=== PATIENT | male | born 1945 | race Caucasian/White ===

== ENCOUNTER → 2016-11-30 | Outpatient (CLI) | payer MEDICARE, BC ==
[2016-11-30 07:27] LABS: Basophils % (A) 0 %; CH 31.3; CHCM 35.4; Eosinophils # (A) 0.1 k/uL (0-0.7); Eosinophils % (A) 3 %; HCT 48.5 % (39.0-53.0); HGB 16.3 gm/dL (13.0-17.5); Luc # (Auto) 0.18; Luc % (Auto) 4; Lymphocytes # (A) 1.3 k/uL (1.0-4.8); Lymphocytes % (A) 25 %; MCH 29.9 pg (25.0-35.0); MCHC 33.6 g/dL (31.0-37.0); MCV 88.9 fL (80.0-100.0); Mean Platelet Volume 6.2; Monocytes # (A) 0.3 k/uL (0-1.0); Monocytes % (A) 7 %; Neutrophils # (A) 3.1 k/uL (1.3-7.7); Neutrophils % (A) 61 %; RBC 5.46 m/uL (4.30-5.90); RDW 14.1 % (11.5-15.5); WBC 5.1 k/uL (3.8-10.6); WBC (Perox) 4.94
[2016-11-30 12:45] LABS: ALT 75 U/L (21-72); AST 41 U/L (17-59); Alkaline Phosphatase 70 U/L (38-126); Anion Gap 9 mmol/L; Blood Urea Nitrogen 17 mg/dL (9-20); Calcium 9.4 mg/dL (8.4-10.2); Carbon Dioxide 31 mmol/L (22-30); Chloride 102 mmol/L (98-107); Cholesterol 101 mg/dL (<200); Glucose 97 mg/dL (74-99); HDL Cholesterol 26 mg/dL (40-60); Non-African American GFR(MDRD) >60 (>60 ml/min/1.73 sqM); Sodium 142 mmol/L (137-145); Total Bilirubin 0.9 mg/dL (0.2-1.3); Triglycerides 109 mg/dL (<150)
== END | disposition home or self-care (01) ==
LOC: LABWHC1 06:44
PROVIDERS: ATTEND Internal Medicine
DX: I10 Essential (primary) hypertension (principal); E78.2 Mixed hyperlipidemia; Z12.5 Encounter for screening for malignant neoplasm of prostate
CPT/HCPCS: 80061; 80053; 85025; 36415; G0103

== ENCOUNTER → 2016-12-09 | Outpatient (CLI) | payer MEDICARE, BC ==
[2016-12-09 10:13] LABS: Blood Urea Nitrogen 17 mg/dL (9-20); Non-African American GFR(MDRD) >60 (>60 ml/min/1.73 sqM)
--- NOTE | 2016-12-09 12:45 | CT ---
EXAMINATION TYPE: CT abdomen pelvis w con DATE OF EXAM: 12/09/2016 11:46 AM COMPARISON: NONE HISTORY: 70-year-old male LLQ ventral hernia TECHNIQUE: Contiguous axial scanning of the abdomen and pelvis following administration of 100 ml Omn ipaque 300 IV contrast. Delayed images through the kidneys and coronal/sagittal reconstructions perf ormed. CT DLP: 1199 mGycm Automated exposure control for dose reduction was used. FINDINGS: Heart is normal size without pericardial effusion. Strandy atelectasis or scarring at the posterior l eft lung base. No pleural effusion. There is a small hiatal hernia. No focal liver lesion. Mild prominence to the bile duct likely on the basis of postcholecystectomy st atus. Portal venous system is patent Adrenal glands, spleen, pancreas within normal limits. A couple punctate calculi suggested in the lower pole right kidney, axial image 34. Subcentimeter hyp odensity anterior mid pole right kidney and lateral lower pole left kidney are too small fractures CT characterization and probably represent cysts. There is circumaortic left renal vein. No dilated small bowel, free fluid, or free air. Scattered small mesenteric lymph nodes are noted shama suring up to 4 mm. No mesenteric or retroperitoneal lymphadenopathy. Oral contrast has progressed to the hepatic flexure. There is moderate stool burden and diffuse colonic diverticulosis greatest along the left hemicolon a nd proximal to mid sigmoid colon. There is mild pericolonic strandy density along the mid descending colon, axial image 42. No adjacent wall thickening is noted. Bladder urine distended. Prostate gland mildly enlarged at 4.6 cm wide. Previous ventral abdominal wall hernia repair. The abdominal wall remains intact without evidence for any recurrent hernia. No inguinal or femoral canal hernia seen. Bones: Mild degenerative changes of the hips and degenerative disc disease at L5-S1. No osseous destr uctive process. IMPRESSION: 1. Colonic diverticulosis greatest in the left hemicolon and proximal to mid sigmoid. There is mild p ericolonic stranding at the mid descending colon that could represent prominent pericolonic vessels o r mild acute diverticulitis. Clinically correlate. 2. Previous ventral abdominal wall hernia repair. No recurrent hernia. 3. Small hiatal hernia. 4. Mild prostatomegaly (4.6 cm wide).
== END ==
LOC: RADCTMAIN 09:17
PROVIDERS: ATTEND Surgery
DX: K44.9 Diaphragmatic hernia without obstruction or gangrene (principal); K57.30 Diverticulosis of large intestine without perforation or abscess without bleeding; N40.0 Benign prostatic hyperplasia without lower urinary tract symptoms
CPT/HCPCS: 82565; 84520; 74177; 36415; Q9967

== ENCOUNTER 2016-12-13 14:15 | Emergency (ER) | payer MEDICARE, BC ==
[2016-12-13] MEDS ORDERED: SODIUM CHLORIDE 0.9% 1,000 ML IV STA (15:27)
[2016-12-13] MEDS ORDERED: SODIUM CHLORIDE 0.9% 500 ML IV STA (15:27)
[2016-12-13] MEDS ORDERED: RX INFO: IV CONTRAST WAS GIVEN 1 EACH MISC MISCELLANE PRN (15:27)
--- NOTE | 2016-12-13 15:31 | ED ---
General Adult HPI - General Chief complaint: Abdominal Pain Stated complaint: Abd Pain Time Seen by Provider: 12/13/16 15:21 Source: patient, family, RN notes reviewed Mode of arrival: ambulatory Limitations: no limitations - History of Present Illness Initial comments: Patient is a pleasant 70-year-old male presenting to emergency Department complaining of abdominal discomfort. Onset of symptoms was 5 or 6 days ago. Patient had a CAT scan done 4 days ago showing possible diverticulitis. Patient is not on antibiotics at this time. Patient states symptoms have gotten worse since that time. Symptoms were worse prior to arrival. Patient did have 3 episodes of diarrhea with some improvement of symptoms. No blood. No fevers. Patient does have a history of diverticulitis and ruptured colon. - Related Data Home Medications Medication Instructions Recorded Confirmed Aspirin 81 mg PO HS 12/19/14 12/13/16 Hydrochlorothiazide [Hydrodiuril] 25 mg PO DAILY 12/19/14 12/13/16 Metoprolol Tartrate [Lopressor] 12.5 mg PO DAILY 12/19/14 12/13/16 Multivitamins, Thera [Multivitamin] 1 tab PO DAILY 12/19/14 12/13/16 Nitroglycerin Sl Tabs [Nitrostat] 0.4 mg PO Q5M PRN 12/19/14 12/13/16 Atorvastatin [Lipitor] 40 mg PO HS 12/13/16 12/13/16 Lisinopril [Zestril] 10 mg PO HS 12/13/16 12/13/16 Ubidecarenone [Co Q-10] 100 mg PO DAILY 12/13/16 12/13/16 Allergies Allergy/AdvReac Type Severity Reaction Status Date / Time Penicillins Allergy Anaphylaxis Verified 12/13/16 15:40 heparin AdvReac Rash/Hives Verified 12/13/16 15:40 ketorolac tromethamine AdvReac Twitching Verified 12/13/16 15:40 [From Toradol] prednisone AdvReac Muscle Verified 12/13/16 15:40 Spasms Review of Systems ROS Statement: Those systems with pertinent positive or pertinent negative responses have been documented in the HPI. ROS Other: All systems not noted in ROS Statement are negative. Constitutional: Denies: fever Eyes: Denies: eye pain ENT: Denies: ear pain Respiratory: Denies: cough Cardiovascular: Denies: chest pain Endocrine: Denies: fatigue Gastrointestinal: Reports: abdominal pain, diarrhea. Denies: nausea, vomiting, constipation Genitourinary: Denies: dysuria Musculoskeletal: Denies: back pain Skin: Denies: rash Neurological: Denies: weakness Past Medical History Past Medical History: Blood Disorder, Hypertension, Myocardial Infarction ([place]) Additional Past Medical History / Comment(s): 12/19/14 Pt presented to [facility] ER with c/o L sided chest pain. Other HX: Very [place], essential tremors R hand, mitral valve prolapse, melanoma, 2005 sub arachnoid bleed, 2009 shingelles R eye and face, Last Myocardial Infarction Date:: 2011 History of Any Multi-Drug Resistant Organisms: None Reported Past Surgical History: Cholecystectomy, Heart Catheterization With Stent, Hernia Repair, Orthopedic Surgery Additional Past Surgical History / Comment(s): 09/27 Ccath - vasospasms LMA, several hernia repairs- inguinal and abdominal one with mesh, eye surgery, colonoscopy, eyelid surgery for better vision, 1999 burst intestine-colostomy with eventual reversal, hemorrohoidectomy, 1969 L knee surgery for meniscus. Past Anesthesia/Blood Transfusion Reactions: No Reported Reaction Additional Past Anesthesia/Blood Transfusion Reaction / Comment(s): Pt has never received blood. Date of Last Stent Placement:: 2011 Past Psychological History: No Psychological Hx Reported Additional Psychological History / Comment(s): Pt lives with . He is independent. Smoking Status: Never smoker Past Alcohol Use History: None Reported Past Drug Use History: None Reported - Past Family History Father Family Medical History: Coronary Artery Disease (CAD) Additional Family Medical History / Comment(s): Father had 3 CABG's Mother Family Medical History: Cancer Additional Family Medical History / Comment(s): Mother of cancer General Exam Limitations: no limitations General appearance: alert, in no apparent distress Head exam: Present: atraumatic Eye exam: Present: normal appearance, PERRL ENT exam: Present: normal oropharynx Neck exam: Present: normal inspection Respiratory exam: Present: normal lung sounds bilaterally Cardiovascular Exam: Present: regular rate, normal rhythm Expanded Peripheral pulses: 2+: Posterior Tibialis (R), Posterior Tibialis (L) GI/Abdominal exam: Present: soft, tenderness (Moderate tenderness left lower quadrant), normal bowel sounds. Absent: distended, guarding, rebound, rigid, pulsatile mass Extremities exam: Present: normal inspection. Absent: pedal edema, calf tenderness Neurological exam: Present: alert Psychiatric exam: Present: normal affect, normal mood Skin exam: Absent: rash Course Vital Signs 12/13/16 12/13/16 12/13/16 14:30 15:30 16:00 Temperature 97.6 F Pulse Rate 89 81 77 Respiratory 20 20 18 Rate Blood Pressure 190/88 168/72 151/68 O2 Sat by Pulse 98 99 99 Oximetry 12/13/16 17:03 Temperature 97.9 F Pulse Rate 70 Respiratory 18 Rate Blood Pressure 158/86 O2 Sat by Pulse 97 Oximetry Medical Decision Making - Medical Decision Making Patient reexamined and states he does feel much better. Patient states symptoms are around 95% gone. Patient is comfortable with discharge home and does have follow-up already scheduled for Monday. - Lab Data Result diagrams: 12/13/16 15:45 12/13/16 15:45 Lab Results 12/13/16 12/13/16 12/13/16 Range/Units 15:45 15:45 15:45 WBC 5.7 (3.8-10.6) k/uL RBC 5.44 (4.30-5.90) m/uL Hgb 16.9 (13.0-17.5) gm/dL Hct 47.7 (39.0-53.0) % MCV 87.7 (80.0-100.0) fL MCH 31.0 (25.0-35.0) pg MCHC 35.4 (31.0-37.0) g/dL RDW 14.0 (11.5-15.5) % Plt Count 131 L (150-450) k/uL Neutrophils % 69 % Lymphocytes % 18 % Monocytes % 7 % Eosinophils % 2 % Basophils % 1 % Neutrophils # 3.9 (1.3-7.7) k/uL Lymphocytes # 1.1 (1.0-4.8) k/uL Monocytes # 0.4 (0-1.0) k/uL Eosinophils # 0.1 (0-0.7) k/uL Basophils # 0.0 (0-0.2) k/uL PT 11.0 (9.0-12.0) sec INR 1.1 (<1.1) APTT 25.1 (22.0-30.0) sec Sodium 141 (137-145) mmol/L Potassium 3.7 (3.5-5.1) mmol/L Chloride 102 (98-107) mmol/L Carbon Dioxide 28 (22-30) mmol/L Anion Gap 11 mmol/L BUN 14 (9-20) mg/dL Creatinine 0.87 (0.66-1.25) mg/dL Est GFR (MDRD) Af Amer >60 (>60 ml/min/1.73 sqM) Est GFR (MDRD) Non-Af >60 (>60 ml/min/1.73 sqM) Glucose 90 (74-99) mg/dL Calcium 9.9 (8.4-10.2) mg/dL Total Bilirubin 0.9 (0.2-1.3) mg/dL AST 33 (17-59) U/L ALT 47 (21-72) U/L Alkaline Phosphatase 63 (38-126) U/L Total Protein 7.7 (6.3-8.2) g/dL Albumin 4.5 (3.5-5.0) g/dL Amylase 70 (30-110) U/L Lipase 67 (23-300) U/L Urine Color Urine Appearance (Clear) Urine pH (5.0-8.0) Ur Specific Hale (1.001-1.035) Urine Protein (Negative) Urine Glucose (UA) (Negative) Urine Ketones (Negative) Urine Blood (Negative) Urine Nitrate (Negative) Urine Bilirubin (Negative) Urine Urobilinogen (<2.0) mg/dL Ur Leukocyte Esterase (Negative) 12/13/16 Range/Units 16:00 WBC (3.8-10.6) k/uL RBC (4.30-5.90) m/uL Hgb (13.0-17.5) gm/dL Hct (39.0-53.0) % MCV (80.0-100.0) fL MCH (25.0-35.0) pg MCHC (31.0-37.0) g/dL RDW (11.5-15.5) % Plt Count (150-450) k/uL Neutrophils % % Lymphocytes % % Monocytes % % Eosinophils % % Basophils % % Neutrophils # (1.3-7.7) k/uL Lymphocytes # (1.0-4.8) k/uL Monocytes # (0-1.0) k/uL Eosinophils # (0-0.7) k/uL Basophils # (0-0.2) k/uL PT (9.0-12.0) sec INR (<1.1) APTT (22.0-30.0) sec Sodium (137-145) mmol/L Potassium (3.5-5.1) mmol/L Chloride (98-107) mmol/L Carbon Dioxide (22-30) mmol/L Anion Gap mmol/L BUN (9-20) mg/dL Creatinine (0.66-1.25) mg/dL Est GFR (MDRD) Af Amer (>60 ml/min/1.73 sqM) Est GFR (MDRD) Non-Af (>60 ml/min/1.73 sqM) Glucose (74-99) mg/dL Calcium (8.4-10.2) mg/dL Total Bilirubin (0.2-1.3) mg/dL AST (17-59) U/L ALT (21-72) U/L Alkaline Phosphatase (38-126) U/L Total Protein (6.3-8.2) g/dL Albumin (3.5-5.0) g/dL Amylase (30-110) U/L Lipase (23-300) U/L Urine Color Light Yellow Urine Appearance Clear (Clear) Urine pH 6.0 (5.0-8.0) Ur Specific Hale 1.004 (1.001-1.035) Urine Protein Negative (Negative) Urine Glucose (UA) Negative (Negative) Urine Ketones Negative (Negative) Urine Blood Negative (Negative) Urine Nitrate Negative (Negative) Urine Bilirubin Negative (Negative) Urine Urobilinogen <2.0 (<2.0) mg/dL Ur Leukocyte Esterase Negative (Negative) - Radiology Data Radiology results: report reviewed (Computed tomography scan of the abdomen pelvis shows no acute process) Disposition Clinical Impression: Abdominal pain Disposition: HOME SELF-CARE Condition: Stable Instructions: Abdominal Pain (ED) Additional Instructions: Please follow-up Monday as planned. Also follow-up with your primary care physician. Return for increased pain, vomiting, fevers, bleeding, worsening symptoms or other concerns. Referrals: Messi Chao MD [Primary Care Provider] - 1-2 days Kim Cruz MD [STAFF PHYSICIAN] - 1-2 days
[2016-12-13 16:02] LABS: Basophils % (A) 1 %; CH 31.8; CHCM 36.5; Eosinophils # (A) 0.1 k/uL (0-0.7); Eosinophils % (A) 2 %; HCT 47.7 % (39.0-53.0); HDW 3.17; HGB 16.9 gm/dL (13.0-17.5); Luc # (Auto) 0.16; Luc % (Auto) 3; Lymphocytes # (A) 1.1 k/uL (1.0-4.8); Lymphocytes % (A) 18 %; MCHC 35.4 g/dL (31.0-37.0); MCV 87.7 fL (80.0-100.0); Mean Platelet Volume 7.2; Monocytes # (A) 0.4 k/uL (0-1.0); Monocytes % (A) 7 %; Neutrophils # (A) 3.9 k/uL (1.3-7.7); Neutrophils % (A) 69 %; RBC 5.44 m/uL (4.30-5.90); WBC 5.7 k/uL (3.8-10.6); WBC (Perox) 5.48
[2016-12-13 16:11] LABS: INR 1.1 (<1.1); Partial Thromboplastin Time 25.1 sec (22.0-30.0)
[2016-12-13 16:13] LABS: Appearance,Urine Clear (Clear); Bilirubin,Urine Negative (Negative); Glucose,Urine (UA) Negative (Negative); Ketones,Urine Negative (Negative); Leukocyte Esterase,Urine Negative (Negative); Nitrite,Urine Negative (Negative); Protein,Urine Negative (Negative); Specific Gravity,Urine 1.004 (1.001-1.035); UA Billing (MACRO vs. MICRO) CHEM; Urobilinogen,Urine <2.0 mg/dL (<2.0)
[2016-12-13 16:15] LABS: ALT 47 U/L (21-72); AST 33 U/L (17-59); Alkaline Phosphatase 63 U/L (38-126); Amylase 70 U/L (30-110); Anion Gap 11 mmol/L; Blood Urea Nitrogen 14 mg/dL (9-20); Calcium 9.9 mg/dL (8.4-10.2); Carbon Dioxide 28 mmol/L (22-30); Chloride 102 mmol/L (98-107); Glucose 90 mg/dL (74-99); Non-African American GFR(MDRD) >60 (>60 ml/min/1.73 sqM); Potassium 3.7 mmol/L (3.5-5.1); Sodium 141 mmol/L (137-145); Total Bilirubin 0.9 mg/dL (0.2-1.3); Total Protein 7.7 g/dL (6.3-8.2)
[2016-12-13 17:11] VITALS: RESP 18
--- NOTE | 2016-12-13 17:35 | CT ---
EXAMINATION TYPE: CT abdomen pelvis w con DATE OF EXAM: 12/13/2016 5:23 PM COMPARISON: 12/09/2016 HISTORY: PT states of severe abdominal pain. CT DLP: 510.5 mGycm Automated exposure control for dose reduction was used. TECHNIQUE: Helical acquisition of images was performed from the lung bases through the pelvis. CONTRAST: Performed without Oral Contrast and with IV Contrast, patient injected with 100 mL of Omnipaque 300. FINDINGS: There is mild linear density at the lung bases consistent with subsegmental atelectasis. There is no pleural effusion. Heart size is normal. Liver spleen pancreas appear normal. There are clips from cholecystectomy. Bile ducts are not dilated . There is no adrenal mass. Kidneys show satisfactory contrast opacification. There is no hydronephro sis. There are numerous diverticula in the left colon. I see no intestinal wall thickening. Bladder d istends smoothly. There is no sign of a pelvic mass. There is no ascites. There is no retroperitoneal adenopathy. I see no bony destructive process. Appendix is not seen. There is no sign of appendiciti s. IMPRESSION: THERE IS MODERATE COLONIC DIVERTICULOSIS WITHOUT EVIDENCE OF DIVERTICULITIS. NO ADVERSE CHANGE COMPAR ED TO OLD EXAM. PREVIOUS HERNIA SURGERY NOTED.
[2016-12-13 18:27] VITALS: BP 155/68; PULSE 73; TEMP 98.3
== END 2016-12-13 17:55 | disposition home or self-care (01) ==
LOC: EC 14:15
DX: R10.9 Unspecified abdominal pain (principal); I10 Essential (primary) hypertension; Z79.82 Long term (current) use of aspirin; Z79.899 Other long term (current) drug therapy; Z88.6 Allergy status to analgesic agent; Z88.0 Allergy status to penicillin; Z88.8 Allergy status to other drugs, medicaments and biological substances; I25.2 Old myocardial infarction; Z85.820 Personal history of malignant melanoma of skin; I34.1 Nonrheumatic mitral (valve) prolapse; Z95.5 Presence of coronary angioplasty implant and graft
CPT/HCPCS: 36415; 80053; 82150; 83690; 85025; 85610; 85730; 81003; 74177; 99284; 96360; 96361; Q9967; 99285

== ENCOUNTER → 2016-12-20 | Outpatient (CLI) | payer MEDICARE, BC ==
--- NOTE | 2016-12-20 13:34 | FL ---
EXAMINATION TYPE: FL UGI w small bowel DATE OF EXAM: 12/20/2016 10:10 AM COMPARISON: NONE HISTORY: Abdomen pain history of multiple abdominal surgeries, pain within the mid inferior periumbil ical region TECHNIQUE: A double air contrast UGI study is performed with small bowel follow through. FINDINGS: Allergist/Md image of the abdomen shows no gross abnormality. Postsurgical changes are evident. P soas margins are normal. Fecal debris is within the colon. The esophagus shows normal motility and emptying into the stomach. No evidence of hiatal hernia or s tricture noted. The stomach shows normal distensibility, peristalsis, and mucosal folds. No evidence of any mass or ulcer disease. No significant esophageal reflux was seen during real time performance of this study. The duodenal bulb and sweep are unremarkable. The small bowel study shows normal transit to the colon in less than 20 minutes. There is normal muc osal fold pattern throughout the small bowel. There is no evidence of any stricture or filling defec t noted. The terminal ileum is unremarkable. Under real-time observation peristalsis was evident throughout small bowel loops. Under compression t he small bowel loops appear to be freely mobile without fixation. No dilated small bowel loops are ev ident. The patient indicated pain in the infraumbilical region. These loops of bowel had normal peris talsis and were fully mobile during the exam. IMPRESSION: 1. Normal upper GI. 2. Rapid transit through the small bowel to the colon within 20 minutes. 3. Small bowel study otherwise appears normal.
== END | disposition home or self-care (01) ==
LOC: RADFLMAIN 08:41
PROVIDERS: ATTEND Surgery
DX: R10.84 Generalized abdominal pain (principal)
CPT/HCPCS: 74245

== ENCOUNTER 2017-05-18 22:01 | Inpatient (IN) | payer MEDICARE, BC ==
--- NOTE | 2017-05-18 22:16 | ED ---
Chest Pain [facility] - General Chief Complaint: Chest Pain Stated Complaint: chest pain Time Seen by Provider: 05/18/17 22:10 Source: patient Mode of arrival: wheelchair Limitations: no limitations - History of Present Illness Initial Comments: This patient is 71-year-old man with history of previous coronary artery disease and 3 stents placed, who presents with chest pain that he states is all across his chest like a band. He states it feels like someone is tightening a wire around his chest. He states it is been going on intermittently nearly a week ago it is worse today for most of the day. Patient states that the pain was moderate. It does radiate to the left upper extremity. He did take some nitroglycerin and it is improved. He did not notice any other worsening or relieving factors. MD Complaint: chest pain -: days(s) Onset: during rest Pain Location: left chest, right chest Pain Radiation: LUE Severity: moderate Quality: tightness Consistency: intermittent Improves With: nitroglycerin Worsens With: nothing Treatments Prior to Arrival: nitroglycerin - Related Data Home Medications Medication Instructions Recorded Confirmed Multivitamins, Thera [Multivitamin 1 tab PO DAILY 12/19/14 06/04/17 (formulary)] Atorvastatin [Lipitor] 40 mg PO HS 12/13/16 06/04/17 Acetaminophen Tab [Tylenol Tab] 500 mg PO Q6H PRN 06/04/17 06/04/17 Lisinopril [Zestril] 5 mg PO DAILY 06/04/17 06/04/17 Sennosides-Docusate Sodium 2 tab PO HS 06/04/17 06/04/17 [Senokot-S] Previous Rx's Medication Instructions Recorded Aspirin 325 mg PO DAILY #30 tab 05/21/17 Clopidogrel [Plavix] 75 mg PO DAILY #30 tab 05/30/17 Metoprolol Tartrate [Lopressor] 75 mg PO BID #120 tab 05/30/17 Pantoprazole [Protonix] 40 mg PO DAILY #30 tab 05/30/17 Polyethylene Glycol 3350 [Miralax] 17 gm PO DAILY #527 gm 06/05/17 Allergies Allergy/AdvReac Type Severity Reaction Status Date / Time Penicillins Allergy Anaphylaxis Verified 06/04/17 21:46 ketorolac tromethamine AdvReac Twitching Verified 06/04/17 21:46 [From Toradol] prednisone AdvReac Muscle Verified 06/04/17 21:46 Spasms Review of Systems ROS Statement: Those systems with pertinent positive or pertinent negative responses have been documented in the HPI. ROS Other: All systems not noted in ROS Statement are negative. Constitutional: Denies: fever, chills Respiratory: Denies: cough, dyspnea Cardiovascular: Reports: chest pain. Denies: palpitations, edema, syncope Gastrointestinal: Denies: abdominal pain, nausea, vomiting, melena, hematochezia Genitourinary: Denies: dysuria Musculoskeletal: Denies: back pain Skin: Denies: rash Neurological: Denies: headache, weakness, numbness EKG Findings - EKG Results: EKG: interpreted by JETT JOSEPH, sinus rhythm (Rate 68 bpm), normal axis, normal QRS, normal ST/T, no acute changes - [place], Pacemaker, Normal: Normal tracing: normal tracing Past Medical History Past Medical History: Blood Disorder, Hypertension, Myocardial Infarction ([place]) Additional Past Medical History / Comment(s): 12/19/14 Pt presented to [facility] ER with c/o L sided chest pain. Other HX: Very [place], essential tremors R hand, mitral valve prolapse, melanoma, 2005 sub arachnoid bleed, 2009 shingelles R eye and face, Last Myocardial Infarction Date:: 2011 History of Any Multi-Drug Resistant Organisms: None Reported Past Surgical History: Cholecystectomy, Heart Catheterization With Stent, Hernia Repair, Orthopedic Surgery Additional Past Surgical History / Comment(s): 09/27 Cca - vasospasms LMA, several hernia repairs- inguinal and abdominal one with mesh, eye surgery, colonoscopy, eyelid surgery for better vision, 1999 burst intestine-colostomy with eventual reversal, hemorrohoidectomy, 1970 L knee surgery for meniscus. Past Anesthesia/Blood Transfusion Reactions: No Reported Reaction Additional Past Anesthesia/Blood Transfusion Reaction / Comment(s): Pt has never received blood. Date of Last Stent Placement:: 2011 Past Psychological History: No Psychological Hx Reported Smoking Status: Never smoker Past Alcohol Use History: None Reported Past Drug Use History: None Reported - Past Family History Father Family Medical History: Coronary Artery Disease (CAD) Additional Family Medical History / Comment(s): Father had 3 CABG's Mother Family Medical History: Cancer Additional Family Medical History / Comment(s): Mother of cancer Brother(s) Family Medical History: Myocardial Infarction ([place]) General Exam Limitations: no limitations General appearance: alert, in no apparent distress Head exam: Present: atraumatic, normocephalic Eye exam: Present: normal appearance. Absent: scleral icterus, conjunctival injection ENT exam: Present: normal oropharynx Neck exam: Present: normal inspection, full ROM Respiratory exam: Present: normal lung sounds bilaterally. Absent: respiratory distress, wheezes, rales, rhonchi, stridor Cardiovascular Exam: Present: regular rate, normal rhythm, normal heart sounds. Absent: systolic murmur, diastolic murmur, rubs, gallop GI/Abdominal exam: Present: soft. Absent: distended, tenderness, guarding, rebound Extremities exam: Present: normal inspection, normal capillary refill. Absent: pedal edema, calf tenderness Back exam: Present: normal inspection. Absent: CVA tenderness (R), CVA tenderness (L) Neurological exam: Present: alert Skin exam: Present: warm, dry, intact, normal color. Absent: rash Course Vital Signs 05/18/17 05/18/17 05/18/17 22:10 22:23 23:01 Temperature 97.5 F L Pulse Rate 76 63 64 Respiratory 76 H 20 18 Rate Blood Pressure 173/86 160/78 123/73 O2 Sat by Pulse 97 97 98 Oximetry 05/19/17 05/19/17 00:05 00:53 Temperature 97.2 F L Pulse Rate 57 L 57 L Respiratory 20 20 Rate Blood Pressure 103/58 131/73 O2 Sat by Pulse 98 98 Oximetry Disposition Clinical Impression: Chest pain Disposition: ADMITTED IP TO THIS HOSP Condition: Good
[2017-05-18] MEDS ORDERED: ASPIRIN 81 MG PO STA (22:26)
[2017-05-18 22:41] LABS: Basophils % (A) 0 %; CH 31.7; CHCM 36.3; Eosinophils # (A) 0.2 k/uL (0-0.7); Eosinophils % (A) 2 %; HCT 46.5 % (39.0-53.0); HDW 3.18; HGB 16.8 gm/dL (13.0-17.5); Luc # (Auto) 0.21; Luc % (Auto) 3; Lymphocytes # (A) 1.6 k/uL (1.0-4.8); Lymphocytes % (A) 24 %; MCH 31.7 pg (25.0-35.0); MCV 87.8 fL (80.0-100.0); Mean Platelet Volume 6.4; Monocytes # (A) 0.5 k/uL (0-1.0); Monocytes % (A) 8 %; Neutrophils % (A) 62 %; RDW 13.6 % (11.5-15.5); WBC 6.5 k/uL (3.8-10.6); WBC (Perox) 6.58
[2017-05-18 22:55] LABS: INR 1.1 (<1.2); Partial Thromboplastin Time 25.9 sec (22.0-30.0); Prothrombin Time 10.9 sec (9.0-12.0)
[2017-05-18 22:56] LABS: ALT 59 U/L (21-72); AST 33 U/L (17-59); Alkaline Phosphatase 70 U/L (38-126); Anion Gap 8 mmol/L; Blood Urea Nitrogen 16 mg/dL (9-20); Calcium 9.1 mg/dL (8.4-10.2); Carbon Dioxide 29 mmol/L (22-30); Chloride 102 mmol/L (98-107); Glucose 104 mg/dL (74-99); Magnesium 2.2 mg/dL (1.6-2.3); Non-African American GFR(MDRD) >60 (>60 ml/min/1.73 sqM); Potassium 3.8 mmol/L (3.5-5.1); Sodium 139 mmol/L (137-145); Total Bilirubin 0.7 mg/dL (0.2-1.3); Total Protein 7.2 g/dL (6.3-8.2)
[2017-05-18 23:05] LABS: Creatine Kinase 65 U/L (55-170)
--- NOTE | 2017-05-18 23:17 | XR ---
EXAM: XR Chest, 1 View CLINICAL HISTORY: Reason: chest pain TECHNIQUE: Frontal view of the chest. COMPARISON: Chest radiography 12/19/14 FINDINGS: Lungs: Mild subsegmental atelectasis at the bases. No consolidation. Pleural space: Unremarkable. No pneumothorax. Heart: Unremarkable. No cardiomegaly. Mediastinum: Unremarkable. Bones/joints: Unremarkable. IMPRESSION: No acute disease.
[2017-05-18 23:18] LABS: Troponin I <0.012 ng/mL (0.000-0.034)
[2017-05-19] MEDS ORDERED: NITROGLYCERIN SL TABS 0.4 MG TAB SUBLINGUAL PRN (00:32)
[2017-05-19] MEDS: SODIUM CHLORIDE 0.9% 1,000 ML IV SCH (00:52)
[2017-05-19 06:21] LABS: Creatine Kinase 61 U/L (55-170)
[2017-05-19 06:34] LABS: Creatine Kinase MB 0.9 ng/mL (0.0-2.4); Troponin I <0.012 ng/mL (0.000-0.034)
[2017-05-19] MEDS ORDERED: NON-FORMULARY DRUG (Ubidecarenone [Co Q-10] 100 MG) PO SCH (09:00)
[2017-05-19] MEDS ORDERED: METOPROLOL TARTRATE 25 MG TAB PO SCH (09:00)
[2017-05-19] MEDS ORDERED: ATORVASTATIN 80 MG TAB PO STA (10:38)
[2017-05-19] MEDS ORDERED: ASPIRIN 325 MG TAB PO STA (10:38)
[2017-05-19] MEDS ORDERED: SODIUM CHLORIDE 0.9% 1,000 ML in EMPTY BAG 1 BAG IV ONE (10:38)
[2017-05-19] MEDS ORDERED: ALPRAZolam 0.5 MG TAB PO PRN (10:38)
[2017-05-19] MEDS ORDERED: SODIUM CITRATE MISCELLANE ONE ×2 (10:45→15:00)
[2017-05-19] MEDS ORDERED: LIDOCAINE 2% INJ 20 MG/ML (20 ML MDV) ONE ×2 (10:50→16:22)
[2017-05-19] MEDS ORDERED: fentaNYL (PF) 50 MCG/ML 2 ML AMP ONE (10:50)
[2017-05-19] MEDS ORDERED: MIDAZOLAM 2 MG/2 ML VIAL ONE ×2 (10:50→16:22)
[2017-05-19 11:11] LABS: Creatine Kinase 64 U/L (55-170)
[2017-05-19] MEDS: fentaNYL (PF) 50 MCG/ML 2 ML AMP IV ONE ×2 (11:12→11:47)
[2017-05-19] MEDS: MIDAZOLAM 2 MG/2 ML VIAL IV ONE ×2 (11:12→11:19)
[2017-05-19] MEDS ORDERED: IV FLUID CONTINUATION 1,000 ML IV ONE (11:13)
[2017-05-19] MEDS ORDERED: LIDOCAINE 2% INJ 20 MG/ML SQ ONE ×2 (11:15→16:37)
[2017-05-19] MEDS ORDERED: NITROGLYCERIN 1000MCG/10ML SYRINGE INTRACORON ONE (11:21)
[2017-05-19 11:24] LABS: Troponin I <0.012 ng/mL (0.000-0.034)
[2017-05-19] MEDS ORDERED: IOHEXOL 350 MG/ML 125ML BOTTLE INJ ONE ×2 (11:31→12:11)
--- NOTE | 2017-05-19 11:57 | P.PCN ---
Date of Procedure: 05/19/17 Preoperative Diagnosis: Unstable angina Postoperative Diagnosis: Patent stent in the LAD and also RCA. Moderate disease in the left main especially the distal portion. A stable disease in the circumflex Procedure(s) Performed: Left heart catheterization without left ventriculography Implants: Indications for Procedure: Operative Findings: Description of Procedure: HISTORY: This is a 71-year-old gentleman with history of ischemic heart disease and previous stent placement of the RCA and also left anterior descending coronary artery. Patient has history of mild to moderate disease in the left main in the past. Patient is admitted with chest pain to the hospital. His cardiac enzymes and EKGs are negative. is difficult to of assess the chest pain accurately but there is suspicion for unstable angina. Cardiac catheterization is recommended by Dr. VC Aparicio. CONSENT: Dr. VC Aparicio has discussed the risks, benefits and alternative therapies for the above-mentioned procedure and for both sedation/analgesia as well as necessary blood product administration, if indicated, as they pertain to this patient. The patient has indicated understanding and acceptance of the risks and procedures discussed. PROCEDURE: Patient was brought to the lab in a fasting state. Patient was given some IV sedation. The right groin is infiltrated with lidocaine and right femoral artery was entered using Seldinger technique. A 6-Kiswahili catheter was left in place and selective coronary arteriography was performed. Patient tolerated the procedure well. Femoral angiogram was performed . Patient is waiting to have IVUS of the left main by Dr. Tate because there is a suspicious left main disease. Conscious Sedation: Versed 1 mg Fentanyl 50 g Duration : 22 minutes HEMODYNAMICS: . The aortic pressure was 160/90 and subsequently came down to 130/80. Left ankle end-diastolic pressure is about 8-12. There was no gradient across the aortic valve SELECTIVE CORONARY ARTERIOGRAPHY: LEFT MAIN: Normal length. Appears smaller than the LAD in size throat its length. The distal left main seem to have about 50-60% stenosis. This is going to be further evaluated by IVUS by Dr. Tate. THE LEFT ANTERIOR DESCENDING CORONARY ARTERY: This is a good caliber vessel with patent stent in the proximal portion. It gives rise to moderate caliber first diagonal and septal branch which has diffuse disease. No significant focal disease noted in the LAD THE LEFT CIRCUMFLEX AND IS CORONARY ARTERY: . This is a moderate caliber vessel with a stable disease with 50-60% stenosis of the OM branch and also distal circumflex THE RIGHT CORONARY ARTERY: Patent stent in the RCA. The distal vessel is free of occlusive disease LEFT VENTRICULOGRAPHY: . Not performed FINAL IMPRESSION: , Coronary artery disease with a moderate disease in the left main. The significance of this is not clear and patient is going to have an IVUS study. The stents in the LAD and RCA are patent. There is intubated disease in the circumflex which is stable PLAN: IVUS of the left main. Continue medical therapy PROGNOSIS: . Fair
--- NOTE | 2017-05-19 12:08 | ECHOF ---
Referral Reason:chest pain MEASUREMENTS -------- HEIGHT: 172.7 cm WEIGHT: 74.8 kg BP: 133/71 RVIDd: 3.4 cm (< 3.3) IVSd: 1.2 cm (0.6 - 1.1) LVIDd: 4.6 cm (3.9 - 5.3) LVPWd: 1.3 cm (0.6 - 1.1) IVSs: 1.6 cm LVIDs: 3.4 cm LVPWs: 1.8 cm LA Diam: 3.7 cm (2.7 - 3.8) LAESV Index (A-L): 24.53 ml/m Ao Diam: 3.5 cm (2.0 - 3.7) AV Cusp: 2.2 cm (1.5 - 2.6) MV EXCURSION: 19.848 mm (> 18.000) MV EF SLOPE: 123 mm/s (70 - 150) MV E Bossman: 0.76 m/s MV DecT: 233 ms MV A Bossman: 0.66 m/s MV E/A Ratio: 1.14 FINDINGS -------- Sinus rhythm. This was a technically good study. The left ventricular size is normal. There is mild concentric left ventricular hypertrophy. Overall left ventricular systolic function is normal with, an EF between 60 - 65 %. The right ventricle is mildly enlarged. Normal LA size by volume 22+/-6 ml/m2. The right atrium is normal in size. The aortic valve is trileaflet and appears structurally normal. Mild mitral regurgitation is present. The tricuspid valve appears structurally normal. No regurgitation noted Trace/mild (physiologic) pulmonic regurgitation. The aortic root size is normal. Normal inferior vena cava with normal inspiratory collapse consistent with estimated right atrial pressure of 5 mmHg. There is no pericardial effusion. CONCLUSIONS -------- 1. Sinus rhythm. 2. Mild mitral regurgitation is present. 3. The tricuspid valve appears structurally normal. 4. No regurgitation noted 5. Trace/mild (physiologic) pulmonic regurgitation. 6. The aortic root size is normal. 7. Normal inferior vena cava with normal inspiratory collapse consistent with estimated right atrial pressure of 5 mmHg. 8. There is no pericardial effusion. 9. This was a technically good study. 10. The left ventricular size is normal. 11. There is mild concentric left ventricular hypertrophy. 12. Overall left ventricular systolic function is normal with, an EF between 60 - 65 %. 13. The right ventricle is mildly enlarged. 14. Normal LA size by volume 22+/-6 ml/m2. 15. The right atrium is normal in size. 16. The aortic valve is trileaflet and appears structurally normal. DAIRY HUSBANDRY WORKER: Nai Reynoso RDCS
--- NOTE | 2017-05-19 13:28 | P.CRDCN ---
History of Present Illness Consult date: 05/19/17 History of present illness: This is a 71-year-old male. He has a significant history for coronary artery disease with history of [address] Granados. His last office visit was approximately 6 months ago. He presents to the emergency department with complaints of increased fatigue over the previous week. Yesterday he was standing in the kitchen and he felt extreme chest pain described as a wire wrapping around his chest and tightening. This chest pain was accompanied by extreme shortness of breath and nausea. He took sublingual nitroglycerin at home and the pain appeared to get mildly better. He proceeded to do yard work for the remainder of the day. He was playing cards with friends later in the evening when the pain came back again with shortness of breath. He took another nitroglycerin tablet which made the pain slightly better but was still there. He states the pain radiated down into the left upper arm and mid scapular region. He states this pain is very similar to his previous heart attack. His home medications include Lopressor 12.5 milligrams daily, lisinopril 10 mg daily, hydrochlorothiazide 25 mg daily, Lipitor 20 mg daily and aspirin 81 mg daily. Patient states he does get some leg cramping from the Lipitor and cannot tolerate higher dose. Review of Systems REVIEW OF SYSTEMS: Upon exam today patient denies any chest discomfort. No shortness of breath. No diaphoresis. He denies headache, dizziness, blurred vision, double vision. No dyspnea on exertion. Patient denies any stomach discomfort. No nausea, vomiting. No hematochezia. No hematemesis. Denies any black stools or blood in his stools. No syncope. No palpitations. No cough. No recent fever or chills. Denies dysuria or hematuria. No muscle weakness or numbness. Past Medical History Past Medical History: Blood Disorder, Hypertension, Myocardial Infarction ([place]) Additional Past Medical History / Comment(s): 12/19/14 Pt presented to [facility] ER with c/o L sided chest pain. Other HX: Very [place], essential tremors R hand, mitral valve prolapse, 2005 sub arachnoid bleed, 2009 shingelles R eye and face , diverticulosis Last Myocardial Infarction Date:: 2011 History of Any Multi-Drug Resistant Organisms: None Reported Past Surgical History: Cholecystectomy, Heart Catheterization With Stent, Hernia Repair, Orthopedic Surgery Additional Past Surgical History / Comment(s): 09/27 Ccath - vasospasms LMA, several hernia repairs- inguinal and abdominal one with mesh, eye surgery, colonoscopy, eyelid surgery for better vision, 1999 burst intestine-colostomy with eventual reversal, hemorrohoidectomy, 1970 L knee surgery for meniscus. Past Anesthesia/Blood Transfusion Reactions: No Reported Reaction Additional Past Anesthesia/Blood Transfusion Reaction / Comment(s): Pt has never received blood. Date of Last Stent Placement:: 2011 Past Psychological History: No Psychological Hx Reported Additional Psychological History / Comment(s): Pt lives with . He is independent. Smoking Status: Never smoker Past Alcohol Use History: None Reported Past Drug Use History: None Reported - Past Family History Father Family Medical History: Coronary Artery Disease (CAD) Additional Family Medical History / Comment(s): Father had 3 CABG's Mother Family Medical History: Cancer Additional Family Medical History / Comment(s): Mother of cancer Medications and Allergies Home Medications Medication Instructions Recorded Confirmed Type Aspirin 81 mg PO HS 12/19/14 05/19/17 History Hydrochlorothiazide [Hydrodiuril] 25 mg PO DAILY 12/19/14 05/19/17 History Metoprolol Tartrate [Lopressor] 12.5 mg PO DAILY 12/19/14 05/19/17 History Multivitamins, Thera [Multivitamin 1 tab PO DAILY 12/19/14 05/19/17 History (formulary)] Nitroglycerin Sl Tabs [Nitrostat] 0.4 mg PO Q5M PRN 12/19/14 05/19/17 History Atorvastatin [Lipitor] 20 mg PO HS 12/13/16 05/19/17 History Lisinopril [Zestril] 10 mg PO HS 12/13/16 05/19/17 History Ubidecarenone [Co Q-10] 100 mg PO DAILY 12/13/16 05/19/17 History Allergies Allergy/AdvReac Type Severity Reaction Status Date / Time Penicillins Allergy Anaphylaxis Verified 05/19/17 01:21 heparin AdvReac Rash/Hives Verified 05/19/17 01:21 ketorolac tromethamine AdvReac Twitching Verified 05/19/17 01:21 [From Toradol] prednisone AdvReac Muscle Verified 05/19/17 01:21 Spasms Physical Exam Vitals: Vital Signs Temp Pulse Pulse Resp BP BP Pulse Ox 05/19/17 08:00 97.6 F 67 18 133/71 97 05/19/17 04:00 97.6 F 66 16 121/74 96 05/19/17 01:49 16 05/19/17 01:22 97.7 F 60 16 140/83 97 05/19/17 00:53 97.2 F L 57 L 20 131/73 98 05/19/17 00:05 57 L 20 103/58 98 05/18/17 23:01 64 18 123/73 98 05/18/17 22:23 63 20 160/78 97 05/18/17 22:10 97.5 F L 76 76 H 173/86 97 Intake and Output 05/18/17 05/19/17 05/19/17 22:59 06:59 14:59 Other: Voiding Method Toilet # Voids 2 Weight 74.843 kg GENERAL: This is a 71-year-old male in no apparent distress at the time of my examination. HEENT: Head is atraumatic, normocephalic. Pupils are equal, round. Sclerae anicteric. Conjunctivae are clear. Mucous membranes of the mouth are moist. Neck is supple. There is no jugular venous distention. No carotid bruit is heard. LUNGS: Clear to auscultation no wheezes, rales or rhonchi. No chest wall tenderness is noted on palpation or with deep breathing. HEART: Regular rate and rhythm without murmurs, rubs or gallops. S1 and S2 heard. ABDOMEN: Soft, nontender. Bowel sounds are heard. No organomegaly noted. EXTREMITIES: 2+ peripheral pulses with no evidence of peripheral edema and no calf tenderness noted. NEUROLOGIC: Patient is awake, alert and oriented x3. Results 05/18/17 22:20 05/18/17 22:20 Cardiac Enzymes 05/18/17 05/18/17 05/19/17 Range/Units 22:20 22:20 05:37 AST 33 (17-59) U/L CK-MB (CK-2) 1.0 0.9 (0.0-2.4) ng/mL Troponin I <0.012 <0.012 (0.000-0.034) ng/mL Coagulation 05/18/17 Range/Units 22:20 PT 10.9 (9.0-12.0) sec APTT 25.9 (22.0-30.0) sec CBC 05/18/17 Range/Units 22:20 WBC 6.5 (3.8-10.6) k/uL RBC 5.30 (4.30-5.90) m/uL Hgb 16.8 (13.0-17.5) gm/dL Hct 46.5 (39.0-53.0) % Plt Count 111 L (150-450) k/uL Comprehensive Metabolic Panel 05/18/17 Range/Units 22:20 Sodium 139 (137-145) mmol/L Potassium 3.8 (3.5-5.1) mmol/L Chloride 102 (98-107) mmol/L Carbon Dioxide 29 (22-30) mmol/L BUN 16 (9-20) mg/dL Creatinine 0.91 (0.66-1.25) mg/dL Glucose 104 H (74-99) mg/dL Calcium 9.1 (8.4-10.2) mg/dL AST 33 (17-59) U/L ALT 59 (21-72) U/L Alkaline Phosphatase 70 (38-126) U/L Total Protein 7.2 (6.3-8.2) g/dL Albumin 4.2 (3.5-5.0) g/dL Current Medications Generic Name Dose Route Start Last Admin Trade Name Freq PRN Reason Stop Dose Admin Aspirin 325 mg 05/20/17 09:00 Aspirin PO DAILY [facility] Atorvastatin Calcium 40 mg 05/19/17 21:00 Lipitor PO HS [facility] Hydrochlorothiazide 25 mg 05/19/17 09:00 Hydrodiuril PO DAILY [facility] Sodium Chloride 1,000 mls @ 20 mls/hr 05/19/17 00:45 05/19/17 00:52 Saline 0.9% IV 20 mls/hr .Q24H MIMI Administration Lisinopril 10 mg 05/19/17 21:00 Zestril PO HS [facility] Metoprolol Tartrate 12.5 mg 05/19/17 09:00 Lopressor PO DAILY [facility] Multivitamins 1 each 05/19/17 09:00 Theragran PO DAILY [facility] Nitroglycerin 0.4 mg 05/19/17 00:32 Nitrostat SUBLINGUAL Q5M PRN Chest Pain Intake and Output 05/18/17 05/19/17 05/19/17 22:59 06:59 14:59 Other: Voiding Method Toilet # Voids 2 Weight 74.843 kg 05/18/17 22:20 05/18/17 22:20 - EKG Interpretation EKG: sinus rhythm, normal ST/T, no acute changes Assessment and Plan Plan: ASSESSMENT 1. Chest pain, suggestive of an acute coronary syndrome 2. 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 Granados. We recommend he proceed with cardiac catheterization to assess for coronary artery stenosis. We will order an echocardiogram prior to the procedure.I have discussed the risks, benefits and alternative therapies for the above-mentioned procedure and for both sedation/analgesia as well as necessary blood product administration, if indicated, as they pertain to this patient. The patient has indicated understanding and acceptance of the risks and procedures discussed. Nurse Practitioner note has been reviewed, I agree with a documented findings and plan of care. Patient was seen and examined.
[2017-05-19] MEDS ORDERED: IV FLUID CONTINUATION 450 ML IV ONE (16:05)
[2017-05-19] MEDS ORDERED: MIDAZOLAM 2 MG/2 ML VIAL IVP ONE (16:36)
[2017-05-19] MEDS ORDERED: BIVALIRUDIN BOLUS 250 MG/50 ML IV ONE (16:42)
[2017-05-19] MEDS ORDERED: BIVALIRUDIN 250 MG in SODIUM CHLORIDE 0.9% 50 ML IV ONE (16:43)
[2017-05-19] MEDS ORDERED: IOHEXOL 350 MG/ML 100 ML BOTTLE INJ ONE (16:55)
[2017-05-19] MEDS ORDERED: RX INFO: IV CONTRAST WAS GIVEN 1 EACH MISC MISCELLANE PRN (16:58)
[2017-05-19] MEDS ORDERED: SODIUM CHLORIDE 0.9% 1,000 ML IV SCH (17:00)
--- NOTE | 2017-05-19 17:02 | P.HPIM ---
History of Present Illness 71-year-old gentleman with previous history of coronary artery disease and 3 stents placed in the past given with complaints of chest pain similar to the pain when he had a myocardial infarction improved with rest and nitroglycerin in patient pain was about 8 x 10 in severity came down to 3-4 x 10 in severity after nitroglycerin pain severe pain lasted about 2-3 minutes in moderate pain lasted all day yesterday. Patient pain is like chest tightening with some shortness of breath and nausea denied any excessive diaphoresis, and patient denied any cough patient's chest pain is nonpruritic in nature, denied any fever chills. Patient underwent cardia catheterization which showed moderate disease in LAD and patient will undergo repeat cardiac catheterization checking for FFR and decision regarding surgical intervention are stenting depending on the results of FFR. Review of Systems REVIEW OF SYSTEMS: CONSTITUTIONAL: No fever, no malaise, no fatigue. HEENT: No recent visual problems or hearing problems. Denied any sore throat. CARDIOVASCULAR: No orthopnea, PND, no palpitations, no syncope. PULMONARY:, no cough, no hemoptysis. GASTROINTESTINAL: No diarrhea, no nausea, no vomiting, no abdominal pain. Normoactive bowel sounds. NEUROLOGICAL: No headaches, no weakness, no numbness. HEMATOLOGICAL: Denies any bleeding or petechiae. GENITOURINARY: Denies any burning micturition, frequency, or urgency. MUSCULOSKELETAL/RHEUMATOLOGICAL: Denies any joint pain, swelling, or any muscle pain. ENDOCRINE: Denies any polyuria or polydipsia. The rest of the 14-point review of systems is negative. Past Medical History Past Medical History: Blood Disorder, Hypertension, Myocardial Infarction ([place]) Additional Past Medical History / Comment(s): 12/19/14 Pt presented to [facility] ER with c/o L sided chest pain. Other HX: Very IGI[place], essential tremors R hand, mitral valve prolapse, 2005 sub arachnoid bleed, 2009 shingelles R eye and face , diverticulosis Last Myocardial Infarction Date:: 2011 History of Any Multi-Drug Resistant Organisms: None Reported Past Surgical History: Cholecystectomy, Heart Catheterization With Stent, Hernia Repair, Orthopedic Surgery Additional Past Surgical History / Comment(s): 09/27 Ccath - vasospasms LMA, several hernia repairs- inguinal and abdominal one with mesh, eye surgery, colonoscopy, eyelid surgery for better vision, 1999 burst intestine-colostomy with eventual reversal, hemorrohoidectomy, 1970 L knee surgery for meniscus. Past Anesthesia/Blood Transfusion Reactions: No Reported Reaction Additional Past Anesthesia/Blood Transfusion Reaction / Comment(s): Pt has never received blood. Date of Last Stent Placement:: 2011 Past Psychological History: No Psychological Hx Reported Additional Psychological History / Comment(s): Pt lives with . He is independent. Smoking Status: Never smoker Past Alcohol Use History: None Reported Past Drug Use History: None Reported - Past Family History Father Family Medical History: Coronary Artery Disease (CAD) Additional Family Medical History / Comment(s): Father had 3 CABG's Mother Family Medical History: Cancer Additional Family Medical History / Comment(s): Mother of cancer Medications and Allergies Home Medications Medication Instructions Recorded Confirmed Type Aspirin 81 mg PO HS 12/19/14 05/19/17 History Hydrochlorothiazide [Hydrodiuril] 25 mg PO DAILY 12/19/14 05/19/17 History Metoprolol Tartrate [Lopressor] 12.5 mg PO DAILY 12/19/14 05/19/17 History Multivitamins, Thera [Multivitamin 1 tab PO DAILY 12/19/14 05/19/17 History (formulary)] Nitroglycerin Sl Tabs [Nitrostat] 0.4 mg PO Q5M PRN 12/19/14 05/19/17 History Atorvastatin [Lipitor] 20 mg PO HS 12/13/16 05/19/17 History Lisinopril [Zestril] 10 mg PO HS 12/13/16 05/19/17 History Ubidecarenone [Co Q-10] 100 mg PO DAILY 12/13/16 05/19/17 History Allergies Allergy/AdvReac Type Severity Reaction Status Date / Time Penicillins Allergy Anaphylaxis Verified 05/19/17 01:21 heparin AdvReac Rash/Hives Verified 05/19/17 01:21 ketorolac tromethamine AdvReac Twitching Verified 05/19/17 01:21 [From Toradol] prednisone AdvReac Muscle Verified 05/19/17 01:21 Spasms Physical Exam Vitals: Vital Signs Temp Pulse Pulse Resp BP BP Pulse Ox 05/19/17 15:39 18 140/79 97 05/19/17 14:45 18 153/80 97 05/19/17 13:45 18 152/79 97 05/19/17 13:15 18 133/73 97 05/19/17 13:00 18 144/77 97 05/19/17 12:45 20 133/80 97 05/19/17 12:30 18 147/81 97 05/19/17 08:00 97.6 F 67 18 133/71 97 05/19/17 04:00 97.6 F 66 16 121/74 96 05/19/17 01:49 16 05/19/17 01:22 97.7 F 60 16 140/83 97 05/19/17 00:53 97.2 F L 57 L 20 131/73 98 05/19/17 00:05 57 L 20 103/58 98 05/18/17 23:01 64 18 123/73 98 05/18/17 22:23 63 20 160/78 97 05/18/17 22:10 97.5 F L 76 76 H 173/86 97 Intake and Output 05/19/17 05/19/17 05/19/17 06:59 14:59 22:59 Intake Total 100 192.7 Balance 100 192.7 Intake: IV 100 192.7 Other: Voiding Method Toilet Toilet # Voids 2 PHYSICAL EXAMINATION: GENERAL: The patient is alert and oriented x3, not in any acute distress. Well developed, well nourished. HEENT: Pupils are round and equally reacting to light. EOMI. No scleral icterus. No conjunctival pallor. Normocephalic, atraumatic. No pharyngeal erythema. No thyromegaly. CARDIOVASCULAR: S1 and S2 present. No murmurs, rubs, or gallops. PULMONARY: Chest is clear to auscultation, no wheezing or crackles. ABDOMEN: Soft, nontender, nondistended, normoactive bowel sounds. No palpable organomegaly. MUSCULOSKELETAL: No joint swelling or deformity. EXTREMITIES: No cyanosis, clubbing, or pedal edema. NEUROLOGICAL: Gross neurological examination did not reveal any focal deficits. SKIN: No rashes. Results CBC & Chem 7: 05/18/17 22:20 05/18/17 22:20 Labs: Abnormal Lab Results - Last 24 Hours (Table) 05/18/17 05/18/17 Range/Units 22:20 22:20 Plt Count 111 L (150-450) k/uL Glucose 104 H (74-99) mg/dL Thrombosis Risk Factor Assmnt - Choose All That Apply Any of the Below Risk Factors Present?: No Other Risk Factors: Yes Other congenital or acquired thrombophilia - If yes, enter type in comment: No Assessment and Plan Plan: #1 chest pain, typical in nature, possible unstable angina, patient is status post radical catheterization results of which are as mentioned above. Patient previous stents are patent. Further management as mentioned in the history itself. #2 hypertension: Patient has fairly controlled blood pressure at this time. #3 history of coronary artery disease with previous myocardial infarction.
[2017-05-19] MEDS ORDERED: ATROPINE SULFATE 0.1 MG/ML 10ML SYRINGE ONE (19:27)
[2017-05-19] MEDS: ALPRAZolam 0.25 MG TAB PO PRN (20:02)
[2017-05-19] MEDS: METOPROLOL TARTRATE 12.5 MG TAB PO SCH (20:02)
[2017-05-19] MEDS: LISINOPRIL 10 MG TAB PO SCH (20:04)
[2017-05-19] MEDS ORDERED: ATORVASTATIN 40 MG TAB PO SCH (21:00)
[2017-05-19] MEDS: HYDROCHLOROTHIAZIDE 25 MG TAB PO SCH (22:01)
[2017-05-19] MEDS: MULTIVITAMINS, THERA 1 EACH TAB PO SCH (22:01)
[2017-05-20] MEDS ORDERED: ACETAMINOPHEN TAB 325 MG TAB PO PRN (01:53)
[2017-05-20 02:33] LABS: Cholesterol 112 mg/dL (<200); HDL Cholesterol 27 mg/dL (40-60)
[2017-05-20] MEDS: SODIUM CHLORIDE 0.9% 1,000 ML IV SCH (06:26)
[2017-05-20] MEDS: MULTIVITAMINS, THERA 1 EACH TAB PO SCH (08:00)
[2017-05-20] MEDS: HYDROCHLOROTHIAZIDE 25 MG TAB PO SCH (08:00)
[2017-05-20] MEDS: ASPIRIN 325 MG TAB PO SCH (08:00)
[2017-05-20] MEDS: METOPROLOL TARTRATE 12.5 MG TAB PO SCH (08:00)
[2017-05-20] MEDS ORDERED: HEPARIN SODIUM,PORCINE 5,000 UNIT/ML 1 ML VIAL IV ONE (11:03)
[2017-05-20] MEDS ORDERED: HEPARIN SODIUM,PORCINE 5,000 UNIT/ML 1 ML VIAL IV PRN (11:03)
--- NOTE | 2017-05-20 11:03 | P.PN ---
Subjective Principal diagnosis: Chest pain and exertional shortness of breath This is a 71-year-old gentleman with known history of coronary artery disease and prior stent placement of the right coronary artery in 2011, subsequent to that patient had angioplasty with stenting of the LAD in December 2014 patient also has history of hypertension, hyperlipidemia, prior subarachnoid bleed in 2005. He follows regularly with Dr. Granados in the office. Patient presented to the hospital with those of chest discomfort. He was taken to the cardiac catheterization lab by Dr. Granados which revealed a patent stent in the LAD and RCA. A moderate disease in the left main especially in the distal portion was noted. Stable disease in the circumflex. Subsequent to the cardiac catheterization patient underwent IVUS of the left main by ANAYELI Francisco and revealed significant stenosis in the left main, for this reason cardiothoracic surgery has been consulted to see the patient. He was seen and examined this morning, denies any chest pain or difficulty in breathing. Blood pressure 114/60 with a heart rate in the 70s. Objective - Vital Signs Vital signs: Vital Signs Temp 96.9 F L 05/20/17 08:00 Pulse 79 05/20/17 08:00 Resp 20 05/20/17 08:00 BP 114/59 05/20/17 08:00 Pulse Ox 96 05/20/17 08:00 Intake & Output 05/19/17 05/20/17 05/20/17 18:59 06:59 18:59 Intake Total 382.7 300 100 Output Total 300 675 Balance 82.7 -375 100 Intake: IV 292.7 300 Sodium Chloride 0.9% 1, 300 000 ml @ 100 mls/hr IV . Q10H [facility] Rx#:[id number] Oral 90 100 Output: Urine 300 675 Other: Voiding Method Urinal Urinal # Voids 1 - Exam PHYSICAL EXAMINATION: HEENT: Head is atraumatic, normocephalic. Pupils equal, round. Neck is supple. There is no elevated jugular venous pressure. HEART EXAMINATION: Heart S1, S2 normal. No murmur or gallop heard. CHEST EXAMINATION: Lungs are clear to auscultation and precussion. No chest wall tenderness is noted on palpation or with deep breathing. ABDOMEN: Soft, nontender. Bowel sounds are heard. No organomegaly noted. Right groin soft, no evidence of any hematoma. EXTREMITIES: 2+ peripheral pulses with no evidence of peripheral edema and no calf tenderness noted. NEUROLOGIC patient is awake, alert and oriented -3. . - Labs CBC & Chem 7: 05/18/17 22:20 05/18/17 22:20 Labs: Abnormal Lab Results - Last 24 Hours (Table) 05/19/17 Range/Units 05:37 HDL Cholesterol 27 L (40-60) mg/dL Assessment and Plan (1) CAD (coronary artery disease) Status: Acute (2) History of placement of stent in LAD coronary artery Status: Acute (3) S/P right coronary artery (RCA) stent placement Status: Acute (4) S/P cardiac cath Status: Acute (5) HTN (hypertension) Status: Acute (6) Hyperlipemia Status: Acute (7) Hx of subarachnoid hemorrhage Status: Acute (8) Chest pain Status: Acute Plan: From cardiology's perspective, we will await consultation from cardiothoracic surgery. We will initiate IV heparin drip. Further recommendations to follow. DNP note has been reviewed, I agree with a documented findings and plan of care. Patient was seen and examined.
--- NOTE | 2017-05-20 11:12 | P.PN ---
Progress Note - Text This is an addendum to the cardiology note dictated today. Patient was going to be initiated on IV heparin, however he has a documented ALLERGY. DNP note has been reviewed, I agree with a documented findings and plan of care. Patient was seen and examined.
[2017-05-20] MEDS ORDERED: HEPARIN SODIUM,PORCINE/D5W PMX 25,000 UNIT in DEXTROSE/WATER 1 500ML.BAG IV SCH (11:15)
[2017-05-20 11:44] LABS: Basophils % (A) 0 %; CH 32.1; CHCM 36.2; Eosinophils # (A) 0.1 k/uL (0-0.7); Eosinophils % (A) 2 %; HCT 44.6 % (39.0-53.0); HDW 3.14; HGB 16.1 gm/dL (13.0-17.5); Luc # (Auto) 0.18; Luc % (Auto) 3; Lymphocytes % (A) 16 %; MCH 32.1 pg (25.0-35.0); MCV 89.1 fL (80.0-100.0); Mean Platelet Volume 6.6; Monocytes # (A) 0.5 k/uL (0-1.0); Monocytes % (A) 8 %; Neutrophils # (A) 4.3 k/uL (1.3-7.7); Neutrophils % (A) 71 %; RDW 13.8 % (11.5-15.5); WBC 6.1 k/uL (3.8-10.6)
[2017-05-20 11:50] LABS: INR 1.1 (<1.2); Partial Thromboplastin Time 24.3 sec (22.0-30.0); Prothrombin Time 10.8 sec (9.0-12.0)
[2017-05-20 11:58] LABS: ALT 62 U/L (21-72); AST 38 U/L (17-59); Alkaline Phosphatase 59 U/L (38-126); Blood Urea Nitrogen 14 mg/dL (9-20); Calcium 8.8 mg/dL (8.4-10.2); Carbon Dioxide 29 mmol/L (22-30); Glucose 89 mg/dL (74-99); Magnesium 2.1 mg/dL (1.6-2.3); Non-African American GFR(MDRD) >60 (>60 ml/min/1.73 sqM); Potassium 3.6 mmol/L (3.5-5.1); Sodium 141 mmol/L (137-145); Total Bilirubin 0.6 mg/dL (0.2-1.3); Total Protein 6.4 g/dL (6.3-8.2)
[2017-05-20 12:02] LABS: Manual Review Performed
[2017-05-20 12:19] LABS: Anion Gap 7 mmol/L; Chloride 105 mmol/L (98-107)
[2017-05-20 12:23] LABS: Hemoglobin A1C 5.1 % (4.2-6.1)
--- NOTE | 2017-05-20 12:25 | P.GSCN ---
<OuachitaGabbi - Last Filed: 05/20/17 12:09> History of Present Illness Consult date: 05/20/17 Reason for Consult: Coronary artery disease with left main disease, surgical recommendations. Requesting physician: Coleman Araiza History of present illness: This 71-year-old gentleman with a previous history of myocardial infarction and stent placement presented to the emergency room with complaints of chest pain. Apparently he had been having intermittent chest pain for approximately 10 days , however the pain became constant. He described it as tightness all the way across his chest with radiation to his left arm. He did state that he has been fatigued lately and was very short of breath with this episode including feeling like he just couldn't catch his breath. The chest pain did improve slightly with sublingual nitro. In the emergency room he had an EKG which did not present evidence of active ischemia, cardiac enzymes were drawn which were negative 3, chest x-ray was negative for any acute process, and he was admitted for further evaluation. He had an echocardiogram done which demonstrated an ejection fraction of 60-65%, mild mitral regurgitation, mild left ventricular hypertrophy hypertrophy, and no other significant valvular disorder. He was recommended to undergo heart catheterization which was completed 05/19/2017. The cath demonstrated patent stent to the proximal LAD and RCA, however he had distal left main stenosis of 50-60% and 50-60% stenosis in the obtuse marginal and distal circumflex artery. Dr. Araiza performed IVUS which confirmed stenosis in the left main coronary artery. Dr. Scott from cardiothoracic surgery was consulted regarding surgical revascularization. Review of Systems 14 point review systems was completed and was negative except as noted. - Constitutional Reports fatigue - Cardiovascular Reports as per HPI - Respiratory Reports as per HPI - Neurological Reports confusion, Reports lack of coordination Past Medical History Past Medical History: Blood Disorder, Chest Pain / Angina, Hyperlipidemia, Hypertension, Myocardial Infarction (ND), Mitral Valve Prolapse (MVP) Additional Past Medical History / Comment(s): 12/19/14 Pt presented to [facility] ER with c/o L sided chest pain. Other HX: Very [place], essential tremors R hand, mitral valve prolapse, 2005 sub arachnoid bleed, 2009 shingelles R eye and face , diverticulosis Last Myocardial Infarction Date:: 2011 History of Any Multi-Drug Resistant Organisms: None Reported Past Surgical History: Cholecystectomy, Heart Catheterization With Stent, Hernia Repair, Orthopedic Surgery Additional Past Surgical History / Comment(s): 09/27 Ccath - vasospasms LMA, several hernia repairs- inguinal and abdominal one with mesh, eye surgery, colonoscopy, eyelid surgery for better vision, 1999 burst intestine-colostomy with eventual reversal, hemorrohoidectomy, 1970 L knee surgery for meniscus. Past Anesthesia/Blood Transfusion Reactions: No Reported Reaction Additional Past Anesthesia/Blood Transfusion Reaction / Comm: Pt has never received blood. Date of Last Stent Placement:: 2011 Past Psychological History: No Psychological Hx Reported Additional Psychological History / Comment(s): Pt lives with . He is independent. Smoking Status: Never smoker Past Alcohol Use History: None Reported Past Drug Use History: None Reported - Past Family History Father Family Medical History: Coronary Artery Disease (CAD) Additional Family Medical History / Comment(s): Father had 3 CABG's, one of them before the age of 60 Mother Family Medical History: Cancer Additional Family Medical History / Comment(s): Mother of cancer Brother(s) Family Medical History: Myocardial Infarction (ND) Medications and Allergies Home Medications Medication Instructions Recorded Confirmed Type Aspirin 81 mg PO HS 12/19/14 05/19/17 History Hydrochlorothiazide [Hydrodiuril] 25 mg PO DAILY 12/19/14 05/19/17 History Metoprolol Tartrate [Lopressor] 12.5 mg PO DAILY 12/19/14 05/19/17 History Multivitamins, Thera [Multivitamin 1 tab PO DAILY 12/19/14 05/19/17 History (formulary)] Nitroglycerin Sl Tabs [Nitrostat] 0.4 mg PO Q5M PRN 12/19/14 05/19/17 History Atorvastatin [Lipitor] 20 mg PO HS 12/13/16 05/19/17 History Lisinopril [Zestril] 10 mg PO HS 12/13/16 05/19/17 History Ubidecarenone [Co Q-10] 100 mg PO DAILY 12/13/16 05/19/17 History Allergies Allergy/AdvReac Type Severity Reaction Status Date / Time Penicillins Allergy Anaphylaxis Verified 05/19/17 01:21 heparin AdvReac Rash/Hives Verified 05/19/17 01:21 ketorolac tromethamine AdvReac Twitching Verified 05/19/17 01:21 [From Toradol] prednisone AdvReac Muscle Verified 05/19/17 01:21 Spasms Surgical - Exam Vital Signs Temp Pulse Resp BP Pulse Ox 97.5 F L 76 76 H 173/86 97 05/18/17 22:10 05/18/17 22:10 05/18/17 22:10 05/18/17 22:10 05/18/17 22:10 - General well developed, well nourished, no distress, no pain - Eyes PERRL, normal ocular movement - ENT decreased hearing - Neck no masses, no bruits, trachea midline - Respiratory Respirations even, nonlabored. Currently on room air. normal expansion, normal respiratory effort, clear to auscultation - Cardiovascular Normal sinus rhythm on telemetry. Palpable radial, DP, PT pulses bilaterally. No evidence of varicosities to lower extremities. Rhythm: regular Heart Sounds: normal: S1, S2 - Abdomen Abdomen: soft, non tender, bowel sounds - Genitourinary Deferred - Rectum Deferred - Integumentary no rash, no growths, no abnormal pigmentation - Neurologic normal coordination, normal sensation - Musculoskeletal normal gait, normal posture - Psychiatric oriented to time, oriented to person, oriented to place, speech is normal, memory intact Results - Labs 05/20/17 11:09 05/18/17 22:20 Abnormal Lab Results - Last 24 Hours (Table) 05/19/17 05/20/17 Range/Units 05:37 11:09 Plt Count 98 L (150-450) k/uL HDL Cholesterol 27 L (40-60) mg/dL Diabetes panel 05/19/17 Range/Units 05:37 Triglycerides 125 (<150) mg/dL HDL Cholesterol 27 L (40-60) mg/dL - Imaging Chest x-ray: report reviewed, image reviewed EKG: image reviewed Assessment and Plan (1) Family history of coronary artery disease Status: Acute (2) CAD (coronary artery disease) Status: Acute (3) Chest pain Status: Acute (4) HTN (hypertension) Status: Acute (5) History of placement of stent in LAD coronary artery Status: Acute (6) Hx of subarachnoid hemorrhage Status: Acute (7) Hyperlipemia Status: Acute (8) S/P cardiac cath Status: Acute (9) S/P right coronary artery (RCA) stent placement Status: Acute (10) Syncope and collapse Status: Acute Plan: The patient was seen and examined at the bedside. Chart/diagnostics were reviewed. Preoperative teaching initiated with the patient and his . Preoperative testing was ordered. Recommend continuing aspirin, statin, beta brian. Will discuss the case with Dr. Scott for further recommendations. Thank you Dr. Tate for this consult. We look forward to working with you in the care of your patient. Time with Patient: Greater than 30 <John Scott R - Last Filed: 05/20/17 15:32> Surgical - Exam Vital Signs Temp Pulse Resp BP Pulse Ox 97.5 F L 76 76 H 173/86 97 05/18/17 22:10 05/18/17 22:10 05/18/17 22:10 05/18/17 22:10 05/18/17 22:10 Results - Labs 05/20/17 11:09 05/20/17 11:09 Abnormal Lab Results - Last 24 Hours (Table) 05/19/17 05/20/17 Range/Units 05:37 11:09 Plt Count 98 L (150-450) k/uL HDL Cholesterol 27 L (40-60) mg/dL Diabetes panel 05/19/17 05/20/17 05/20/17 Range/Units 05:37 11:09 11:09 Sodium 141 (137-145) mmol/L Potassium 3.6 (3.5-5.1) mmol/L Chloride 105 (98-107) mmol/L Carbon Dioxide 29 (22-30) mmol/L BUN 14 (9-20) mg/dL Creatinine 0.85 (0.66-1.25) mg/dL Glucose 89 (74-99) mg/dL Hemoglobin A1c 5.1 (4.2-6.1) % Calcium 8.8 (8.4-10.2) mg/dL AST 38 (17-59) U/L ALT 62 (21-72) U/L Alkaline Phosphatase 59 (38-126) U/L Total Protein 6.4 (6.3-8.2) g/dL Albumin 3.6 (3.5-5.0) g/dL Triglycerides 125 (<150) mg/dL HDL Cholesterol 27 L (40-60) mg/dL Thyroid panel 05/20/17 Range/Units 11:09 TSH 2.400 (0.465-4.680) mIU/L Calcium panel 05/20/17 Range/Units 11:09 Calcium 8.8 (8.4-10.2) mg/dL Albumin 3.6 (3.5-5.0) g/dL Pituitary panel 05/20/17 Range/Units 11:09 Sodium 141 (137-145) mmol/L Potassium 3.6 (3.5-5.1) mmol/L Chloride 105 (98-107) mmol/L Carbon Dioxide 29 (22-30) mmol/L BUN 14 (9-20) mg/dL Creatinine 0.85 (0.66-1.25) mg/dL Glucose 89 (74-99) mg/dL Calcium 8.8 (8.4-10.2) mg/dL TSH 2.400 (0.465-4.680) mIU/L Adrenal panel 05/20/17 Range/Units 11:09 Sodium 141 (137-145) mmol/L Potassium 3.6 (3.5-5.1) mmol/L Chloride 105 (98-107) mmol/L Carbon Dioxide 29 (22-30) mmol/L BUN 14 (9-20) mg/dL Creatinine 0.85 (0.66-1.25) mg/dL Glucose 89 (74-99) mg/dL Calcium 8.8 (8.4-10.2) mg/dL Total Bilirubin 0.6 (0.2-1.3) mg/dL AST 38 (17-59) U/L ALT 62 (21-72) U/L Alkaline Phosphatase 59 (38-126) U/L Total Protein 6.4 (6.3-8.2) g/dL Albumin 3.6 (3.5-5.0) g/dL Assessment and Plan Plan: Patient examined, chart reviewed, studies reviewed. Agree with assessment and plan as documented by [employer]. Plan is for discharge home tomorrow with elective readmission for CABG Monday. Discussed with patient and his . Risks versus benefits, usual post op course , possible complications all outlined. All their questions were answered.
[2017-05-20 12:35] LABS: Hepatitis B Core IgM Index 0.02
[2017-05-20 12:46] LABS: Hepatitis C Virus IgG Ab Negative (Negative); Hepatitis C Virus IgG Index 0.03
--- NOTE | 2017-05-20 13:19 | PCN ---
DATE OF SERVICE: PERFORMING PHYSICIAN: Coleman Araiza pallet assembler. PROCEDURE PERFORMED: Intravascular ultrasound ANAYELI of the left main coronary artery. INDICATION: This is a pleasant 71-year-old gentleman who sees Dr. Granados as an outpatient, who was experiencing chest discomfort concerning for angina. He underwent a heart catheterization earlier by Dr. Granados and was found to have intermediate disease involving the left main. He was scheduled to undergo an ANAYELI of the left main today. APPROACH: Right common femoral artery. COMPLICATIONS: None. LEVEL OF SEDATION: Moderate with sedation length of 15 minutes. PROCEDURE DESCRIPTION: After diagnostic heart catheterization was performed by Dr. Granados and after reviewing the angiogram, we decided to proceed with ANAYELI of the left main. Anticoagulation was initiated using Angiomax. I took JL4 guiding catheter with a short tip and the left main was engaged. A whisper wire was used to wire the LAD. The wire of the left main and the wire was positioned in the LAD. Subsequently, I advanced the ANAYELI catheter and I did manual pullback. I did measure the minimal ( ) area which came in to be 4.1 mm2 which is considered severe left main disease. The procedure was completed without any complication. POST PROCEDURE MANAGEMENT: 1. Consult surgery for evaluation of coronary artery bypass grafting. 2. Follow up with the patient. KEVIN
--- NOTE | 2017-05-20 15:11 | P.PN ---
Subjective 71-year-old gentleman admitted for chest pain found to have moderate disease in the left main, patient will undergo coronary artery bypass grafting cardiothoracic surgery was consulted. Patient is chest pain-free at this time. Patient denied any chest pain, nausea, abdominal pain, dysuria, new focal weakness. Objective - Vital Signs Vital signs: Vital Signs Temp 97.4 F L 05/20/17 11:20 Pulse 69 05/20/17 11:20 Resp 20 05/20/17 11:20 BP 125/71 05/20/17 11:20 Pulse Ox 96 05/20/17 11:20 Intake & Output 05/19/17 05/20/17 05/20/17 18:59 06:59 18:59 Intake Total 382.7 300 574 Output Total 300 675 800 Balance 82.7 -375 -226 Intake: IV 292.7 300 Sodium Chloride 0.9% 1, 300 000 ml @ 100 mls/hr IV . Q10H MIMI Rx#:[id number] Oral 90 574 Output: Urine 300 675 800 Other: Voiding Method Urinal Urinal # Voids 1 1 - Exam PHYSICAL EXAMINATION: GENERAL: The patient is alert and oriented x3, not in any acute distress. Well developed, well nourished. HEENT: Pupils are round and equally reacting to light. EOMI. No scleral icterus. No conjunctival pallor. Normocephalic, atraumatic. No pharyngeal erythema. No thyromegaly. CARDIOVASCULAR: S1 and S2 present. No murmurs, rubs, or gallops. PULMONARY: Chest is clear to auscultation, no wheezing or crackles. ABDOMEN: Soft, nontender, nondistended, normoactive bowel sounds. No palpable organomegaly. MUSCULOSKELETAL: No joint swelling or deformity. EXTREMITIES: No cyanosis, clubbing, or pedal edema. NEUROLOGICAL: Gross neurological examination did not reveal any focal deficits. SKIN: No rashes. - Labs CBC & Chem 7: 05/20/17 11:09 05/20/17 11:09 Labs: Abnormal Lab Results - Last 24 Hours (Table) 05/19/17 05/20/17 Range/Units 05:37 11:09 Plt Count 98 L (150-450) k/uL HDL Cholesterol 27 L (40-60) mg/dL Assessment and Plan Plan: #1 chest pain, typical in nature, possible unstable angina, patient has moderate disease in left anterior descending or left main for which patient will undergo coronary artery bypass grafting. #2 hypertension: Patient has fairly controlled blood pressure at this time. #3 history of coronary artery disease with previous myocardial infarction.
[2017-05-20 16:16] LABS: Appearance,Urine Clear (Clear); Bilirubin,Urine Negative (Negative); Glucose,Urine (UA) Negative (Negative); Ketones,Urine Negative (Negative); Leukocyte Esterase,Urine Negative (Negative); Nitrite,Urine Negative (Negative); Protein,Urine Negative (Negative); Specific Gravity,Urine 1.004 (1.001-1.035); UA Billing (MACRO vs. MICRO) CHEM; Urobilinogen,Urine <2.0 mg/dL (<2.0)
--- NOTE | 2017-05-20 18:09 | US ---
EXAMINATION TYPE: US carotid duplex BILAT DATE OF EXAM: 05/20/2017 COMPARISON: Prior carotid ultrasound September 24, 2015 CLINICAL HISTORY: PreCABG. HTN EXAM MEASUREMENTS: RIGHT: Peak Systolic Velocity (PSV) cm/sec ----- Right CCA: 79.0 ----- Right ICA: 74.6 ----- Right ECA: 141.5 ICA/CCA ratio: 0.8 RIGHT: End Diastole cm/sec ----- Right CCA: 20.8 ----- Right ICA: 10.9 ----- Right ECA: 15.5 LEFT: Peak Systolic Velocity (PSV) cm/sec ----- Left CCA: 77.5 ----- Left ICA: 85.7 ----- Left ECA: 124.2 ICA/CCA ratio: 1.1 LEFT: End Diastole cm/sec ----- Left CCA: 18.0 ----- Left ICA: 27.5 ----- Left ECA: 14.4 VERTEBRALS (direction of flow): Right Vertebral: Antegrade Left Vertebral: Antegrade Bilateral wall thickening. No elevated velocities, significant stenosis or plaque seen. Grayscale images show some intimal hyperplasia bilaterally. No significant focal plaque is seen in ca rotid bulb level bilaterally. No increased velocities in visualized portion of both internal carotid arteries is seen. IMPRESSION: No hemodynamic significant stenosis in either internal carotid artery is felt present.
[2017-05-20] MEDS: NITROGLYCERIN SL TABS 0.4 MG TAB SUBLINGUAL PRN ×2 (19:17→19:23)
[2017-05-20] MEDS: ALPRAZolam 0.25 MG TAB PO PRN (19:18)
[2017-05-20] MEDS: LISINOPRIL 10 MG TAB PO SCH (21:53)
[2017-05-20] MEDS: MUPIROCIN 2% OINT 22 GM TUBE TOPICAL SCH (22:05)
[2017-05-21] MEDS: SODIUM CHLORIDE 0.9% 1,000 ML IV SCH (05:59)
[2017-05-21 06:31] LABS: Basophils % (A) 0 %; CH 31.9; CHCM 36.2; Eosinophils # (A) 0.1 k/uL (0-0.7); Eosinophils % (A) 2 %; HCT 43.5 % (39.0-53.0); HDW 3.17; HGB 15.6 gm/dL (13.0-17.5); Luc % (Auto) 4; Lymphocytes # (A) 1.2 k/uL (1.0-4.8); Lymphocytes % (A) 22 %; MCH 31.7 pg (25.0-35.0); MCHC 35.7 g/dL (31.0-37.0); MCV 88.6 fL (80.0-100.0); Mean Platelet Volume 6.5; Monocytes # (A) 0.5 k/uL (0-1.0); Monocytes % (A) 8 %; Neutrophils # (A) 3.5 k/uL (1.3-7.7); Neutrophils % (A) 64 %; RBC 4.91 m/uL (4.30-5.90); RDW 13.9 % (11.5-15.5); WBC 5.6 k/uL (3.8-10.6); WBC (Perox) 5.64
[2017-05-21 06:54] LABS: Anion Gap 10 mmol/L; Blood Urea Nitrogen 14 mg/dL (9-20); Calcium 8.9 mg/dL (8.4-10.2); Carbon Dioxide 26 mmol/L (22-30); Chloride 105 mmol/L (98-107); Glucose 91 mg/dL (74-99); Non-African American GFR(MDRD) >60 (>60 ml/min/1.73 sqM); Potassium 3.4 mmol/L (3.5-5.1); Sodium 141 mmol/L (137-145)
[2017-05-21] MEDS: METOPROLOL TARTRATE 12.5 MG TAB PO SCH (08:27)
[2017-05-21] MEDS: MULTIVITAMINS, THERA 1 EACH TAB PO SCH (08:27)
[2017-05-21] MEDS: HYDROCHLOROTHIAZIDE 25 MG TAB PO SCH (08:28)
[2017-05-21] MEDS: ASPIRIN 325 MG TAB PO SCH (08:28)
[2017-05-21] MEDS: MUPIROCIN 2% OINT 22 GM TUBE TOPICAL SCH (08:28)
[2017-05-21 09:04] VITALS: RESP 20
--- NOTE | 2017-05-21 10:14 | P.PN ---
Subjective Principal diagnosis: Coronary artery disease with left main disease. Preoperative coronary artery bypass graft surgery. History of myocardial infarction with stent placement to the LAD and RCA. Hyperlipidemia. Hypertension. History of subarachnoid bleed. Patient is currently ambulating in the hallway distress. Did have an episode of chest pain last night relieved with 2 sublingual nitro tablets. He states the pain was caused from stress related to his roommate. Currently not having any chest pain. Objective - Vital Signs Vital signs: Vital Signs Temp 97.3 F L 05/21/17 08:00 Pulse 87 05/21/17 08:00 Resp 20 05/21/17 08:00 BP 114/65 05/21/17 08:00 Pulse Ox 95 05/21/17 08:00 Intake & Output 05/20/17 05/21/17 05/21/17 18:59 06:59 18:59 Intake Total 574 Output Total 800 Balance -226 Weight 75.6 kg Intake: Oral 574 Output: Urine 800 Other: Voiding Method Urinal # Voids 1 300 - Constitutional General appearance: Present: cooperative, no acute distress - Respiratory Details: Lungs sounds clear to auscultation. Respirations even, nonlabored. Currently on room air with oxygen saturation 95%. Able to achieve 3000 mL on his incentive spirometry. - Cardiovascular Details: S1, S2 present. Regular rate and rhythm, normal sinus rhythm on telemetry. No edema present. Palpable pulses bilaterally. - Gastrointestinal Gastrointestinal Comment(s): Abdomen soft, nontender, nondistended. Active bowel sounds 4 quadrants. Tolerating diet. - Genitourinary Genitourinary Comment(s): Continues to void clear, yellow urine. - Musculoskeletal Musculoskeletal: Present: gait normal, strength equal bilaterally - Psychiatric Psychiatric: Present: A&O x's 3, appropriate affect, intact judgment & insight - Allied health notes Allied health notes reviewed: nursing - Labs CBC & Chem 7: 05/21/17 05:49 05/21/17 05:49 Labs: Abnormal Lab Results - Last 24 Hours (Table) 05/20/17 05/21/17 05/21/17 Range/Units 11:09 05:49 05:49 Plt Count 98 L 95 L (150-450) k/uL Potassium (3.5-5.1) mmol/L Crossmatch See Detail 05/21/17 Range/Units 05:49 Plt Count (150-450) k/uL Potassium 3.4 L (3.5-5.1) mmol/L Crossmatch Microbiology - Last 24 Hours (Table) 05/20/17 15:00 Urine Culture - Preliminary Urine,Clean Catch 05/20/17 11:29 Nasal Screen MRSA/MSSA ([facility]) - Preliminary Nasal Swab Assessment and Plan (1) Family history of coronary artery disease Status: Acute (2) CAD (coronary artery disease) Status: Acute (3) Chest pain Status: Acute (4) HTN (hypertension) Status: Acute (5) History of placement of stent in LAD coronary artery Status: Acute (6) Hx of subarachnoid hemorrhage Status: Acute (7) Hyperlipemia Status: Acute (8) S/P cardiac cath Status: Acute (9) S/P right coronary artery (RCA) stent placement Status: Acute (10) Syncope and collapse Status: Acute Plan: 1. Continue aspirin, statin, beta brian, GENA inhibitor. 2. Continue to encourage incentive spirometry, ambulation in the hallway. 3. 5 meter walk test done. #1 3.34 sec, #2 2.89 sec, #3 3.91 sec. 4. Supportive treatment. Anticipate coronary artery bypass graft surgery on Monday. 5. Medical management per primary care service. Time with Patient: Greater than 30
[2017-05-21 11:37] VITALS: BP 154/89; PULSE 72; TEMP 97.2
--- NOTE | 2017-05-21 13:41 | P.PN ---
Progress Note - Text This is a pleasant 71-year-old gentleman without history of CAD and prior stenting of the LAD and RCA hypertension, dyslipidemia, presented to the hospital was a chest discomfort and underwent a heart catheterization by Dr. Dr. Granados and was found to have intermediate disease of the left main. He underwent intravascular ultrasound of the left main and that showed severe stenosis. The patient is scheduled to have an open heart surgery later next week. He had an episode of chest discomfort last night and I advised the patient to stay one more night in the hospital but he wants to go home.
[2017-05-21] MEDS ORDERED: SODIUM CITRATE MISCELLANE ONE ×2 (14:22)
--- NOTE | 2017-05-21 14:29 | P.DS ---
Providers Date of admission: 05/20/17 18:14 Attending physician: Hugh Begum Consults: 05/19/17 00:32 Consult Physician Routine Consulting Provider: Coleman Araiza Consult Reason/Comments: chest pain Do you want consulting provider notified?: Yes 05/20/17 09:15 Consult Physician Routine Consulting Provider: John Scott Consult Reason/Comments: cad Do you want consulting provider notified?: Yes 05/21/17 09:06 Consult Physician Routine Consulting Provider: Bernardo Velasco Consult Reason/Comments: preop cabg Do you want consulting provider notified?: Yes Primary care physician: [facility] Course: 71-year-old gentleman admitted for chest pain found to have moderate disease in the left main, patient will undergo coronary artery bypass grafting next week and patient is being discharged today in stable medical condition to home. PHYSICAL EXAMINATION: GENERAL: The patient is alert and oriented x3, not in any acute distress. Well developed, well nourished. HEENT: Pupils are round and equally reacting to light. EOMI. No scleral icterus. No conjunctival pallor. Normocephalic, atraumatic. No pharyngeal erythema. No thyromegaly. CARDIOVASCULAR: S1 and S2 present. No murmurs, rubs, or gallops. PULMONARY: Chest is clear to auscultation, no wheezing or crackles. ABDOMEN: Soft, nontender, nondistended, normoactive bowel sounds. No palpable organomegaly. MUSCULOSKELETAL: No joint swelling or deformity. EXTREMITIES: No cyanosis, clubbing, or pedal edema. NEUROLOGICAL: Gross neurological examination did not reveal any focal deficits. SKIN: No rashes. #1 chest pain, typical in nature, unstable angina, patient has moderate disease in left anterior descending or left main for which patient will undergo coronary artery bypass grafting. #2 hypertension: Patient has fairly controlled blood pressure at this time. #3 history of coronary artery disease with previous myocardial infarction. Patient Condition at Discharge: Good Plan - Discharge Summary New Discharge Prescriptions: New Aspirin 325 mg PO DAILY #30 tab Potassium Chloride ER [K-Dur 20] 20 meq PO DAILY #30 tab Continue Multivitamins, Thera [Multivitamin (formulary)] 1 tab PO DAILY Nitroglycerin Sl Tabs [Nitrostat] 0.4 mg PO Q5M PRN PRN Reason: Chest Pain Metoprolol Tartrate [Lopressor] 12.5 mg PO DAILY Hydrochlorothiazide [Hydrodiuril] 25 mg PO DAILY Lisinopril [Zestril] 10 mg PO HS Atorvastatin [Lipitor] 20 mg PO HS Ubidecarenone [Co Q-10] 100 mg PO DAILY Discontinued Aspirin 81 mg PO HS Discharge Medication List Hydrochlorothiazide [Hydrodiuril] 25 mg PO DAILY 12/19/14 [History] Metoprolol Tartrate [Lopressor] 12.5 mg PO DAILY 12/19/14 [History] Multivitamins, Thera [Multivitamin (formulary)] 1 tab PO DAILY 12/19/14 [History ] Nitroglycerin Sl Tabs [Nitrostat] 0.4 mg PO Q5M PRN 12/19/14 [History] Atorvastatin [Lipitor] 20 mg PO HS 12/13/16 [History] Lisinopril [Zestril] 10 mg PO HS 12/13/16 [History] Ubidecarenone [Co Q-10] 100 mg PO DAILY 12/13/16 [History] Aspirin 325 mg PO DAILY #30 tab 05/21/17 [Rx] Potassium Chloride ER [K-Dur 20] 20 meq PO DAILY #30 tab 05/21/17 [Rx] Follow up Appointment(s)/Referral(s): Messi Chao MD [Primary Care Provider] - 3 Days (please call when office open to make follow up appointment) Patient Instructions/Handouts: *Surgery [facility] - After Heart Catheterization - Instructional Design Technologist Instructions, Coronary Artery Disease (DC), Heart Healthy Diet ( DC) Discharge Disposition: HOME SELF-CARE
[2017-05-21] MEDS ORDERED: LISINOPRIL 5 MG TAB PO SCH (21:00)
--- NOTE | 2017-05-24 13:19 | P.VSCSTY ---
Greater Saphenous Vein Mapping This is bilateral lower extremity greater saphenous vein mapping. Date of service 05/20/2017 Vein quality and ultrasound appearance nonspecific intimal thickening seen. Vein size groin right 6.4 x 8.5 groin left to 5.1 x 6.0 High thigh right 3.4 x 3.6 high thigh left 3.3 x 4.3 Mid thigh right 3.2 x 4.1 mid thigh left 2.9 x 3.4 Above-knee right 3.0 x 3.8 above- knee left 2.6 x 4.0 Below knee right 3.1 x 4.3 below-knee left to 0.9 x 3.3 Mid calf right 2.5 x 2.9 mid calf left 2.1 x 3.3 Ankle right 2.1 x 2.6 ankle left 2.4 x 3.4 Impression usable greater's S vein on both sides. Clinical correlation reviewed regarding intimal thickening recommended.
== END 2017-05-21 14:22 | disposition home or self-care (01) | DRG 287 ==
LOC: EC 22:01 → 3OBS 05-19 00:32 → 6SEL 05-19 17:10 → OBSVTOIN 05-20 18:14
PROVIDERS: ADMIT Hospitalist; ATTEND Hospitalist
PROC: B2111ZZ Fluoroscopy of Multiple Coronary Arteries using Low Osmolar Contrast (ICD-10-PCS; 2017-05-19)
PROC: 4A023N7 Measurement of Cardiac Sampling and Pressure, Left Heart, Percutaneous Approach (ICD-10-PCS; 2017-05-19)
PROC: B241ZZ3 Ultrasonography of Multiple Coronary Arteries, Intravascular (ICD-10-PCS; principal; 2017-05-20)
DX: I25.110 Atherosclerotic heart disease of native coronary artery with unstable angina pectoris (principal); I10 Essential (primary) hypertension; E78.5 Hyperlipidemia, unspecified; G25.0 Essential tremor; I25.2 Old myocardial infarction; I34.1 Nonrheumatic mitral (valve) prolapse; I73.9 Peripheral vascular disease, unspecified; Z79.82 Long term (current) use of aspirin; Z79.899 Other long term (current) drug therapy; Z82.49 Family history of ischemic heart disease and other diseases of the circulatory system; Z85.820 Personal history of malignant melanoma of skin; Z95.1 Presence of aortocoronary bypass graft; Z95.5 Presence of coronary angioplasty implant and graft; Z88.0 Allergy status to penicillin
CPT/HCPCS: 36415; 37252; 71010; 80048; 80053; 80061; 80074; 81003; 82550; 82553; 83036; 83735; 83880; 84443; 84484; 85025; 85379; 85610; 85730; 86850; 86900; 86901; 86920; 87070; 87086; 92978; 93005; 93306; 93458; 93880; 93970; 94150; 99285

== ENCOUNTER 2017-05-26 05:45 | Inpatient (IN) | payer MEDICARE, BC ==
[~2017-05-26 05:45] MED LIST: ALBUMIN HUMAN 25% 50 ML IV ONE; ALBUMIN HUMAN 5% 500 ML IVPB ONE; ASPIRIN 325 MG TAB PO ONE; ATORVASTATIN 10 MG TAB PO ONE; CALCIUM CHLORIDE 100 MG/ML 10 ML SYRINGE IV ONE; CHLORHEXIDINE GLUCONATE 15 ML CUP MUCOUS MEM ONE; CLEVIDIPINE BUTYRATE 25 MG in EMPTY BAG 1 BAG IV ONE; HEPARIN SODIUM 1,000 UN/ML (10ML VL) IV ONE; HEPARIN SODIUM,PORCINE 5,000 UNIT in SODIUM CHLORIDE 0.9% 500 ML IV ONE; INSULIN REGULAR 100 UNIT in SODIUM CHLORIDE 0.9% 100 ML IV ONE; LACTATED RINGERS 1,000 ML IV ONE; LACTATED RINGERS 1,000 ML IV SCH; MAGNESIUM SULFATE MG 500 MG/ML VIAL IV ONE; METOPROLOL TARTRATE 12.5 MG TAB PO ONE; MIDAZOLAM 2 MG/2 ML VIAL IV PRN; MUPIROCIN 2% OINT 22 GM TUBE NASAL ONE; NITROGLYCERIN SL TABS 0.4 MG TAB SUBLINGUAL ONE; NITROGLYCERIN-D5W PMX 25 MG/250 ML BTL IV ONE; NITROGLYCERIN-D5W PMX 50 MG in DEXTROSE/WATER 1 250ML.BAG IV ONE; NOREPINEPHRIN 4 MG-0.9% NS PMX 4 MG/250 ML ML IV ONE; PAPAVERINE 360 MG in SODIUM CHLORIDE 0.9% 90 ML IV ONE; PHENYLEPHRINE 40 MG in SODIUM CHLORIDE 0.9% 250 ML IV ONE; PHENYLEPHRINE-0.9% NACL SYG 1 MG/10 ML SYRINGE IV ONE; PROPOFOL 1,000 MG/100 ML VIAL IV ONE; PROTAMINE SULFATE 10 MG/ML 25 ML VIAL IV ONE; PROTAMINE SULFATE 250 MG in EMPTY BAG 1 BAG IV ONE; SODIUM BICARB 8.4% 50 ML SYR (1 MEQ/ML) IV ONE; SODIUM CHLORIDE 0.9% 1,000 ML IV ONE; SODIUM CHLORIDE 0.9% IRRIGATIO 1,000 ML IRRIGATION ONE; VANCOMYCIN 1,000 MG in SODIUM CHLORIDE 0.9% 250 ML IVPB ONE
[2017-05-26] MEDS ORDERED: PROPOFOL 10 MG/ML 20 ML VIAL IV ONE (08:20)
[2017-05-26] MEDS ORDERED: SODIUM CHLORIDE 0.9% IRRIG 1,000 ML BTL IRRIGATION ONE (08:20)
[2017-05-26] MEDS ORDERED: MIDAZOLAM 2 MG/2 ML VIAL ONE (08:20)
[2017-05-26] MEDS ORDERED: POTASSIUM CHLORIDE OPEN HEART 20 MEQ/50 ML BAG IVPB ONE (08:20)
[2017-05-26] MEDS ORDERED: HEPARIN SODIUM,PORCINE 10,000 UNIT/ML 1 ML VIAL ONE (08:20)
[2017-05-26] MEDS ORDERED: fentaNYL (PF) 50 MCG/ML 2 ML AMP ONE (08:20)
[2017-05-26] MEDS ORDERED: fentaNYL (PF) 50 MCG/ML 50 ML VIAL ONE (08:20)
[2017-05-26] MEDS ORDERED: ALBUMIN HUMAN 5% 500 ML VIAL IVPB ONE (08:20)
[2017-05-26] MEDS ORDERED: VECURONIUM 10 MG VIAL IV ONE (08:20)
[2017-05-26] MEDS ORDERED: ALBUTEROL INHALER 60 PUFF/8 GM INHALER INHALATION ONE (08:20)
[2017-05-26 08:58] LABS: Glucose,Whole Blood 99 mg/dL (75-99)
[2017-05-26] MEDS ORDERED: SODIUM CHLORIDE 0.9% 500 ML with HEPARIN SODIUM,PORCINE 5,000 UNIT IRRIGATION ONE ×2 (09:16)
[2017-05-26] MEDS ORDERED: PAPAVERINE 360 MG in SODIUM CHLORIDE 0.9% 90 ML IRRIGATION ONE (09:17)
[2017-05-26 10:00] LABS: Glucose,Whole Blood 121 mg/dL (75-99)
[2017-05-26 10:38] LABS: Glucose,Whole Blood 136 mg/dL (75-99)
[2017-05-26 11:11] LABS: Glucose,Whole Blood 141 mg/dL (75-99)
[2017-05-26 12:03] LABS: Glucose,Whole Blood 120 mg/dL (75-99)
--- NOTE | 2017-05-26 12:14 | P.OP ---
Date of Procedure: 05/26/17 Preoperative Diagnosis: Coronary artery disease Postoperative Diagnosis: Same Procedure(s) Performed: Off pump coronary artery bypass grafting with left internal mammary artery to LAD and saphenous vein grafts to intermediate and obtuse marginal coronary arteries. Also included is endovascular vein harvest of the left greater saphenous vein. Implants: Anesthesia: GETA Surgeon: John Scott Hadoop Architect #1: Azeem Diez Hadoop Architect #2: Stephane Henriquez Estimated Blood Loss (ml): 100 IV fluids (ml): 2,000 Urine output (ml): 500 Pathology: none sent Condition: stable Disposition: ICU Indications for Procedure: 71-year-old gentleman with stable anginal symptomatology and cardiac catheterization demonstrating left main and two-vessel coronary artery disease. Operative Findings: Left ventricular function was good. There was no evidence of mitral regurgitation by JERSEY. Saphenous vein was of good quality. Left internal mammary artery was of good quality. Coronary targets were reasonable. Description of Procedure: The patient was brought to the operating room, placed supine on the operating table, anesthetized and intubated. The anterior torso and bilateral lower extremities were sterilely prepped and draped. JERSEY probe was placed by anesthesia. Saphenous vein was harvested from the left lower extremity using endovascular vein harvest technique. The left greater saphenous vein was harvested from mid calf to groin. It was of good quality. Was prepared on the back table. Simultaneous sternotomy was performed and the left hemisternum retracted upwards. The left internal mammary artery was harvested on a vascularized pedicle. Was left intact on its origin from the subclavian and divided distally. The left pleural space was drained with a 32-Dominican chest tube. Standard sternal retractor was then placed and the patient was systemically heparinized. A CTs were maintained greater than 250 during grafting. The left internal mammary artery to the LAD was performed first. Pericardium was opened in the midline and the heart was exposed with pericardial sutures suction stabilization was used during distal anastomoses. The LAD was grafted in its midportion where it was a soft vessel 1.75 mm in diameter. There was diffuse calcific disease of the LAD. Upon opening the LAD blood flow was controlled with a 1.5 mm flow through. End to side anastomosis between the ISAACS and the LAD was performed with 8-0 Prolene suture. Inflow was open and good hemostasis was noted. The MORENO pedicle was tacked surrounding epicardium with 6-0 silk sutures. Saphenous vein was now examined and cut to appropriate lengths. Proximal anastomoses were performed with the passport anastomotic device 2. Veins were brought beneath the left internal mammary artery and the lateral wall of the heart was exposed. The major marginal branch was grafted first. This was a 1.75 mm vessel of good quality. It was opened and blood flow control with a 1.5 mm flow through. One saphenous vein was anastomosed in end-to-side fashion with running 7-0 Prolene. On completion of the anastomosis the flow through was removed 50 probe the proximal distal portion anastomosis. Suture was tied with good result and hemostasis and the inflow open. The graft was noted to lay well. Next the intermediate coronary artery was stabilized. It was a 1.5 mm vessel with diffuse disease present. Was opened in a soft spot and 1.5 mm flow through placed without difficulty. Anastomosis of the second saphenous vein to the intermediate was performed with running 7-0 Prolene. On completion anastomosis the flow through was removed 50 probe the proximal distal portion anastomosis. Suture was tied with good result and hemostasis. Inflow was open. Heart was lowered into anatomic position. Good hemostasis was obtained throughout. Heparin was reversed with protamine. Chest was irrigated with antibiotic solution. Mediastinum was drained with 36-Dominican chest tube. Sternum was closed with 8 sternal wires. Fascia was closed with 0 Ethibond. Subcutaneous and subcuticular layers in the leg and chest were closed with layers of Vicryl suture. Dry sterile dressings were applied and the patient was transferred to the ICU in stable hemodynamic condition. Patient received no blood products and required no inotropes
[2017-05-26] MEDS ORDERED: METOCLOPRAMIDE 5 MG/ML 2 ML VIAL IVP PRN (12:24)
[2017-05-26] MEDS ORDERED: ALBUMIN HUMAN 5% 250 ML in EMPTY BAG 1 BAG IVPB PRN (12:24)
[2017-05-26] MEDS ORDERED: CALCIUM GLUCONATE 2,000 MG in SODIUM CHLORIDE 0.9% 100 ML IVPB PRN (12:24)
[2017-05-26] MEDS ORDERED: IV VANCOMYCIN PER PHARMACY 1 EACH MISC MISCELLANE PRN (12:24)
[2017-05-26] MEDS ORDERED: Phosphorus Replacement Protoco 1 EACH MISC MISCELLANE PRN (12:24)
[2017-05-26] MEDS ORDERED: PROPOFOL 1,000 MG/100 ML VIAL IV SCH (12:24)
[2017-05-26] MEDS ORDERED: Magnesium Replacement Protocol 1 EACH MISC MISCELLANE PRN (12:24)
[2017-05-26] MEDS ORDERED: Potassium Replacement Protocol 1 EACH MISC MISCELLANE PRN ×2 (12:24→19:49)
[2017-05-26] MEDS ORDERED: BENZOCAINE/MENTHOL LOZENG 1 EACH LOZENGE MUCOUS MEM PRN (12:24)
[2017-05-26] MEDS ORDERED: INSULIN REGULAR 100 UNIT in SODIUM CHLORIDE 0.9% 100 ML IV SCH (12:30)
[2017-05-26 12:35] LABS: Glucose,Whole Blood 126 mg/dL (75-99)
[2017-05-26 12:45] LABS: Basophils % (A) 0 %; CH 31.3; Eosinophils # (A) 0.1 k/uL (0-0.7); Eosinophils % (A) 1 %; HCT 34.3 % (39.0-53.0); HDW 3.36; Luc # (Auto) 0.09; Luc % (Auto) 1; Lymphocytes # (A) 0.6 k/uL (1.0-4.8); Lymphocytes % (A) 6 %; MCH 31.3 pg (25.0-35.0); MCHC 35.8 g/dL (31.0-37.0); MCV 87.4 fL (80.0-100.0); Mean Platelet Volume 7.2; Monocytes # (A) 0.5 k/uL (0-1.0); Monocytes % (A) 5 %; Neutrophils # (A) 7.7 k/uL (1.3-7.7); Neutrophils % (A) 87 %; RBC 3.92 m/uL (4.30-5.90); RDW 13.8 % (11.5-15.5); WBC 8.9 k/uL (3.8-10.6); WBC (Perox) 9.23
[2017-05-26 12:57] LABS: HGB 12.3 gm/dL (13.0-17.5)
[2017-05-26 12:59] LABS: INR 1.3 (<1.2); Partial Thromboplastin Time 26.3 sec (22.0-30.0); Prothrombin Time 12.5 sec (9.0-12.0)
[2017-05-26 13:00] LABS: Manual Review Performed
[2017-05-26 13:01] LABS: Ionized Calcium 4.6 mg/dL (4.5-5.3); RBC Morphology Normal
[2017-05-26 13:05] LABS: ABG Base Excess -1.3 mmol/L; ABG HCO3 23 mmol/L (21-25); ABG Oxygen Saturation 99.9 % (94-97); ABG PCO2 43 mmHg (35-45); ABG PH 7.36 (7.35-7.45); ABG PO2 276 mmHg (83-108); ABG TCO2 25 mmol/L (19-24)
[2017-05-26 13:13] LABS: ALT 49 U/L (21-72); AST 27 U/L (17-59); Alkaline Phosphatase 43 U/L (38-126); Anion Gap 6 mmol/L; Blood Urea Nitrogen 14 mg/dL (9-20); Calcium 7.7 mg/dL (8.4-10.2); Carbon Dioxide 24 mmol/L (22-30); Chloride 109 mmol/L (98-107); Glucose 119 mg/dL (74-99); Magnesium 1.6 mg/dL (1.6-2.3); Non-African American GFR(MDRD) >60 (>60 ml/min/1.73 sqM); Potassium 4.3 mmol/L (3.5-5.1); Sodium 139 mmol/L (137-145); Total Protein 5.1 g/dL (6.3-8.2)
[2017-05-26 13:21] LABS: Glucose,Whole Blood 113 mg/dL (75-99)
--- NOTE | 2017-05-26 13:22 | XR ---
EXAMINATION TYPE: XR chest 1V portable DATE OF EXAM: 05/26/2017 CLINICAL HISTORY: Post open cardiac surgery TECHNIQUE: Single AP portable supine view of the chest is obtained. COMPARISON: Chest x-ray from May 18, 2017 FINDINGS: Post-CABG changes with mediastinal clips and sternal wires is now present. There is new e ndotracheal tube with tip at the superior aortic knob level, approximately 3 cm above the brent. The re is new orogastric tube projecting below left hemidiaphragm. There is new right internal jugular Sw an-Anaid catheter with tip centrally likely at proximal right pulmonary artery. There is new left-side d chest tube. Deep sulcus sign on the left is concerning for small pneumothorax despite chest tube placement. Small left-sided pleural fluid collection or hydrothorax is likely present in the bases. There is new bila teral perihilar atelectasis. Cardiac silhouette size is felt stable and upper limits of normal. Jany cystectomy clips are noted. IMPRESSION: 1. Tubes and lines are satisfactory in position. 2. Probable small left hydropneumothorax despite chest tube placement as detailed above. There is new bilateral perihilar atelectasis seen.
[2017-05-26] MEDS: CLEVIDIPINE BUTYRATE 25 MG in EMPTY BAG 1 BAG IV SCH ×3 (13:41→18:32)
[2017-05-26] MEDS: LACTATED RINGERS 1,000 ML IV SCH (13:41)
[2017-05-26] MEDS: NITROGLYCERIN-D5W PMX 50 MG in DEXTROSE/WATER 1 250ML.BAG IV SCH (13:42)
[2017-05-26 14:09] LABS: Glucose,Whole Blood 107 mg/dL (75-99)
[2017-05-26] MEDS: MAGNESIUM SULFATE-D5W PMX 1 GM in DEXTROSE/WATER 1 100ML.BAG IVPB SCH ×2 (15:01→16:09)
[2017-05-26 15:02] LABS: Glucose,Whole Blood 112 mg/dL (75-99)
[2017-05-26 15:36] LABS: ABG Base Excess 1.6 mmol/L; ABG HCO3 24 mmol/L (21-25); ABG Oxygen Saturation 99.9 % (94-97); ABG PCO2 33 mmHg (35-45); ABG PH 7.48 (7.35-7.45); ABG PO2 265 mmHg (83-108); ABG TCO2 25 mmol/L (19-24)
[2017-05-26 15:37] LABS: ABG Base Excess 1.4 mmol/L; ABG HCO3 26 mmol/L (21-25); ABG Oxygen Saturation 99.8 % (94-97); ABG PCO2 42 mmHg (35-45); ABG PO2 222 mmHg (83-108); ABG TCO2 27 mmol/L (19-24)
[2017-05-26 15:38] LABS: ABG Base Excess 0.3 mmol/L; ABG HCO3 24 mmol/L (21-25); ABG Oxygen Saturation 99.9 % (94-97); ABG PCO2 40 mmHg (35-45); ABG PH 7.41 (7.35-7.45); ABG PO2 263 mmHg (83-108); ABG TCO2 26 mmol/L (19-24)
[2017-05-26 15:39] LABS: ABG Base Excess -0.8 mmol/L; ABG HCO3 23 mmol/L (21-25); ABG Oxygen Saturation 99.8 % (94-97); ABG PCO2 35 mmHg (35-45); ABG PH 7.43 (7.35-7.45); ABG PO2 220 mmHg (83-108); ABG TCO2 24 mmol/L (19-24)
[2017-05-26 15:40] LABS: ABG Base Excess -0.9 mmol/L; ABG HCO3 23 mmol/L (21-25); ABG Oxygen Saturation 99.3 % (94-97); ABG PCO2 40 mmHg (35-45); ABG PH 7.39 (7.35-7.45); ABG PO2 152 mmHg (83-108); ABG TCO2 25 mmol/L (19-24)
[2017-05-26 15:40] LABS: Basophils % (A) 0 %; CH 31.4; CHCM 35.9; Eosinophils % (A) 0 %; HCT 34.7 % (39.0-53.0); HDW 3.32; HGB 12.5 gm/dL (13.0-17.5); Luc # (Auto) 0.16; Luc % (Auto) 2; Lymphocytes # (A) 0.6 k/uL (1.0-4.8); Lymphocytes % (A) 6 %; MCH 31.7 pg (25.0-35.0); MCHC 36.1 g/dL (31.0-37.0); MCV 87.8 fL (80.0-100.0); Mean Platelet Volume 6.8; Monocytes # (A) 0.6 k/uL (0-1.0); Monocytes % (A) 7 %; Neutrophils # (A) 8.4 k/uL (1.3-7.7); Neutrophils % (A) 85 %; RBC 3.95 m/uL (4.30-5.90); RDW 13.7 % (11.5-15.5); WBC 9.8 k/uL (3.8-10.6); WBC (Perox) 9.98
[2017-05-26 15:45] LABS: Ionized Calcium 4.6 mg/dL (4.5-5.3)
[2017-05-26 15:53] LABS: Anion Gap 7 mmol/L; Blood Urea Nitrogen 15 mg/dL (9-20); Calcium 7.7 mg/dL (8.4-10.2); Carbon Dioxide 24 mmol/L (22-30); Chloride 107 mmol/L (98-107); Glucose 129 mg/dL (74-99); Non-African American GFR(MDRD) >60 (>60 ml/min/1.73 sqM); Sodium 138 mmol/L (137-145)
[2017-05-26] MEDS ORDERED: IPRATROPIUM-ALBUTEROL 3 ML NEB INHALATION SCH (16:00)
[2017-05-26] MEDS: MORPHINE SULFATE 2 MG/ML SYRINGE IVP PRN ×4 (16:07→21:52)
[2017-05-26 16:16] LABS: Glucose,Whole Blood 160 mg/dL (75-99)
[2017-05-26 17:18] LABS: Glucose,Whole Blood 184 mg/dL (75-99)
[2017-05-26 17:40] LABS: ABG Base Excess -2.1 mmol/L; ABG HCO3 22 mmol/L (21-25); ABG PCO2 38 mmHg (35-45); ABG PH 7.39 (7.35-7.45); ABG PO2 88 mmHg (83-108); ABG TCO2 23 mmol/L (19-24)
[2017-05-26 18:00] LABS: Glucose,Whole Blood 174 mg/dL (75-99)
[2017-05-26 18:11] LABS: Basophils % (A) 0 %; CH 32.4; CHCM 35.9; Eosinophils % (A) 0 %; HCT 39.5 % (39.0-53.0); HDW 3.26; HGB 13.5 gm/dL (13.0-17.5); Luc # (Auto) 0.13; Luc % (Auto) 1; Lymphocytes # (A) 0.5 k/uL (1.0-4.8); Lymphocytes % (A) 4 %; MCH 31.1 pg (25.0-35.0); MCHC 34.3 g/dL (31.0-37.0); MCV 90.7 fL (80.0-100.0); Mean Platelet Volume 7.2; Monocytes # (A) 0.8 k/uL (0-1.0); Monocytes % (A) 5 %; Neutrophils # (A) 12.6 k/uL (1.3-7.7); Neutrophils % (A) 90 %; RBC 4.35 m/uL (4.30-5.90); RDW 14.5 % (11.5-15.5); WBC 14.1 k/uL (3.8-10.6)
[2017-05-26] MEDS: ACETAMINOPHEN IV (For NPO) 1,000 MG in EMPTY BAG 1 BAG IVPB SCH ×2 (18:14→23:00)
[2017-05-26] MEDS: VANCOMYCIN 1,250 MG in SODIUM CHLORIDE 0.9% 250 ML IVPB SCH (18:15)
[2017-05-26 18:18] LABS: Ionized Calcium 4.6 mg/dL (4.5-5.3)
[2017-05-26 18:29] LABS: Anion Gap 11 mmol/L; Blood Urea Nitrogen 16 mg/dL (9-20); Calcium 8.1 mg/dL (8.4-10.2); Carbon Dioxide 22 mmol/L (22-30); Chloride 104 mmol/L (98-107); Glucose 171 mg/dL (74-99); Magnesium 2.4 mg/dL (1.6-2.3); Non-African American GFR(MDRD) >60 (>60 ml/min/1.73 sqM); Potassium 3.8 mmol/L (3.5-5.1); Sodium 137 mmol/L (137-145)
[2017-05-26 18:57] LABS: Glucose,Whole Blood 151 mg/dL (75-99)
[2017-05-26 19:54] LABS: Glucose,Whole Blood 148 mg/dL (75-99)
[2017-05-26] MEDS: MUPIROCIN 2% OINT 22 GM TUBE NASAL SCH (20:00)
[2017-05-26] MEDS: POTASSIUM CHLORIDE 10 MEQ in WATER FOR INJECTION 1 100ML.BAG IVPB SCH ×2 (20:59→23:16)
[2017-05-26 21:10] LABS: Glucose,Whole Blood 148 mg/dL (75-99)
[2017-05-26 21:51] LABS: Glucose,Whole Blood 129 mg/dL (75-99)
[2017-05-26 22:56] LABS: Glucose,Whole Blood 120 mg/dL (75-99)
[2017-05-26] MEDS: HEPARIN SODIUM,PORCINE 5,000 UNIT/ML 1 ML VIAL SQ SCH (23:00)
[2017-05-27 01:07] LABS: Glucose,Whole Blood 142 mg/dL (75-99)
[2017-05-27 01:59] LABS: Glucose,Whole Blood 125 mg/dL (75-99)
[2017-05-27 03:19] LABS: Glucose,Whole Blood 124 mg/dL (75-99)
[2017-05-27 03:44] LABS: Ionized Calcium 4.6 mg/dL (4.5-5.3)
[2017-05-27 03:53] LABS: ALT 46 U/L (21-72); AST 36 U/L (17-59); Alkaline Phosphatase 41 U/L (38-126); Anion Gap 8 mmol/L; Blood Urea Nitrogen 15 mg/dL (9-20); Calcium 7.8 mg/dL (8.4-10.2); Carbon Dioxide 24 mmol/L (22-30); Chloride 104 mmol/L (98-107); Glucose 113 mg/dL (74-99); Magnesium 2.2 mg/dL (1.6-2.3); Non-African American GFR(MDRD) >60 (>60 ml/min/1.73 sqM); Potassium 3.9 mmol/L (3.5-5.1); Sodium 136 mmol/L (137-145); Total Protein 5.3 g/dL (6.3-8.2)
[2017-05-27] MEDS ORDERED: Potassium Replacement Protocol 1 EACH MISC MISCELLANE PRN (04:16)
[2017-05-27 04:30] LABS: Basophils % (A) 0 %; CH 31.8; CHCM 36.3; Eosinophils % (A) 0 %; HCT 36.9 % (39.0-53.0); HDW 3.32; HGB 13.2 gm/dL (13.0-17.5); Luc # (Auto) 0.19; Luc % (Auto) 2; Lymphocytes # (A) 0.7 k/uL (1.0-4.8); Lymphocytes % (A) 7 %; MCH 31.5 pg (25.0-35.0); MCHC 35.7 g/dL (31.0-37.0); MCV 88.1 fL (80.0-100.0); Mean Platelet Volume 6.3; Monocytes # (A) 0.9 k/uL (0-1.0); Monocytes % (A) 8 %; Neutrophils # (A) 8.6 k/uL (1.3-7.7); Neutrophils % (A) 83 %; RBC 4.18 m/uL (4.30-5.90); RDW 13.9 % (11.5-15.5); WBC 10.4 k/uL (3.8-10.6); WBC (Perox) 10.64
[2017-05-27 04:30] LABS: Glucose,Whole Blood 108 mg/dL (75-99)
[2017-05-27 04:53] LABS: INR 1.2 (<1.2); Partial Thromboplastin Time 27.5 sec (22.0-30.0); Prothrombin Time 11.7 sec (9.0-12.0)
[2017-05-27] MEDS ORDERED: POTASSIUM CHLORIDE ER 20 MEQ TAB.ER PO SCH (05:00)
[2017-05-27] MEDS: ACETAMINOPHEN IV (For NPO) 1,000 MG in EMPTY BAG 1 BAG IVPB SCH ×3 (06:08→17:45)
[2017-05-27 06:20] LABS: Glucose,Whole Blood 153 mg/dL (75-99)
--- NOTE | 2017-05-27 07:20 | XR ---
EXAMINATION TYPE: XR chest 1V portable DATE OF EXAM: 05/27/2017 Comparison: 05/26/2017 Clinical History: 71-year-old male Post Operative Cardiac Surgery Findings: Median sternotomy wires and postoperative clips in the mediastinum. Mediastinal drain is present as w ell as a left-sided chest tube. Right IJ Duncan-Anaid catheter with tip in the distal right main pulmona ry artery. Heart is upper limits of normal in size. Mild interstitial prominence similar to prior exam. Some pat phillip retrocardiac opacity remains. No appreciable pneumothorax. Bands of atelectasis in the mid lungs. Impression: 1. Left-sided chest tube without appreciable pneumothorax. 2. Correlate for mild pulmonary vascular congestion, relatively similar prior. 3. Patchy retrocardiac atelectasis.
[2017-05-27] MEDS: VANCOMYCIN 1,250 MG in SODIUM CHLORIDE 0.9% 250 ML IVPB SCH ×2 (07:52→17:46)
[2017-05-27] MEDS: HEPARIN SODIUM,PORCINE 5,000 UNIT/ML 1 ML VIAL SQ SCH ×2 (07:52→16:23)
[2017-05-27 07:53] LABS: Glucose,Whole Blood 128 mg/dL (75-99)
[2017-05-27] MEDS: METOPROLOL TARTRATE 12.5 MG TAB PO SCH ×2 (07:54→22:10)
[2017-05-27] MEDS: ATORVASTATIN 40 MG TAB PO SCH (07:54)
[2017-05-27] MEDS: ASPIRIN 325 MG TAB PO SCH (07:54)
[2017-05-27] MEDS: CLOPIDOGREL 75 MG TAB PO SCH (07:54)
[2017-05-27] MEDS: MUPIROCIN 2% OINT 22 GM TUBE NASAL SCH ×2 (07:55→22:11)
[2017-05-27] MEDS ORDERED: PANTOPRAZOLE 40 MG/10 ML VIAL IVP SCH (09:00)
[2017-05-27 09:18] LABS: Glucose,Whole Blood 99 mg/dL (75-99)
[2017-05-27 09:56] LABS: Glucose,Whole Blood 102 mg/dL (75-99)
[2017-05-27] MEDS ORDERED: METOPROLOL TARTRATE 12.5 MG TAB PO STA (10:07)
[2017-05-27 10:21] VITALS: BMI 27.2
[2017-05-27 11:17] LABS: Glucose,Whole Blood 126 mg/dL (75-99)
[2017-05-27] MEDS: ONDANSETRON 4 MG/2 ML VIAL IVP PRN (11:38)
[2017-05-27] MEDS: CLEVIDIPINE BUTYRATE 25 MG in EMPTY BAG 1 BAG IV SCH (11:39)
[2017-05-27 12:07] LABS: Glucose,Whole Blood 158 mg/dL (75-99)
[2017-05-27] MEDS ORDERED: BISACODYL 10 MG SUPP RECTAL PRN (12:17)
[2017-05-27] MEDS ORDERED: MAGNESIUM HYDROXIDE 2,400 MG/10 ML CUP PO PRN (12:17)
[2017-05-27] MEDS ORDERED: IPRATROPIUM-ALBUTEROL 3 ML NEB INHALATION PRN (12:18)
--- NOTE | 2017-05-27 13:44 | P.CNPUL ---
History of Present Illness Consult date: 05/27/17 Chief complaint: Coronary artery bypass surgery History of present illness: This is a 71-year-old male patient is postop day #1 following coronary artery bypass surgery. The patient had symptomatic CAD and he underwent an off-pump coronary artery bypass surgery with ISAACS to LAD and saphenous vein graft to intermediate and obtuse branches of the coronary arteries. Postop, the patient was brought into the intensive care unit intubated on a mechanical ventilator. He has a pleural and mediastinal chest tube. He was weaned off the mechanical ventilator other major difficulties and he was extubated yesterday. This morning he is hemodynamically stable. The output from the left pleural and mediastinal chest tube is around 120 mL since morning shift. The patient is hemodynamically stable. The patient is on Cleviprex for blood pressure control. Is off the nitroglycerin. He is also taking aspirin, and metoprolol 12.5 mg by mouth twice a day. The chest x-ray from today shows a left-sided chest tube without evidence of any pneumothorax. There is some mild four- vessel congestion and patchy retrocardiac atelectasis. He is pulling approximately 1500 on his incentive spirometer. No chest wall pain. Sternum stable clean and intact. No other significant issues over the past 24 hours. No cardiac arrhythmias noted. Review of Systems Constitutional: Reports fatigue Eyes: denies blurred vision, denies bulging eye, denies decreased vision Ears: deny: decreased hearing, ear discharge, earache Ears, nose, mouth and throat: Reports as per HPI Cardiovascular: Reports shortness of breath Respiratory: Reports dyspnea Gastrointestinal: Denies abdominal pain, Denies diarrhea, Denies nausea, Denies vomiting Genitourinary: Reports as per HPI Musculoskeletal: Denies myalgias Musculoskeletal: absent: ankle pain, ankle stiffness, ankle swelling Integumentary: Denies pruritus, Denies rash Neurological: Denies numbness, Denies weakness Psychiatric: Denies anxiety, Denies depression Endocrine: Denies fatigue, Denies weight change Past Medical History Past Medical History: Chest Pain / Angina, Hyperlipidemia, Hypertension, Myocardial Infarction (CA), Mitral Valve Prolapse (MVP) Additional Past Medical History / Comment(s): Coronary artery disease, mitral valve prolapse, essential tremors, impaired hearing, previous history of subarachnoid hemorrhage back in 2005, shingles involving the right I am face in 2009, diverticulosis, hypertension, hyperlipidemia. Last Myocardial Infarction Date:: 2011 History of Any Multi-Drug Resistant Organisms: None Reported Past Surgical History: Bowel Resection, Cholecystectomy, Heart Catheterization, Heart Catheterization With Stent, Hernia Repair, Orthopedic Surgery Additional Past Surgical History / Comment(s): several hernia repairs- inguinal and abdominal one with mesh, eye surgery, colonoscopy, eyelid surgery, 2000- burst intestine-colostomy with eventual reversal, hemorrohoidectomy, 1970-L knee surgery Past Anesthesia/Blood Transfusion Reactions: No Reported Reaction Additional Past Anesthesia/Blood Transfusion Reaction / Comment(s): Pt has never received blood. Date of Last Stent Placement:: 2014 Smoking Status: Never smoker - Past Family History Brother(s) Family Medical History: Myocardial Infarction (CA) Father Family Medical History: Coronary Artery Disease (CAD) Additional Family Medical History / Comment(s): Father had 3 CABG's, one of them before the age of 60 Mother Family Medical History: Cancer Additional Family Medical History / Comment(s): Mother of cancer Medications and Allergies Home Medications Medication Instructions Recorded Confirmed Type Hydrochlorothiazide [Hydrodiuril] 25 mg PO DAILY 12/19/14 05/26/17 History Metoprolol Tartrate [Lopressor] 12.5 mg PO DAILY 12/19/14 05/26/17 History Multivitamins, Thera [Multivitamin 1 tab PO DAILY 12/19/14 05/26/17 History (formulary)] Nitroglycerin Sl Tabs [Nitrostat] 0.4 mg PO Q5M PRN 12/19/14 05/26/17 History Atorvastatin [Lipitor] 20 mg PO HS 12/13/16 05/26/17 History Lisinopril [Zestril] 10 mg PO HS 12/13/16 05/26/17 History Ubidecarenone [Co Q-10] 100 mg PO DAILY 12/13/16 05/26/17 History Allergies Allergy/AdvReac Type Severity Reaction Status Date / Time Penicillins Allergy Anaphylaxis Verified 05/24/17 11:40 heparin AdvReac Rash/Hives Verified 05/24/17 11:40 ketorolac tromethamine AdvReac Twitching Verified 05/24/17 11:40 [From Toradol] prednisone AdvReac Muscle Verified 05/24/17 11:40 Spasms Physical Exam Vitals: Vital Signs Temp Pulse Pulse Resp BP Pulse Ox 05/27/17 12:00 98.1 F 81 84 19 110/59 95 05/27/17 11:30 89 16 93 L 05/27/17 11:00 91 16 93 L 05/27/17 10:30 88 20 95 05/27/17 10:00 88 25 H 98 05/27/17 09:30 88 15 97 05/27/17 09:00 78 10 L 98 05/27/17 08:30 91 14 97 05/27/17 08:00 97 84 17 96 05/27/17 07:30 85 8 L 103/56 95 05/27/17 07:00 82 13 121/60 95 05/27/17 06:30 92 14 115/57 94 L 05/27/17 06:00 106 H 19 120/65 92 L 05/27/17 05:30 96 15 99/57 95 05/27/17 05:00 82 14 102/55 95 05/27/17 04:30 91 12 106/58 94 L 05/27/17 04:00 94 18 112/59 95 05/27/17 03:30 92 12 113/64 95 05/27/17 03:23 14 05/27/17 03:00 84 14 100/60 95 05/27/17 02:30 85 14 109/63 96 05/27/17 02:00 90 13 119/63 95 05/27/17 01:30 95 12 125/64 96 05/27/17 01:00 90 12 132/68 96 05/27/17 00:30 93 12 140/70 96 05/27/17 00:01 99 14 140/70 97 05/27/17 00:00 96 14 138/69 96 05/26/17 23:32 16 05/26/17 23:30 101 H 13 140/71 97 05/26/17 23:00 101 H 16 134/69 96 05/26/17 22:30 96 14 135/67 97 05/26/17 22:00 102 H 15 136/73 96 05/26/17 21:30 105 H 17 137/69 96 05/26/17 21:00 105 H 18 124/68 96 05/26/17 20:30 108 H 16 133/68 95 05/26/17 20:00 97.7 F 112 H 17 141/77 96 05/26/17 19:30 113 H 15 95 05/26/17 19:00 112 H 17 95 05/26/17 18:30 117 H 18 94 L 05/26/17 18:00 112 H 16 94 L 05/26/17 17:30 114 H 20 92 L 05/26/17 17:00 101 H 84 20 95 05/26/17 16:30 105 H 29 H 96 05/26/17 16:12 90 05/26/17 16:01 94 05/26/17 16:00 81 14 96 05/26/17 15:40 97 22 95 05/26/17 15:30 87 16 109/67 97 05/26/17 15:20 87 15 109/67 98 05/26/17 15:10 85 14 109/67 99 05/26/17 15:00 82 13 109/67 99 05/26/17 14:50 85 13 109/67 99 05/26/17 14:40 97 22 109/67 98 05/26/17 14:30 80 11 L 109/67 100 05/26/17 14:20 79 12 109/67 100 05/26/17 14:10 76 12 109/67 100 05/26/17 14:00 77 13 109/67 100 05/26/17 13:50 71 12 109/67 100 05/26/17 13:40 71 12 109/67 100 Intake and Output 05/26/17 05/27/17 05/27/17 22:59 06:59 14:59 Intake Total 1018.785 711.400 179.183 Output Total 1010 1005 370 Balance 8.785 -293.600 -190.817 Intake: IV 839 659 160 ACETAMINOPHEN IV (For NPO 100 200 ) 1,000 mg In Empty Bag 1 bag @ 400 mls/hr IVPB Q6HR [facility] Rx#:[id number] CO/CI 50 20 30 Lactated Ringers 1,000 ml 339 430 130 @ 20 mls/hr IV .Q24H [facility] Rx#:[id number] Potassium Chloride 10 meq 100 9 In Water For Injection 1 100ml.bag @ 100 mls/hr IVPB Q1H [facility] Rx#: [id number] Vancomycin 1,000 mg In 250 Sodium Chloride 0.9% 250 ml @ Per Protocol IVPB ONCE ONE Rx#:[id number] Intake, IV Titration 179.785 52.400 19.183 Amount Clevidipine Butyrate 25 13.133 50.000 mg In Empty Bag 1 bag @ 1 MG/HR 2 mls/hr IV .Q24H REPLACED BY [facility] Rx#:[id number] Insulin Regular 100 unit 12.766 2.4 19.183 In Sodium Chloride 0.9% 100 ml @ Per Protocol IV .Q0M [facility] Rx#:[id number] Magnesium Sulfate-D5w Pmx 100 1 gm In Dextrose/Water 1 100ml.bag @ 100 mls/hr IVPB Q1H [facility] Rx#: [id number] Propofol 1,000 mg In 100 53.886 ml @ Titrate IV .Q0M REPLACED BY [facility] Rx#:[id number] Output: Chest Tube Drainage 230 230 120 Left Pleural/Mediastinal 230 230 120 Urine 780 775 250 Other: Voiding Method Indwelling Catheter Indwelling Catheter Indwelling Catheter Weight 81.3 kg 81.3 kg Patient Weight 05/28/17 06:59 Weight 81.3 kg ABP, PAP, CO, CI - Last 8 Hours Arterial Blood Pressure 155/59 Arterial Blood Pressure 132/48 Arterial Blood Pressure 116/47 Arterial Blood Pressure 135/52 Arterial Blood Pressure 159/64 Arterial Blood Pressure 143/62 Arterial Blood Pressure 140/53 Arterial Blood Pressure 163/62 Arterial Blood Pressure 139/53 Arterial Blood Pressure 127/45 Arterial Blood Pressure 127/46 Arterial Blood Pressure 127/43 Arterial Blood Pressure 155/48 Pulmonary Artery Pressure 21/10 Pulmonary Artery Pressure 22/10 Pulmonary Artery Pressure 22/9 Pulmonary Artery Pressure 24/12 Pulmonary Artery Pressure 20/8 Pulmonary Artery Pressure 22/10 Pulmonary Artery Pressure 22/10 Pulmonary Artery Pressure 18/7 Pulmonary Artery Pressure 19/8 Pulmonary Artery Pressure 15/5 Pulmonary Artery Pressure 18/6 Cardiac Output 5.6 Cardiac Output 5.6 Cardiac Output 5.6 Cardiac Output 5.6 Cardiac Output 5.6 Cardiac Output 5.6 Cardiac Output 5.6 Cardiac Output 5.6 Cardiac Output 6 Cardiac Output 6 Cardiac Output 6 Cardiac Output 6 Cardiac Index 3 Head exam was generally normal. There was no scleral icterus or corneal arcus. Mucous membranes were moist. Neck is supple and the patient has a right IJ sheath with a [place]-Anaid catheter in place. No goiter or neck masses. Neck is supple at this point. Lung sounds are diminished bilaterally along with that there is some scattered rhonchi. Chest tubes are all in place and the patient is a mediastinal and a left pleural chest tube. Heart sounds are regular, the patient has a normal S1-S2. No significant murmurs appreciated. No rubs.Abdominal exam revealed normal bowel sounds. The abdomen was soft, non- tender, and without masses, organomegaly, or appreciable enlargement of the abdominal aorta.Examination of the extremities revealed easily palpable radial, femoral and pedal pulses. There was no cyanosis, clubbing or edema. Results - Laboratory Findings CBC and BMP: 05/27/17 03:20 05/27/17 03:20 ABG ABG pH 7.39 (7.35-7.45) 05/26/17 17:18 ABG pCO2 38 mmHg (35-45) 05/26/17 17:18 ABG pO2 88 mmHg (83-108) 05/26/17 17:18 ABG O2 Saturation 97.0 % (94-97) 05/26/17 17:18 PT/INR, D-dimer PT 11.7 sec (9.0-12.0) 05/27/17 03:20 INR 1.2 (<1.2) H 05/27/17 03:20 Abnormal lab findings: Abnormal Labs 05/21/17 05/26/17 05/26/17 05:49 08:57 09:45 WBC RBC Hgb Hct Plt Count Neutrophils # Lymphocytes # PT INR ABG pH 7.48 H ABG pCO2 33 L ABG pO2 265 H 222 H ABG HCO3 26 H ABG Total CO2 25 H 27 H ABG O2 Saturation 99.9 H 99.8 H ABG Hematocrit Sodium Chloride Creatinine Glucose POC Glucose (mg/dL) Calcium Magnesium Total Protein Albumin Crossmatch See Detail 05/26/17 05/26/17 05/26/17 09:46 10:24 10:24 WBC RBC Hgb Hct Plt Count Neutrophils # Lymphocytes # PT INR ABG pH ABG pCO2 ABG pO2 263 H ABG HCO3 ABG Total CO2 26 H ABG O2 Saturation 99.9 H ABG Hematocrit Sodium Chloride Creatinine Glucose POC Glucose (mg/dL) 121 H 136 H Calcium Magnesium Total Protein Albumin Crossmatch 05/26/17 05/26/17 05/26/17 10:55 10:56 11:46 WBC RBC Hgb Hct Plt Count Neutrophils # Lymphocytes # PT INR ABG pH ABG pCO2 ABG pO2 220 H ABG HCO3 ABG Total CO2 ABG O2 Saturation 99.8 H ABG Hematocrit Sodium Chloride Creatinine Glucose POC Glucose (mg/dL) 141 H 120 H Calcium Magnesium Total Protein Albumin Crossmatch 05/26/17 05/26/17 05/26/17 11:51 12:30 12:30 WBC RBC 3.92 L Hgb 12.3 L D Hct 34.3 L Plt Count 80 L Neutrophils # Lymphocytes # 0.6 L PT INR ABG pH ABG pCO2 ABG pO2 152 H ABG HCO3 ABG Total CO2 25 H ABG O2 Saturation 99.3 H ABG Hematocrit 33 L Sodium Chloride 109 H Creatinine Glucose 119 H POC Glucose (mg/dL) Calcium 7.7 L Magnesium Total Protein 5.1 L Albumin 3.2 L Crossmatch 05/26/17 05/26/17 05/26/17 12:30 12:34 12:57 WBC RBC Hgb Hct Plt Count Neutrophils # Lymphocytes # PT 12.5 H INR 1.3 H ABG pH ABG pCO2 ABG pO2 276 H ABG HCO3 ABG Total CO2 25 H ABG O2 Saturation 99.9 H ABG Hematocrit Sodium Chloride Creatinine Glucose POC Glucose (mg/dL) 126 H Calcium Magnesium Total Protein Albumin Crossmatch 05/26/17 05/26/17 05/26/17 13:19 14:07 14:58 WBC RBC Hgb Hct Plt Count Neutrophils # Lymphocytes # PT INR ABG pH ABG pCO2 ABG pO2 ABG HCO3 ABG Total CO2 ABG O2 Saturation ABG Hematocrit Sodium Chloride Creatinine Glucose POC Glucose (mg/dL) 113 H 107 H 112 H Calcium Magnesium Total Protein Albumin Crossmatch 05/26/17 05/26/17 05/26/17 15:30 15:30 16:13 WBC RBC 3.95 L Hgb 12.5 L Hct 34.7 L Plt Count 101 L Neutrophils # 8.4 H Lymphocytes # 0.6 L PT INR ABG pH ABG pCO2 ABG pO2 ABG HCO3 ABG Total CO2 ABG O2 Saturation ABG Hematocrit Sodium Chloride Creatinine Glucose 129 H POC Glucose (mg/dL) 160 H Calcium 7.7 L Magnesium Total Protein Albumin Crossmatch 05/26/17 05/26/17 05/26/17 17:15 17:59 18:00 WBC 14.1 H RBC Hgb Hct Plt Count 120 L Neutrophils # 12.6 H Lymphocytes # 0.5 L PT INR ABG pH ABG pCO2 ABG pO2 ABG HCO3 ABG Total CO2 ABG O2 Saturation ABG Hematocrit Sodium Chloride Creatinine Glucose POC Glucose (mg/dL) 184 H 174 H Calcium Magnesium Total Protein Albumin Crossmatch 05/26/17 05/26/17 05/26/17 18:00 18:56 19:52 WBC RBC Hgb Hct Plt Count Neutrophils # Lymphocytes # PT INR ABG pH ABG pCO2 ABG pO2 ABG HCO3 ABG Total CO2 ABG O2 Saturation ABG Hematocrit Sodium Chloride Creatinine Glucose 171 H POC Glucose (mg/dL) 151 H 148 H Calcium 8.1 L Magnesium 2.4 H Total Protein Albumin Crossmatch 05/26/17 05/26/17 05/26/17 21:09 21:49 22:53 WBC RBC Hgb Hct Plt Count Neutrophils # Lymphocytes # PT INR ABG pH ABG pCO2 ABG pO2 ABG HCO3 ABG Total CO2 ABG O2 Saturation ABG Hematocrit Sodium Chloride Creatinine Glucose POC Glucose (mg/dL) 148 H 129 H 120 H Calcium Magnesium Total Protein Albumin Crossmatch 05/27/17 05/27/17 05/27/17 01:05 01:57 03:17 WBC RBC Hgb Hct Plt Count Neutrophils # Lymphocytes # PT INR ABG pH ABG pCO2 ABG pO2 ABG HCO3 ABG Total CO2 ABG O2 Saturation ABG Hematocrit Sodium Chloride Creatinine Glucose POC Glucose (mg/dL) 142 H 125 H 124 H Calcium Magnesium Total Protein Albumin Crossmatch 05/27/17 05/27/17 05/27/17 03:20 03:20 03:20 WBC RBC 4.18 L Hgb Hct 36.9 L Plt Count 103 L Neutrophils # 8.6 H Lymphocytes # 0.7 L PT INR 1.2 H ABG pH ABG pCO2 ABG pO2 ABG HCO3 ABG Total CO2 ABG O2 Saturation ABG Hematocrit Sodium 136 L Chloride Creatinine 0.61 L Glucose 113 H POC Glucose (mg/dL) Calcium 7.8 L Magnesium Total Protein 5.3 L Albumin 3.2 L Crossmatch 05/27/17 05/27/17 05/27/17 04:28 06:18 07:51 WBC RBC Hgb Hct Plt Count Neutrophils # Lymphocytes # PT INR ABG pH ABG pCO2 ABG pO2 ABG HCO3 ABG Total CO2 ABG O2 Saturation ABG Hematocrit Sodium Chloride Creatinine Glucose POC Glucose (mg/dL) 108 H 153 H 128 H Calcium Magnesium Total Protein Albumin Crossmatch 05/27/17 05/27/17 05/27/17 09:55 11:16 12:06 WBC RBC Hgb Hct Plt Count Neutrophils # Lymphocytes # PT INR ABG pH ABG pCO2 ABG pO2 ABG HCO3 ABG Total CO2 ABG O2 Saturation ABG Hematocrit Sodium Chloride Creatinine Glucose POC Glucose (mg/dL) 102 H 126 H 158 H Calcium Magnesium Total Protein Albumin Crossmatch - Diagnostic Findings Chest x-ray: image reviewed Assessment and Plan Plan: Assessment 1 symptomatic coronary artery disease, post bypass surgery with ISAACS to LAD and saphenous finger after 2 obtuse marginal and intermediate branches, postop day # 1 2 hypertension currently on clevidipine drip for blood pressure control 3 postoperative chest tubes, output is being monitored 4 hyperlipidemia 5 mitral valve prolapse 6 essential tremors 7 diverticulosis 8 remote history of subarachnoid bleed 9 expected postoperative anemia and thrombocytopenia, being monitored Plan Monitor the blood pressure and wean off the clevidipine drip accordingly. Remove the [place]Anaid catheter is patient is hemodynamically stable. Monitor the output from the chest tubes. Chest x-ray from today was reviewed. Continue aspirin and Plavix. Insulin for blood sugar control. Off the nitroglycerin drip. Will follow. Encourage use of incentive spirometer.
[2017-05-27 13:54] LABS: Glucose,Whole Blood 130 mg/dL (75-99)
[2017-05-27] MEDS: NITROGLYCERIN-D5W PMX 50 MG in DEXTROSE/WATER 1 250ML.BAG IV SCH (13:58)
[2017-05-27] MEDS: LACTATED RINGERS 1,000 ML IV SCH (14:00)
[2017-05-27 16:23] LABS: Glucose,Whole Blood 100 mg/dL (75-99)
--- NOTE | 2017-05-27 17:31 | P.PN ---
Subjective Principal diagnosis: Coronary artery disease, hypertension, hyperlipidemia, history of myocardial infarction in 2011 with double stent placement to his right coronary artery, previous history of subarachnoid hemorrhage in 2005, diverticulosis with colostomy placement in 1999 and reversal surgery, and essential tremor. POD #1, elective off pump coronary artery bypass grafting 3 with placement of his left internal mammary artery to his left anterior descending coronary artery , a reverse greater saphenous vein graft placed to his intermediate coronary artery and to his obtuse marginal coronary artery. Endoscopic vein harvesting of his left greater saphenous vein, and intraoperative transesophageal echocardiogram. The patient is sitting up to his bedside chair in no acute distress. He is alert and orientated 3. He rates his pain at 6 out of 10 on the pain scale and reports that his pain is coming from his left chest tube insertion site. Objective - Vital Signs Vital signs: Vital Signs Temp 98.1 F 05/27/17 12:00 Pulse 75 05/27/17 13:30 Resp 10 L 05/27/17 13:30 BP 118/67 05/27/17 13:30 Pulse Ox 97 05/27/17 13:30 Intake & Output 05/26/17 05/27/17 05/27/17 18:59 06:59 18:59 Intake Total 130.939 2026.783 199.183 Output Total 1592 1470 440 Balance -864.022 -293.217 -240.817 Weight 81.3 kg 81.3 kg Intake: IV 430 1118 180 ACETAMINOPHEN IV (For NPO 100 200 ) 1,000 mg In Empty Bag 1 bag @ 400 mls/hr IVPB Q6HR [facility] Rx#:[id number] CO/CI 30 40 30 Lactated Ringers 1,000 ml 300 519 150 @ 20 mls/hr IV .Q24H [facility] Rx#:[id number] Potassium Chloride 10 meq 109 In Water For Injection 1 100ml.bag @ 100 mls/hr IVPB Q1H [facility] Rx#: [id number] Vancomycin 1,000 mg In 250 Sodium Chloride 0.9% 250 ml @ Per Protocol IVPB ONCE ONE Rx#:[id number] Intake, IV Titration 297.978 58.783 19.183 Amount Clevidipine Butyrate 25 13.133 50.000 mg In Empty Bag 1 bag @ 1 MG/HR 2 mls/hr IV .Q24H [facility] Rx#:[id number] Insulin Regular 100 unit 7.383 8.783 19.183 In Sodium Chloride 0.9% 100 ml @ Per Protocol IV .Q0M [facility] Rx#:[id number] Magnesium Sulfate-D5w Pmx 200 1 gm In Dextrose/Water 1 100ml.bag @ 100 mls/hr IVPB Q1H [facility] Rx#: [id number] Propofol 1,000 mg In 100 77.462 ml @ Titrate IV .Q0M [facility] Rx#:[id number] Output: Chest Tube Drainage 300 290 140 Left Pleural/Mediastinal 300 290 140 Urine 792 1180 300 Estimated Blood Loss 500 Other: Voiding Method Indwelling Catheter Indwelling Catheter Indwelling Catheter ABP, PAP, CO, CI - Last Documented Arterial Blood Pressure 155/59 Pulmonary Artery Pressure 21/10 Cardiac Output 5.6 Cardiac Index 3 - Constitutional General appearance: Present: cooperative, no acute distress - EENT Eyes: Present: PERRLA, normal appearance ENT: Present: hearing grossly normal - Neck Details: Right internal jugular cordis with [place]-Anaid catheter, current cardiac output is 5.6, cardiac index is 3.0, PA pressures are 20/11, CVP is 7. No JVD present - Respiratory Details: Essentially clear throughout, diminished to his bilateral bases. Respirations are symmetrical and unlabored. His current oxygen saturations are 95% on 3 L nasal cannula. His mediastinal and left pleural chest tube are without air leak. There remained to continuous low wall suction. They are draining thin serosanguineous drainage. 290 mL output in the last 8 hours, 700 mL output since surgery. He is achieving 1250 mL on his incentive spirometry. - Cardiovascular Details: Regular rhythm and rate. S1 and S2 present, negative for S3, gallop or murmur. No edema present. Sternum is stable. Bedside telemetry showing normal sinus rhythm heart rate 89. Heart hugger in place and he is demonstrating appropriate use. Knee-high YASMINE hose and sequential compression devices in place to his bilateral lower extremities. - Gastrointestinal Gastrointestinal Comment(s): Abdomen is soft, nontender and nondistended. Positive bowel sounds to all 4 abdominal quadrants. He is tolerating an oral diet. - Genitourinary Genitourinary Comment(s): Adequate urine output, Sahu catheter for accurate I&O. Clear yellow urine. - Integumentary Integumentary Comment(s): Midline sternal incision clean dry and well approximated. Dermabond dressing in place. 4 x 4 gauze dressing clean dry and intact and secured with tape. Left leg incisions clean dry and well approximated. Ecchymosis area to his left thigh, soft touch. Nontender. Integumentary: Present: normal, normal turgor - Musculoskeletal Musculoskeletal: Present: gait normal, generalized weakness, strength equal bilaterally - Psychiatric Psychiatric: Present: A&O x's 3, appropriate affect, intact judgment & insight - Allied health notes Allied health notes reviewed: nursing - Labs CBC & Chem 7: 05/27/17 03:20 05/27/17 03:20 Labs: Abnormal Lab Results - Last 24 Hours (Table) 05/21/17 05/26/17 05/26/17 Range/Units 05:49 17:15 17:59 WBC (3.8-10.6) k/uL RBC (4.30-5.90) m/uL Hct (39.0-53.0) % Plt Count (150-450) k/uL Neutrophils # (1.3-7.7) k/uL Lymphocytes # (1.0-4.8) k/uL INR (<1.2) Sodium (137-145) mmol/L Creatinine (0.66-1.25) mg/dL Glucose (74-99) mg/dL POC Glucose (mg/dL) 184 H 174 H (75-99) mg/dL Calcium (8.4-10.2) mg/dL Magnesium (1.6-2.3) mg/dL Total Protein (6.3-8.2) g/dL Albumin (3.5-5.0) g/dL Crossmatch See Detail 05/26/17 05/26/17 05/26/17 Range/Units 18:00 18:00 18:56 WBC 14.1 H (3.8-10.6) k/uL RBC (4.30-5.90) m/uL Hct (39.0-53.0) % Plt Count 120 L (150-450) k/uL Neutrophils # 12.6 H (1.3-7.7) k/uL Lymphocytes # 0.5 L (1.0-4.8) k/uL INR (<1.2) Sodium (137-145) mmol/L Creatinine (0.66-1.25) mg/dL Glucose 171 H (74-99) mg/dL POC Glucose (mg/dL) 151 H (75-99) mg/dL Calcium 8.1 L (8.4-10.2) mg/dL Magnesium 2.4 H (1.6-2.3) mg/dL Total Protein (6.3-8.2) g/dL Albumin (3.5-5.0) g/dL Crossmatch 05/26/17 05/26/17 05/26/17 Range/Units 19:52 21:09 21:49 WBC (3.8-10.6) k/uL RBC (4.30-5.90) m/uL Hct (39.0-53.0) % Plt Count (150-450) k/uL Neutrophils # (1.3-7.7) k/uL Lymphocytes # (1.0-4.8) k/uL INR (<1.2) Sodium (137-145) mmol/L Creatinine (0.66-1.25) mg/dL Glucose (74-99) mg/dL POC Glucose (mg/dL) 148 H 148 H 129 H (75-99) mg/dL Calcium (8.4-10.2) mg/dL Magnesium (1.6-2.3) mg/dL Total Protein (6.3-8.2) g/dL Albumin (3.5-5.0) g/dL Crossmatch 05/26/17 05/27/17 05/27/17 Range/Units 22:53 01:05 01:57 WBC (3.8-10.6) k/uL RBC (4.30-5.90) m/uL Hct (39.0-53.0) % Plt Count (150-450) k/uL Neutrophils # (1.3-7.7) k/uL Lymphocytes # (1.0-4.8) k/uL INR (<1.2) Sodium (137-145) mmol/L Creatinine (0.66-1.25) mg/dL Glucose (74-99) mg/dL POC Glucose (mg/dL) 120 H 142 H 125 H (75-99) mg/dL Calcium (8.4-10.2) mg/dL Magnesium (1.6-2.3) mg/dL Total Protein (6.3-8.2) g/dL Albumin (3.5-5.0) g/dL Crossmatch 05/27/17 05/27/17 05/27/17 Range/Units 03:17 03:20 03:20 WBC (3.8-10.6) k/uL RBC 4.18 L (4.30-5.90) m/uL Hct 36.9 L (39.0-53.0) % Plt Count 103 L (150-450) k/uL Neutrophils # 8.6 H (1.3-7.7) k/uL Lymphocytes # 0.7 L (1.0-4.8) k/uL INR (<1.2) Sodium 136 L (137-145) mmol/L Creatinine 0.61 L (0.66-1.25) mg/dL Glucose 113 H (74-99) mg/dL POC Glucose (mg/dL) 124 H (75-99) mg/dL Calcium 7.8 L (8.4-10.2) mg/dL Magnesium (1.6-2.3) mg/dL Total Protein 5.3 L (6.3-8.2) g/dL Albumin 3.2 L (3.5-5.0) g/dL Crossmatch 05/27/17 05/27/17 05/27/17 Range/Units 03:20 04:28 06:18 WBC (3.8-10.6) k/uL RBC (4.30-5.90) m/uL Hct (39.0-53.0) % Plt Count (150-450) k/uL Neutrophils # (1.3-7.7) k/uL Lymphocytes # (1.0-4.8) k/uL INR 1.2 H (<1.2) Sodium (137-145) mmol/L Creatinine (0.66-1.25) mg/dL Glucose (74-99) mg/dL POC Glucose (mg/dL) 108 H 153 H (75-99) mg/dL Calcium (8.4-10.2) mg/dL Magnesium (1.6-2.3) mg/dL Total Protein (6.3-8.2) g/dL Albumin (3.5-5.0) g/dL Crossmatch 05/27/17 05/27/17 05/27/17 Range/Units 07:51 09:55 11:16 WBC (3.8-10.6) k/uL RBC (4.30-5.90) m/uL Hct (39.0-53.0) % Plt Count (150-450) k/uL Neutrophils # (1.3-7.7) k/uL Lymphocytes # (1.0-4.8) k/uL INR (<1.2) Sodium (137-145) mmol/L Creatinine (0.66-1.25) mg/dL Glucose (74-99) mg/dL POC Glucose (mg/dL) 128 H 102 H 126 H (75-99) mg/dL Calcium (8.4-10.2) mg/dL Magnesium (1.6-2.3) mg/dL Total Protein (6.3-8.2) g/dL Albumin (3.5-5.0) g/dL Crossmatch 05/27/17 05/27/17 05/27/17 Range/Units 12:06 13:53 16:21 WBC (3.8-10.6) k/uL RBC (4.30-5.90) m/uL Hct (39.0-53.0) % Plt Count (150-450) k/uL Neutrophils # (1.3-7.7) k/uL Lymphocytes # (1.0-4.8) k/uL INR (<1.2) Sodium (137-145) mmol/L Creatinine (0.66-1.25) mg/dL Glucose (74-99) mg/dL POC Glucose (mg/dL) 158 H 130 H 100 H (75-99) mg/dL Calcium (8.4-10.2) mg/dL Magnesium (1.6-2.3) mg/dL Total Protein (6.3-8.2) g/dL Albumin (3.5-5.0) g/dL Crossmatch - Imaging and Cardiology Chest x-ray: report reviewed, image reviewed Assessment and Plan (1) History of mitral valve prolapse Status: Acute (2) CAD (coronary artery disease) Status: Acute (3) Family history of coronary artery disease Status: Acute (4) HTN (hypertension) Status: Acute (5) History of placement of stent in LAD coronary artery Status: Acute (6) Hx of subarachnoid hemorrhage Status: Acute (7) Hyperlipemia Status: Acute (8) S/P right coronary artery (RCA) stent placement Status: Acute Plan: 1. Continue his aspirin, Plavix, heparin subcu, and metoprolol. We will maximize his beta brian. 2. We will discontinue his mediastinal chest tube and continue his left pleural chest tube to low continuous suction. 3. Continuing to encourage his incentive spirometry every hour while awake. Wean his oxygen as tolerated. 4. Increase his activity as tolerated, cardiac rehab following. 5. GI and DVT prophylaxis in place. 6. We will discontinue his Sahu catheter today. 7. He can be transferred to [address] [place] [address] if the ICU bed is needed. 8. Further recommendations as patient progresses in his care. Time with Patient: Greater than 30
[2017-05-27] MEDS: HYDROcodone/APAP 5-325MG 1 EACH TAB PO PRN (17:45)
[2017-05-27 17:55] LABS: Glucose,Whole Blood 97 mg/dL (75-99)
[2017-05-27 19:16] LABS: Glucose,Whole Blood 116 mg/dL (75-99)
--- NOTE | 2017-05-27 20:09 | P.CRDCN ---
History of Present Illness Consult date: 05/27/17 History of present illness: This is a 71-year-old male patient who is s/p coronary artery bypass surgery. He was c/o chest pain and the cath showed severe LM dx. He underwent an off-pump coronary artery bypass surgery with ISAACS to LAD and saphenous vein graft to intermediate and obtuse branches of the coronary arteries. This morning he is hemodynamically stable. He is making good amount of urine. He is is NSR. Past Medical History Past Medical History: Chest Pain / Angina, Hyperlipidemia, Hypertension, Myocardial Infarction (NE), Mitral Valve Prolapse (MVP) Additional Past Medical History / Comment(s): Coronary artery disease, mitral valve prolapse, essential tremors, impaired hearing, previous history of subarachnoid hemorrhage back in 2005, shingles involving the right I am face in 2009, diverticulosis, hypertension, hyperlipidemia. Last Myocardial Infarction Date:: 2011 History of Any Multi-Drug Resistant Organisms: None Reported Past Surgical History: Bowel Resection, Cholecystectomy, Heart Catheterization, Heart Catheterization With Stent, Hernia Repair, Orthopedic Surgery Additional Past Surgical History / Comment(s): several hernia repairs- inguinal and abdominal one with mesh, eye surgery, colonoscopy, eyelid surgery, 2000- burst intestine-colostomy with eventual reversal, hemorrohoidectomy, 1970-L knee surgery Past Anesthesia/Blood Transfusion Reactions: No Reported Reaction Additional Past Anesthesia/Blood Transfusion Reaction / Comment(s): Pt has never received blood. Date of Last Stent Placement:: 2014 Smoking Status: Never smoker - Past Family History Brother(s) Family Medical History: Myocardial Infarction ([place]) Father Family Medical History: Coronary Artery Disease (CAD) Additional Family Medical History / Comment(s): Father had 3 CABG's, one of them before the age of 60 Mother Family Medical History: Cancer Additional Family Medical History / Comment(s): Mother of cancer Medications and Allergies Home Medications Medication Instructions Recorded Confirmed Type Hydrochlorothiazide [Hydrodiuril] 25 mg PO DAILY 12/19/14 05/26/17 History Metoprolol Tartrate [Lopressor] 12.5 mg PO DAILY 12/19/14 05/26/17 History Multivitamins, Thera [Multivitamin 1 tab PO DAILY 12/19/14 05/26/17 History (formulary)] Nitroglycerin Sl Tabs [Nitrostat] 0.4 mg PO Q5M PRN 12/19/14 05/26/17 History Atorvastatin [Lipitor] 20 mg PO HS 12/13/16 05/26/17 History Lisinopril [Zestril] 10 mg PO HS 12/13/16 05/26/17 History Ubidecarenone [Co Q-10] 100 mg PO DAILY 12/13/16 05/26/17 History Allergies Allergy/AdvReac Type Severity Reaction Status Date / Time Penicillins Allergy Anaphylaxis Verified 05/24/17 11:40 heparin AdvReac Rash/Hives Verified 05/24/17 11:40 ketorolac tromethamine AdvReac Twitching Verified 05/24/17 11:40 [From Toradol] prednisone AdvReac Muscle Verified 05/24/17 11:40 Spasms Physical Exam Vitals: Vital Signs Temp Pulse Pulse Resp BP Pulse Ox 05/27/17 19:00 81 16 132/71 90 L 05/27/17 18:00 88 21 155/74 97 05/27/17 17:00 90 15 147/73 97 05/27/17 16:00 98.1 F 92 84 13 121/70 97 05/27/17 15:00 85 13 124/71 96 05/27/17 14:00 81 13 125/73 96 05/27/17 13:30 75 10 L 118/67 97 05/27/17 13:00 76 9 L 121/73 97 05/27/17 12:30 76 12 116/66 97 05/27/17 12:00 98.1 F 81 84 19 110/59 95 05/27/17 11:30 89 16 93 L 05/27/17 11:00 91 16 93 L 05/27/17 10:30 88 20 95 05/27/17 10:00 88 25 H 98 05/27/17 09:30 88 15 97 05/27/17 09:00 78 10 L 98 05/27/17 08:30 91 14 97 05/27/17 08:00 97 84 17 96 05/27/17 07:30 85 8 L 103/56 95 05/27/17 07:00 82 13 121/60 95 05/27/17 06:30 92 14 115/57 94 L 05/27/17 06:00 106 H 19 120/65 92 L 05/27/17 05:30 96 15 99/57 95 05/27/17 05:00 82 14 102/55 95 05/27/17 04:30 91 12 106/58 94 L 05/27/17 04:00 94 18 112/59 95 05/27/17 03:30 92 12 113/64 95 05/27/17 03:23 14 05/27/17 03:00 84 14 100/60 95 05/27/17 02:30 85 14 109/63 96 05/27/17 02:00 90 13 119/63 95 05/27/17 01:30 95 12 125/64 96 05/27/17 01:00 90 12 132/68 96 05/27/17 00:30 93 12 140/70 96 05/27/17 00:01 99 14 140/70 97 05/27/17 00:00 96 14 138/69 96 05/26/17 23:32 16 05/26/17 23:30 101 H 13 140/71 97 05/26/17 23:00 101 H 16 134/69 96 05/26/17 22:30 96 14 135/67 97 05/26/17 22:00 102 H 15 136/73 96 05/26/17 21:30 105 H 17 137/69 96 05/26/17 21:00 105 H 18 124/68 96 05/26/17 20:30 108 H 16 133/68 95 Intake and Output 05/27/17 05/27/17 05/27/17 06:59 14:59 22:59 Intake Total 711.400 219.183 114.542 Output Total 1005 490 635 Balance -293.600 -270.817 -520.458 Intake: IV 659 200 100 ACETAMINOPHEN IV (For NPO 200 ) 1,000 mg In Empty Bag 1 bag @ 400 mls/hr IVPB Q6HR [facility] Rx#:[id number] CO/CI 20 30 Lactated Ringers 1,000 ml 430 170 100 @ 20 mls/hr IV .Q24H [facility] Rx#:[id number] Potassium Chloride 10 meq 9 In Water For Injection 1 100ml.bag @ 100 mls/hr IVPB Q1H [facility] Rx#: [id number] Intake, IV Titration 52.400 19.183 14.542 Amount Clevidipine Butyrate 25 50.000 mg In Empty Bag 1 bag @ 1 MG/HR 2 mls/hr IV .Q24H [facility] Rx#:[id number] Insulin Regular 100 unit 2.4 19.183 14.542 In Sodium Chloride 0.9% 100 ml @ Per Protocol IV .Q0M [facility] Rx#:[id number] Output: Chest Tube Drainage 230 140 35 Left Pleural/Mediastinal 230 140 35 Urine 775 350 600 Other: Voiding Method Indwelling Catheter Indwelling Catheter Indwelling Catheter Weight 81.3 kg 81.3 kg Patient Weight 05/28/17 06:59 Weight 81.3 kg - Constitutional General appearance: no acute distress - Cardiovascular Rhythm: regular Heart sounds: normal: S1, S2 Results 05/27/17 03:20 05/27/17 03:20 Cardiac Enzymes 05/27/17 Range/Units 03:20 AST 36 (17-59) U/L Coagulation 05/27/17 Range/Units 03:20 PT 11.7 (9.0-12.0) sec APTT 27.5 (22.0-30.0) sec CBC 05/27/17 Range/Units 03:20 WBC 10.4 (3.8-10.6) k/uL RBC 4.18 L (4.30-5.90) m/uL Hgb 13.2 (13.0-17.5) gm/dL Hct 36.9 L (39.0-53.0) % Plt Count 103 L (150-450) k/uL Comprehensive Metabolic Panel 05/27/17 Range/Units 03:20 Sodium 136 L (137-145) mmol/L Potassium 3.9 (3.5-5.1) mmol/L Chloride 104 (98-107) mmol/L Carbon Dioxide 24 (22-30) mmol/L BUN 15 (9-20) mg/dL Creatinine 0.61 L (0.66-1.25) mg/dL Glucose 113 H (74-99) mg/dL Calcium 7.8 L (8.4-10.2) mg/dL AST 36 (17-59) U/L ALT 46 (21-72) U/L Alkaline Phosphatase 41 (38-126) U/L Total Protein 5.3 L (6.3-8.2) g/dL Albumin 3.2 L (3.5-5.0) g/dL Current Medications Generic Name Dose Route Start Last Admin Trade Name Freq PRN Reason Stop Dose Admin Hydrocodone Bitart/Acetaminophen 2 each 05/27/17 12:17 05/27/17 17:45 [place] 5-325 PO 2 each Q4HR PRN Administration Severe Pain Hydrocodone Bitart/Acetaminophen 1 each 05/27/17 12:17 [place] 5-325 PO Q4HR PRN Moderate Pain Albuterol/Ipratropium 3 ml 05/27/17 12:18 Duoneb 0.5 Mg-3 Mg/3 Ml Soln INHALATION RT-Q2H PRN Shortness Of Breath Or Wheezing Aspirin 325 mg 05/27/17 09:00 05/27/17 07:54 Aspirin PO 325 mg DAILY [facility] Administration Atorvastatin Calcium 40 mg 05/27/17 09:00 05/27/17 07:54 Lipitor PO 40 mg DAILY [facility] Administration Benzocaine/Menthol 1 each 05/26/17 12:24 Cepacol Lozenge MUCOUS MEM Q2H PRN Sore Throat Bisacodyl 10 mg 05/27/17 12:17 Dulcolax RECTAL DAILY PRN Constipation Clopidogrel Bisulfate 75 mg 05/27/17 09:00 05/27/17 07:54 Plavix PO 75 mg DAILY [facility] Administration Heparin Sodium (Porcine) 5,000 unit 05/27/17 00:00 05/27/17 16:23 Heparin SQ 5,000 unit Q8HR [facility] Administration Albumin Human 250 ml/ IV 250 mls @ 250 mls/hr 05/26/17 12:24 Solution IVPB 05/28/17 12:25 Q1HR PRN For Volume Insulin Human Regular 100 unit 101 mls @ 0 mls/hr 05/26/17 12:30 05/27/17 19: 17 / Sodium Chloride IV 0.5 ml/hr .Q0M [facility] 0.5 mls/hr Protocol Titration Per Protocol Lactated Ringer's 1,000 mls @ 20 mls/hr 05/26/17 12:24 05/27/17 14:00 Lactated Ringers IV 20 mls/hr .Q24H [facility] Administration Nitroglycerin/Dextrose 50 mg/ 250 mls @ 1.5 mls/hr 05/26/17 12:24 05/27/17 13 :58 IV Solution IV Not Given .Q24H [facility] 5 MCG/MIN Vancomycin HCl 1,250 mg/ 250 mls @ 125 mls/hr 05/26/17 18:00 05/27/17 17:46 Sodium Chloride IVPB 125 mls/hr Q12H [facility] Administration Magnesium Hydroxide 2,400 mg 05/27/17 12:17 Milk Of Magnesia PO BID PRN Constipation Metoclopramide HCl 10 mg 05/26/17 12:24 Reglan IVP Q4H PRN Nausea And Vomiting Metoprolol Tartrate 12.5 mg 05/27/17 09:00 05/27/17 07:54 Lopressor PO 12.5 mg BID [facility] Administration Miscellaneous Information 1 each 05/26/17 12:24 Magnesium Per Protocol MISCELLANE DAILY PRN Per Protocol Protocol Miscellaneous Information 1 each 05/26/17 12:24 Phosphorus Per Protocol MISCELLANE DAILY PRN Per Protocol Protocol Miscellaneous Information 1 each 05/26/17 19:49 Potassium Per Protocol MISCELLANE DAILY PRN Per Protocol Protocol Morphine Sulfate 2 mg 05/26/17 12:24 05/26/17 21:52 Morphine Sulfate (Inj) IVP 2 mg Q2H PRN Administration Severe Pain Mupirocin 1 applic 05/26/17 21:00 05/27/17 07:55 Bactroban Oint NASAL 05/29/17 21:01 1 applic BID [facility] Administration Ondansetron HCl 4 mg 05/26/17 12:24 05/27/17 11:38 Zofran IVP 4 mg Q6HR PRN Administration Nausea And Vomiting Pantoprazole Sodium 40 mg 05/28/17 07:30 Protonix PO AC-BID [facility] Senna/Docusate Sodium 2 each 05/27/17 21:00 Senokot-S PO HS [facility] Sodium Chloride 10 ml 05/26/17 21:00 05/27/17 07:55 Saline Flush IV 10 ml BID [facility] Administration Intake and Output 05/27/17 05/27/17 05/27/17 06:59 14:59 22:59 Intake Total 711.400 219.183 114.542 Output Total 1007 490 635 Balance -293.600 -270.817 -520.458 Intake: IV 659 200 100 ACETAMINOPHEN IV (For NPO 200 ) 1,000 mg In Empty Bag 1 bag @ 400 mls/hr IVPB Q6HR [facility] Rx#:[id number] CO/CI 20 30 Lactated Ringers 1,000 ml 430 170 100 @ 20 mls/hr IV .Q24H [facility] Rx#:[id number] Potassium Chloride 10 meq 9 In Water For Injection 1 100ml.bag @ 100 mls/hr IVPB Q1H [facility] Rx#: [id number] Intake, IV Titration 52.400 19.183 14.542 Amount Clevidipine Butyrate 25 50.000 mg In Empty Bag 1 bag @ 1 MG/HR 2 mls/hr IV .Q24H [facility] Rx#:[id number] Insulin Regular 100 unit 2.4 19.183 14.542 In Sodium Chloride 0.9% 100 ml @ Per Protocol IV .Q0M [facility] Rx#:[id number] Output: Chest Tube Drainage 230 140 35 Left Pleural/Mediastinal 230 140 35 Urine 775 350 600 Other: Voiding Method Indwelling Catheter Indwelling Catheter Indwelling Catheter Weight 81.3 kg 81.3 kg Patient Weight 05/28/17 06:59 Weight 81.3 kg 05/27/17 03:20 05/27/17 03:20 Assessment and Plan Plan: S/P CABG. The patient is stable and he is on antiplatelet and Statin.
[2017-05-27 20:11] LABS: Glucose,Whole Blood 115 mg/dL (75-99)
[2017-05-27] MEDS ORDERED: MECLIZINE 12.5 MG TAB PO PRN (21:27)
[2017-05-27] MEDS: ACETAMINOPHEN TAB 325 MG TAB PO PRN (22:10)
[2017-05-27] MEDS: SENNOSIDES-DOCUSATE SODIUM 1 EACH TAB PO SCH (22:11)
[2017-05-27 22:18] LABS: Glucose,Whole Blood 144 mg/dL (75-99)
[2017-05-28 00:08] LABS: Glucose,Whole Blood 121 mg/dL (75-99)
[2017-05-28] MEDS: HEPARIN SODIUM,PORCINE 5,000 UNIT/ML 1 ML VIAL SQ SCH ×3 (00:19→17:31)
[2017-05-28 01:57] LABS: Glucose,Whole Blood 128 mg/dL (75-99)
[2017-05-28] MEDS: ACETAMINOPHEN TAB 325 MG TAB PO PRN ×2 (02:06→06:07)
[2017-05-28] MEDS ORDERED: IBUPROFEN 200 MG TAB PO PRN (02:27)
[2017-05-28 04:04] LABS: Glucose,Whole Blood 139 mg/dL (75-99)
[2017-05-28 04:51] LABS: Basophils % (A) 0 %; CH 32.3; Eosinophils # (A) 0.2 k/uL (0-0.7); Eosinophils % (A) 2 %; HCT 33.2 % (39.0-53.0); HDW 3.24; HGB 11.4 gm/dL (13.0-17.5); Luc # (Auto) 0.12; Luc % (Auto) 1; Lymphocytes # (A) 0.7 k/uL (1.0-4.8); Lymphocytes % (A) 8 %; MCHC 34.4 g/dL (31.0-37.0); MCV 90.2 fL (80.0-100.0); Mean Platelet Volume 7.4; Monocytes # (A) 0.8 k/uL (0-1.0); Monocytes % (A) 9 %; Neutrophils # (A) 7.2 k/uL (1.3-7.7); Neutrophils % (A) 80 %; RBC 3.67 m/uL (4.30-5.90); RDW 14.2 % (11.5-15.5); WBC (Perox) 8.96
[2017-05-28 05:01] LABS: Ionized Calcium 4.2 mg/dL (4.5-5.3)
[2017-05-28 05:21] LABS: ALT 40 U/L (21-72); AST 27 U/L (17-59); Alkaline Phosphatase 36 U/L (38-126); Anion Gap 5 mmol/L; Blood Urea Nitrogen 12 mg/dL (9-20); Carbon Dioxide 21 mmol/L (22-30); Chloride 108 mmol/L (98-107); Glucose 99 mg/dL (74-99); Magnesium 1.6 mg/dL (1.6-2.3); Non-African American GFR(MDRD) >60 (>60 ml/min/1.73 sqM); Phosphorous 1.7 mg/dL (2.5-4.5); Potassium 3.1 mmol/L (3.5-5.1); Sodium 134 mmol/L (137-145); Total Bilirubin 0.7 mg/dL (0.2-1.3)
[2017-05-28 05:26] LABS: Calcium 6.5 mg/dL (8.4-10.2)
[2017-05-28 06:08] LABS: Glucose,Whole Blood 160 mg/dL (75-99)
[2017-05-28] MEDS: VANCOMYCIN 1,250 MG in SODIUM CHLORIDE 0.9% 250 ML IVPB SCH (06:11)
[2017-05-28] MEDS ORDERED: POTASSIUM CHLORIDE 20 MEQ in WATER FOR INJECTION 1 100ML.BAG IVPB ONE (06:58)
[2017-05-28] MEDS: ONDANSETRON 4 MG/2 ML VIAL IVP PRN (07:30)
[2017-05-28] MEDS ORDERED: MORPHINE SULFATE 4 MG/ML SYRINGE IVP STA (07:33)
[2017-05-28] MEDS: MORPHINE SULFATE 2 MG/ML SYRINGE IVP PRN ×3 (07:38→11:02)
--- NOTE | 2017-05-28 08:09 | XR ---
EXAMINATION TYPE: XR chest 1V portable DATE OF EXAM: 05/28/2017 Comparison: 05/27/2017 Clinical History: 71-year-old male Post Operative Cardiac Surgery Findings: Median sternotomy wires with postoperative clips in the mediastinum. Left-sided chest tube remains in place. No appreciable pneumothorax. Interstitial and vascular prominence persists. Some slight incre asing patchy medial right basilar opacity. Patchy retrocardiac opacity remains. Interval removal righ t IJ [place]-Anaid catheter. The right IJ sheath remains in place. Impression: 1. Residual mild pulmonary vascular congestion. 2. Left sided chest tube without appreciable pneumothorax. 3. Some increasing patchy right basilar atelectasis. Similar patchy retrocardiac atelectasis.
[2017-05-28 08:11] LABS: Glucose,Whole Blood 139 mg/dL (75-99)
[2017-05-28] MEDS ORDERED: CALCIUM GLUCONATE 2,000 MG in SODIUM CHLORIDE 0.9% 100 ML IVPB ONE (08:11)
[2017-05-28] MEDS: MAGNESIUM SULFATE-D5W PMX 1 GM in DEXTROSE/WATER 1 100ML.BAG IVPB SCH ×2 (08:42→09:51)
[2017-05-28] MEDS: SODIUM PHOSPHATE 10 MMOL in SODIUM CHLORIDE 0.9% 250 ML IVPB SCH ×2 (08:43→08:56)
[2017-05-28] MEDS: MUPIROCIN 2% OINT 22 GM TUBE NASAL SCH ×2 (08:46→21:45)
[2017-05-28] MEDS: METOPROLOL TARTRATE 25 MG TAB PO SCH ×2 (08:46→21:44)
[2017-05-28] MEDS: PANTOPRAZOLE 40 MG TABLET PO SCH ×2 (08:54→17:31)
[2017-05-28] MEDS: ATORVASTATIN 40 MG TAB PO SCH (08:56)
[2017-05-28] MEDS: CLOPIDOGREL 75 MG TAB PO SCH (08:56)
[2017-05-28] MEDS: ASPIRIN 325 MG TAB PO SCH (08:56)
[2017-05-28] MEDS: HYDROcodone/APAP 5-325MG 1 EACH TAB PO PRN ×4 (10:10→22:15)
[2017-05-28 10:17] LABS: Glucose,Whole Blood 146 mg/dL (75-99)
--- NOTE | 2017-05-28 10:35 | P.PN ---
Subjective This is a 71-year-old male patient is postop day #1 following coronary artery bypass surgery. The patient had symptomatic CAD and he underwent an off-pump coronary artery bypass surgery with ISAACS to LAD and saphenous vein graft to intermediate and obtuse branches of the coronary arteries. Postop, the patient was brought into the intensive care unit intubated on a mechanical ventilator. He has a pleural and mediastinal chest tube. He was weaned off the mechanical ventilator other major difficulties and he was extubated yesterday. This morning he is hemodynamically stable. The output from the left pleural and mediastinal chest tube is around 120 mL since morning shift. The patient is hemodynamically stable. The patient is on Cleviprex for blood pressure control. Is off the nitroglycerin. He is also taking aspirin, and metoprolol 12.5 mg by mouth twice a day. The chest x-ray from today shows a left-sided chest tube without evidence of any pneumothorax. There is some mild four- vessel congestion and patchy retrocardiac atelectasis. He is pulling approximately 1500 on his incentive spirometer. No chest wall pain. Sternum stable clean and intact. No other significant issues over the past 24 hours. No cardiac arrhythmias noted. On 05/28/2017 the patient is postop day #2 following three-vessel bypass surgery. Today chest x-ray showing a tiny 10% pneumothorax on the right. The patient on room air. No respiratory difficulties. No cough or sputum production. Sternum stable clean and intact. The mediastinal chest tube has been removed. The patient has a left-sided chest tube which is putting out approximately 10 mL an hour. Hemodynamically stable. He is on no pressors. Cardiac rhythm is sinus. He is having some episodes of dizziness on and off and for that reason the patient was given Antivert. Hemoglobin stable at 11.4. Function is stable. Tolerating diet. Did not ambulate. Because of his underlying dizziness. No focal neurological deficits. No headaches. Awake and oriented. Objective - Vital Signs Vital signs: Vital Signs Temp 98.1 F 05/28/17 09:00 Pulse 101 H 05/28/17 09:00 Resp 18 05/28/17 09:00 BP 151/84 05/28/17 09:00 Pulse Ox 94 L 05/28/17 09:00 Intake & Output 05/27/17 05/28/17 05/28/17 18:59 06:59 18:59 Intake Total 313.725 448.537 1931.183 Output Total 1030 1414 415 Balance -716.275 -563.467 804.183 Weight 81.3 kg Intake: IV 280 365 185 CO/CI 30 Lactated Ringers 1,000 ml 250 240 60 @ 20 mls/hr IV .Q24H [facility] Rx#:[id number] Vancomycin 1,250 mg In 125 125 Sodium Chloride 0.9% 250 ml @ 125 mls/hr IVPB Q12H [facility] Rx#:[id number] Intake, IV Titration 33.725 5.533 1004.183 Amount Calcium Gluconate 2,000 100 mg In Sodium Chloride 0.9 % 100 ml @ 100 mls/hr IVPB ONCE ONE Rx#: [id number] Insulin Regular 100 unit 33.725 5.533 4.183 In Sodium Chloride 0.9% 100 ml @ Per Protocol IV .Q0M [facility] Rx#:[id number] Magnesium Sulfate-D5w Pmx 200 1 gm In Dextrose/Water 1 100ml.bag @ 100 mls/hr IVPB Q1H [facility] Rx#: [id number] Potassium Chloride 20 meq 200 In Water For Injection 1 100ml.bag @ 50 mls/hr IVPB ONCE ONE Rx#: [id number] Sodium Phosphate 10 mmol 500 In Sodium Chloride 0.9% 250 ml @ 125 mls/hr IVPB Q2H [facility] Rx#:[id number] Oral 480 30 Output: Chest Tube Drainage 155 244 100 Left Pleural/Mediastinal 155 244 100 Urine 875 1170 315 Other: Voiding Method Indwelling Catheter Indwelling Catheter ABP, PAP, CO, CI - Last Documented Arterial Blood Pressure 155/59 Pulmonary Artery Pressure 21/10 Cardiac Output 5.6 Cardiac Index 3 - Exam Head exam was generally normal. There was no scleral icterus or corneal arcus. Mucous membranes were moist. Neck is supple and the patient has a right IJ sheath with a [place] catheter in place. No goiter or neck masses. Neck is supple at this point. Lung sounds are diminished bilaterally along with that there is some scattered rhonchi. Chest tube, left pleural chest tube. Heart sounds are regular, the patient has a normal S1-S2. No significant murmurs appreciated. No rubs.Abdominal exam revealed normal bowel sounds. The abdomen was soft, non-tender, and without masses, organomegaly, or appreciable enlargement of the abdominal aorta.Examination of the extremities revealed easily palpable radial, femoral and pedal pulses. There was no cyanosis, clubbing or edema. - Labs CBC & Chem 7: 05/28/17 04:20 05/28/17 04:20 Labs: Abnormal Lab Results - Last 24 Hours (Table) 05/27/17 05/27/17 05/27/17 Range/Units 11:16 12:06 13:53 RBC (4.30-5.90) m/uL Hgb (13.0-17.5) gm/dL Hct (39.0-53.0) % Plt Count (150-450) k/uL Lymphocytes # (1.0-4.8) k/uL Sodium (137-145) mmol/L Potassium (3.5-5.1) mmol/L Chloride (98-107) mmol/L Carbon Dioxide (22-30) mmol/L Creatinine (0.66-1.25) mg/dL POC Glucose (mg/dL) 126 H 158 H 130 H (75-99) mg/dL Calcium (8.4-10.2) mg/dL Ionized Calcium Violette (4.5-5.3) mg/dL Phosphorus (2.5-4.5) mg/dL Alkaline Phosphatase (38-126) U/L Total Protein (6.3-8.2) g/dL Albumin (3.5-5.0) g/dL 05/27/17 05/27/17 05/27/17 Range/Units 16:21 19:15 20:09 RBC (4.30-5.90) m/uL Hgb (13.0-17.5) gm/dL Hct (39.0-53.0) % Plt Count (150-450) k/uL Lymphocytes # (1.0-4.8) k/uL Sodium (137-145) mmol/L Potassium (3.5-5.1) mmol/L Chloride (98-107) mmol/L Carbon Dioxide (22-30) mmol/L Creatinine (0.66-1.25) mg/dL POC Glucose (mg/dL) 100 H 116 H 115 H (75-99) mg/dL Calcium (8.4-10.2) mg/dL Ionized Calcium Violette (4.5-5.3) mg/dL Phosphorus (2.5-4.5) mg/dL Alkaline Phosphatase (38-126) U/L Total Protein (6.3-8.2) g/dL Albumin (3.5-5.0) g/dL 05/27/17 05/28/17 05/28/17 Range/Units 22:15 00:07 01:55 RBC (4.30-5.90) m/uL Hgb (13.0-17.5) gm/dL Hct (39.0-53.0) % Plt Count (150-450) k/uL Lymphocytes # (1.0-4.8) k/uL Sodium (137-145) mmol/L Potassium (3.5-5.1) mmol/L Chloride (98-107) mmol/L Carbon Dioxide (22-30) mmol/L Creatinine (0.66-1.25) mg/dL POC Glucose (mg/dL) 144 H 121 H 128 H (75-99) mg/dL Calcium (8.4-10.2) mg/dL Ionized Calcium Violette (4.5-5.3) mg/dL Phosphorus (2.5-4.5) mg/dL Alkaline Phosphatase (38-126) U/L Total Protein (6.3-8.2) g/dL Albumin (3.5-5.0) g/dL 05/28/17 05/28/17 05/28/17 Range/Units 04:03 04:20 04:20 RBC 3.67 L (4.30-5.90) m/uL Hgb 11.4 L (13.0-17.5) gm/dL Hct 33.2 L (39.0-53.0) % Plt Count 90 L (150-450) k/uL Lymphocytes # 0.7 L (1.0-4.8) k/uL Sodium 134 L (137-145) mmol/L Potassium 3.1 L (3.5-5.1) mmol/L Chloride 108 H (98-107) mmol/L Carbon Dioxide 21 L (22-30) mmol/L Creatinine 0.50 L (0.66-1.25) mg/dL POC Glucose (mg/dL) 139 H (75-99) mg/dL Calcium 6.5 L* (8.4-10.2) mg/dL Ionized Calcium Violette 4.2 L (4.5-5.3) mg/dL Phosphorus 1.7 L (2.5-4.5) mg/dL Alkaline Phosphatase 36 L (38-126) U/L Total Protein 4.0 L (6.3-8.2) g/dL Albumin 2.1 L (3.5-5.0) g/dL 05/28/17 05/28/17 05/28/17 Range/Units 06:06 08:09 10:16 RBC (4.30-5.90) m/uL Hgb (13.0-17.5) gm/dL Hct (39.0-53.0) % Plt Count (150-450) k/uL Lymphocytes # (1.0-4.8) k/uL Sodium (137-145) mmol/L Potassium (3.5-5.1) mmol/L Chloride (98-107) mmol/L Carbon Dioxide (22-30) mmol/L Creatinine (0.66-1.25) mg/dL POC Glucose (mg/dL) 160 H 139 H 146 H (75-99) mg/dL Calcium (8.4-10.2) mg/dL Ionized Calcium Violette (4.5-5.3) mg/dL Phosphorus (2.5-4.5) mg/dL Alkaline Phosphatase (38-126) U/L Total Protein (6.3-8.2) g/dL Albumin (3.5-5.0) g/dL Assessment and Plan Plan: Assessment 1 symptomatic coronary artery disease, post bypass surgery with ISAACS to LAD and saphenous finger after 2 obtuse marginal and intermediate branches, postop day # 2 2 hypertension , currently off clevidipine 3 postoperative chest tubes, output is being monitored, mediastinal chest tube was removed and the patient has a left pleural chest tube 4 hyperlipidemia 5 mitral valve prolapse 6 essential tremors 7 diverticulosis 8 remote history of subarachnoid bleed 9 expected postoperative anemia and thrombocytopenia, being monitored\ 10 right apical pneumothorax, probably around 10%. 11 dizziness Plan Wanted right-sided pneumothorax. Repeat chest x-ray at the later stage. Provide an incentive spirometer. Monitor the output from the left-sided chest tube. She is dizzy at that is no focal neurological deficits or any change in mental status at this point. We'll continue to follow.
--- NOTE | 2017-05-28 12:27 | P.PN ---
Subjective Principal diagnosis: Coronary artery disease, hypertension, hyperlipidemia, history of myocardial infarction in 2011 with double stent placement to his right coronary artery and previous stent placement to his LAD, previous history of subarachnoid hemorrhage in 2005, diverticulosis with colostomy placement in 1999 and reversal surgery, and essential tremor. POD #2, elective off pump coronary artery bypass grafting 3 with placement of his left internal mammary artery to his left anterior descending coronary artery , a reverse greater saphenous vein graft placed to his intermediate coronary artery and to his obtuse marginal coronary artery. Endoscopic vein harvesting of his left greater saphenous vein, and intraoperative transesophageal echocardiogram. The patient is sitting up to his bedside chair in no acute distress. He is alert and orientated 3. He rates his pain at 10 out of 10 on the pain scale and reports that his pain is in his back just below his left shoulder blade. He reports that he used Tylenol and Motrin for his pain control last p.m and did not take the [place] as prescribed as he felt "woozy". His daughter is at the bedside and has been massaging his back. Objective - Vital Signs Vital signs: Vital Signs Temp 98.1 F 05/28/17 09:00 Pulse 101 H 05/28/17 09:00 Resp 18 05/28/17 09:00 BP 151/84 05/28/17 09:00 Pulse Ox 94 L 05/28/17 09:00 Intake & Output 05/27/17 05/28/17 05/28/17 18:59 06:59 18:59 Intake Total 313.725 859.801 4848.183 Output Total 1030 1414 415 Balance -716.275 -563.467 804.183 Weight 81.3 kg Intake: IV 280 365 185 CO/CI 30 Lactated Ringers 1,000 ml 250 240 60 @ 20 mls/hr IV .Q24H [facility] Rx#:[id number] Vancomycin 1,250 mg In 125 125 Sodium Chloride 0.9% 250 ml @ 125 mls/hr IVPB Q12H [facility] Rx#:[id number] Intake, IV Titration 33.725 5.533 1004.183 Amount Calcium Gluconate 2,000 100 mg In Sodium Chloride 0.9 % 100 ml @ 100 mls/hr IVPB ONCE ONE Rx#: [id number] Insulin Regular 100 unit 33.725 5.533 4.183 In Sodium Chloride 0.9% 100 ml @ Per Protocol IV .Q0M [facility] Rx#:[id number] Magnesium Sulfate-D5w Pmx 200 1 gm In Dextrose/Water 1 100ml.bag @ 100 mls/hr IVPB Q1H [facility] Rx#: [id number] Potassium Chloride 20 meq 200 In Water For Injection 1 100ml.bag @ 50 mls/hr IVPB ONCE ONE Rx#: [id number] Sodium Phosphate 10 mmol 500 In Sodium Chloride 0.9% 250 ml @ 125 mls/hr IVPB Q2H [facility] Rx#:[id number] Oral 480 30 Output: Chest Tube Drainage 155 244 100 Left Pleural/Mediastinal 155 244 100 Urine 875 1170 315 Other: Voiding Method Indwelling Catheter Indwelling Catheter ABP, PAP, CO, CI - Last Documented Arterial Blood Pressure 155/59 Pulmonary Artery Pressure 21/10 Cardiac Output 5.6 Cardiac Index 3 - Constitutional General appearance: Present: cooperative, no acute distress - EENT Eyes: Present: PERRLA, normal appearance - Neck Details: Right IJ Cordis in place with continuous CVP monitoring. Current CVP measurement is 6. No JVD present. - Respiratory Details: Essentially clear throughout, diminished to his bilateral bases. Respirations are symmetrical and unlabored. He is achieving 1250 mL on his incentive spirometry. His oxygen saturation are 94% on room air. Left pleural chest tube remains to low continuous wall suction -20 cm H2O. No air leak present. It is draining thin serosanguineous drainage. 110 mL output in the last 8 hours , 300 mL output in 24 hours. - Cardiovascular Details: Regular rhythm and rate, S1 and S2 present. Negative for S3, gallop or murmur. Sternum is stable. Bedside telemetry showing sinus tachycardia heart rate 103. Heart hugger is in place, and he is demonstrating appropriate use. No edema present. Knee-high YASMINE hose and sequential compression devices in place to his bilateral lower extremities. - Gastrointestinal Gastrointestinal Comment(s): Abdomen is soft, nontender, and nondistended. Nauseated. Positive bowel sounds all 4 abdominal quadrants. Positive flatus. - Genitourinary Genitourinary Comment(s): Adequate, clear yellow urine. - Integumentary Integumentary Comment(s): Midline sternal incision clean dry and well approximated. No drainage noted. Dermabond dressing in place. Folded 4 x 4 gauze dressing covering incision and is clean dry and intact. Left leg incisions clean dry and well approximated. No drainage noted. Ecchymosis to his left thigh, soft to touch and nontender. Integumentary: Present: normal turgor - Musculoskeletal Musculoskeletal: Present: gait normal, generalized weakness, strength equal bilaterally - Psychiatric Psychiatric: Present: A&O x's 3, appropriate affect, intact judgment & insight - Allied health notes Allied health notes reviewed: nursing - Labs CBC & Chem 7: 05/28/17 04:20 05/28/17 04:20 Labs: Abnormal Lab Results - Last 24 Hours (Table) 05/27/17 05/27/17 05/27/17 Range/Units 12:06 13:53 16:21 RBC (4.30-5.90) m/uL Hgb (13.0-17.5) gm/dL Hct (39.0-53.0) % Plt Count (150-450) k/uL Lymphocytes # (1.0-4.8) k/uL Sodium (137-145) mmol/L Potassium (3.5-5.1) mmol/L Chloride (98-107) mmol/L Carbon Dioxide (22-30) mmol/L Creatinine (0.66-1.25) mg/dL POC Glucose (mg/dL) 158 H 130 H 100 H (75-99) mg/dL Calcium (8.4-10.2) mg/dL Ionized Calcium Violette (4.5-5.3) mg/dL Phosphorus (2.5-4.5) mg/dL Alkaline Phosphatase (38-126) U/L Total Protein (6.3-8.2) g/dL Albumin (3.5-5.0) g/dL 05/27/17 05/27/17 05/27/17 Range/Units 19:15 20:09 22:15 RBC (4.30-5.90) m/uL Hgb (13.0-17.5) gm/dL Hct (39.0-53.0) % Plt Count (150-450) k/uL Lymphocytes # (1.0-4.8) k/uL Sodium (137-145) mmol/L Potassium (3.5-5.1) mmol/L Chloride (98-107) mmol/L Carbon Dioxide (22-30) mmol/L Creatinine (0.66-1.25) mg/dL POC Glucose (mg/dL) 116 H 115 H 144 H (75-99) mg/dL Calcium (8.4-10.2) mg/dL Ionized Calcium Violette (4.5-5.3) mg/dL Phosphorus (2.5-4.5) mg/dL Alkaline Phosphatase (38-126) U/L Total Protein (6.3-8.2) g/dL Albumin (3.5-5.0) g/dL 05/28/17 05/28/17 05/28/17 Range/Units 00:07 01:55 04:03 RBC (4.30-5.90) m/uL Hgb (13.0-17.5) gm/dL Hct (39.0-53.0) % Plt Count (150-450) k/uL Lymphocytes # (1.0-4.8) k/uL Sodium (137-145) mmol/L Potassium (3.5-5.1) mmol/L Chloride (98-107) mmol/L Carbon Dioxide (22-30) mmol/L Creatinine (0.66-1.25) mg/dL POC Glucose (mg/dL) 121 H 128 H 139 H (75-99) mg/dL Calcium (8.4-10.2) mg/dL Ionized Calcium Violette (4.5-5.3) mg/dL Phosphorus (2.5-4.5) mg/dL Alkaline Phosphatase (38-126) U/L Total Protein (6.3-8.2) g/dL Albumin (3.5-5.0) g/dL 05/28/17 05/28/17 05/28/17 Range/Units 04:20 04:20 06:06 RBC 3.67 L (4.30-5.90) m/uL Hgb 11.4 L (13.0-17.5) gm/dL Hct 33.2 L (39.0-53.0) % Plt Count 90 L (150-450) k/uL Lymphocytes # 0.7 L (1.0-4.8) k/uL Sodium 134 L (137-145) mmol/L Potassium 3.1 L (3.5-5.1) mmol/L Chloride 108 H (98-107) mmol/L Carbon Dioxide 21 L (22-30) mmol/L Creatinine 0.50 L (0.66-1.25) mg/dL POC Glucose (mg/dL) 160 H (75-99) mg/dL Calcium 6.5 L* (8.4-10.2) mg/dL Ionized Calcium Violette 4.2 L (4.5-5.3) mg/dL Phosphorus 1.7 L (2.5-4.5) mg/dL Alkaline Phosphatase 36 L (38-126) U/L Total Protein 4.0 L (6.3-8.2) g/dL Albumin 2.1 L (3.5-5.0) g/dL 05/28/17 05/28/17 Range/Units 08:09 10:16 RBC (4.30-5.90) m/uL Hgb (13.0-17.5) gm/dL Hct (39.0-53.0) % Plt Count (150-450) k/uL Lymphocytes # (1.0-4.8) k/uL Sodium (137-145) mmol/L Potassium (3.5-5.1) mmol/L Chloride (98-107) mmol/L Carbon Dioxide (22-30) mmol/L Creatinine (0.66-1.25) mg/dL POC Glucose (mg/dL) 139 H 146 H (75-99) mg/dL Calcium (8.4-10.2) mg/dL Ionized Calcium Violette (4.5-5.3) mg/dL Phosphorus (2.5-4.5) mg/dL Alkaline Phosphatase (38-126) U/L Total Protein (6.3-8.2) g/dL Albumin (3.5-5.0) g/dL - Imaging and Cardiology Chest x-ray: report reviewed, image reviewed (Showing small right pneumothorax.) Assessment and Plan (1) History of mitral valve prolapse Status: Acute (2) CAD (coronary artery disease) Status: Acute (3) Family history of coronary artery disease Status: Acute (4) HTN (hypertension) Status: Acute (5) History of placement of stent in LAD coronary artery Status: Acute (6) Hx of subarachnoid hemorrhage Status: Acute (7) Hyperlipemia Status: Acute (8) S/P right coronary artery (RCA) stent placement Status: Acute Plan: 1. Continue his aspirin, Plavix, heparin subcu, and his metoprolol will be increased 25 mg by mouth twice a day. 2. His left pleural chest tube will stay in for at least another 24 hours and remain to low continuous wall suction. 3. Continue to encourage his incentive spirometry every hour while awake. Wean his oxygen as tolerated. 4. Increase his activity as tolerated, cardiac rehab following. 5. GI and DVT prophylaxis in place. 6. Monitor daily labs and chest x-ray. 7. He can be transferred to [address] [place] [address] for further monitoring and rehabilitation. 8. Pain control per when necessary orders. 9. Further recommendations as patient progresses in his care. Time with Patient: Greater than 30
[2017-05-28 12:31] LABS: Glucose,Whole Blood 159 mg/dL (75-99)
[2017-05-28] MEDS: LACTATED RINGERS 1,000 ML IV SCH (12:51)
--- NOTE | 2017-05-28 13:50 | P.PN ---
Subjective Principal diagnosis: Status post CABG This is a 71-year-old male patient who is s/p coronary artery bypass surgery. He was c/o chest pain and the cath showed severe LM dx. He underwent an off-pump coronary artery bypass surgery with ISAACS to LAD and saphenous vein graft to intermediate and obtuse branches of the coronary arteries. This morning he is hemodynamically stable beside being slightly tachycardic and the dose of metoprolol was increased today. The chest x-ray showed small bilateral pneumothorax. The patient is going to be transferred into selective unit later on today. Objective - Vital Signs Vital signs: Vital Signs Temp 98.1 F 05/28/17 12:00 Pulse 84 05/28/17 13:00 Resp 11 L 05/28/17 13:00 BP 113/64 05/28/17 13:00 Pulse Ox 91 L 05/28/17 13:00 Intake & Output 05/27/17 05/28/17 05/28/17 18:59 06:59 18:59 Intake Total 313.725 695.958 3936.183 Output Total 1030 1414 1155 Balance -716.275 -563.467 84.183 Weight 81.3 kg Intake: IV 280 365 205 CO/CI 30 Lactated Ringers 1,000 ml 250 240 80 @ 20 mls/hr IV .Q24H [facility] Rx#:[id number] Vancomycin 1,250 mg In 125 125 Sodium Chloride 0.9% 250 ml @ 125 mls/hr IVPB Q12H [facility] Rx#:[id number] Intake, IV Titration 33.725 5.533 1004.183 Amount Calcium Gluconate 2,000 100 mg In Sodium Chloride 0.9 % 100 ml @ 100 mls/hr IVPB ONCE ONE Rx#: [id number] Insulin Regular 100 unit 33.725 5.533 4.183 In Sodium Chloride 0.9% 100 ml @ Per Protocol IV .Q0M [facility] Rx#:[id number] Magnesium Sulfate-D5w Pmx 200 1 gm In Dextrose/Water 1 100ml.bag @ 100 mls/hr IVPB Q1H [facility] Rx#: [id number] Potassium Chloride 20 meq 200 In Water For Injection 1 100ml.bag @ 50 mls/hr IVPB ONCE ONE Rx#: [id number] Sodium Phosphate 10 mmol 500 In Sodium Chloride 0.9% 250 ml @ 125 mls/hr IVPB Q2H [facility] Rx#:[id number] Oral 480 30 Output: Chest Tube Drainage 155 244 140 Left Pleural/Mediastinal 155 244 140 Urine 875 1170 1015 Other: Voiding Method Indwelling Catheter Indwelling Catheter Urinal ABP, PAP, CO, CI - Last Documented Arterial Blood Pressure 155/59 Pulmonary Artery Pressure 21/10 Cardiac Output 5.6 Cardiac Index 3 - Constitutional General appearance: Present: no acute distress - Cardiovascular Rhythm: regular - Labs CBC & Chem 7: 05/28/17 04:20 05/28/17 04:20 Labs: Abnormal Lab Results - Last 24 Hours (Table) 05/27/17 05/27/17 05/27/17 Range/Units 13:53 16:21 19:15 RBC (4.30-5.90) m/uL Hgb (13.0-17.5) gm/dL Hct (39.0-53.0) % Plt Count (150-450) k/uL Lymphocytes # (1.0-4.8) k/uL Sodium (137-145) mmol/L Potassium (3.5-5.1) mmol/L Chloride (98-107) mmol/L Carbon Dioxide (22-30) mmol/L Creatinine (0.66-1.25) mg/dL POC Glucose (mg/dL) 130 H 100 H 116 H (75-99) mg/dL Calcium (8.4-10.2) mg/dL Ionized Calcium Violette (4.5-5.3) mg/dL Phosphorus (2.5-4.5) mg/dL Alkaline Phosphatase (38-126) U/L Total Protein (6.3-8.2) g/dL Albumin (3.5-5.0) g/dL 05/27/17 05/27/17 05/28/17 Range/Units 20:09 22:15 00:07 RBC (4.30-5.90) m/uL Hgb (13.0-17.5) gm/dL Hct (39.0-53.0) % Plt Count (150-450) k/uL Lymphocytes # (1.0-4.8) k/uL Sodium (137-145) mmol/L Potassium (3.5-5.1) mmol/L Chloride (98-107) mmol/L Carbon Dioxide (22-30) mmol/L Creatinine (0.66-1.25) mg/dL POC Glucose (mg/dL) 115 H 144 H 121 H (75-99) mg/dL Calcium (8.4-10.2) mg/dL Ionized Calcium [place] (4.5-5.3) mg/dL Phosphorus (2.5-4.5) mg/dL Alkaline Phosphatase (38-126) U/L Total Protein (6.3-8.2) g/dL Albumin (3.5-5.0) g/dL 05/28/17 05/28/17 05/28/17 Range/Units 01:55 04:03 04:20 RBC (4.30-5.90) m/uL Hgb (13.0-17.5) gm/dL Hct (39.0-53.0) % Plt Count (150-450) k/uL Lymphocytes # (1.0-4.8) k/uL Sodium 134 L (137-145) mmol/L Potassium 3.1 L (3.5-5.1) mmol/L Chloride 108 H (98-107) mmol/L Carbon Dioxide 21 L (22-30) mmol/L Creatinine 0.50 L (0.66-1.25) mg/dL POC Glucose (mg/dL) 128 H 139 H (75-99) mg/dL Calcium 6.5 L* (8.4-10.2) mg/dL Ionized Calcium [place] 4.2 L (4.5-5.3) mg/dL Phosphorus 1.7 L (2.5-4.5) mg/dL Alkaline Phosphatase 36 L (38-126) U/L Total Protein 4.0 L (6.3-8.2) g/dL Albumin 2.1 L (3.5-5.0) g/dL 05/28/17 05/28/17 05/28/17 Range/Units 04:20 06:06 08:09 RBC 3.67 L (4.30-5.90) m/uL Hgb 11.4 L (13.0-17.5) gm/dL Hct 33.2 L (39.0-53.0) % Plt Count 90 L (150-450) k/uL Lymphocytes # 0.7 L (1.0-4.8) k/uL Sodium (137-145) mmol/L Potassium (3.5-5.1) mmol/L Chloride (98-107) mmol/L Carbon Dioxide (22-30) mmol/L Creatinine (0.66-1.25) mg/dL POC Glucose (mg/dL) 160 H 139 H (75-99) mg/dL Calcium (8.4-10.2) mg/dL Ionized Calcium [place] (4.5-5.3) mg/dL Phosphorus (2.5-4.5) mg/dL Alkaline Phosphatase (38-126) U/L Total Protein (6.3-8.2) g/dL Albumin (3.5-5.0) g/dL 05/28/17 05/28/17 Range/Units 10:16 12:29 RBC (4.30-5.90) m/uL Hgb (13.0-17.5) gm/dL Hct (39.0-53.0) % Plt Count (150-450) k/uL Lymphocytes # (1.0-4.8) k/uL Sodium (137-145) mmol/L Potassium (3.5-5.1) mmol/L Chloride (98-107) mmol/L Carbon Dioxide (22-30) mmol/L Creatinine (0.66-1.25) mg/dL POC Glucose (mg/dL) 146 H 159 H (75-99) mg/dL Calcium (8.4-10.2) mg/dL Ionized Calcium Violette (4.5-5.3) mg/dL Phosphorus (2.5-4.5) mg/dL Alkaline Phosphatase (38-126) U/L Total Protein (6.3-8.2) g/dL Albumin (3.5-5.0) g/dL Assessment and Plan Plan: S/P CABG. The patient is stable and he is on antiplatelet and Statin. Continue following up with the patient. He is going to be transferred to selective unit later on today.
--- NOTE | 2017-05-28 14:48 | P.CONS ---
History of Present Illness - Reason for Consult Coronary artery disease. Postoperative consultation management - History of Present Illness 71-year-old gentleman was admitted for coronary artery bypass grafting patient underwent bypass surgery with ISAACS to LAD and a saphenous vein graft to intermediate and obtuse branches marginal branch of coronary arteries. Patient was extubated yesterday. Patient does have a chest tube. On the left side. Patient the rest of the chest tubes were removed. Patient the left-sided chest tube is still draining today. Patient denied any fever, chills, nausea, vomiting that did not move his bowels yet but is has been passing gas. Patient is complaining of pleuritic pain secondary to the chest tube. Review of Systems REVIEW OF SYSTEMS: CONSTITUTIONAL: No fever, no malaise, no fatigue. HEENT: No recent visual problems or hearing problems. Denied any sore throat. CARDIOVASCULAR: No orthopnea, PND, no palpitations, no syncope. PULMONARY: No shortness of breath, no cough, no hemoptysis. GASTROINTESTINAL: No diarrhea, no nausea, no vomiting, no abdominal pain. Normoactive bowel sounds. NEUROLOGICAL: No headaches, no weakness, no numbness. HEMATOLOGICAL: Denies any bleeding or petechiae. GENITOURINARY: Denies any burning micturition, frequency, or urgency. MUSCULOSKELETAL/RHEUMATOLOGICAL: Denies any joint pain, swelling, or any muscle pain. ENDOCRINE: Denies any polyuria or polydipsia. The rest of the 14-point review of systems is negative. Past Medical History Past Medical History: Chest Pain / Angina, Hyperlipidemia, Hypertension, Myocardial Infarction (SC), Mitral Valve Prolapse (MVP) Additional Past Medical History / Comment(s): Coronary artery disease, mitral valve prolapse, essential tremors, impaired hearing, previous history of subarachnoid hemorrhage back in 2005, shingles involving the right I am face in 2009, diverticulosis, hypertension, hyperlipidemia. Last Myocardial Infarction Date:: 2011 History of Any Multi-Drug Resistant Organisms: None Reported Past Surgical History: Bowel Resection, Cholecystectomy, Heart Catheterization, Heart Catheterization With Stent, Hernia Repair, Orthopedic Surgery Additional Past Surgical History / Comment(s): several hernia repairs- inguinal and abdominal one with mesh, eye surgery, colonoscopy, eyelid surgery, 1999- intestine-colostomy with eventual reversal, hemorrohoidectomy, 1970-L knee surgery Past Anesthesia/Blood Transfusion Reactions: No Reported Reaction Additional Past Anesthesia/Blood Transfusion Reaction / Comm: Pt has never received blood. Date of Last Stent Placement:: 2014 Smoking Status: Never smoker - Past Family History Brother(s) Family Medical History: Myocardial Infarction (SC) Father Family Medical History: Coronary Artery Disease (CAD) Additional Family Medical History / Comment(s): Father had 3 CABG's, one of them before the age of 60 Mother Family Medical History: Cancer Additional Family Medical History / Comment(s): Mother of cancer Medications and Allergies Home Medications Medication Instructions Recorded Confirmed Type Hydrochlorothiazide [Hydrodiuril] 25 mg PO DAILY 12/19/14 05/26/17 History Metoprolol Tartrate [Lopressor] 12.5 mg PO DAILY 12/19/14 05/26/17 History Multivitamins, Thera [Multivitamin 1 tab PO DAILY 12/19/14 05/26/17 History (formulary)] Nitroglycerin Sl Tabs [Nitrostat] 0.4 mg PO Q5M PRN 12/19/14 05/26/17 History Atorvastatin [Lipitor] 20 mg PO HS 12/13/16 05/26/17 History Lisinopril [Zestril] 10 mg PO HS 12/13/16 05/26/17 History Ubidecarenone [Co Q-10] 100 mg PO DAILY 12/13/16 05/26/17 History Allergies Allergy/AdvReac Type Severity Reaction Status Date / Time Penicillins Allergy Anaphylaxis Verified 05/24/17 11:40 heparin AdvReac Rash/Hives Verified 05/24/17 11:40 ketorolac tromethamine AdvReac Twitching Verified 05/24/17 11:40 [From Toradol] prednisone AdvReac Muscle Verified 05/24/17 11:40 Spasms Physical Exam Vitals: Vital Signs Temp Pulse Pulse Resp BP Pulse Ox 05/28/17 13:00 84 11 L 113/64 91 L 05/28/17 12:00 98.1 F 96 18 120/64 92 L 05/28/17 11:00 140/76 05/28/17 10:00 91 15 111/64 93 L 05/28/17 09:00 98.1 F 101 H 18 151/84 94 L 05/28/17 08:00 96 16 142/75 94 L 05/28/17 07:26 95 08/13/17 07:00 100 23 134/77 94 L 05/28/17 06:00 88 15 112/59 94 L 05/28/17 05:00 99 20 126/68 94 L 05/28/17 04:00 98.7 F 103 H 23 129/74 92 L 05/28/17 03:00 90 14 125/66 95 05/28/17 02:00 96 14 130/70 94 L 05/28/17 01:00 96 16 149/79 94 L 05/28/17 00:00 98.4 F 104 H 19 159/84 91 L 05/27/17 23:00 94 18 153/78 92 L 05/27/17 22:00 85 16 137/75 91 L 05/27/17 21:00 98 14 166/79 91 L 05/27/17 20:00 97.9 F 94 16 163/68 91 L 05/27/17 19:00 81 16 132/71 90 L 05/27/17 18:00 88 21 155/74 97 05/27/17 17:00 90 15 147/73 97 05/27/17 16:00 98.1 F 92 84 13 121/70 97 05/27/17 15:00 85 13 124/71 96 Intake and Output 05/27/17 05/28/17 05/28/17 22:59 06:59 14:59 Intake Total 506.042 638.527 7262.183 Output Total 878 1076 1155 Balance -371.958 -636.967 84.183 Intake: IV 160 285 205 Lactated Ringers 1,000 ml 160 160 80 @ 20 mls/hr IV .Q24H [facility] Rx#:[id number] Vancomycin 1,250 mg In 125 125 Sodium Chloride 0.9% 250 ml @ 125 mls/hr IVPB Q12H [facility] Rx#:[id number] Intake, IV Titration 16.042 4.033 1004.183 Amount Calcium Gluconate 2,000 100 mg In Sodium Chloride 0.9 % 100 ml @ 100 mls/hr IVPB ONCE ONE Rx#: [id number] Insulin Regular 100 unit 16.042 4.033 4.183 In Sodium Chloride 0.9% 100 ml @ Per Protocol IV .Q0M [facility] Rx#:[id number] Magnesium Sulfate-D5w Pmx 200 1 gm In Dextrose/Water 1 100ml.bag @ 100 mls/hr IVPB Q1H [facility] Rx#: [id number] Potassium Chloride 20 meq 200 In Water For Injection 1 100ml.bag @ 50 mls/hr IVPB ONCE ONE Rx#: [id number] Sodium Phosphate 10 mmol 500 In Sodium Chloride 0.9% 250 ml @ 125 mls/hr IVPB Q2H [facility] Rx#:[id number] Oral 330 150 30 Output: Chest Tube Drainage 53 206 140 Left Pleural/Mediastinal 53 206 140 Urine 577 280 8958 Other: Voiding Method Indwelling Catheter Indwelling Catheter Urinal PHYSICAL EXAMINATION: GENERAL: The patient is alert and oriented x3, not in any acute distress. Well developed, well nourished. [place]-An[place] catheter in place. HEENT: Pupils are round and equally reacting to light. EOMI. No scleral icterus. No conjunctival pallor. Normocephalic, atraumatic. No pharyngeal erythema. No thyromegaly. CARDIOVASCULAR: S1 and S2 present. No murmurs, rubs, or gallops. PULMONARY: Chest is clear to auscultation, no wheezing or crackles. Has an intact left-sided chest tube which is draining ABDOMEN: Soft, nontender, nondistended, normoactive bowel sounds. No palpable organomegaly. MUSCULOSKELETAL: No joint swelling or deformity. EXTREMITIES: No cyanosis, clubbing, or pedal edema. NEUROLOGICAL: Gross neurological examination did not reveal any focal deficits. SKIN: No rashes. Results CBC & Chem 7: 05/28/17 04:20 05/28/17 04:20 Labs: Abnormal Lab Results - Last 24 Hours (Table) 05/27/17 05/27/17 05/27/17 Range/Units 16:21 19:15 20:09 RBC (4.30-5.90) m/uL Hgb (13.0-17.5) gm/dL Hct (39.0-53.0) % Plt Count (150-450) k/uL Lymphocytes # (1.0-4.8) k/uL Sodium (137-145) mmol/L Potassium (3.5-5.1) mmol/L Chloride (98-107) mmol/L Carbon Dioxide (22-30) mmol/L Creatinine (0.66-1.25) mg/dL POC Glucose (mg/dL) 100 H 116 H 115 H (75-99) mg/dL Calcium (8.4-10.2) mg/dL Ionized Calcium [place] (4.5-5.3) mg/dL Phosphorus (2.5-4.5) mg/dL Alkaline Phosphatase (38-126) U/L Total Protein (6.3-8.2) g/dL Albumin (3.5-5.0) g/dL 05/27/17 05/28/17 05/28/17 Range/Units 22:15 00:07 01:55 RBC (4.30-5.90) m/uL Hgb (13.0-17.5) gm/dL Hct (39.0-53.0) % Plt Count (150-450) k/uL Lymphocytes # (1.0-4.8) k/uL Sodium (137-145) mmol/L Potassium (3.5-5.1) mmol/L Chloride (98-107) mmol/L Carbon Dioxide (22-30) mmol/L Creatinine (0.66-1.25) mg/dL POC Glucose (mg/dL) 144 H 121 H 128 H (75-99) mg/dL Calcium (8.4-10.2) mg/dL Ionized Calcium [place] (4.5-5.3) mg/dL Phosphorus (2.5-4.5) mg/dL Alkaline Phosphatase (38-126) U/L Total Protein (6.3-8.2) g/dL Albumin (3.5-5.0) g/dL 05/28/17 05/28/17 05/28/17 Range/Units 04:03 04:20 04:20 RBC 3.67 L (4.30-5.90) m/uL Hgb 11.4 L (13.0-17.5) gm/dL Hct 33.2 L (39.0-53.0) % Plt Count 90 L (150-450) k/uL Lymphocytes # 0.7 L (1.0-4.8) k/uL Sodium 134 L (137-145) mmol/L Potassium 3.1 L (3.5-5.1) mmol/L Chloride 108 H (98-107) mmol/L Carbon Dioxide 21 L (22-30) mmol/L Creatinine 0.50 L (0.66-1.25) mg/dL POC Glucose (mg/dL) 139 H (75-99) mg/dL Calcium 6.5 L* (8.4-10.2) mg/dL Ionized Calcium [place] 4.2 L (4.5-5.3) mg/dL Phosphorus 1.7 L (2.5-4.5) mg/dL Alkaline Phosphatase 36 L (38-126) U/L Total Protein 4.0 L (6.3-8.2) g/dL Albumin 2.1 L (3.5-5.0) g/dL 05/28/17 05/28/17 05/28/17 Range/Units 06:06 08:09 10:16 RBC (4.30-5.90) m/uL Hgb (13.0-17.5) gm/dL Hct (39.0-53.0) % Plt Count (150-450) k/uL Lymphocytes # (1.0-4.8) k/uL Sodium (137-145) mmol/L Potassium (3.5-5.1) mmol/L Chloride (98-107) mmol/L Carbon Dioxide (22-30) mmol/L Creatinine (0.66-1.25) mg/dL POC Glucose (mg/dL) 160 H 139 H 146 H (75-99) mg/dL Calcium (8.4-10.2) mg/dL Ionized Calcium [place] (4.5-5.3) mg/dL Phosphorus (2.5-4.5) mg/dL Alkaline Phosphatase (38-126) U/L Total Protein (6.3-8.2) g/dL Albumin (3.5-5.0) g/dL 05/28/17 Range/Units 12:29 RBC (4.30-5.90) m/uL Hgb (13.0-17.5) gm/dL Hct (39.0-53.0) % Plt Count (150-450) k/uL Lymphocytes # (1.0-4.8) k/uL Sodium (137-145) mmol/L Potassium (3.5-5.1) mmol/L Chloride (98-107) mmol/L Carbon Dioxide (22-30) mmol/L Creatinine (0.66-1.25) mg/dL POC Glucose (mg/dL) 159 H (75-99) mg/dL Calcium (8.4-10.2) mg/dL Ionized Calcium [place] (4.5-5.3) mg/dL Phosphorus (2.5-4.5) mg/dL Alkaline Phosphatase (38-126) U/L Total Protein (6.3-8.2) g/dL Albumin (3.5-5.0) g/dL Assessment and Plan Plan: #1 coronary artery disease: Second second status post coronary artery bypass grafting as mentioned above. Patient the postoperative course is uncomplicated and patient is presently extubated. #2 hypertension patient is off IV calcium channel brian that is clevidipine. #3 hyperlipidemia #4 mitral valve prolapse history #5 postoperative acute blood loss anemia which is expected from surgery. #6 right apical pneumothorax around 10% stable at this time. Management as per primary service. His medications were reviewed lab data, radiological data was reviewed plan is to continue irrigations monitor. Can use sliding scale insulin for elevated blood sugars. Patient is not diabetic
[2017-05-28 15:01] LABS: Ionized Calcium 4.7 mg/dL (4.5-5.3)
[2017-05-28 15:08] LABS: Magnesium 2.2 mg/dL (1.6-2.3); Phosphorous 5.1 mg/dL (2.5-4.5); Potassium 3.9 mmol/L (3.5-5.1)
[2017-05-28] MEDS ORDERED: POTASSIUM CHLORIDE ER 20 MEQ TAB.ER PO SCH (16:00)
[2017-05-28 16:49] LABS: Glucose,Whole Blood 116 mg/dL (75-99)
[2017-05-28] MEDS: INSULIN LISPRO (humaLOG) 300 UNIT/3 ML VIAL SQ SCH ×2 (16:59→21:44)
[2017-05-28] MEDS ORDERED: INSULIN LISPRO (humaLOG) 300 UNIT/3 ML VIAL SQ SCH (17:30)
[2017-05-28 21:21] LABS: Glucose,Whole Blood 134 mg/dL (75-99)
[2017-05-28] MEDS: SENNOSIDES-DOCUSATE SODIUM 1 EACH TAB PO SCH (21:50)
[2017-05-29] MEDS: HEPARIN SODIUM,PORCINE 5,000 UNIT/ML 1 ML VIAL SQ SCH ×3 (00:47→16:53)
[2017-05-29] MEDS: HYDROcodone/APAP 5-325MG 1 EACH TAB PO PRN ×4 (04:38→20:04)
[2017-05-29] MEDS: INSULIN LISPRO (humaLOG) 300 UNIT/3 ML VIAL SQ SCH ×6 (05:40→21:41)
[2017-05-29 06:05] LABS: Basophils % (A) 0 %; CH 32.4; CHCM 35.7; Eosinophils # (A) 0.2 k/uL (0-0.7); Eosinophils % (A) 3 %; HCT 28.2 % (39.0-53.0); HDW 3.28; Luc # (Auto) 0.14; Luc % (Auto) 2; Lymphocytes # (A) 0.5 k/uL (1.0-4.8); Lymphocytes % (A) 8 %; MCHC 33.9 g/dL (31.0-37.0); MCV 91.4 fL (80.0-100.0); Monocytes # (A) 0.5 k/uL (0-1.0); Monocytes % (A) 7 %; Neutrophils # (A) 5.2 k/uL (1.3-7.7); Neutrophils % (A) 80 %; RBC 3.09 m/uL (4.30-5.90); RDW 14.7 % (11.5-15.5); WBC 6.6 k/uL (3.8-10.6); WBC (Perox) 6.56
[2017-05-29 06:08] LABS: Ionized Calcium 4.6 mg/dL (4.5-5.3)
[2017-05-29 06:09] LABS: HGB 9.6 gm/dL (13.0-17.5)
[2017-05-29 06:17] LABS: Glucose,Whole Blood 139 mg/dL (75-99)
[2017-05-29 06:17] LABS: ALT 41 U/L (21-72); AST 24 U/L (17-59); Alkaline Phosphatase 44 U/L (38-126); Anion Gap 7 mmol/L; Blood Urea Nitrogen 17 mg/dL (9-20); Calcium 7.3 mg/dL (8.4-10.2); Carbon Dioxide 27 mmol/L (22-30); Chloride 102 mmol/L (98-107); Glucose 116 mg/dL (74-99); Non-African American GFR(MDRD) >60 (>60 ml/min/1.73 sqM); Phosphorous 2.1 mg/dL (2.5-4.5); Potassium 3.5 mmol/L (3.5-5.1); Sodium 136 mmol/L (137-145); Total Bilirubin 0.7 mg/dL (0.2-1.3); Total Protein 4.4 g/dL (6.3-8.2)
[2017-05-29] MEDS: PANTOPRAZOLE 40 MG TABLET PO SCH ×2 (07:00→16:54)
[2017-05-29 07:45] LABS: Magnesium 2.2 mg/dL (1.6-2.3)
--- NOTE | 2017-05-29 07:54 | XR ---
EXAMINATION TYPE: XR chest 1V portable DATE OF EXAM: 05/29/2017 COMPARISON: NONE HISTORY: Postop. Follow-up. TECHNIQUE: Single frontal view of the chest is obtained. FINDINGS: Left-sided thoracostomy tube projects with its tip over the left upper lung. Small residua l left apical pneumothorax is seen with 7 mm of pleural separation at the lung apex. Crescentic area of lucency extends towards the interlobar fissure. Minimal bibasilar subsegmental atelectasis is seen without focal consolidation. Post surgical changes are seen of the chest including midline intact amie and mediastinal clips. Osseous structures jacobo ear intact. IMPRESSION: Postoperative changes with left thoracostomy tube and small residual left apical pneumot horax measuring 7 mm in greatest pleural separation.
[2017-05-29] MEDS: CLOPIDOGREL 75 MG TAB PO SCH (08:49)
[2017-05-29] MEDS: METOPROLOL TARTRATE 25 MG TAB PO SCH (08:49)
[2017-05-29] MEDS: ASPIRIN 325 MG TAB PO SCH (08:49)
[2017-05-29] MEDS: ATORVASTATIN 40 MG TAB PO SCH (08:49)
[2017-05-29] MEDS: MUPIROCIN 2% OINT 22 GM TUBE NASAL SCH ×2 (08:49→20:04)
--- NOTE | 2017-05-29 09:24 | P.PN ---
Subjective Principal diagnosis: Status post CABG This is a 71-year-old male patient who is s/p coronary artery bypass surgery. He was c/o chest pain and the cath showed severe LM dx. He underwent an off-pump coronary artery bypass surgery with ISAACS to LAD and saphenous vein graft to intermediate and obtuse branches of the coronary arteries. This morning he is hemodynamically stable beside being slightly tachycardic and I would increase the dose of metoprolol. Objective - Vital Signs Vital signs: Vital Signs Temp 96.8 F L 05/29/17 04:00 Pulse 100 05/29/17 04:00 Resp 18 05/29/17 04:00 BP 132/72 05/29/17 04:00 Pulse Ox 91 L 05/29/17 04:00 Intake & Output 05/28/17 05/29/17 05/29/17 18:59 06:59 18:59 Intake Total 1719.183 Output Total 1265 570 Balance 454.183 -570 Weight 79.6 kg Intake: IV 205 Lactated Ringers 1,000 ml 80 @ 20 mls/hr IV .Q24H [facility] Rx#:[id number] Vancomycin 1,250 mg In 125 Sodium Chloride 0.9% 250 ml @ 125 mls/hr IVPB Q12H [facility] Rx#:[id number] Intake, IV Titration 1004.183 Amount Calcium Gluconate 2,000 100 mg In Sodium Chloride 0.9 % 100 ml @ 100 mls/hr IVPB ONCE ONE Rx#: [id number] Insulin Regular 100 unit 4.183 In Sodium Chloride 0.9% 100 ml @ Per Protocol IV .Q0M [facility] Rx#:[id number] Magnesium Sulfate-D5w Pmx 200 1 gm In Dextrose/Water 1 100ml.bag @ 100 mls/hr IVPB Q1H [facility] Rx#: [id number] Potassium Chloride 20 meq 200 In Water For Injection 1 100ml.bag @ 50 mls/hr IVPB ONCE ONE Rx#: [id number] Sodium Phosphate 10 mmol 500 In Sodium Chloride 0.9% 250 ml @ 125 mls/hr IVPB Q2H [facility] Rx#:[id number] Oral 510 Output: Chest Tube Drainage 250 220 Left Pleural/Mediastinal 250 220 Urine 1015 350 Other: Voiding Method Urinal Urinal ABP, PAP, CO, CI - Last Documented Arterial Blood Pressure 155/59 Pulmonary Artery Pressure 21/10 Cardiac Output 5.6 Cardiac Index 3 - Constitutional General appearance: Present: no acute distress - Respiratory Respiratory: bilateral: diminished - Cardiovascular Rhythm: regular - Labs CBC & Chem 7: 05/29/17 05:32 05/29/17 05:32 Labs: Abnormal Lab Results - Last 24 Hours (Table) 05/28/17 05/28/17 05/28/17 Range/Units 10:16 12:29 14:30 RBC (4.30-5.90) m/uL Hgb (13.0-17.5) gm/dL Hct (39.0-53.0) % Plt Count (150-450) k/uL Lymphocytes # (1.0-4.8) k/uL Sodium (137-145) mmol/L Glucose (74-99) mg/dL POC Glucose (mg/dL) 146 H 159 H (75-99) mg/dL Calcium (8.4-10.2) mg/dL Phosphorus 5.1 H (2.5-4.5) mg/dL Total Protein (6.3-8.2) g/dL Albumin (3.5-5.0) g/dL 05/28/17 05/28/17 05/29/17 Range/Units 16:48 21:20 05:32 RBC (4.30-5.90) m/uL Hgb (13.0-17.5) gm/dL Hct (39.0-53.0) % Plt Count (150-450) k/uL Lymphocytes # (1.0-4.8) k/uL Sodium 136 L (137-145) mmol/L Glucose 116 H (74-99) mg/dL POC Glucose (mg/dL) 116 H 134 H (75-99) mg/dL Calcium 7.3 L (8.4-10.2) mg/dL Phosphorus 2.1 L (2.5-4.5) mg/dL Total Protein 4.4 L (6.3-8.2) g/dL Albumin 2.3 L (3.5-5.0) g/dL 05/29/17 05/29/17 Range/Units 05:32 06:15 RBC 3.09 L (4.30-5.90) m/uL Hgb 9.6 L D (13.0-17.5) gm/dL Hct 28.2 L (39.0-53.0) % Plt Count 97 L (150-450) k/uL Lymphocytes # 0.5 L (1.0-4.8) k/uL Sodium (137-145) mmol/L Glucose (74-99) mg/dL POC Glucose (mg/dL) 139 H (75-99) mg/dL Calcium (8.4-10.2) mg/dL Phosphorus (2.5-4.5) mg/dL Total Protein (6.3-8.2) g/dL Albumin (3.5-5.0) g/dL Assessment and Plan Plan: S/P CABG. The patient is stable and he is on antiplatelet and Statin. Increase the dose of metoprolol. Continue following up with the patient.
[2017-05-29] MEDS: NITROGLYCERIN-D5W PMX 50 MG in DEXTROSE/WATER 1 250ML.BAG IV SCH (10:09)
[2017-05-29] MEDS ORDERED: FUROSEMIDE 10 MG/ML 2 ML VIAL IV ONE (10:33)
[2017-05-29 12:05] LABS: Glucose,Whole Blood 148 mg/dL (75-99)
[2017-05-29] MEDS ORDERED: SODIUM PHOSPHATE 10 MMOL in SODIUM CHLORIDE 0.9% 250 ML IVPB ONE (13:00)
--- NOTE | 2017-05-29 13:37 | P.PN ---
Subjective Principal diagnosis: Post CABG, postoperative day #3 This is a 71-year-old male patient is postop day #1 following coronary artery bypass surgery. The patient had symptomatic CAD and he underwent an off-pump coronary artery bypass surgery with ISAACS to LAD and saphenous vein graft to intermediate and obtuse branches of the coronary arteries. Postop, the patient was brought into the intensive care unit intubated on a mechanical ventilator. He has a pleural and mediastinal chest tube. He was weaned off the mechanical ventilator other major difficulties and he was extubated yesterday. This morning he is hemodynamically stable. The output from the left pleural and mediastinal chest tube is around 120 mL since morning shift. The patient is hemodynamically stable. The patient is on Cleviprex for blood pressure control. Is off the nitroglycerin. He is also taking aspirin, and metoprolol 12.5 mg by mouth twice a day. The chest x-ray from today shows a left-sided chest tube without evidence of any pneumothorax. There is some mild four- vessel congestion and patchy retrocardiac atelectasis. He is pulling approximately 1500 on his incentive spirometer. No chest wall pain. Sternum stable clean and intact. No other significant issues over the past 24 hours. No cardiac arrhythmias noted. On 05/28/2017 the patient is postop day #2 following three-vessel bypass surgery. Today chest x-ray showing a tiny 10% pneumothorax on the right. The patient on room air. No respiratory difficulties. No cough or sputum production. Sternum stable clean and intact. The mediastinal chest tube has been removed. The patient has a left-sided chest tube which is putting out approximately 10 mL an hour. Hemodynamically stable. He is on no pressors. Cardiac rhythm is sinus. He is having some episodes of dizziness on and off and for that reason the patient was given Antivert. Hemoglobin stable at 11.4. Function is stable. Tolerating diet. Did not ambulate. Because of his underlying dizziness. No focal neurological deficits. No headaches. Awake and oriented. On 05/29/2017, patient is postoperative day #3 following three-vessel bypass surgery. Patient is doing well, relatively asymptomatic. Left sided chest tube remains in place, there is a small tiny left apical pneumothorax. Right side is relatively unremarkable. Patient is asymptomatic. CBC was reviewed hemoglobin is 9.6 and basic metabolic profile is normal renal profile is normal. Patient is already ambulating down the hallway. And he is doing well with incentive spirometry. Objective - Vital Signs Vital signs: Vital Signs Temp 97.9 F 05/29/17 11:52 Pulse 103 H 05/29/17 13:09 Resp 16 05/29/17 11:54 BP 158/78 05/29/17 13:09 Pulse Ox 93 L 05/29/17 13:09 Intake & Output 05/28/17 05/29/17 05/29/17 18:59 06:59 18:59 Intake Total 1719.183 Output Total 1265 570 Balance 454.183 -570 Weight 79.6 kg Intake: IV 205 Lactated Ringers 1,000 ml 80 @ 20 mls/hr IV .Q24H [facility] Rx#:[id number] Vancomycin 1,250 mg In 125 Sodium Chloride 0.9% 250 ml @ 125 mls/hr IVPB Q12H [facility] Rx#:[id number] Intake, IV Titration 1004.183 Amount Calcium Gluconate 2,000 100 mg In Sodium Chloride 0.9 % 100 ml @ 100 mls/hr IVPB ONCE ONE Rx#: [id number] Insulin Regular 100 unit 4.183 In Sodium Chloride 0.9% 100 ml @ Per Protocol IV .Q0M [facility] Rx#:[id number] Magnesium Sulfate-D5w Pmx 200 1 gm In Dextrose/Water 1 100ml.bag @ 100 mls/hr IVPB Q1H [facility] Rx#: [id number] Potassium Chloride 20 meq 200 In Water For Injection 1 100ml.bag @ 50 mls/hr IVPB ONCE ONE Rx#: [id number] Sodium Phosphate 10 mmol 500 In Sodium Chloride 0.9% 250 ml @ 125 mls/hr IVPB Q2H [facility] Rx#:[id number] Oral 510 Output: Chest Tube Drainage 250 220 Left Pleural/Mediastinal 250 220 Urine 1015 350 Other: Voiding Method Urinal Urinal ABP, PAP, CO, CI - Last Documented Arterial Blood Pressure 155/59 Pulmonary Artery Pressure 21/10 Cardiac Output 5.6 Cardiac Index 3 - Exam Head exam was generally normal. There was no scleral icterus or corneal arcus. Mucous membranes were moist. Neck is supple and the patient has a right IJ sheath with a [place]-Anaid catheter in place. No goiter or neck masses. Neck is supple at this point. Lung sounds are diminished bilaterally along with that there is some scattered rhonchi. Chest tube, left pleural chest tube. Heart sounds are regular, the patient has a normal S1-S2. No significant murmurs appreciated. No rubs.Abdominal exam revealed normal bowel sounds. The abdomen was soft, non-tender, and without masses, organomegaly, or appreciable enlargement of the abdominal aorta.Examination of the extremities revealed easily palpable radial, femoral and pedal pulses. There was no cyanosis, clubbing or edema. - Labs CBC & Chem 7: 05/29/17 05:32 05/29/17 05:32 Labs: Abnormal Lab Results - Last 24 Hours (Table) 05/28/17 05/28/17 05/28/17 Range/Units 14:30 16:48 21:20 RBC (4.30-5.90) m/uL Hgb (13.0-17.5) gm/dL Hct (39.0-53.0) % Plt Count (150-450) k/uL Lymphocytes # (1.0-4.8) k/uL Sodium (137-145) mmol/L Glucose (74-99) mg/dL POC Glucose (mg/dL) 116 H 134 H (75-99) mg/dL Calcium (8.4-10.2) mg/dL Phosphorus 5.1 H (2.5-4.5) mg/dL Total Protein (6.3-8.2) g/dL Albumin (3.5-5.0) g/dL 05/29/17 05/29/17 05/29/17 Range/Units 05:32 05:32 06:15 RBC 3.09 L (4.30-5.90) m/uL Hgb 9.6 L D (13.0-17.5) gm/dL Hct 28.2 L (39.0-53.0) % Plt Count 97 L (150-450) k/uL Lymphocytes # 0.5 L (1.0-4.8) k/uL Sodium 136 L (137-145) mmol/L Glucose 116 H (74-99) mg/dL POC Glucose (mg/dL) 139 H (75-99) mg/dL Calcium 7.3 L (8.4-10.2) mg/dL Phosphorus 2.1 L (2.5-4.5) mg/dL Total Protein 4.4 L (6.3-8.2) g/dL Albumin 2.3 L (3.5-5.0) g/dL 05/29/17 Range/Units 11:45 RBC (4.30-5.90) m/uL Hgb (13.0-17.5) gm/dL Hct (39.0-53.0) % Plt Count (150-450) k/uL Lymphocytes # (1.0-4.8) k/uL Sodium (137-145) mmol/L Glucose (74-99) mg/dL POC Glucose (mg/dL) 148 H (75-99) mg/dL Calcium (8.4-10.2) mg/dL Phosphorus (2.5-4.5) mg/dL Total Protein (6.3-8.2) g/dL Albumin (3.5-5.0) g/dL Assessment and Plan Plan: 1 symptomatic coronary artery disease, post bypass surgery with ISAACS to LAD and saphenous finger after 2 obtuse marginal and intermediate branches, postop day # 3 2 hypertension , currently off clevidipine 3 postoperative chest tubes, output is being monitored, mediastinal chest tube was removed and the patient has a left pleural chest tube 4 hyperlipidemia 5 mitral valve prolapse 6 essential tremors 7 diverticulosis 8 remote history of subarachnoid bleed 9 expected postoperative anemia and thrombocytopenia, being monitored\ 10 right apical pneumothorax, probably around 10%. 11 dizziness Recommendation: Continue present treatment plan, continue incentive spirometry, ambulation, chest tube will likely be removed in the next 24-48 hours. We'll continue to follow. Time with Patient: Less than 30
--- NOTE | 2017-05-29 13:39 | P.PN ---
Subjective Principal diagnosis: Coronary artery disease, hypertension, hyperlipidemia, history of myocardial infarction in 2011 with double stent placement to his right coronary artery and previous stent placement to his LAD, previous history of subarachnoid hemorrhage in 2005, diverticulosis with colostomy placement in 1999 and reversal surgery, and essential tremor. POD #3, elective off pump coronary artery bypass grafting 3 with placement of his left internal mammary artery to his left anterior descending coronary artery , a reverse greater saphenous vein graft placed to his intermediate coronary artery and to his obtuse marginal coronary artery. Endoscopic vein harvesting of his left greater saphenous vein, and intraoperative transesophageal echocardiogram. Patient is sitting up to the bedside chair. No acute distress. Patient reports she just Back from walking in the hallway. His and daughter are at his bedside. Patient states he feels much improved today. He denies complaints of pain or shortness of breath. Objective - Vital Signs Vital signs: Vital Signs Temp 97.9 F 05/29/17 11:52 Pulse 103 H 05/29/17 13:09 Resp 16 05/29/17 11:54 BP 158/78 05/29/17 13:09 Pulse Ox 93 L 05/29/17 13:09 Intake & Output 05/28/17 05/29/17 05/29/17 18:59 06:59 18:59 Intake Total 1719.183 Output Total 1265 570 Balance 454.183 -570 Weight 79.6 kg Intake: IV 205 Lactated Ringers 1,000 ml 80 @ 20 mls/hr IV .Q24H [facility] Rx#:[id number] Vancomycin 1,250 mg In 125 Sodium Chloride 0.9% 250 ml @ 125 mls/hr IVPB Q12H [facility] Rx#:[id number] Intake, IV Titration 1004.183 Amount Calcium Gluconate 2,000 100 mg In Sodium Chloride 0.9 % 100 ml @ 100 mls/hr IVPB ONCE ONE Rx#: [id number] Insulin Regular 100 unit 4.183 In Sodium Chloride 0.9% 100 ml @ Per Protocol IV .Q0M [facility] Rx#:[id number] Magnesium Sulfate-D5w Pmx 200 1 gm In Dextrose/Water 1 100ml.bag @ 100 mls/hr IVPB Q1H [facility] Rx#: [id number] Potassium Chloride 20 meq 200 In Water For Injection 1 100ml.bag @ 50 mls/hr IVPB ONCE ONE Rx#: [id number] Sodium Phosphate 10 mmol 500 In Sodium Chloride 0.9% 250 ml @ 125 mls/hr IVPB Q2H [facility] Rx#:[id number] Oral 510 Output: Chest Tube Drainage 250 220 Left Pleural/Mediastinal 250 220 Urine 1015 350 Other: Voiding Method Urinal Urinal ABP, PAP, CO, CI - Last Documented Arterial Blood Pressure 155/59 Pulmonary Artery Pressure 21/10 Cardiac Output 5.6 Cardiac Index 3 - Constitutional General appearance: Present: cooperative, no acute distress - EENT Eyes: Present: PERRLA, normal appearance ENT: Present: hearing grossly normal - Neck Details: No JVD present. - Respiratory Details: Essentially clear throughout, diminished to his bilateral bases. Respirations are symmetrical and unlabored. He is achieving 1500 mL on his incentive spirometry. His oxygen saturation are 95% on room air. Left pleural chest tube remains to low continuous wall suction -20 cm H2O. No air leak present. It is draining thin serosanguineous drainage. 220 mL output in the last 8 hours , 400 mL output in 24 hours. - Cardiovascular Details: Regular rhythm and rate, S1 and S2 present. Negative for S3, gallop or murmur. Sternum is stable. Bedside telemetry showing normal sinus rhythm heart rate 97. Heart hugger is in place, and he is demonstrating appropriate use. No edema present. Knee-high YASMINE hose and sequential compression devices in place to his bilateral lower extremities. - Gastrointestinal Gastrointestinal Comment(s): Abdomen is soft, nontender, and nondistended. Positive bowel sounds all 4 abdominal quadrants. Positive flatus. He is tolerating oral diet. - Genitourinary Genitourinary Comment(s): Adequate urine output, clear yellow urine. - Integumentary Integumentary Comment(s): Midline sternal incision clean dry and well approximated. No drainage noted. Dermabond dressing in place. Folded 4 x 4 gauze dressing covering incision and is clean dry and intact. Left leg incisions clean dry and well approximated. No drainage noted. Ecchymosis to his left thigh, soft to touch and nontender. Integumentary: Present: normal turgor - Musculoskeletal Musculoskeletal: Present: gait normal, generalized weakness, strength equal bilaterally - Psychiatric Psychiatric: Present: A&O x's 3, appropriate affect, intact judgment & insight - Allied health notes Allied health notes reviewed: nursing - Labs CBC & Chem 7: 05/29/17 05:32 05/29/17 05:32 Labs: Abnormal Lab Results - Last 24 Hours (Table) 05/28/17 05/28/17 05/28/17 Range/Units 14:30 16:48 21:20 RBC (4.30-5.90) m/uL Hgb (13.0-17.5) gm/dL Hct (39.0-53.0) % Plt Count (150-450) k/uL Lymphocytes # (1.0-4.8) k/uL Sodium (137-145) mmol/L Glucose (74-99) mg/dL POC Glucose (mg/dL) 116 H 134 H (75-99) mg/dL Calcium (8.4-10.2) mg/dL Phosphorus 5.1 H (2.5-4.5) mg/dL Total Protein (6.3-8.2) g/dL Albumin (3.5-5.0) g/dL 05/29/17 05/29/17 05/29/17 Range/Units 05:32 05:32 06:15 RBC 3.09 L (4.30-5.90) m/uL Hgb 9.6 L D (13.0-17.5) gm/dL Hct 28.2 L (39.0-53.0) % Plt Count 97 L (150-450) k/uL Lymphocytes # 0.5 L (1.0-4.8) k/uL Sodium 136 L (137-145) mmol/L Glucose 116 H (74-99) mg/dL POC Glucose (mg/dL) 139 H (75-99) mg/dL Calcium 7.3 L (8.4-10.2) mg/dL Phosphorus 2.1 L (2.5-4.5) mg/dL Total Protein 4.4 L (6.3-8.2) g/dL Albumin 2.3 L (3.5-5.0) g/dL 05/29/17 Range/Units 11:45 RBC (4.30-5.90) m/uL Hgb (13.0-17.5) gm/dL Hct (39.0-53.0) % Plt Count (150-450) k/uL Lymphocytes # (1.0-4.8) k/uL Sodium (137-145) mmol/L Glucose (74-99) mg/dL POC Glucose (mg/dL) 148 H (75-99) mg/dL Calcium (8.4-10.2) mg/dL Phosphorus (2.5-4.5) mg/dL Total Protein (6.3-8.2) g/dL Albumin (3.5-5.0) g/dL - Imaging and Cardiology Chest x-ray: report reviewed, image reviewed Assessment and Plan (1) History of mitral valve prolapse Status: Acute (2) CAD (coronary artery disease) Status: Acute (3) Family history of coronary artery disease Status: Acute (4) HTN (hypertension) Status: Acute (5) History of placement of stent in LAD coronary artery Status: Acute (6) Hx of subarachnoid hemorrhage Status: Acute (7) Hyperlipemia Status: Acute (8) S/P right coronary artery (RCA) stent placement Status: Acute Plan: 1. Continue his aspirin, Plavix, heparin subcu, and his metoprolol will be increased 50 mg by mouth twice a day. 2. His left pleural chest tube will stay in for at least another 24 hours and remain to low continuous wall suction. 3. Continue to encourage his incentive spirometry every hour while awake. Wean his oxygen as tolerated. 4. Increase his activity as tolerated, cardiac rehab following. 5. GI and DVT prophylaxis in place. 6. Monitor daily labs and chest x-ray. 7. Lasix 20 mg IV 1 today. 8. Pain control per when necessary orders. 9. Further recommendations as patient progresses in his care. Time with Patient: Greater than 30
[2017-05-29] MEDS: POTASSIUM CHLORIDE ER 20 MEQ TAB.ER PO SCH (13:44)
[2017-05-29] MEDS ORDERED: METOPROLOL TARTRATE 25 MG TAB PO SCH (16:00)
[2017-05-29 17:14] LABS: Glucose,Whole Blood 128 mg/dL (75-99)
[2017-05-29] MEDS: METOPROLOL TARTRATE 50 MG TAB PO SCH (20:04)
[2017-05-29] MEDS: SENNOSIDES-DOCUSATE SODIUM 1 EACH TAB PO SCH (20:09)
[2017-05-29 20:59] LABS: Glucose,Whole Blood 132 mg/dL (75-99)
--- NOTE | 2017-05-29 22:11 | P.PN ---
Subjective Principal diagnosis: Status post coronary artery bypass graft 71-year-old gentleman was admitted for coronary artery bypass grafting patient underwent bypass surgery with ISAACS to LAD and a saphenous vein graft to intermediate and obtuse branches marginal branch of coronary arteries. Patient was extubated yesterday. Patient does have a chest tube. On the left side. Patient the rest of the chest tubes were removed. Patient the left-sided chest tube is still draining today. Patient denied any fever, chills, nausea, vomiting that did not move his bowels yet but is has been passing gas. Patient is complaining of pleuritic pain secondary to the chest tube. On 05/29/2017 Today patient denied any complaints of worsening chest pain or short of breath. Patient is able to ablate in the hallway and is feeling much better. Left- sided chest tube was removed by thoracic surgery. No fever. No overnight issues. Hemoglobin dropped to 9.1 today Objective - Vital Signs Vital signs: Vital Signs Temp 97.5 F L 05/29/17 16:00 Pulse 99 05/29/17 16:00 Resp 16 05/29/17 16:00 BP 125/70 05/29/17 16:00 Pulse Ox 94 L 05/29/17 16:00 Intake & Output 05/29/17 05/29/17 05/30/17 06:59 18:59 06:59 Intake Total 180 350 Output Total 570 1200 300 Balance -570 -1020 50 Weight 79.6 kg Intake: Oral 180 350 Output: Chest Tube Drainage 220 Left Pleural/Mediastinal 220 Urine 350 1200 300 Other: Voiding Method Urinal ABP, PAP, CO, CI - Last Documented Arterial Blood Pressure 155/59 Pulmonary Artery Pressure 21/10 Cardiac Output 5.6 Cardiac Index 3 - Exam GENERAL: The patient is alert and oriented x3, not in any acute distress. Well developed, well nourished. HEENT: Pupils are round and equally reacting to light. EOMI. No scleral icterus. No conjunctival pallor. Normocephalic, atraumatic. No pharyngeal erythema. No thyromegaly. CARDIOVASCULAR: S1 and S2 present. No murmurs, rubs, or gallops. Mid sternal wound is intact. PULMONARY: Chest is clear to auscultation, no wheezing or crackles. Left-sided chest tube was removed. ABDOMEN: Soft, nontender, nondistended, normoactive bowel sounds. No palpable organomegaly. MUSCULOSKELETAL: No joint swelling or deformity. EXTREMITIES: No cyanosis, clubbing, or pedal edema. NEUROLOGICAL: Gross neurological examination did not reveal any focal deficits. SKIN: No rashes. No pallor - Labs CBC & Chem 7: 05/29/17 05:32 05/29/17 05:32 Labs: Abnormal Lab Results - Last 24 Hours (Table) 05/29/17 05/29/17 05/29/17 Range/Units 05:32 05:32 06:15 RBC 3.09 L (4.30-5.90) m/uL Hgb 9.6 L D (13.0-17.5) gm/dL Hct 28.2 L (39.0-53.0) % Plt Count 97 L (150-450) k/uL Lymphocytes # 0.5 L (1.0-4.8) k/uL Sodium 136 L (137-145) mmol/L Glucose 116 H (74-99) mg/dL POC Glucose (mg/dL) 139 H (75-99) mg/dL Calcium 7.3 L (8.4-10.2) mg/dL Phosphorus 2.1 L (2.5-4.5) mg/dL Total Protein 4.4 L (6.3-8.2) g/dL Albumin 2.3 L (3.5-5.0) g/dL 05/29/17 05/29/17 05/29/17 Range/Units 11:45 16:46 20:57 RBC (4.30-5.90) m/uL Hgb (13.0-17.5) gm/dL Hct (39.0-53.0) % Plt Count (150-450) k/uL Lymphocytes # (1.0-4.8) k/uL Sodium (137-145) mmol/L Glucose (74-99) mg/dL POC Glucose (mg/dL) 148 H 128 H 132 H (75-99) mg/dL Calcium (8.4-10.2) mg/dL Phosphorus (2.5-4.5) mg/dL Total Protein (6.3-8.2) g/dL Albumin (3.5-5.0) g/dL - Imaging and Cardiology Chest x-ray: report reviewed Assessment and Plan Plan: #1 coronary artery disease: status post triple-vessel coronary artery bypass grafting as mentioned above. Patient the postoperative course is uncomplicated and patient is presently extubated. Left-sided chest tube was removed. #2 hypertension patient is off IV calcium channel brian that is clevidipine. Continue with metoprolol and lisinopril. Controlled #3 hyperlipidemia #4 mitral valve prolapse history #5 postoperative acute blood loss anemia which is expected from surgery. #6 right apical pneumothorax around 10% stable at this time. Management as per primary service. His medications were reviewed lab data, radiological data was reviewed plan is to continue to monitor. Can use sliding scale insulin for elevated blood sugars. Patient is not diabetic Continue the aspirin and statins Plavix and metoprolol and lisinopril.
[2017-05-30] MEDS: HYDROcodone/APAP 5-325MG 1 EACH TAB PO PRN ×5 (00:33→15:34)
[2017-05-30] MEDS: HEPARIN SODIUM,PORCINE 5,000 UNIT/ML 1 ML VIAL SQ SCH ×3 (00:33→15:20)
[2017-05-30 02:13] LABS: Glucose,Whole Blood 140 mg/dL (75-99)
[2017-05-30] MEDS: INSULIN LISPRO (humaLOG) 300 UNIT/3 ML VIAL SQ SCH ×3 (05:04→12:24)
[2017-05-30 06:12] LABS: Glucose,Whole Blood 107 mg/dL (75-99)
[2017-05-30] MEDS: PANTOPRAZOLE 40 MG TABLET PO SCH (07:02)
[2017-05-30 07:28] LABS: Anion Gap 8 mmol/L; Blood Urea Nitrogen 13 mg/dL (9-20); Calcium 8.1 mg/dL (8.4-10.2); Carbon Dioxide 25 mmol/L (22-30); Chloride 104 mmol/L (98-107); Glucose 103 mg/dL (74-99); Non-African American GFR(MDRD) >60 (>60 ml/min/1.73 sqM); Phosphorous 2.3 mg/dL (2.5-4.5); Potassium 3.5 mmol/L (3.5-5.1); Sodium 137 mmol/L (137-145)
[2017-05-30] MEDS: METOPROLOL TARTRATE 50 MG TAB PO SCH (07:43)
[2017-05-30] MEDS: CLOPIDOGREL 75 MG TAB PO SCH (07:44)
[2017-05-30] MEDS: ASPIRIN 325 MG TAB PO SCH (07:44)
[2017-05-30] MEDS: ATORVASTATIN 40 MG TAB PO SCH (07:44)
[2017-05-30 07:46] LABS: Basophils % (A) 0 %; CH 31.3; CHCM 35.4; Eosinophils # (A) 0.2 k/uL (0-0.7); Eosinophils % (A) 2 %; HCT 29.4 % (39.0-53.0); HDW 3.55; HGB 10.3 gm/dL (13.0-17.5); Luc # (Auto) 0.24; Luc % (Auto) 3; Lymphocytes # (A) 0.8 k/uL (1.0-4.8); Lymphocytes % (A) 11 %; MCH 31.3 pg (25.0-35.0); MCHC 35.1 g/dL (31.0-37.0); MCV 89.3 fL (80.0-100.0); Mean Platelet Volume 6.8; Monocytes # (A) 0.6 k/uL (0-1.0); Monocytes % (A) 8 %; Neutrophils # (A) 5.7 k/uL (1.3-7.7); Neutrophils % (A) 76 %; Poikilocytosis Slight; RBC 3.29 m/uL (4.30-5.90); RDW 14.7 % (11.5-15.5); WBC 7.5 k/uL (3.8-10.6); WBC (Perox) 7.75
[2017-05-30 07:50] VITALS: RESP 16
--- NOTE | 2017-05-30 07:50 | XR ---
EXAMINATION TYPE: XR chest 2V DATE OF EXAM: 05/30/2017 COMPARISON: May 29, 2017 HISTORY: Postop CABG follow-up TECHNIQUE: Frontal and lateral views of the chest are obtained. FINDINGS: There is a left apical pneumothorax noted which appears to be less than 10% and is mildly progressive relative to prior examination. There is also a right apical pneumothorax estimated at approximately 10% as well which appears to be unchanged Scattered senescent parenchymal changes noted. Hyperinflation compatible with COPD. Right basilar patchy infiltrate or atelectasis. Sternotomy wires mediastinal clips are in place. Neptali ezequiel of left-sided chest tube. Heart size is stable. Mediastinal structures are stable and grossly unremarkable. No evidence for hilar prominence. Degenerative changes dorsal spine. IMPRESSION: 1. Approximately 10% bilateral apical pneumothoraces with mild progression suggested on the left. A [place] message has been communicated to Coleman Araiza MD~[id number] via the [employer] system on 05/30/2017 7:48 AM, Message ID [id number].
[2017-05-30] MEDS ORDERED: METOPROLOL TARTRATE 25 MG TAB PO SCH (08:26)
--- NOTE | 2017-05-30 09:49 | P.PN ---
Subjective Principal diagnosis: Status post CABG This is a 71-year-old male patient who is s/p coronary artery bypass surgery. He was c/o chest pain and the cath showed severe LM dx. He underwent an off-pump coronary artery bypass surgery with ISAACS to LAD and saphenous vein graft to intermediate and obtuse branches of the coronary arteries. This morning he is hemodynamically stable. Objective - Vital Signs Vital signs: Vital Signs Temp 97.5 F L 05/30/17 07:49 Pulse 105 H 05/30/17 07:49 Resp 16 05/30/17 07:49 BP 133/70 05/30/17 07:49 Pulse Ox 94 L 05/30/17 09:38 Intake & Output 05/29/17 05/30/17 05/30/17 18:59 06:59 18:59 Intake Total 180 350 360 Output Total 1200 1950 Balance -1020 -1600 360 Weight 78.1 kg Intake: Oral 180 350 360 Output: Urine 1200 1950 Other: Voiding Method Urinal # Voids 1 ABP, PAP, CO, CI - Last Documented Arterial Blood Pressure 155/59 Pulmonary Artery Pressure 21/10 Cardiac Output 5.6 Cardiac Index 3 - Constitutional General appearance: Present: no acute distress - Respiratory Respiratory: bilateral: CTA - Cardiovascular Rhythm: regular Heart sounds: normal: S1, S2 - Labs CBC & Chem 7: 05/30/17 06:36 05/30/17 06:36 Labs: Abnormal Lab Results - Last 24 Hours (Table) 05/29/17 05/29/17 05/29/17 Range/Units 11:45 16:46 20:57 RBC (4.30-5.90) m/uL Hgb (13.0-17.5) gm/dL Hct (39.0-53.0) % Lymphocytes # (1.0-4.8) k/uL Glucose (74-99) mg/dL POC Glucose (mg/dL) 148 H 128 H 132 H (75-99) mg/dL Calcium (8.4-10.2) mg/dL Phosphorus (2.5-4.5) mg/dL 05/30/17 05/30/17 05/30/17 Range/Units 02:12 06:10 06:36 RBC (4.30-5.90) m/uL Hgb (13.0-17.5) gm/dL Hct (39.0-53.0) % Lymphocytes # (1.0-4.8) k/uL Glucose 103 H (74-99) mg/dL POC Glucose (mg/dL) 140 H 107 H (75-99) mg/dL Calcium 8.1 L (8.4-10.2) mg/dL Phosphorus 2.3 L (2.5-4.5) mg/dL 05/30/17 Range/Units 06:36 RBC 3.29 L (4.30-5.90) m/uL Hgb 10.3 L (13.0-17.5) gm/dL Hct 29.4 L (39.0-53.0) % Lymphocytes # 0.8 L (1.0-4.8) k/uL Glucose (74-99) mg/dL POC Glucose (mg/dL) (75-99) mg/dL Calcium (8.4-10.2) mg/dL Phosphorus (2.5-4.5) mg/dL Assessment and Plan Plan: From the cardiac standpoint, he is doing well and he is asymptomatic. Currently he is on dual antiplatelet therapy as well as a statin. The dose of metoprolol was increased yesterday to 75 mg by mouth twice a day. He still slightly tachycardic with a resting heart rate in the 80s and 90s.
[2017-05-30] MEDS ORDERED: LISINOPRIL 5 MG TAB PO SCH (12:00)
[2017-05-30] MEDS ORDERED: MULTIVITAMINS, THERA 1 EACH TAB PO SCH (12:00)
[2017-05-30 12:06] LABS: Glucose,Whole Blood 142 mg/dL (75-99)
--- NOTE | 2017-05-30 12:26 | P.PN ---
Subjective Principal diagnosis: Post CABG, postoperative day #4 This is a 71-year-old male patient is postop day #1 following coronary artery bypass surgery. The patient had symptomatic CAD and he underwent an off-pump coronary artery bypass surgery with ISAACS to LAD and saphenous vein graft to intermediate and obtuse branches of the coronary arteries. Postop, the patient was brought into the intensive care unit intubated on a mechanical ventilator. He has a pleural and mediastinal chest tube. He was weaned off the mechanical ventilator other major difficulties and he was extubated yesterday. This morning he is hemodynamically stable. The output from the left pleural and mediastinal chest tube is around 120 mL since morning shift. The patient is hemodynamically stable. The patient is on Cleviprex for blood pressure control. Is off the nitroglycerin. He is also taking aspirin, and metoprolol 12.5 mg by mouth twice a day. The chest x-ray from today shows a left-sided chest tube without evidence of any pneumothorax. There is some mild four- vessel congestion and patchy retrocardiac atelectasis. He is pulling approximately 1500 on his incentive spirometer. No chest wall pain. Sternum stable clean and intact. No other significant issues over the past 24 hours. No cardiac arrhythmias noted. On 05/28/2017 the patient is postop day #2 following three-vessel bypass surgery. Today chest x-ray showing a tiny 10% pneumothorax on the right. The patient on room air. No respiratory difficulties. No cough or sputum production. Sternum stable clean and intact. The mediastinal chest tube has been removed. The patient has a left-sided chest tube which is putting out approximately 10 mL an hour. Hemodynamically stable. He is on no pressors. Cardiac rhythm is sinus. He is having some episodes of dizziness on and off and for that reason the patient was given Antivert. Hemoglobin stable at 11.4. Function is stable. Tolerating diet. Did not ambulate. Because of his underlying dizziness. No focal neurological deficits. No headaches. Awake and oriented. On 05/29/2017, patient is postoperative day #3 following three-vessel bypass surgery. Patient is doing well, relatively asymptomatic. Left sided chest tube remains in place, there is a small tiny left apical pneumothorax. Right side is relatively unremarkable. Patient is asymptomatic. CBC was reviewed hemoglobin is 9.6 and basic metabolic profile is normal renal profile is normal. Patient is already ambulating down the hallway. And he is doing well with incentive spirometry. On 05/30/2017, patient is postoperative day #4, continues to do well, relatively asymptomatic. However his chest x-ray showed small bilateral apical pneumothoraces, approximately 10% each. Minimal atelectasis is noted at the bases bilaterally. Clinically the patient is asymptomatic, patient is being considered for possible discharge by thoracic surgery, however he will need a close follow-up and possibly a follow-up chest x-ray within the next 24 hours. Or can possibly delay discharge planning for the next 24 hours. Objective - Vital Signs Vital signs: Vital Signs Temp 97.5 F L 05/30/17 07:49 Pulse 105 H 05/30/17 07:49 Resp 16 05/30/17 12:00 BP 133/70 05/30/17 07:49 Pulse Ox 94 L 05/30/17 09:38 Intake & Output 05/29/17 05/30/17 05/30/17 18:59 06:59 18:59 Intake Total 180 350 360 Output Total 1200 1950 Balance -1020 -1600 360 Weight 78.1 kg Intake: Oral 180 350 360 Output: Urine 1200 1950 Other: Voiding Method Urinal # Voids 1 ABP, PAP, CO, CI - Last Documented Arterial Blood Pressure 155/59 Pulmonary Artery Pressure 21/10 Cardiac Output 5.6 Cardiac Index 3 - Exam Physical Exam revealed a 71-year-old in no distress. HEENT:[Neck is supple.] [No neck masses.] [No thyromegaly.] [No JVD.] Chest: [Clear throughout, no crackles, no rhonchi, no wheezes.] Cardiac Exam: [Normal S1 and S2, no S3 gallop, no murmur.] Abdomen: [Soft, nontender, no megaly, no rebound, no guarding, normal bowel sounds.] Extremities: [No clubbing, no edema, no cyanosis.] Neurological Exam: [No focal neurologic deficit.] - Labs CBC & Chem 7: 05/30/17 06:36 05/30/17 06:36 Labs: Abnormal Lab Results - Last 24 Hours (Table) 05/29/17 05/29/17 05/30/17 Range/Units 16:46 20:57 02:12 RBC (4.30-5.90) m/uL Hgb (13.0-17.5) gm/dL Hct (39.0-53.0) % Lymphocytes # (1.0-4.8) k/uL Glucose (74-99) mg/dL POC Glucose (mg/dL) 128 H 132 H 140 H (75-99) mg/dL Calcium (8.4-10.2) mg/dL Phosphorus (2.5-4.5) mg/dL 05/30/17 05/30/17 05/30/17 Range/Units 06:10 06:36 06:36 RBC 3.29 L (4.30-5.90) m/uL Hgb 10.3 L (13.0-17.5) gm/dL Hct 29.4 L (39.0-53.0) % Lymphocytes # 0.8 L (1.0-4.8) k/uL Glucose 103 H (74-99) mg/dL POC Glucose (mg/dL) 107 H (75-99) mg/dL Calcium 8.1 L (8.4-10.2) mg/dL Phosphorus 2.3 L (2.5-4.5) mg/dL 05/30/17 Range/Units 11:40 RBC (4.30-5.90) m/uL Hgb (13.0-17.5) gm/dL Hct (39.0-53.0) % Lymphocytes # (1.0-4.8) k/uL Glucose (74-99) mg/dL POC Glucose (mg/dL) 142 H (75-99) mg/dL Calcium (8.4-10.2) mg/dL Phosphorus (2.5-4.5) mg/dL Assessment and Plan Plan: 1 symptomatic coronary artery disease, post bypass surgery with ISAACS to LAD and saphenous finger after 2 obtuse marginal and intermediate branches, postop day # 4 2 hypertension , resolved 3 postoperative chest tubes, removed, patient has persistent 10% pneumothorax on each side. Must have a close follow-up, or possibly delay discharge planning for the next 24 hours. 4 hyperlipidemia 5 mitral valve prolapse 6 essential tremors 7 diverticulosis 8 remote history of subarachnoid bleed 9 expected postoperative anemia and thrombocytopenia, being monitored\ 10 right apical pneumothorax, probably around 10%. 11 dizziness Recommendation: Continue present treatment plan, continue incentive spirometry, ambulation, close follow-up on the pneumothorax on both sides should be considered. Time with Patient: Less than 30
--- NOTE | 2017-05-30 12:57 | P.PN ---
Subjective Principal diagnosis: Coronary artery disease. On chin. Hyperlipidemia. History of myocardial infarction in 2011 with double stent placement to the right coronary artery and previous stent placement to the left anterior descending artery. Previous history of subarachnoid hemorrhage 2005. Diverticulosis with colostomy placement and reversal. Essential tremor. History of syncope. Family history of CAD. POD #4 elective off-pump coronary artery bypass grafting with the left internal mammary artery to the left anterior descending artery and reverse saphenous vein graft to the intermediate and obtuse marginal coronary arteries. Endovascular vein harvest of the left greater saphenous vein. Intraoperative transesophageal echocardiogram. The patient is currently sitting up in the chair in no acute distress. States pain is better controlled. Has been ambulating in the hallway. Objective - Vital Signs Vital signs: Vital Signs Temp 97.5 F L 05/30/17 07:49 Pulse 105 H 05/30/17 07:49 Resp 16 05/30/17 07:49 BP 133/70 05/30/17 07:49 Pulse Ox 94 L 05/30/17 07:49 Intake & Output 05/29/17 05/30/17 05/30/17 18:59 06:59 18:59 Intake Total 180 350 Output Total 1200 1950 Balance -1020 -1600 Weight 78.1 kg Intake: Oral 180 350 Output: Urine 1200 1950 Other: Voiding Method Urinal # Voids 1 ABP, PAP, CO, CI - Last Documented Arterial Blood Pressure 155/59 Pulmonary Artery Pressure 21/10 Cardiac Output 5.6 Cardiac Index 3 - Constitutional General appearance: Present: cooperative, no acute distress - Respiratory Details: Lungs sounds diminished bilaterally. Respirations even, nonlabored. Currently on room air with oxygen saturation 92%. Able to achieve 1750 mL on his incentive spirometry. - Cardiovascular Details: S1, S2 present. Regular rate and rhythm, sinus rhythm to sinus tach on telemetry. Sternum stable. Heart hugger in place with patient able to demonstrate appropriate use. No edema present. Palpable pulses bilaterally. Teds/SCDs present. - Gastrointestinal Gastrointestinal Comment(s): Abdomen soft, nontender, nondistended. Active bowel sounds 4 quadrants. Tolerating diet. Positive flatus. - Genitourinary Genitourinary Comment(s): Continues to void clear, yellow urine. - Integumentary Integumentary Comment(s): Anterior chest incision well approximated with Dermabond dressing. Left lower extremity EVH site well approximated. - Neurologic Neurologic: Present: CNII-XII intact - Musculoskeletal Musculoskeletal: Present: gait normal, strength equal bilaterally - Psychiatric Psychiatric: Present: A&O x's 3, appropriate affect, intact judgment & insight - Allied health notes Allied health notes reviewed: nursing - Labs CBC & Chem 7: 05/30/17 06:36 05/30/17 06:36 Labs: Abnormal Lab Results - Last 24 Hours (Table) 05/29/17 05/29/17 05/29/17 Range/Units 11:45 16:46 20:57 RBC (4.30-5.90) m/uL Hgb (13.0-17.5) gm/dL Hct (39.0-53.0) % Lymphocytes # (1.0-4.8) k/uL Glucose (74-99) mg/dL POC Glucose (mg/dL) 148 H 128 H 132 H (75-99) mg/dL Calcium (8.4-10.2) mg/dL Phosphorus (2.5-4.5) mg/dL 05/30/17 05/30/17 05/30/17 Range/Units 02:12 06:10 06:36 RBC (4.30-5.90) m/uL Hgb (13.0-17.5) gm/dL Hct (39.0-53.0) % Lymphocytes # (1.0-4.8) k/uL Glucose 103 H (74-99) mg/dL POC Glucose (mg/dL) 140 H 107 H (75-99) mg/dL Calcium 8.1 L (8.4-10.2) mg/dL Phosphorus 2.3 L (2.5-4.5) mg/dL 05/30/17 Range/Units 06:36 RBC 3.29 L (4.30-5.90) m/uL Hgb 10.3 L (13.0-17.5) gm/dL Hct 29.4 L (39.0-53.0) % Lymphocytes # 0.8 L (1.0-4.8) k/uL Glucose (74-99) mg/dL POC Glucose (mg/dL) (75-99) mg/dL Calcium (8.4-10.2) mg/dL Phosphorus (2.5-4.5) mg/dL - Imaging and Cardiology Chest x-ray: report reviewed, image reviewed Assessment and Plan (1) CAD (coronary artery disease) Status: Acute (2) Family history of coronary artery disease Status: Acute (3) HTN (hypertension) Status: Acute (4) History of placement of stent in LAD coronary artery Status: Acute (5) Hx of subarachnoid hemorrhage Status: Acute (6) Hyperlipemia Status: Acute (7) S/P right coronary artery (RCA) stent placement Status: Acute (8) Syncope and collapse Status: Acute Plan: 1. Continue aspirin, statin, Plavix, beta brian. Will increase beta brian therapy as tolerated. 2. Encourage incentive spirometry use. 3. Increase activity, ambulate in hallway. Physical therapy following. 4. GI/DVT prophylaxis. 5. Pain control per ordered medications. 6. Replace potassium per protocol. 7. Discharge planning a progress. Anticipate discharge within the next 24 hours. Time with Patient: Greater than 30
[2017-05-30 13:02] VITALS: BP 128/68; PULSE 98; TEMP 97.4
--- NOTE | 2017-05-30 15:14 | P.DS ---
Providers Date of admission: 05/26/17 05:45 Expected date of discharge: 05/30/17 Attending physician: John Scott Consults: 05/26/17 12:24 Consult Physician Routine Consulting Provider: Joyce Maddox Consult Reason/Comments: Cytogeneticist Consult: post cardiac surgery Do you want consulting provider notified?: Yes Consult Physician Routine Consulting Provider: Coleman Araiza Consult Reason/Comments: [employer] Service Technician Consult: post cardiac surgery Do you want consulting provider notified?: Yes 05/26/17 13:10 Consult Physician Routine Consulting Provider: Messi Chao Consult Reason/Comments: medical management Do you want consulting provider notified?: Yes Primary care physician: Messi Chao - Discharge Diagnosis(es) (1) History of mitral valve prolapse Current Visit: Yes Status: Acute (2) CAD (coronary artery disease) Current Visit: No Status: Acute (3) Family history of coronary artery disease Current Visit: No Status: Acute (4) HTN (hypertension) Current Visit: No Status: Acute (5) History of placement of stent in LAD coronary artery Current Visit: No Status: Acute (6) Hx of subarachnoid hemorrhage Current Visit: No Status: Acute (7) Hyperlipemia Current Visit: No Status: Acute (8) S/P right coronary artery (RCA) stent placement Current Visit: No Status: Acute Hospital Course: FINAL DIAGNOSIS: 1. Symptomatic multivessel coronary artery disease, history of previous stent placement. 2. Hypertension 3. Hyperlipidemia 4. History of myocardial infarction 5. History of mitral valve prolapse 6. Remote history of subarachnoid hemorrhage in 2005 7. Diverticulosis 8. Essential tremors 9. Acute postoperative anemia and thrombocytopenia, an expected outcome of surgery 10. Postoperative right apical pneumothorax, probably around 10%, and expected outcome of surgery PRINCIPAL PROCEDURE: 1. Elective off pump coronary artery bypass grafting with left internal mammary artery to the left anterior descending coronary artery and a reverse greater saphenous vein graft to his intermediate and obtuse marginal coronary arteries. 2. Endoscopic vein harvest of his left greater saphenous vein 3. Intraoperative transesophageal echocardiogram HISTORY OF PRESENT ILLNESS: This is a 71-year-old gentleman who is followed by Dr. Messi Chao on an outpatient basis. The patient has a history of coronary artery disease with previous stent placement to his right coronary artery and left anterior descending coronary artery. On 05/18/2017 the patient presented to the emergency department here at [facility] with complaints of fatigue, shortness of breath and chest pain that felt like there was a band around his chest. The patient took a nitroglycerin at home which did improve his symptoms. Subsequently the patient was admitted to the hospital and was evaluated by Dr. VC Aparicio from [facility]. His troponins were negative, and his 2-D echocardiogram showed mild mitral valve regurgitation, mild concentric left ventricular hypertrophy, and an overall left ventricular systolic function to be normal with an ejection fraction of 60-65%. He also underwent a heart catheterization on 05/19/2017 which demonstrated a 50-60% stenosis to his left main coronary artery, a patent stent to his proximal portion of his left anterior descending coronary artery, a 50-60% stenosis to a circumflex coronary artery, and a patent stent to his right coronary artery. The patient also underwent an IVUS study which did demonstrate an area to be 4.1 mm which was considered to be severe left main coronary artery disease. Subsequently the results of the above-mentioned studies were reviewed with the patient by Dr. Granados and Dr. John Scott from cardiothoracic surgery was consult. Dr. Scott met with the patient and his in the office an elective off pump coronary artery bypass grafting surgery was recommended. HOSPITAL COURSE: The patient was admitted to the hospital and after obtaining consent the patient was taken to the operating room where Dr. John Scott performed an elective off pump coronary artery bypass grafting with placement of his left internal mammary artery to the left anterior descending coronary artery and a reverse greater saphenous vein graft to his intermediate and obtuse marginal coronary arteries. It also what underwent endoscopic vein harvesting of his left greater saphenous vein, and an intraoperative transesophageal echocardiogram. The patient was transferred to the cardiovascular intensive care unit where he was recovered, monitored hemodynamically, and where he progressed cardiac rehabilitation phase 1. He was subsequently extubated, his drips and invasive lines were discontinued and he was transferred to [address] [place] [address] for further monitoring and rehabilitation. Postoperatively the patient did have a right and left apical pneumothorax of approximately 10% which is an expected outcome of surgery. The discharge instructions have been reviewed with the patient and his and all of their questions have been answered. COMPLICATIONS: There were no postoperative complications. CONSULTATIONS: 1. Dr. Granados for cardiology management 2. Dr. Maddox for pulmonary and ventilator management 3. Dr. Conley for medical management DISCHARGE INSTRUCTIONS: 1. No driving for 4 weeks, or until physician gives their ok. 2. The patient should sleep in their own bed, no medical bed needed. 3. Stairs are not an issue. If the bedroom is upstairs, it is advised that the patient go up at night and down in the morning for the first week. Go slowly, using handrail and take 1 step at a time. 4. YASMINE hose are to be worn for 30 days or until physician discontinues. 5. Heart hugger is to be worn 100% of the time until physician discontinues.( except when showering) 6. No lifting, pushing, or pulling more than 10 pounds for 12 weeks. The physician will advise of any restriction changes. 7. The patient is expected to continue the prescribed walking program. 8. Continue pain control per as needed orders. 9. Continue with incentive spirometry and splinting/heart hugger until otherwise directed by the physician. 10. Must shower daily using liquid antibacterial soap and a separate white washcloth for each individual incision. 11. Routine sternal incision care, no ointments, lotions or powders on the incisions. 12. Please notify surgeon/nurse practitioner for temperature greater than 101F or purulent drainage from incisions 13. Prescriptions for first 30 days given per cardiac surgery service. After 30 days, all prescription refills obtained through cardiology/primary care physician. 14. A right arm and has been placed on this patient it should be worn for 30 days post surgery and will be removed by the cardiothoracic surgeons. If an ER visit is necessary, please make sure the number on the right arm band is called. 15. The patient has been instructed if he has any complaints of increased shortness of breath please call the cardiothoracic surgery office or nurse practitioners. HOME HEALTH SERVICES TO PROVIDE: RN SKILLED HOME CARE SERVICES FOR POST-OP SURGICAL PATIENTS WITH THE FOLLOWING: Coronary Artery Bypass Surgery (CABG), Mitral Valve Replacement/ Repair ( MVR), Aortic Valve Replacement/Repair (AVR) RN TO CONTINUE EDUCATION FROM ``ROAD TO A HEALTH HEART PATIENT EDUCATION MANUAL" (GIVEN TO PATIENT IN THE HOSPITAL) MEDICATION RECONCILIATION WITH EDUCATION NEEDED ON FIRST HOME VISIT EMPHASIZE IMPORTANCE OF WEARING BREAST SUPPORT/HEART HUGGER ENCOURAGE USE OF INCENTIVE SPIROMETER 10 X EVERY HOUR WHILE AWAKE ENCOURAGE UTILIZATION OF LOWER EXTREMITY COMPRESSION STOCKINGS/YASMINE HOSE and ELEVATE LEGS ABOVE LEVEL OF HEART WHILE AT REST. ENCOURAGE AMBULATION 3-5x/day INCREASING TOLERATES, WHILE AVOID EXTREMES IN TEMPERATURE FREQUENCY: RN TO OPEN THE PATIENT WITHIN 24 HOURS OF DISCHARGE FROM THE HOSPITAL WITH TELEHEALTH INSTALLED AT [facility] [place], RN TO VISIT 2-3 X A WEEK FOR 4 WEEKS ESTABLISHED BY PATIENT NEEDS. REMOVAL OF SUTURES: NURSING SERVICES TO REMOVE SUTURES TWO WEEKS POST SURGICAL DATE [ default ]. If any questions regarding suture removal please call the office at [phone]. Radiology: Patient will obtain a 2 view chest x-ray on 06/02/2017 to reevaluate his apical pneumothorax. LABORATORY: CBC, CMP TO BE DRAWN ON THE THIRD DAY HOME, 06/02/2017 (RAN STAT ) FAX RESULTS TO [phone]. TELEHEALTH PARAMETERS: WEIGHT: NOTIFY MD OF WEIGHT GAIN OF 2 LBS IN 24 HOURS OR 5 LBS IN ONE WEEK HR: NOTIFY MD OF HR <55 BPM OR HR>100 BPM BP: NOTIFY MD IF BP <90/55 OR BP>140/100 O2 SAT: NOTIFY MD IF PO2<93% ON ROOM AIR SEND TELEHEALTH REPORT TO SOCIAL WORK THERAPIST AND CARDIOVASCULAR SURGEON THE FIRST WEEK OF CARE AND THEN BI-WEEKLY. PLEASE ADDITIONALLY COMMUNICATE ANY ABNORMALS AND NEW FINDINGS TO THE SURGEONS OFFICE. Plan - Discharge Summary New Discharge Prescriptions: New Clopidogrel [Plavix] 75 mg PO DAILY #30 tab HYDROcodone/APAP 5-325MG [[place] 5-325] 1 - 2 each PO Q6HR PRN #120 tab PRN Reason: Moderate Pain Ibuprofen [Advil] 200 mg PO Q4HR PRN tab PRN Reason: Pain Scale 6 To 8 Lisinopril [Zestril] 5 mg PO DAILY@1200 #30 tab Metoprolol Tartrate [Lopressor] 75 mg PO BID #120 tab Pantoprazole [Protonix] 40 mg PO DAILY #30 tab Sennosides-Docusate Sodium [Senokot-S] 2 each PO HS tab Continue Multivitamins, Thera [Multivitamin (formulary)] 1 tab PO DAILY Atorvastatin [Lipitor] 20 mg PO HS Aspirin 325 mg PO DAILY #30 tab Discontinued Nitroglycerin Sl Tabs [Nitrostat] 0.4 mg PO Q5M PRN PRN Reason: Chest Pain Metoprolol Tartrate [Lopressor] 12.5 mg PO DAILY Hydrochlorothiazide [Hydrodiuril] 25 mg PO DAILY Lisinopril [Zestril] 10 mg PO HS Ubidecarenone [Co Q-10] 100 mg PO DAILY Potassium Chloride ER [K-Dur 20] 20 meq PO DAILY #30 tab Discharge Medication List Multivitamins, Thera [Multivitamin (formulary)] 1 tab PO DAILY 12/19/14 [History ] Atorvastatin [Lipitor] 20 mg PO HS 12/13/16 [History] Aspirin 325 mg PO DAILY #30 tab 05/21/17 [Rx] Clopidogrel [Plavix] 75 mg PO DAILY #30 tab 05/30/17 [Rx] HYDROcodone/APAP 5-325MG [[place] 5-325] 1 - 2 each PO Q6HR PRN #120 tab 05/30/17 [Rx] Ibuprofen [Advil] 200 mg PO Q4HR PRN tab 05/30/17 [Rx] Lisinopril [Zestril] 5 mg PO DAILY@1200 #30 tab 05/30/17 [Rx] Metoprolol Tartrate [Lopressor] 75 mg PO BID #120 tab 05/30/17 [Rx] Pantoprazole [Protonix] 40 mg PO DAILY #30 tab 05/30/17 [Rx] Sennosides-Docusate Sodium [Senokot-S] 2 each PO HS tab 05/30/17 [Rx] Follow up Appointment(s)/Referral(s): Gabbi Miller NPC [Nurse Practitioner] - 06/02/17 12:30 pm John Scott MD [STAFF PHYSICIAN] - 06/26/17 2:00 pm [facility], [NON-STAFF] - Messi Chao MD [Primary Care Provider] - 06/08/17 10:30 am Renan Garnados MD [STAFF PHYSICIAN] - 06/12/17 2:45 pm Joyce Maddox MD [STAFF PHYSICIAN] - 06/28/17 2:00 pm Ambulatory/Diagnostic Orders: Complete Blood Count w/diff [LAB.AMB] Time Frame: 3 Days, Location: Determined By Patient Comprehensive Metabolic Panel [LAB.AMB] Time Frame: 3 Days, Location: Determined By Patient Discharge Disposition: HOME WITH HOME HEALTH SERVICES
--- NOTE | 2017-05-30 21:44 | P.PN ---
Subjective Principal diagnosis: Status post coronary artery bypass graft 71-year-old gentleman was admitted for coronary artery bypass grafting patient underwent bypass surgery with ISAACS to LAD and a saphenous vein graft to intermediate and obtuse branches marginal branch of coronary arteries. Patient was extubated yesterday. Patient does have a chest tube. On the left side. Patient the rest of the chest tubes were removed. Patient the left-sided chest tube is still draining today. Patient denied any fever, chills, nausea, vomiting that did not move his bowels yet but is has been passing gas. Patient is complaining of pleuritic pain secondary to the chest tube. On 05/29/2017 Today patient denied any complaints of worsening chest pain or short of breath. Patient is able to ablate in the hallway and is feeling much better. Left- sided chest tube was removed by thoracic surgery. No fever. No overnight issues. Hemoglobin dropped to 9.1 today [id number] Patient denied any new complaints today. Hemoglobin improved to 10.3. No complaints of chest pain or short of breath. Patient is being discharged home today. Objective - Vital Signs Vital signs: Vital Signs Temp 97.4 F L 05/30/17 12:00 Pulse 98 05/30/17 12:00 Resp 16 05/30/17 12:00 BP 128/68 05/30/17 12:00 Pulse Ox 94 L 05/30/17 12:00 Intake & Output 05/30/17 05/30/17 05/31/17 06:59 18:59 06:59 Intake Total 350 360 Output Total 1950 Balance -1600 360 Weight 78.1 kg Intake: Oral 350 360 Output: Urine 1950 Other: Voiding Method Urinal # Voids 1 ABP, PAP, CO, CI - Last Documented Arterial Blood Pressure 155/59 Pulmonary Artery Pressure 21/10 Cardiac Output 5.6 Cardiac Index 3 - Exam GENERAL: The patient is alert and oriented x3, not in any acute distress. Well developed, well nourished. HEENT: Pupils are round and equally reacting to light. EOMI. No scleral icterus. No conjunctival pallor. Normocephalic, atraumatic. No pharyngeal erythema. No thyromegaly. CARDIOVASCULAR: S1 and S2 present. No murmurs, rubs, or gallops. Mid sternal wound is intact. PULMONARY: Chest is clear to auscultation, no wheezing or crackles. Left-sided chest tube was removed. ABDOMEN: Soft, nontender, nondistended, normoactive bowel sounds. No palpable organomegaly. MUSCULOSKELETAL: No joint swelling or deformity. EXTREMITIES: No cyanosis, clubbing, or pedal edema. NEUROLOGICAL: Gross neurological examination did not reveal any focal deficits. SKIN: No rashes. No pallor - Labs CBC & Chem 7: 05/30/17 06:36 05/30/17 06:36 Labs: Abnormal Lab Results - Last 24 Hours (Table) 05/30/17 05/30/17 05/30/17 Range/Units 02:12 06:10 06:36 RBC (4.30-5.90) m/uL Hgb (13.0-17.5) gm/dL Hct (39.0-53.0) % Lymphocytes # (1.0-4.8) k/uL Glucose 103 H (74-99) mg/dL POC Glucose (mg/dL) 140 H 107 H (75-99) mg/dL Calcium 8.1 L (8.4-10.2) mg/dL Phosphorus 2.3 L (2.5-4.5) mg/dL 05/30/17 05/30/17 Range/Units 06:36 11:40 RBC 3.29 L (4.30-5.90) m/uL Hgb 10.3 L (13.0-17.5) gm/dL Hct 29.4 L (39.0-53.0) % Lymphocytes # 0.8 L (1.0-4.8) k/uL Glucose (74-99) mg/dL POC Glucose (mg/dL) 142 H (75-99) mg/dL Calcium (8.4-10.2) mg/dL Phosphorus (2.5-4.5) mg/dL Assessment and Plan Plan: #1 coronary artery disease: status post triple-vessel coronary artery bypass grafting as mentioned above. Patient the postoperative course is uncomplicated and patient is presently extubated. Left-sided chest tube was removed. #2 hypertension patient is off IV calcium channel brian that is clevidipine. Continue with metoprolol and lisinopril. Controlled #3 hyperlipidemia #4 mitral valve prolapse history #5 postoperative acute blood loss anemia which is expected from surgery. #6 right apical pneumothorax around 10% stable at this time. Management as per primary service. His medications were reviewed lab data, radiological data was reviewed plan is to continue to monitor. Can use sliding scale insulin for elevated blood sugars. Patient is not diabetic Continue the aspirin and statins Plavix and metoprolol and lisinopril. Patient is stable to be discharged.
== END 2017-05-30 16:48 | disposition home health service (06) | DRG 236 ==
LOC: 2ORMAIN 05:45 → 6ICU 12:53 → 6SEL 05-28 15:48
PROVIDERS: ADMIT Thoracic Surgery (Cardiothoracic Vascular Surgery); ATTEND Thoracic Surgery (Cardiothoracic Vascular Surgery)
PROC: 021109W Bypass Coronary Artery, Two Arteries from Aorta with Autologous Venous Tissue, Open Approach (ICD-10-PCS; 2017-05-26)
PROC: 06BQ4ZZ Excision of Left Saphenous Vein, Percutaneous Endoscopic Approach (ICD-10-PCS; 2017-05-26)
PROC: B246ZZ4 Ultrasonography of Right and Left Heart, Transesophageal (ICD-10-PCS; 2017-05-26)
PROC: 02100Z9 Bypass Coronary Artery, One Artery from Left Internal Mammary, Open Approach (ICD-10-PCS; principal; 2017-05-26 08:00)
DX: I25.119 Atherosclerotic heart disease of native coronary artery with unspecified angina pectoris (principal); D69.6 Thrombocytopenia, unspecified; I11.9 Hypertensive heart disease without heart failure; D62 Acute posthemorrhagic anemia; E78.5 Hyperlipidemia, unspecified; I34.1 Nonrheumatic mitral (valve) prolapse; I34.0 Nonrheumatic mitral (valve) insufficiency; R11.0 Nausea; I25.2 Old myocardial infarction; R00.0 Tachycardia, unspecified; R42 Dizziness and giddiness; K57.30 Diverticulosis of large intestine without perforation or abscess without bleeding; H91.90 Unspecified hearing loss, unspecified ear; G25.0 Essential tremor; Z95.5 Presence of coronary angioplasty implant and graft; Z82.49 Family history of ischemic heart disease and other diseases of the circulatory system; Z79.899 Other long term (current) drug therapy; Z80.9 Family history of malignant neoplasm, unspecified; Z71.3 Dietary counseling and surveillance; Z79.82 Long term (current) use of aspirin; Z88.5 Allergy status to narcotic agent; Z88.0 Allergy status to penicillin; Z88.8 Allergy status to other drugs, medicaments and biological substances; Z86.19 Personal history of other infectious and parasitic diseases; Z86.69 Personal history of other diseases of the nervous system and sense organs; Z87.19 Personal history of other diseases of the digestive system; Z90.49 Acquired absence of other specified parts of digestive tract
CPT/HCPCS: 36620; 71010; 71020; 80048; 80053; 80202; 82330; 82805; 83735; 84100; 84132; 85025; 85347; 85520; 85610; 85730; 86850; 86891; 86900; 86901; 86920; 94002; 94640; 94760

== ENCOUNTER → 2017-06-02 | Outpatient (CLI) | payer MEDICARE, BC ==
--- NOTE | 2017-06-02 13:54 | XR ---
EXAMINATION TYPE: XR chest 2V DATE OF EXAM: 06/02/2017 COMPARISON: NONE HISTORY: Mid back pain for one week TECHNIQUE: Frontal and lateral views of the chest are obtained. FINDINGS: Near complete resolution of the previously seen bilateral pneumothoraces with approximatel y 5 mm of biapical pleural separation. Trace layering pleural effusions are also noted on the lateral image. Postsurgical changes are seen of the chest. No focal consolidation. Cardiac silhouette is wit hin normal limits. IMPRESSION: Miniscule biapical residual pneumothoraces, largely improved from the prior exam. Trace bilateral pleural effusions.
[2017-06-02 14:16] LABS: ALT 84 U/L (21-72); AST 46 U/L (17-59); Alkaline Phosphatase 64 U/L (38-126); Anion Gap 9 mmol/L; Anisocytosis Slight; Basophils % (A) 0 %; Blood Urea Nitrogen 19 mg/dL (9-20); CH 31.1; CHCM 34.2; Calcium 8.3 mg/dL (8.4-10.2); Carbon Dioxide 27 mmol/L (22-30); Chloride 104 mmol/L (98-107); Eosinophils # (A) 0.3 k/uL (0-0.7); Eosinophils % (A) 4 %; Glucose 111 mg/dL (74-99); HCT 31.3 % (39.0-53.0); HDW 4.03; HGB 10.7 gm/dL (13.0-17.5); Hypochromasia Slight; Luc # (Auto) 0.22; Luc % (Auto) 3; Lymphocytes # (A) 0.5 k/uL (1.0-4.8); Lymphocytes % (A) 7 %; MCH 31.4 pg (25.0-35.0); MCHC 34.2 g/dL (31.0-37.0); MCV 91.9 fL (80.0-100.0); Mean Platelet Volume 6.7; Monocytes # (A) 0.5 k/uL (0-1.0); Monocytes % (A) 7 %; Neutrophils % (A) 80 %; Non-African American GFR(MDRD) >60 (>60 ml/min/1.73 sqM); Poikilocytosis Moderate; Potassium 4.6 mmol/L (3.5-5.1); RBC 3.41 m/uL (4.30-5.90); Sodium 140 mmol/L (137-145); Total Bilirubin 1.1 mg/dL (0.2-1.3); Total Protein 5.6 g/dL (6.3-8.2); WBC 7.6 k/uL (3.8-10.6); WBC (Perox) 7.76
== END | disposition home or self-care (01) ==
LOC: RADXRMAIN 13:10
PROVIDERS: ATTEND Nurse Practitioner Acute Care
DX: Z48.812 Encounter for surgical aftercare following surgery on the circulatory system (principal); J95.811 Postprocedural pneumothorax
CPT/HCPCS: 36415; 71020; 80053; 85025

== ENCOUNTER 2017-06-04 20:50 | Emergency (ER) | payer MEDICARE, BC ==
[2017-06-04 20:54] VITALS: TEMP 98.6
[2017-06-04] MEDS ORDERED: RX INFO: IV CONTRAST WAS GIVEN 1 EACH MISC MISCELLANE PRN (21:20)
[2017-06-04] MEDS ORDERED: MORPHINE SULFATE 4 MG/ML SYRINGE IV STA (21:20)
[2017-06-04 21:41] LABS: Anisocytosis Slight; Basophils % (A) 0 %; CHCM 34.7; Eosinophils # (A) 0.3 k/uL (0-0.7); Eosinophils % (A) 4 %; HCT 31.5 % (39.0-53.0); HDW 4.19; HGB 10.6 gm/dL (13.0-17.5); Hypochromasia Slight; Luc # (Auto) 0.29; Luc % (Auto) 3; Lymphocytes % (A) 11 %; MCH 31.2 pg (25.0-35.0); MCHC 33.5 g/dL (31.0-37.0); Mean Platelet Volume 7.5; Monocytes # (A) 0.5 k/uL (0-1.0); Monocytes % (A) 6 %; Neutrophils # (A) 6.2 k/uL (1.3-7.7); Neutrophils % (A) 75 %; Poikilocytosis Moderate; RBC 3.39 m/uL (4.30-5.90); RDW 16.3 % (11.5-15.5); WBC 8.3 k/uL (3.8-10.6); WBC (Perox) 8.35
[2017-06-04 21:51] LABS: ALT 68 U/L (21-72); AST 38 U/L (17-59); Alkaline Phosphatase 84 U/L (38-126); Amylase 63 U/L (30-110); Anion Gap 9 mmol/L; Blood Urea Nitrogen 15 mg/dL (9-20); Calcium 8.5 mg/dL (8.4-10.2); Carbon Dioxide 23 mmol/L (22-30); Chloride 108 mmol/L (98-107); Glucose 153 mg/dL (74-99); Non-African American GFR(MDRD) >60 (>60 ml/min/1.73 sqM); Potassium 3.9 mmol/L (3.5-5.1); Sodium 140 mmol/L (137-145); Total Protein 5.7 g/dL (6.3-8.2)
[2017-06-04 21:53] LABS: INR 1.1 (<1.2); Partial Thromboplastin Time 26.2 sec (22.0-30.0); Prothrombin Time 10.8 sec (9.0-12.0)
[2017-06-04 21:54] LABS: Appearance,Urine Clear (Clear); Bilirubin,Urine Negative (Negative); Glucose,Urine (UA) Negative (Negative); Ketones,Urine Negative (Negative); Leukocyte Esterase,Urine Negative (Negative); Nitrite,Urine Negative (Negative); PH, Urine 5.5 (5.0-8.0); Protein,Urine Negative (Negative); Specific Gravity,Urine 1.007 (1.001-1.035); UA Billing (MACRO vs. MICRO) CHEM; Urobilinogen,Urine <2.0 mg/dL (<2.0)
--- NOTE | 2017-06-04 22:35 | CT ---
ADDENDUM - Added by Becki Ramirez MD on 06/04/2017 11:22 PM (-07:00) Dr. Ahn informed us that patient had a chest tube in the left chest wall 2 weeks ago for CABG. The soft tissue air described in the first impression is likely related to the chest tube site. Colonic fecal stasis is also noted. Dr. Ramirez discussed these items during the phone call with Dr. Sanders on 06/04 at 22:39 (-04:00). EXAM: CT Abdomen and Pelvis With Intravenous Contrast CLINICAL HISTORY: Reason: abdominal pain TECHNIQUE: Axial computed tomography images of the abdomen and pelvis with intravenous contrast. DLP is 647.10 mGy-cm. This CT exam was performed using one or more of the following dose reduction techniques: automated exposure control, adjustment of the mA and/or kV according to patient size, and/or use of iterative reconstruction technique. COMPARISON: 12/13/16 FINDINGS: Lower thorax: Small bilateral pleural effusions. ABDOMEN: Liver: Unremarkable. No mass. Gallbladder and bile ducts: Cholecystectomy noted. No ductal dilation. Pancreas: Unremarkable. No mass. No ductal dilation. Spleen: Unremarkable. No splenomegaly. Adrenals: Unremarkable. No mass. Kidneys and ureters: Unremarkable. No solid mass. No hydronephrosis. Stomach and bowel: Scattered sigmoid diverticula without active inflammation. Diverticula also noted in the ascending colon without active inflammation. No obstruction. No mucosal thickening. Appendix: No findings to suggest acute appendicitis. PELVIS: Bladder: Unremarkable. No mass. Reproductive: Unremarkable as visualized. ABDOMEN and PELVIS: Intraperitoneal space: Air is seen along the fascia overlying the left ninth and 10th ribs, between the serratus anterior and intercostal muscles. No significant fluid collection. Bones/joints: No acute fracture. No dislocation. Soft tissues: Unremarkable. Vasculature: Unremarkable. No abdominal aortic aneurysm. Lymph nodes: Unremarkable. No enlarged lymph nodes. IMPRESSION: 1. Air is seen along the fascia overlying the left ninth and 10th ribs, between the serratus anterior and intercostal muscles. Uncertain etiology. This may relate to patient history of feeling a "pop" after sneezing. Need for CT thorax to evaluate for bleb rupture or pneumothorax may be determined clinically. 2. Sigmoid and descending colon diverticulosis. 3. Small bilateral pleural effusions. [employer] 06/04/17 22:40 Call Doctor Regarding Above results, called Dr. Ahn on 06/04 22:39 (-04:00)
[2017-06-04] MEDS ORDERED: MAGNESIUM CITRATE 296 ML BOTTLE PO ONE (22:53)
[2017-06-05] MEDS ORDERED: MAGNESIUM CITRATE 296 ML BOTTLE PO ONE (02:16)
[2017-06-05 02:30] VITALS: RESP 20
--- NOTE | 2017-06-05 02:46 | XR ---
EXAM: XR Chest, 2 Views CLINICAL HISTORY: Reason: Pain TECHNIQUE: Frontal and lateral views of the chest. COMPARISON: 06/02/17 FINDINGS: Lungs: Unremarkable. No consolidation. Pleural space: Stable small bilateral pleural effusions.. No pneumothorax. Heart: CABG changes noted. Mediastinum: Unremarkable. Bones/joints: Unremarkable. IMPRESSION: Stable small bilateral pleural effusions.
--- NOTE | 2017-06-05 03:08 | ED ---
General Adult HPI - General Chief complaint: Chest Pain Stated complaint: s/p open heart, triple bypass Time Seen by Provider: 06/04/17 21:05 Source: patient, family, RN notes reviewed, old records reviewed Mode of arrival: ambulatory Limitations: no limitations - Related Data Home Medications Medication Instructions Recorded Confirmed Multivitamins, Thera [Multivitamin 1 tab PO DAILY 12/19/14 06/04/17 (formulary)] Atorvastatin [Lipitor] 40 mg PO HS 12/13/16 06/04/17 Acetaminophen Tab [Tylenol Tab] 500 mg PO Q6H PRN 06/04/17 06/04/17 Lisinopril [Zestril] 5 mg PO DAILY 06/04/17 06/04/17 Sennosides-Docusate Sodium 2 tab PO HS 06/04/17 06/04/17 [Senokot-S] Previous Rx's Medication Instructions Recorded Aspirin 325 mg PO DAILY #30 tab 05/21/17 Clopidogrel [Plavix] 75 mg PO DAILY #30 tab 05/30/17 Metoprolol Tartrate [Lopressor] 75 mg PO BID #120 tab 05/30/17 Pantoprazole [Protonix] 40 mg PO DAILY #30 tab 05/30/17 Polyethylene Glycol 3350 [Miralax] 17 gm PO DAILY #527 gm 06/05/17 Allergies Allergy/AdvReac Type Severity Reaction Status Date / Time Penicillins Allergy Anaphylaxis Verified 06/04/17 21:46 ketorolac tromethamine AdvReac Twitching Verified 06/04/17 21:46 [From Toradol] prednisone AdvReac Muscle Verified 06/04/17 21:46 Spasms Review of Systems ROS Statement: Those systems with pertinent positive or pertinent negative responses have been documented in the HPI. ROS Other: All systems not noted in ROS Statement are negative. Past Medical History Past Medical History: Chest Pain / Angina, Hyperlipidemia, Hypertension, Myocardial Infarction ([place]), Mitral Valve Prolapse (MVP) Additional Past Medical History / Comment(s): Coronary artery disease, mitral valve prolapse, essential tremors, impaired hearing, previous history of subarachnoid hemorrhage back in 2005, shingles involving the right I am face in 2009, diverticulosis, hypertension, hyperlipidemia. Last Myocardial Infarction Date:: 2011 History of Any Multi-Drug Resistant Organisms: None Reported Past Surgical History: Bowel Resection, Cholecystectomy, Coronary Bypass/CABG, Heart Catheterization, Heart Catheterization With Stent, Hernia Repair, Orthopedic Surgery Additional Past Surgical History / Comment(s): several hernia repairs- inguinal and abdominal one with mesh, eye surgery, colonoscopy, eyelid surgery, 2000- burst intestine-colostomy with eventual reversal, hemorrohoidectomy, 1970-L knee surgery Past Anesthesia/Blood Transfusion Reactions: No Reported Reaction Additional Past Anesthesia/Blood Transfusion Reaction / Comment(s): Pt has never received blood. Date of Last Stent Placement:: 2014 Past Psychological History: No Psychological Hx Reported Smoking Status: Never smoker Past Alcohol Use History: None Reported Past Drug Use History: None Reported - Past Family History Brother(s) Family Medical History: Myocardial Infarction (AR) Father Family Medical History: Coronary Artery Disease (CAD) Additional Family Medical History / Comment(s): Father had 3 CABG's, one of them before the age of 60 Mother Family Medical History: Cancer Additional Family Medical History / Comment(s): Mother of cancer General Exam Limitations: no limitations Course Vital Signs 06/04/17 06/05/17 20:51 02:29 Temperature 98.6 F Pulse Rate 89 82 Respiratory 18 20 Rate Blood Pressure 170/89 139/79 O2 Sat by Pulse 98 98 Oximetry Medical Decision Making - Lab Data Result diagrams: 06/04/17 21:10 06/04/17 21:10 Lab Results 06/04/17 06/04/17 06/04/17 Range/Units 21:10 21:10 21:10 WBC 8.3 (3.8-10.6) k/uL RBC 3.39 L (4.30-5.90) m/uL Hgb 10.6 L (13.0-17.5) gm/dL Hct 31.5 L (39.0-53.0) % MCV 93.0 (80.0-100.0) fL MCH 31.2 (25.0-35.0) pg MCHC 33.5 (31.0-37.0) g/dL RDW 16.3 H (11.5-15.5) % Plt Count 245 (150-450) k/uL Neutrophils % 75 % Lymphocytes % 11 % Monocytes % 6 % Eosinophils % 4 % Basophils % 0 % Neutrophils # 6.2 (1.3-7.7) k/uL Lymphocytes # 1.0 (1.0-4.8) k/uL Monocytes # 0.5 (0-1.0) k/uL Eosinophils # 0.3 (0-0.7) k/uL Basophils # 0.0 (0-0.2) k/uL Hypochromasia Slight Poikilocytosis Moderate Anisocytosis Slight PT 10.8 (9.0-12.0) sec INR 1.1 (<1.2) APTT 26.2 (22.0-30.0) sec Sodium 140 (137-145) mmol/L Potassium 3.9 (3.5-5.1) mmol/L Chloride 108 H (98-107) mmol/L Carbon Dioxide 23 (22-30) mmol/L Anion Gap 9 mmol/L BUN 15 (9-20) mg/dL Creatinine 0.70 (0.66-1.25) mg/dL Est GFR (MDRD) Af Amer >60 (>60 ml/min/1.73 sqM) Est GFR (MDRD) Non-Af >60 (>60 ml/min/1.73 sqM) Glucose 153 H (74-99) mg/dL Plasma Lactic Acid Primo (0.7-2.0) mmol/L Calcium 8.5 (8.4-10.2) mg/dL Total Bilirubin 1.0 (0.2-1.3) mg/dL AST 38 (17-59) U/L ALT 68 (21-72) U/L Alkaline Phosphatase 84 (38-126) U/L Total Protein 5.7 L (6.3-8.2) g/dL Albumin 3.1 L (3.5-5.0) g/dL Amylase 63 (30-110) U/L Lipase 202 (23-300) U/L Urine Color Urine Appearance (Clear) Urine pH (5.0-8.0) Ur Specific [place] (1.001-1.035) Urine Protein (Negative) Urine Glucose (UA) (Negative) Urine Ketones (Negative) Urine Blood (Negative) Urine Nitrite (Negative) Urine Bilirubin (Negative) Urine Urobilinogen (<2.0) mg/dL Ur Leukocyte Esterase (Negative) Blood Type Blood Type Recheck Antibody Screen Spec Expiration Date 06/04/17 06/04/17 06/04/17 Range/Units 21:10 21:42 21:42 WBC (3.8-10.6) k/uL RBC (4.30-5.90) m/uL Hgb (13.0-17.5) gm/dL Hct (39.0-53.0) % MCV (80.0-100.0) fL MCH (25.0-35.0) pg MCHC (31.0-37.0) g/dL RDW (11.5-15.5) % Plt Count (150-450) k/uL Neutrophils % % Lymphocytes % % Monocytes % % Eosinophils % % Basophils % % Neutrophils # (1.3-7.7) k/uL Lymphocytes # (1.0-4.8) k/uL Monocytes # (0-1.0) k/uL Eosinophils # (0-0.7) k/uL Basophils # (0-0.2) k/uL Hypochromasia Poikilocytosis Anisocytosis PT (9.0-12.0) sec INR (<1.2) APTT (22.0-30.0) sec Sodium (137-145) mmol/L Potassium (3.5-5.1) mmol/L Chloride (98-107) mmol/L Carbon Dioxide (22-30) mmol/L Anion Gap mmol/L BUN (9-20) mg/dL Creatinine (0.66-1.25) mg/dL Est GFR (MDRD) Af Amer (>60 ml/min/1.73 sqM) Est GFR (MDRD) Non-Af (>60 ml/min/1.73 sqM) Glucose (74-99) mg/dL Plasma Lactic Acid Primo 1.2 (0.7-2.0) mmol/L Calcium (8.4-10.2) mg/dL Total Bilirubin (0.2-1.3) mg/dL AST (17-59) U/L ALT (21-72) U/L Alkaline Phosphatase (38-126) U/L Total Protein (6.3-8.2) g/dL Albumin (3.5-5.0) g/dL Amylase (30-110) U/L Lipase (23-300) U/L Urine Color Yellow Urine Appearance Clear (Clear) Urine pH 5.5 (5.0-8.0) Ur Specific [place] 1.007 (1.001-1.035) Urine Protein Negative (Negative) Urine Glucose (UA) Negative (Negative) Urine Ketones Negative (Negative) Urine Blood Negative (Negative) Urine Nitrite Negative (Negative) Urine Bilirubin Negative (Negative) Urine Urobilinogen <2.0 (<2.0) mg/dL Ur Leukocyte Esterase Negative (Negative) Blood Type O Positive Blood Type Recheck No Antibody Screen NEGATIVE Spec Expiration Date 06/07/20172309 Disposition Clinical Impression: Abdominal pain Disposition: HOME SELF-CARE Condition: Good Instructions: Abdominal Pain (ED), Constipation (ED) Prescriptions: Polyethylene Glycol 3350 [Miralax] 17 gm PO DAILY #527 gm Referrals: Messi Chao MD [Primary Care Provider] - 1-2 days John Scott MD [STAFF PHYSICIAN] - 1-2 days Time of Disposition: 03:07
[2017-06-05 03:19] VITALS: BP 144/77; PULSE 77
--- NOTE | 2017-06-07 07:25 | CDI ---
Documentation Clarification OP Bernardo Reynoso MD Please do addendum to ED report for HPI and physical exam. Thank you, Nancy Pierce [employer] Superintendent If you have any question, Please contact export freight manager at [phone] [facility]
== END 2017-06-05 03:19 | disposition home or self-care (01) ==
LOC: EC 20:50
DX: R10.84 Generalized abdominal pain (principal); E78.5 Hyperlipidemia, unspecified; I10 Essential (primary) hypertension; I25.2 Old myocardial infarction; Z79.899 Other long term (current) drug therapy; Z88.0 Allergy status to penicillin; Z88.6 Allergy status to analgesic agent; Z88.8 Allergy status to other drugs, medicaments and biological substances; Z95.5 Presence of coronary angioplasty implant and graft
CPT/HCPCS: 36415; 93005; 86900; 86901; 80053; 82150; 83605; 83690; 85025; 85610; 85730; 86850; 81003; 87040; 71020; 74177; 99285; 96374; J2270; Q9967

== ENCOUNTER → 2018-01-11 | Outpatient (CLI) | payer MEDICARE, BC ==
[2018-01-11 10:12] LABS: ALT 45 U/L (21-72); AST 35 U/L (17-59); Cholesterol 134 mg/dL (<200); HDL Cholesterol 34 mg/dL (40-60); LDL Cholesterol,Calculated 71 mg/dL (0-99); Triglycerides 145 mg/dL (<150)
== END | disposition home or self-care (01) ==
LOC: LABWHC1 08:16
PROVIDERS: ATTEND Internal Medicine Cardiovascular Disease
DX: E78.5 Hyperlipidemia, unspecified (principal); Q21.1 Atrial septal defect
CPT/HCPCS: 36415; 80061; 84450; 84460

== ENCOUNTER 2018-07-12 16:32 | Emergency (ER) | payer MEDICARE, BC ==
[2018-07-12 16:45] VITALS: RESP 18
[2018-07-12 17:26] LABS: Basophils % (A) 1 %; Eosinophils # (A) 0.2 k/uL (0-0.7); Eosinophils % (A) 2 %; HCT 47.9 % (39.0-53.0); HGB 16.4 gm/dL (13.0-17.5); Lymphocytes # (A) 1.3 k/uL (1.0-4.8); Lymphocytes % (A) 22 %; MCH 31.4 pg (25.0-35.0); MCHC 34.3 g/dL (31.0-37.0); MCV 91.5 fL (80.0-100.0); Mean Platelet Volume 6.4; Monocytes # (A) 0.5 k/uL (0-1.0); Monocytes % (A) 8 %; Neutrophils % (A) 64 %; Platelet Count 122 k/uL (150-450); RBC 5.23 m/uL (4.30-5.90); RDW 13.6 % (11.5-15.5); WBC 6.1 k/uL (3.8-10.6)
[2018-07-12 17:40] LABS: Creatine Kinase 74 U/L (55-170)
[2018-07-12 17:42] LABS: ALT 49 U/L (21-72); AST 39 U/L (17-59); Albumin 4.1 g/dL (3.5-5.0); Alkaline Phosphatase 77 U/L (38-126); Anion Gap 6 mmol/L; Blood Urea Nitrogen 19 mg/dL (9-20); Calcium 9.1 mg/dL (8.4-10.2); Carbon Dioxide 29 mmol/L (22-30); Chloride 105 mmol/L (98-107); Glucose 111 mg/dL (74-99); Lipase 88 U/L (23-300); Magnesium 2.3 mg/dL (1.6-2.3); Potassium 4.2 mmol/L (3.5-5.1); Sodium 140 mmol/L (137-145); Total Bilirubin 0.6 mg/dL (0.2-1.3); Total Protein 7.1 g/dL (6.3-8.2)
[2018-07-12 17:51] LABS: Troponin I <0.012 ng/mL (0.000-0.034)
--- NOTE | 2018-07-12 17:56 | ED ---
General Adult HPI - General Chief complaint: Chest Pain Stated complaint: Chest pain Time Seen by Provider: 07/12/18 16:41 Source: patient, family, RN notes reviewed, old records reviewed Mode of arrival: wheelchair Limitations: no limitations - History of Present Illness Initial comments: This is a 72-year-old male to the ER for evaluation. Patient presents today for evaluation regarding chest pain. Patient with history of heart disease coming in with chest pain he does have recent cataract use as of this pain is related to Toradol as far as he has a torn off ALLERGY. states pain is just does not feel like prior heart attacks. Patient has pain 7 days. No modifying factors - Related Data Home Medications Medication Instructions Recorded Confirmed Multivitamins, Thera [Multivitamin 1 tab PO DAILY 12/19/14 07/12/18 (formulary)] Atorvastatin [Lipitor] 40 mg PO HS 12/13/16 07/12/18 Lisinopril [Zestril] 5 mg PO HS 06/04/17 07/12/18 Difluprednate [Durezol] 1 drop RIGHT EYE BID 07/12/18 07/12/18 Hydrochlorothiazide [Hydrodiuril] 25 mg PO DAILY 07/12/18 07/12/18 Ketorolac 0.5% Ophth Soln [Acular] 1 drops RIGHT EYE BID 07/12/18 07/12/18 Lisinopril [Zestril] 10 mg PO DAILY 07/12/18 07/12/18 Nitroglycerin Sl Tabs [Nitrostat] 0.4 mg SUBLINGUAL Q5M PRN 07/12/18 07/12/18 Ofloxacin 0.3% Ophth Soln [Ocuflox 1 drops RIGHT EYE BID 07/12/18 07/12/18 Ophth Soln] Previous Rx's Medication Instructions Recorded Aspirin 325 mg PO DAILY #30 tab 05/21/17 Metoprolol Tartrate [Lopressor] 75 mg PO BID #120 tab 05/30/17 Allergies Allergy/AdvReac Type Severity Reaction Status Date / Time heparin Allergy Rash/Hives Verified 07/12/18 16:42 Penicillins Allergy Anaphylaxis Verified 07/12/18 16:42 ketorolac tromethamine AdvReac Twitching Verified 07/12/18 16:42 [From Toradol] prednisone AdvReac Muscle Verified 07/12/18 16:42 Spasms Review of Systems ROS Statement: Those systems with pertinent positive or pertinent negative responses have been documented in the HPI. ROS Other: All systems not noted in ROS Statement are negative. Past Medical History Past Medical History: Chest Pain / Angina, Hyperlipidemia, Hypertension, Myocardial Infarction ([place]), Mitral Valve Prolapse (MVP) Additional Past Medical History / Comment(s): Coronary artery disease, mitral valve prolapse, essential tremors, impaired hearing, previous history of subarachnoid hemorrhage back in 2005, shingles involving the right I am face in 2009, diverticulosis, hypertension, hyperlipidemia. Last Myocardial Infarction Date:: 2011 History of Any Multi-Drug Resistant Organisms: None Reported Past Surgical History: Bowel Resection, Cholecystectomy, Coronary Bypass/CABG, Heart Catheterization, Heart Catheterization With Stent, Hernia Repair, Orthopedic Surgery Additional Past Surgical History / Comment(s): several hernia repairs- inguinal and abdominal one with mesh, eye surgery, colonoscopy, eyelid surgery, 2000- burst intestine-colostomy with eventual reversal, hemorrohoidectomy, 1970-L knee surgery cataract Past Anesthesia/Blood Transfusion Reactions: No Reported Reaction Additional Past Anesthesia/Blood Transfusion Reaction / Comment(s): Pt has never received blood. Date of Last Stent Placement:: 2014 Past Psychological History: No Psychological Hx Reported Smoking Status: Never smoker Past Alcohol Use History: None Reported Past Drug Use History: None Reported - Past Family History Brother(s) Family Medical History: Myocardial Infarction (NM) Father Family Medical History: Coronary Artery Disease (CAD) Additional Family Medical History / Comment(s): Father had 3 CABG's Mother Family Medical History: Cancer Additional Family Medical History / Comment(s): Mother of cancer General Exam Limitations: no limitations General appearance: alert, in no apparent distress Head exam: Present: atraumatic, normocephalic, normal inspection Eye exam: Present: normal appearance, PERRL, EOMI. Absent: scleral icterus, conjunctival injection, periorbital swelling ENT exam: Present: normal exam, mucous membranes moist Neck exam: Present: normal inspection. Absent: tenderness, meningismus, lymphadenopathy Respiratory exam: Present: normal lung sounds bilaterally. Absent: respiratory distress, wheezes, rales, rhonchi, stridor Cardiovascular Exam: Present: regular rate, normal rhythm, normal heart sounds. Absent: systolic murmur, diastolic murmur, rubs, gallop, clicks GI/Abdominal exam: Present: soft, normal bowel sounds. Absent: distended, tenderness, guarding, rebound, rigid Extremities exam: Present: normal inspection, full ROM, normal capillary refill. Absent: tenderness, pedal edema, joint swelling, calf tenderness Back exam: Present: normal inspection Neurological exam: Present: alert, oriented X3, CN II-XII intact Psychiatric exam: Present: normal affect, normal mood Skin exam: Present: warm, dry, intact, normal color. Absent: rash Course Vital Signs 07/12/18 07/12/18 07/12/18 16:38 18:10 19:41 Temperature 97.6 F 97.7 F 98.2 F Pulse Rate 70 65 72 Respiratory 18 18 18 Rate Blood Pressure 175/92 132/75 141/70 O2 Sat by Pulse 97 96 97 Oximetry - Reevaluation(s) Reevaluation #1: Spoke with patient regarding findings, he is had is is normal lab tests. Patient has pain for about a week now. He would not stay in his hospital as he would like to see his own grant specialist EKG Findings - EKG Comments: EKG Findings:: EKG shows normal sinus rhythm rate of 73, IA 154, QRS 98, QTc 438 Medical Decision Making - Medical Decision Making 72 male the ER with history of heart disease coming with chest pain. Patient recent cardiac surgery believes pain is related to Toradol use eyedrops. I saw the patient time I do not think is the cause of chest pain with admitted for cardiac observation. Patient is refusing - Lab Data Result diagrams: 07/12/18 16:55 07/12/18 16:55 Lab Results 07/12/18 07/12/18 07/12/18 Range/Units 16:55 16:55 16:55 WBC 6.1 (3.8-10.6) k/uL RBC 5.23 (4.30-5.90) m/uL Hgb 16.4 (13.0-17.5) gm/dL Hct 47.9 (39.0-53.0) % MCV 91.5 (80.0-100.0) fL MCH 31.4 (25.0-35.0) pg MCHC 34.3 (31.0-37.0) g/dL RDW 13.6 (11.5-15.5) % Plt Count 122 L (150-450) k/uL Neutrophils % 64 % Lymphocytes % 22 % Monocytes % 8 % Eosinophils % 2 % Basophils % 1 % Neutrophils # 4.0 (1.3-7.7) k/uL Lymphocytes # 1.3 (1.0-4.8) k/uL Monocytes # 0.5 (0-1.0) k/uL Eosinophils # 0.2 (0-0.7) k/uL Basophils # 0.0 (0-0.2) k/uL PT (9.0-12.0) sec INR (<1.2) APTT (22.0-30.0) sec Sodium 140 (137-145) mmol/L Potassium 4.2 (3.5-5.1) mmol/L Chloride 105 (98-107) mmol/L Carbon Dioxide 29 (22-30) mmol/L Anion Gap 6 mmol/L BUN 19 (9-20) mg/dL Creatinine 0.93 (0.66-1.25) mg/dL Est GFR (CKD-EPI)AfAm >90 (>60 ml/min/1.73 sqM) Est GFR (CKD-EPI)NonAf 83 (>60 ml/min/1.73 sqM) Glucose 111 H (74-99) mg/dL Calcium 9.1 (8.4-10.2) mg/dL Magnesium 2.3 (1.6-2.3) mg/dL Total Bilirubin 0.6 (0.2-1.3) mg/dL AST 39 (17-59) U/L ALT 49 (21-72) U/L Alkaline Phosphatase 77 (38-126) U/L Total Creatine Kinase 74 (55-170) U/L CK-MB (CK-2) 1.0 (0.0-2.4) ng/mL CK-MB (CK-2) Rel Index 1.4 Troponin I <0.012 (0.000-0.034) ng/mL Total Protein 7.1 (6.3-8.2) g/dL Albumin 4.1 (3.5-5.0) g/dL Lipase 88 (23-300) U/L 07/12/18 Range/Units 16:55 WBC (3.8-10.6) k/uL RBC (4.30-5.90) m/uL Hgb (13.0-17.5) gm/dL Hct (39.0-53.0) % MCV (80.0-100.0) fL MCH (25.0-35.0) pg MCHC (31.0-37.0) g/dL RDW (11.5-15.5) % Plt Count (150-450) k/uL Neutrophils % % Lymphocytes % % Monocytes % % Eosinophils % % Basophils % % Neutrophils # (1.3-7.7) k/uL Lymphocytes # (1.0-4.8) k/uL Monocytes # (0-1.0) k/uL Eosinophils # (0-0.7) k/uL Basophils # (0-0.2) k/uL PT 10.0 (9.0-12.0) sec INR 1.0 (<1.2) APTT 24.0 (22.0-30.0) sec Sodium (137-145) mmol/L Potassium (3.5-5.1) mmol/L Chloride (98-107) mmol/L Carbon Dioxide (22-30) mmol/L Anion Gap mmol/L BUN (9-20) mg/dL Creatinine (0.66-1.25) mg/dL Est GFR (CKD-EPI)AfAm (>60 ml/min/1.73 sqM) Est GFR (CKD-EPI)NonAf (>60 ml/min/1.73 sqM) Glucose (74-99) mg/dL Calcium (8.4-10.2) mg/dL Magnesium (1.6-2.3) mg/dL Total Bilirubin (0.2-1.3) mg/dL AST (17-59) U/L ALT (21-72) U/L Alkaline Phosphatase (38-126) U/L Total Creatine Kinase (55-170) U/L CK-MB (CK-2) (0.0-2.4) ng/mL CK-MB (CK-2) Rel Index Troponin I (0.000-0.034) ng/mL Total Protein (6.3-8.2) g/dL Albumin (3.5-5.0) g/dL Lipase (23-300) U/L - Radiology Data Radiology results: report reviewed (Chest x-rays negative for acute disease), image reviewed Disposition Clinical Impression: Chest pain Disposition: HOME SELF-CARE Condition: Good Instructions: Chest Pain (ED) Is patient prescribed a controlled substance at d/c from ED?: No Referrals: Messi Chao MD [Primary Care Provider] - 1-2 days
--- NOTE | 2018-07-12 18:20 | XR ---
EXAMINATION TYPE: XR chest 2V DATE OF EXAM: 07/12/2018 COMPARISON: 06/28/2017 HISTORY: Chest pain TECHNIQUE: Frontal and lateral views of the chest are obtained. FINDINGS: Heart and mediastinum are normal. Lungs are clear. Diaphragm is normal. There are sternal wires. There are chest leads. Bony thorax is intact. IMPRESSION: Normal chest. There is clearing of small pleural effusions compared to old exam.
[2018-07-12 19:41] VITALS: BP 141/70; PULSE 72; TEMP 98.2
== END 2018-07-12 19:41 | disposition home or self-care (01) ==
LOC: EC 16:32
DX: R07.9 Chest pain, unspecified (principal); E78.5 Hyperlipidemia, unspecified; I11.9 Hypertensive heart disease without heart failure; I25.2 Old myocardial infarction; I34.1 Nonrheumatic mitral (valve) prolapse; I25.10 Atherosclerotic heart disease of native coronary artery without angina pectoris; Z95.1 Presence of aortocoronary bypass graft; Z95.818 Presence of other cardiac implants and grafts; Z95.5 Presence of coronary angioplasty implant and graft; Z82.49 Family history of ischemic heart disease and other diseases of the circulatory system; Z79.1 Long term (current) use of non-steroidal anti-inflammatories (NSAID); Z79.899 Other long term (current) drug therapy; Z88.8 Allergy status to other drugs, medicaments and biological substances; Z88.0 Allergy status to penicillin; Z88.6 Allergy status to analgesic agent; Z53.29 Procedure and treatment not carried out because of patient's decision for other reasons
CPT/HCPCS: 36415; 71046; 80053; 82550; 82553; 83690; 83735; 84484; 85025; 85610; 85730; 93005; 99285

== ENCOUNTER 2018-11-27 07:17 | Day surgery (SDC) | payer MEDICARE, BC ==
[2018-11-23 13:56] VITALS: BMI 25.4
[~2018-11-27 07:17] MED LIST changes: -ALBUMIN HUMAN 25% 50 ML IV ONE; -ALBUMIN HUMAN 5% 500 ML IVPB ONE; -ASPIRIN 325 MG TAB PO ONE; -ATORVASTATIN 10 MG TAB PO ONE; -CALCIUM CHLORIDE 100 MG/ML 10 ML SYRINGE IV ONE; -CHLORHEXIDINE GLUCONATE 15 ML CUP MUCOUS MEM ONE; -CLEVIDIPINE BUTYRATE 25 MG in EMPTY BAG 1 BAG IV ONE; -HEPARIN SODIUM 1,000 UN/ML (10ML VL) IV ONE; -HEPARIN SODIUM,PORCINE 5,000 UNIT in SODIUM CHLORIDE 0.9% 500 ML IV ONE; -INSULIN REGULAR 100 UNIT in SODIUM CHLORIDE 0.9% 100 ML IV ONE; -LACTATED RINGERS 1,000 ML IV ONE; +LIDOCAINE 1% 20 ML VIAL (10MG/ML) FOR IV START INTRADERMA PRN; -MAGNESIUM SULFATE MG 500 MG/ML VIAL IV ONE; -METOPROLOL TARTRATE 12.5 MG TAB PO ONE; +MIDAZOLAM (PF) 2 MG/2 ML VIAL IV PRN; -MIDAZOLAM 2 MG/2 ML VIAL IV PRN; -MUPIROCIN 2% OINT 22 GM TUBE NASAL ONE; -NITROGLYCERIN SL TABS 0.4 MG TAB SUBLINGUAL ONE; -NITROGLYCERIN-D5W PMX 25 MG/250 ML BTL IV ONE; -NITROGLYCERIN-D5W PMX 50 MG in DEXTROSE/WATER 1 250ML.BAG IV ONE; -NOREPINEPHRIN 4 MG-0.9% NS PMX 4 MG/250 ML ML IV ONE; -PAPAVERINE 360 MG in SODIUM CHLORIDE 0.9% 90 ML IV ONE; -PHENYLEPHRINE 40 MG in SODIUM CHLORIDE 0.9% 250 ML IV ONE; -PHENYLEPHRINE-0.9% NACL SYG 1 MG/10 ML SYRINGE IV ONE; -PROPOFOL 1,000 MG/100 ML VIAL IV ONE; -PROTAMINE SULFATE 10 MG/ML 25 ML VIAL IV ONE; -PROTAMINE SULFATE 250 MG in EMPTY BAG 1 BAG IV ONE; -SODIUM BICARB 8.4% 50 ML SYR (1 MEQ/ML) IV ONE; -SODIUM CHLORIDE 0.9% 1,000 ML IV ONE; -SODIUM CHLORIDE 0.9% IRRIGATIO 1,000 ML IRRIGATION ONE; -VANCOMYCIN 1,000 MG in SODIUM CHLORIDE 0.9% 250 ML IVPB ONE
[2018-11-27] MEDS ORDERED: LIDOCAINE 1% 20 ML VIAL (10MG/ML) FOR IV START INTRADERMA ONE (08:27)
[2018-11-27 08:29] VITALS: RESP 16; TEMP 97.2
[2018-11-27] MEDS ORDERED: fentaNYL (PF) 50 MCG/ML 2 ML AMP ONE (09:22)
[2018-11-27] MEDS ORDERED: MIDAZOLAM 2 MG/2 ML VIAL ONE (09:22)
[2018-11-27] MEDS ORDERED: PROPOFOL 10 MG/ML 20 ML VIAL IV ONE (09:22)
--- NOTE | 2018-11-27 09:59 | P.PCN ---
Date of Procedure: 11/27/18 Procedure(s) Performed: Procedure: Esophagogastroduodenoscopy and biopsy. Preoperative diagnosis: Atypical chest pain. Postoperative diagnosis: 1. Small sliding hiatal hernia with no obvious esophagitis or complicated reflux disease. 2. Mild antral gastritis and duodenitis. 3. Multiple biopsies obtained from the duodenum, antrum and esophagus. Preparation and sedation: Was provided by anesthesia. Referring clinical history: The patient is a 72-year-old male who was evaluated in the office last month because of history of GERD and nocturnal regurgitation and atypical chest pains since his CABG surgery in May 2017. The patient had upper GI and small bowel follow-through in December 2016 which was normal and he had a colonoscopy around that time that showed left-sided diverticulosis. He has not responded to omeprazole and antacids for the last 3 months or so. This evaluation is to assess for complicated reflux disease or other pathology. Procedure: With the patient on his left lateral decubitus position and after informed consent and adequate sedation, I passed the Olympus-GIF H190 video upper endoscope through the cricopharyngeus down the esophagus. GE junction was around 40-41 cm from the incisors and there was a small sliding hiatal hernia but no obvious esophagitis or complicated reflux disease. The endoscope was then passed into the stomach which was insufflated with air and inspected in detail including the retroflex view in the cardia. There was some mottling and erythema in the antrum but no ulcers or erosions. Pyloric channel did not show any ulcers. Duodenal bulb showed erythema and pinpoint submucosal hemorrhages but no ulcers or erosions. Post bulbar area and descending duodenum appeared within normal limits. I obtained multiple biopsies from the duodenum, antrum and esophagus then the endoscope was withdrawn. The patient tolerated the procedure well. Plan: The patient was reassured. Will await biopsy results. I will see him in follow-up in the office and I anticipate considering a 24-hour pH/impedance and manometry studies based on his course and biopsy results. I will keep you updated on his progress.
[2018-11-27 10:02] VITALS: PULSE 60
[2018-11-27 10:20] VITALS: BP 117/70
== END 2018-11-27 10:54 | disposition home or self-care (01) ==
LOC: ORWHC2ENDO 07:17
DX: K29.50 Unspecified chronic gastritis without bleeding (principal); K44.9 Diaphragmatic hernia without obstruction or gangrene; R13.10 Dysphagia, unspecified; K21.9 Gastro-esophageal reflux disease without esophagitis; Z95.1 Presence of aortocoronary bypass graft; I25.10 Atherosclerotic heart disease of native coronary artery without angina pectoris; I10 Essential (primary) hypertension; I60.9 Nontraumatic subarachnoid hemorrhage, unspecified; E78.5 Hyperlipidemia, unspecified; Z90.49 Acquired absence of other specified parts of digestive tract; I34.1 Nonrheumatic mitral (valve) prolapse; Z88.0 Allergy status to penicillin; Z88.8 Allergy status to other drugs, medicaments and biological substances; Z88.6 Allergy status to analgesic agent
CPT/HCPCS: 88305; 43239; J2250; J3010; J2704

== ENCOUNTER → 2019-07-19 | Outpatient (CLI) | payer BC, MEDICARE ==
[2019-07-19 09:22] LABS: Basophils % (A) 1 %; Eosinophils # (A) 0.1 k/uL (0-0.7); Eosinophils % (A) 2 %; HCT 47.1 % (39.0-53.0); HGB 16.3 gm/dL (13.0-17.5); Lymphocytes # (A) 1.4 k/uL (1.0-4.8); Lymphocytes % (A) 23 %; MCH 31.3 pg (25.0-35.0); MCHC 34.6 g/dL (31.0-37.0); MCV 90.5 fL (80.0-100.0); Mean Platelet Volume 5.4; Monocytes # (A) 0.5 k/uL (0-1.0); Monocytes % (A) 9 %; Neutrophils # (A) 3.8 k/uL (1.3-7.7); Neutrophils % (A) 62 %; Platelet Count 141 k/uL (150-450); RDW 13.7 % (11.5-15.5); WBC 6.1 k/uL (3.8-10.6)
[2019-07-19 17:48] LABS: African American GFR (CKD) 77.9 (60.0-200.0); Albumin 4.3 g/dL (3.80-4.90); Albumin/Globulin Ratio 1.87 (1.60-3.17); Anion Gap 8.8 mmol/L (4.00-12.00); BUN/Creat Ratio 19.09 Ratio (12.00-20.00); Calcium 9.1 mg/dL (8.7-10.3); Carbon Dioxide 26.2 mmol/L (21.6-31.8); Chol/HDL Ratio 3.91; Globulin 2.3 g/dL (1.6-3.3); LDL Cholesterol,Calculated 68.2 mg/dL (0.0-131.0); Potassium 4.3 mmol/L (3.5-5.5); Total Bilirubin 1.3 mg/dL (0.3-1.2); Total Protein 6.6 g/dL (6.2-8.2); VLDL Calculation 27.8 mg/dL (5.00-40.00)
== END ==
LOC: LABWHC1 09:01
PROVIDERS: ATTEND Internal Medicine
DX: Z00.00 Encounter for general adult medical examination without abnormal findings (principal); Z12.5 Encounter for screening for malignant neoplasm of prostate
CPT/HCPCS: 80061; 80053; 85025; 82306; 36415; G0103

== ENCOUNTER 2020-04-28 06:34 | Day surgery (SDC) | payer BC, MEDICARE ==
[2020-04-24 10:09] VITALS: BMI 25.5
[~2020-04-28 06:34] MED LIST changes: +ACETAMINOPHEN TAB 500 MG TAB PO ONE; +CLINDAMYCIN 900 MG in DEXTROSE 5% IN WATER 50 ML IVPB ONE; +GABAPENTIN 300 MG CAP PO ONE; +HYDROmorphone 0.5 MG/0.5 ML SYRINGE IVP PRN; -LACTATED RINGERS 1,000 ML IV SCH; -LIDOCAINE 1% 20 ML VIAL (10MG/ML) FOR IV START INTRADERMA PRN; +MELOXICAM 7.5 MG TAB PO ONE; -MIDAZOLAM (PF) 2 MG/2 ML VIAL IV PRN; +MIDAZOLAM 2 MG/2 ML VIAL IV PRN; +ONDANSETRON 4 MG/2 ML VIAL IVP ONE; +Pre Op ABX Message 1 EACH MISC MISCELLANE ONE; +ROPIVACAINE 246.25 MG, EPINEPHrine 0.5 MG, KETOROLAC 30 MG, cloNIDine HCL/PF 80 MCG, WA... MISCELLANE ONE; +TRANEXAMIC ACID 1,000 MG in SODIUM CHLORIDE 0.9% 100 ML IVPB ONE
[2020-04-28] MEDS ORDERED: HYDROcodone/APAP 5-325MG 1 EACH TAB PO PRN (06:58)
[2020-04-28] MEDS ORDERED: NALOXONE 0.4 MG/ML 1 ML VIAL IV PRN (06:58)
[2020-04-28] MEDS ORDERED: MAGNESIUM HYDROXIDE 2,400 MG/10 ML CUP PO PRN (06:58)
[2020-04-28] MEDS ORDERED: HYDROmorphone 0.5 MG/0.5 ML SYRINGE IVP PRN ×3 (06:58)
[2020-04-28] MEDS ORDERED: BISACODYL 10 MG SUPP RECTAL PRN (06:58)
[2020-04-28] MEDS ORDERED: ONDANSETRON 4 MG/2 ML VIAL IVP PRN (06:58)
[2020-04-28] MEDS ORDERED: hydrOXYzine PAMOATE 25 MG CAP PO PRN (06:58)
[2020-04-28] MEDS ORDERED: ACETAMINOPHEN TAB 500 MG TAB ONE (07:07)
[2020-04-28] MEDS: LACTATED RINGERS 1,000 ML IV SCH (07:31)
[2020-04-28] MEDS ORDERED: fentaNYL (PF) 50 MCG/ML 2 ML AMP IV ONE (07:42)
[2020-04-28] MEDS ORDERED: MIDAZOLAM 2 MG/2 ML VIAL ONE (08:15)
[2020-04-28] MEDS ORDERED: fentaNYL (PF) 50 MCG/ML 2 ML AMP ONE (08:15)
[2020-04-28] MEDS ORDERED: SODIUM CHLORIDE 0.9% 100 ML BAG ONE (08:15)
[2020-04-28] MEDS ORDERED: TRANEXAMIC ACID 1,000 MG/10 ML VIAL ONE (08:15)
[2020-04-28] MEDS ORDERED: CLINDAMYCIN 1,800 MG in SODIUM CHLORIDE 0.9% IRRIGATIO 3,000 ML IRRIGATION ONE (08:40)
--- NOTE | 2020-04-28 09:42 | P.OP ---
Date of Procedure: 04/28/20 Preoperative Diagnosis: Severe osteoarthritis left knee Postoperative Diagnosis: Severe osteoarthritis left knee Procedure(s) Performed: Left total knee arthroplasty Implants: [employer] II CR Oxinium cruciate retaining femoral component size 7, left [employer] left nonporous tibial baseplate size 6 [employer] II, XLPE Deep Dished articular insert, size 9 mm, Size 5- 6 left [employer] BCS resurfacing oval patellar component, 32 mm All components were cemented using Palacos R bone cement.. The articulation is Oxinium on polyethylene. Anesthesia: spinal Surgeon: Isma Pennington Mixer Operator Raw Salt #1: Jahaira Lott Estimated Blood Loss (ml): 25 Pathology: other (Bone and cartilage) Condition: stable Disposition: PACU Indications for Procedure: After failure of conservative treatment we discussed the surgical and nonsurgical treatment options at length. Patient wishes to proceed with a total knee arthroplasty. Complications specific to this procedure were discussed at length, including but not limited to infection, bleeding, stiffness, and nerve injury. Covid-19 was also discussed at length with the patient, and they are aware of the current policies and procedures. The patient was given the option of delaying surgery, but they elect to proceed knowing these risks. Patient is aware of all these complications and informed consent was obtained Operative Findings: The operative findings are consistent with severe osteoarthritis of the left knee Description of Procedure: Patient was seen in the preoperative area consent was reviewed and operative site was marked with a skin marker. An adductor canal pain catheter was placed by anesthesia in the preoperative area. Patient was then brought to the operating room and given preoperative antibiotics intravenously. A spinal anesthetic was administered by the anesthesia department. A tourniquet was placed on the upper thigh and the lower extremity was prepped and draped in usual sterile fashion. A gram of transexamic acid was given. A universal timeout was then performed which confirmed the patient's name, surgical site, ALLERGIES, and consent. The lower extremity was then exsanguinated and tourniquet was inflated to 250 mmHg. A standard and anterior midline approach to the knee was performed. The skin and subcutaneous tissue was dissected down to the patellar tendon. A medial parapatellar arthrotomy was then performed. The knee was then extended, the patellar was everted, and the knee was again flexed. The patellar fat pad was removed in order to enhance exposure. Anterior horns of both menisci were excised, and a release was performed to the posterior medial aspect of the knee. On gross visual inspection, there was complete loss of articular cartilage in the medial and patellofemoral joint spaces. There was also significant cartilage damage in the lateral compartment. There were multiple periarticular osteophytes which were then removed with a Ronguer. The femoral canal was then opened with the 9.5 mm intramedullary drill. The 8 mm intramedullary david was then inserted into the femoral canal. The distal femoral cutting guide was then placed and set for 5 of valgus. The distal femoral cutting block was then pinned in place. The intramedullary david was then removed, and the distal femur was then cut. The cutting block was then removed and the cut was checked for symmetry. Next, the sizing guide was then placed and set for 3 external rotation based off of the epicondylar axis and Whitesides line. Pins were then placed and the drill holes, and the femur was sized with the sizing stylus. The pins were then removed, and the sizing guide was then removed. The spikes of the femoral block was then placed into the predrilled holes, and malleted into place. Two 45 mm pins were then placed into the fixation holes on the cutting block. An liban wing was then used to ensure there would be no notching with the anterior cut. The anterior condyles were cut without notching. The anterior cord cut was then performed, followed by the posterior cut, posterior chamfer cut, and the anterior chamfer cut. The collateral ligaments were protected during the entire process. The cutting block was then removed, and the femoral canal was plugged with autologous bone. Attention was then directed to the tibia. The remaining ACL was removed with a Ronguer, and the tibia was then gently subluxed forward with a large bent knee retractor. Any remaining menisci was excised. The posterior lateral corner was cauterized in order to cauterize the lateral geniculate artery. The extra medullary tibial cutting guide was then placed, set for the appropriate rotation, slope, and depth of resection. The proximal tibia cutting guide was then pinned in place. Proximal tibia was then cut and sized. Next trials were then placed with the appropriate-sized insert. The knee was able to fully extend and flex to 130 and was stable throughout all range of motion. The knee was then extended, patella everted. Patella was then measured, and then using an osteotomy guide, the patella was cut at the appropriate level. The patella was then measured and drilled and the patella trial was then placed. The knee was then taken through range of motion with the patella trial and the patella tracked normally. The knee was then extended patella trial was then removed and the patella was everted. Knee was then flexed and lug holes were drilled through the femoral trial and the femoral trial was then removed. The tibial was then exposed, and the tibial broach guide was then pinned in place after it was set for the appropriate rotation to allow for the most coverage without overhang. The tibia was then reamed and broached. The cut surfaces of bone were then irrigated with pulsatile lavage. The posterior structures were injected with the ropivacaine solution. The knee was also irrigated with Irrisept solution. The components were then opened, the cement was mixed, and the components were then cemented in place. The cement was allowed to harden with the knee in full extension. While the cement was hardening, the remaining soft tissues were then injected with a ropivacaine solution, which consisted of 246.25 mg of ropivacaine, 0.5 mg of epinephrine, 30 mg of Toradol, 80 g of clonidine, and 48.45 mL of sterile water, for a total of 100 mL of fluid injected. After the cemented hardened. The tourniquet was released, and hemostasis was obtained. A second gram of transexamic acid was given. The knee was again irrigated. The knee was again taken through range of motion and found to be stable throughout all range of motion of 0-130, and the patella tracked normally. The fascia was then closed with #2 strata fix suture. The subcutaneous tissue was closed with 3-0 Vicryl and 3-0 strata fix. Dermabond glue was used for the skin and placed with the knee in flexion. The p atient was placed in a sterile silver dressing. Patient was then transferred to recovery room in stable condition. The sales operations assistant ALISON Turner was required due the complexity surgery and the need for a skilled surgical oncologist. She assisted in positioning, draping, retraction, and closure of the wound.
[2020-04-28] MEDS ORDERED: ROPIVACAINE 0.2%-NS ON-Q PUMP 1,090 MG, EMPTY PAIN BALL 1 EACH MISCELLANE PRN (10:25)
[2020-04-28] MEDS: SODIUM CHLORIDE 0.9% 1,000 ML IV SCH ×2 (11:11→23:50)
--- NOTE | 2020-04-28 11:42 | XR ---
EXAMINATION TYPE: XR knee limited LT DATE OF EXAM: 04/28/2020 COMPARISON: None HISTORY: Postop left knee replacement TECHNIQUE: 2 view left knee FINDINGS: Tibial and femoral components of in place. No acute fractures are evident. Postsurgical sof t tissue changes are evident. IMPRESSION: 1. No acute fracture post knee replacement
--- NOTE | 2020-04-28 12:02 | P.ANPRN ---
Procedure Note - Anesthesia - Nerve Block Performed Left Adductor Canal Infusion Time Out Performed: Yes (741) Date of Procedure: 04/28/20 Procedure Start Time: 07:42 Procedure Stop Time: 07:46 Location of Patient: PreOp Indication: Acute Post-Operative Pain, Requested by Surgeon Specifically requested for management of pain by DrAura: Isma Pennington Sedation Type: Sedate with meaningful contact maintained Preparation: Sterile Prep Position: Supine Catheter: None Needle Types: Pajunk Needle Gauge: 21 Ultrasound used to visualize needle placement: Yes Ultrasound used to observe medication spread: Yes Injectate: 0.5% Ropivacaine (see comment for volume) (20CC) Blood Aspirated: No Pain Paresthesia on Injection Noted: No Resistance on Injection: Normal Image Stored and Saved: Yes Events: Uneventful and Well Tolerated
[2020-04-28] MEDS ORDERED: PANTOPRAZOLE 40 MG TABLET PO PRN (14:18)
[2020-04-28] MEDS ORDERED: LISINOPRIL 10 MG TAB PO PRN (14:18)
[2020-04-28] MEDS: CLINDAMYCIN 900 MG in DEXTROSE 5% IN WATER 50 ML IVPB SCH ×4 (15:05→20:34)
--- NOTE | 2020-04-28 16:09 | P.CONS ---
History of Present Illness - Reason for Consult Consult date: 04/28/20 Medical management Requesting physician: Isma Pennington - Chief Complaint Medical management - History of Present Illness 74-year-old male with PMH of CAD post CABG and stenting, hypertension, history of subarachnoid hemorrhage and essential tremors presents to [facility] for elective surgery. He underwent left total knee arthroplasty. [facility] has been consulted for medical management of this patient. He was seen and examined after his procedure. Patient reports no pain in his left knee. States that he has been up already without much discomfort. Patient reports a history of subarachnoid hemorrhage and prolonged ICU course close to 10 years ago related to uncontrolled high blood pressure. He denies any smoking of cigarettes her alcohol use. He denies any headache, lower extremity edema, nausea or vomiting, fever or chills, cough, chest pain, shortness of breath, palpitations, changes in urination or bowel habits. Able to urinate after his surgery. Has not had a bowel movement but is passing gas. He denies any dizziness, numbness/weakness/tingling of the extremities. Review of vital signs show blood pressure 148/74. Review of Systems Pertinent positives and negatives as discussed in HPI, a complete review of systems was performed and all other systems are negative. Past Medical History Past Medical History: Coronary Artery Disease (CAD), Chest Pain / Angina, GERD/Reflux, Hearing Disorder / Deafness, Hyperlipidemia, Hypertension, Myocardial Infarction (MT), Mitral Valve Prolapse (MVP), Osteoarthritis (OA) Additional Past Medical History / Comment(s): essential tremors, previous history of subarachnoid hemorrhage-BRAIN back [employer] LOSS, shingles involving the right side of face in 2009, diverticulosis, difficulty swallowing Last Myocardial Infarction Date:: 2011 History of Any Multi-Drug Resistant Organisms: None Reported Past Surgical History: Bowel Resection, Cholecystectomy, Coronary Bypass/CABG, Heart Catheterization, Heart Catheterization With Stent, Hernia Repair, Orthopedic Surgery Additional Past Surgical History / Comment(s): several hernia repairs- inguinal and abdominal one with mesh, eye surgery, colonoscopy, eyelid surgery, 2000- burst intestine-colostomy with eventual reversal, hemorrohoidectomy, 1970-L knee arthroscopy surgery, maggie. cataract, 3 vessel CABG Past Anesthesia/Blood Transfusion Reactions: No Reported Reaction Additional Past Anesthesia/Blood Transfusion Reaction / Comm: Pt has never received blood. Date of Last Stent Placement:: 2014 Past Psychological History: Anxiety Additional Psychological History / Comment(s): Pt lives with . He is independent. Smoking Status: Never smoker Past Alcohol Use History: None Reported Past Drug Use History: None Reported - Past Family History Brother(s) Family Medical History: Myocardial Infarction (MT) Father Family Medical History: Coronary Artery Disease (CAD) Additional Family Medical History / Comment(s): Father had CABG's x3 Mother Family Medical History: Cancer Additional Family Medical History / Comment(s): Mother of cancer Medications and Allergies Home Medications Medication Instructions Recorded Confirmed Type Multivitamins, Thera [Multivitamin 1 tab PO DAILY 12/19/14 04/28/20 History (formulary)] Atorvastatin [Lipitor] 10 mg PO HS 12/13/16 04/28/20 History Metoprolol Tartrate [Lopressor] 75 mg PO BID #120 tab 05/30/17 04/28/20 Rx Lisinopril [Zestril] 5 mg PO HS 06/04/17 04/28/20 History Hydrochlorothiazide [Hydrodiuril] 25 mg PO DAILY 07/12/18 04/28/20 History Lisinopril [Zestril] 10 mg PO DAILY PRN 07/12/18 04/28/20 History Nitroglycerin Sl Tabs [Nitrostat] 0.4 mg SUBLINGUAL Q5M PRN 07/12/18 04/28/20 History Aspirin 81 mg PO DAILY 04/23/20 04/28/20 History Omeprazole [PriLOSEC] 40 mg PO DAILY PRN 04/23/20 04/28/20 History Allergies Allergy/AdvReac Type Severity Reaction Status Date / Time heparin Allergy Rash/Hives Verified 04/28/20 07:15 ketorolac tromethamine Allergy Twitching, Verified 04/28/20 07:15 [From Toradol] chest pain, elevated blood pressure Penicillins Allergy Anaphylaxis Verified 04/28/20 07:15 prednisone AdvReac Muscle Verified 04/28/20 07:15 Spasms Physical Exam Vitals: Vital Signs Temp Pulse Resp BP Pulse Ox 04/28/20 15:00 60 20 148/74 99 04/28/20 11:49 79 16 144/78 98 04/28/20 11:00 66 12 125/74 33 L 04/28/20 10:45 56 L 14 139/78 98 04/28/20 10:30 61 16 124/69 95 04/28/20 10:15 52 L 14 128/76 96 04/28/20 10:10 96.9 F L 60 16 131/73 97 04/28/20 07:17 97 F L 62 16 166/83 99 Intake and Output 04/28/20 04/28/20 04/28/20 06:59 14:59 22:59 Intake Total 857 Output Total 25 Balance 832 Intake: IV 857 Output: Estimated Blood Loss 25 Other: # Voids 3 Weight 75 kg General: [non toxic], [no distress], [appears at stated age] Derm: [warm], [dry] Head: [atraumatic], [normocephalic], [symmetric] Eyes: [EOMI], [no lid lag], [anicteric sclera] Mouth: [no lip lesion], [mucus membranes moist] Cardiovascular: [S1S2 reg], [no murmur], [positive posterior tibial pulse bilateral], Lungs: [CTA bilateral], [no rhonchi, no rales] , [no accessory muscle use] Abdominal: [soft], [ nontender to palpation], [no guarding], [no appreciable organomegaly] Ext: [no gross muscle atrophy], [no edema], [no contractures], [left knee wrapped dressing clean dry and intact] Neuro: [ CN II-XI grossly intact], [no focal neuro deficits] Psych: [Alert], [oriented], [appropriate affect] Assessment and Plan Assessment: Coronary artery disease Hypertension We will restart the patient on aspirin, metoprolol and Lipitor. We will restart hydrochlorothiazide, lisinopril and metoprolol for his hypertension. His vitals are being monitored and medications adjusted if necessary. CBC has been ordered for tomorrow morning. PT and OT has been consulted to work with the patient. Plans are for DC home tomorrow if patient continues to progress well. DVT prophylaxis: [SCD] Discussed with: [Patient] Anticipated discharge: [1-2 days] Anticipated discharge place: [Home] A total of [35] minutes was spent on the care of this complex patient more than 50% of the time was spent in counseling and care coordination. Patient names his [place] decision maker if he can't make decisions for himself. Patient was like to be full code. Thank you for this consult. Please call with any additional questions or concer ns.
[2020-04-28] MEDS: ASPIRIN 325 MG TAB PO SCH (20:33)
[2020-04-28] MEDS: METOPROLOL TARTRATE 25 MG TAB PO SCH (20:34)
[2020-04-28] MEDS ORDERED: LISINOPRIL 5 MG TAB PO SCH (21:00)
[2020-04-28] MEDS ORDERED: ATORVASTATIN 10 MG TAB PO SCH (21:00)
[2020-04-28] MEDS ORDERED: SENNOSIDES-DOCUSATE SODIUM 1 EACH TAB PO SCH (21:00)
[2020-04-29] MEDS: HYDROcodone/APAP 5-325MG 1 EACH TAB PO PRN ×2 (03:36→08:49)
[2020-04-29] MEDS: LACTATED RINGERS 1,000 ML IV SCH (06:00)
[2020-04-29 07:37] LABS: Basophils % (A) 0 %; Eosinophils # (A) 0.1 k/uL (0-0.7); Eosinophils % (A) 1 %; HCT 41.3 % (39.0-53.0); Lymphocytes # (A) 0.5 k/uL (1.0-4.8); Lymphocytes % (A) 7 %; MCH 30.6 pg (25.0-35.0); MCHC 33.2 g/dL (31.0-37.0); MCV 92.4 fL (80.0-100.0); Monocytes # (A) 0.9 k/uL (0-1.0); Monocytes % (A) 11 %; Neutrophils # (A) 6.4 k/uL (1.3-7.7); Neutrophils % (A) 79 %; RBC 4.47 m/uL (4.30-5.90); RDW 13.9 % (11.5-15.5); WBC 8.1 k/uL (3.8-10.6)
[2020-04-29 07:46] LABS: HGB 13.7 gm/dL (13.0-17.5)
[2020-04-29] MEDS: METOPROLOL TARTRATE 25 MG TAB PO SCH (08:10)
[2020-04-29] MEDS: ASPIRIN 325 MG TAB PO SCH (08:10)
[2020-04-29] MEDS ORDERED: HYDROCHLOROTHIAZIDE 25 MG TAB PO SCH (09:00)
[2020-04-29 09:11] LABS: Anisocytosis (M) Present; Poikilocytosis (M) Present
[2020-04-29 09:14] LABS: Platelet Count 96 k/uL (150-450)
--- NOTE | 2020-04-29 09:17 | P.DS ---
Providers Expected date of discharge: 04/29/20 Attending physician: Isma Pennington Consults: 04/28/20 06:58 Consult Physician Routine Consulting Provider: Sherry Auguste Consult Reason/Comments: medical management Do you want consulting provider notified?: Yes Primary care physician: Messi Chao - Discharge Diagnosis(es) (1) Osteoarthritis of left knee Current Visit: Yes Status: Acute (2) Status post total left knee replacement Current Visit: Yes Status: Acute Hospital Course: This is a 74-year-old male with known history of degenerative arthritis of the left knee. The patient presents for evaluation. After discussion and consideration patient elects to proceed with total knee arthroplasty. The patient is seen preoperatively by Dr. Pennington and medically cleared for surgery by their primary care physician. Patient is admitted to [facility] on 04/28/2020 for total knee arthroplasty. The procedures performed without complication or sequelae. The patient is doing well postoperatively. Labs and vital signs are stable on day of discharge. On day of discharge patient's knee incision is healing well. There is minimal erythema. There is no drainage noted at this time. There is minimal soft tissue swelling to the knee. Patient has full foot and ankle motion without difficulty or pain. Calf is soft and nontender to palpation. Neurovascular status to the left lower extremity is intact. Patient is discharged home in good condition. Opioid start talking form is reviewed and signed at patient bedside. Please see med rec for accurate list of home medications. Plan - Discharge Summary Discharge Rx Participant: No New Discharge Prescriptions: New Aspirin 325 mg PO BID #60 tab HYDROcodone/APAP 5-325MG [Altheimer 5-325] 1 - 2 tab PO Q6HR PRN #48 tab PRN Reason: Pain Sennosides [Senokot] 2 tab PO DAILY PRN #60 tablet PRN Reason: Constipation No Action Multivitamins, Thera [Multivitamin (formulary)] 1 tab PO DAILY Atorvastatin [Lipitor] 10 mg PO HS Metoprolol Tartrate [Lopressor] 75 mg PO BID #120 tab Lisinopril [Zestril] 5 mg PO HS Hydrochlorothiazide [Hydrodiuril] 25 mg PO DAILY Lisinopril [Zestril] 10 mg PO DAILY PRN PRN Reason: TAKES IF SYSTOLIC OVER 110 Nitroglycerin Sl Tabs [Nitrostat] 0.4 mg SUBLINGUAL Q5M PRN PRN Reason: Chest Pain Omeprazole [PriLOSEC] 40 mg PO DAILY PRN PRN Reason: Heartburn Aspirin 81 mg PO DAILY Discharge Medication List Multivitamins, Thera [Multivitamin (formulary)] 1 tab PO DAILY 12/19/14 [History] Atorvastatin [Lipitor] 10 mg PO HS 12/13/16 [History] Metoprolol Tartrate [Lopressor] 75 mg PO BID #120 tab 05/30/17 [Rx] Lisinopril [Zestril] 5 mg PO HS 06/04/17 [History] Hydrochlorothiazide [Hydrodiuril] 25 mg PO DAILY 07/12/18 [History] Lisinopril [Zestril] 10 mg PO DAILY PRN 07/12/18 [History] Nitroglycerin Sl Tabs [Nitrostat] 0.4 mg SUBLINGUAL Q5M PRN 07/12/18 [History] Aspirin 81 mg PO DAILY 04/23/20 [History] Omeprazole [PriLOSEC] 40 mg PO DAILY PRN 04/23/20 [History] Aspirin 325 mg PO BID #60 tab 04/29/20 [Rx] HYDROcodone/APAP 5-325MG [Altheimer 5-325] 1 - 2 tab PO Q6HR PRN #48 tab 04/29/20 [Rx] Sennosides [Senokot] 2 tab PO DAILY PRN #60 tablet 04/29/20 [Rx] Follow up Appointment(s)/Referral(s): Isma Pennington DO [Doctor of Osteopathic Medicine] - 2 Weeks Ambulatory/Diagnostic Orders: Continuous Passive Motion (CPM) Machine [DME.AMB1] Time Frame: 3 Weeks, Location: None Selected Activity/Diet/Wound Care/Special Instructions: Weightbearing as tolerated with a walker. CPM 5-6h daily. Leave dressing intact. May be removed by home care nurse or by patient in 10 days. May shower with dressing on. Recommend use of compression stockings daily until follow up to help prevent swelling and blood clots. May remove at night before sleeping. Please follow up with [facility] and call with any questions or concerns, . Discharge Disposition: HOME WITH HOME HEALTH SERVICES
[2020-04-29 10:51] VITALS: BP 115/64; PULSE 74; RESP 16; TEMP 97.8
--- NOTE | 2020-04-29 11:18 | P.PN ---
Progress Note - Text 04/29 050 74-year-old male status post total knee replacement by Dr. Ashby height off. Patient has an On-Q pump for postop pain. Control, patient seen and evaluated this morning, patient has a VAS of 4 with the solution running at 8 mL an hour. Plan to continue On-Q pump infusion
== END 2020-04-29 11:20 | disposition home health service (06) ==
LOC: OR 06:34 → 4SSUR 10:06 → OR 04-29 11:20
PROVIDERS: ATTEND Orthopaedic Surgery
DX: M17.12 Unilateral primary osteoarthritis, left knee (principal); I25.10 Atherosclerotic heart disease of native coronary artery without angina pectoris; I25.2 Old myocardial infarction; I34.1 Nonrheumatic mitral (valve) prolapse; I10 Essential (primary) hypertension; K21.9 Gastro-esophageal reflux disease without esophagitis; H91.90 Unspecified hearing loss, unspecified ear; E78.5 Hyperlipidemia, unspecified; G25.0 Essential tremor; F41.9 Anxiety disorder, unspecified; Z95.1 Presence of aortocoronary bypass graft; Z79.82 Long term (current) use of aspirin; Z79.899 Other long term (current) drug therapy; Z87.19 Personal history of other diseases of the digestive system; Z90.49 Acquired absence of other specified parts of digestive tract; Z95.5 Presence of coronary angioplasty implant and graft; Z98.890 Other specified postprocedural states; Z98.41 Cataract extraction status, right eye; Z98.42 Cataract extraction status, left eye; Z88.0 Allergy status to penicillin; Z88.8 Allergy status to other drugs, medicaments and biological substances; Z82.49 Family history of ischemic heart disease and other diseases of the circulatory system
CPT/HCPCS: 97116; 97110; 97161; 64448; 76942; 85025; 88300; 73560; 27447; C1713; C1776; J2250; J0171; J2405; J3010; J1885; J2795; J0735; J1170

== ENCOUNTER → 2021-03-09 | Outpatient (CLI) | payer MEDICARE ==
[2021-03-09 16:03] LABS: Basophils # (A) 0.02 X 10*3/uL (0.00-0.10); Basophils % (A) 0.4 %; Eosinophils # (A) 0.11 X 10*3/uL (0.04-0.35); HCT 48.7 % (39.6-50.0); HGB 16.6 g/dL (13.0-17.0); Lymphocytes # (A) 0.92 X 10*3/uL (0.90-5.00); Lymphocytes % (A) 16.4 %; MCH 31.1 pg (27.0-32.0); MCHC 34.1 g/dL (32.0-37.0); MCV 91.4 fL (80.0-97.0); Mean Platelet Volume 9.4 fL (9.5-12.2); Monocytes # (A) 0.72 X 10*3/uL (0.20-1.00); Monocytes % (A) 12.9 %; Neutrophils # (A) 3.76 X 10*3/uL (1.80-7.70); Platelet Count 118 X 10*3/uL (140-440); RBC 5.33 X 10*6/uL (4.40-5.60); RDW 12.9 % (11.5-14.5)
[2021-03-09 20:33] LABS: African American GFR (CKD) 86.2 (60.0-200.0); Albumin 4.2 g/dL (3.80-4.90); Albumin/Globulin Ratio 1.62 (1.60-3.17); Anion Gap 9.1 mmol/L (4.00-12.00); Calcium 9.6 mg/dL (8.7-10.3); Carbon Dioxide 28.9 mmol/L (21.6-31.8); Chol/HDL Ratio 3.68; Globulin 2.6 g/dL (1.6-3.3); Non-African American GFR(CKD) 74.3 (60.0-200.0); Potassium 4.7 mmol/L (3.5-5.5); Total Bilirubin 0.8 mg/dL (0.2-1.2); Total Protein 6.8 g/dL (6.2-8.2)
== END | disposition home or self-care (01) ==
LOC: LABWHC1 08:20
PROVIDERS: ATTEND Internal Medicine
DX: Z12.5 Encounter for screening for malignant neoplasm of prostate (principal); I10 Essential (primary) hypertension; E55.9 Vitamin D deficiency, unspecified
CPT/HCPCS: 36415; 80053; 80061; 82306; 84443; 85025

== ENCOUNTER 2021-08-25 09:11 | Day surgery (SDC) | payer MEDICARE ==
[2021-08-23 16:43] VITALS: BMI 24.7
[~2021-08-25 09:11] MED LIST changes: -ACETAMINOPHEN TAB 500 MG TAB PO ONE; -CLINDAMYCIN 900 MG in DEXTROSE 5% IN WATER 50 ML IVPB ONE; -GABAPENTIN 300 MG CAP PO ONE; -HYDROmorphone 0.5 MG/0.5 ML SYRINGE IVP PRN; +LACTATED RINGERS 1,000 ML IV SCH; +LIDOCAINE 1% (10MG/ML) FOR IV START INTRADERMA PRN; -MELOXICAM 7.5 MG TAB PO ONE; -MIDAZOLAM 2 MG/2 ML VIAL IV PRN; -ONDANSETRON 4 MG/2 ML VIAL IVP ONE; -Pre Op ABX Message 1 EACH MISC MISCELLANE ONE; -ROPIVACAINE 246.25 MG, EPINEPHrine 0.5 MG, KETOROLAC 30 MG, cloNIDine HCL/PF 80 MCG, WA... MISCELLANE ONE; -TRANEXAMIC ACID 1,000 MG in SODIUM CHLORIDE 0.9% 100 ML IVPB ONE
[2021-08-25 10:42] VITALS: RESP 16; TEMP 97.4
[2021-08-25] MEDS ORDERED: PROPOFOL 10 MG/ML 20 ML VIAL IV ONE (11:18)
[2021-08-25] MEDS ORDERED: LIDOCAINE 1% INJ 10MG/ML (20 ML MDV) ONE (11:18)
--- NOTE | 2021-08-25 11:34 | P.PCN ---
Date of Procedure: 08/25/21 Procedure(s) Performed: BRIEF HISTORY: Patient is a 75-year-old, pleasant, white male scheduled for an upper endoscopy as a part of evaluation of GERD and atypical chest pain for the last 2 years duration. His been having intermittent episodes of severe chest pain every 3-4 days that lasts for a few minutes and resolves. During these episodes he has chest tightness and subsequently had some discomfort on deep. He tried Prilosec 20 mg twice daily for a year with no help he was then given Protonix 40 mg daily for 2 months with no help.. PROCEDURE PERFORMED: Esophagogastroduodenoscopy with biopsy. PREOPERATIVE DIAGNOSIS: Severe atypical chest pain of 2 years duration. IV sedation per anesthesia. PROCEDURE: After informed consent was obtained, the patient was brought into the endoscopy unit. IV sedation was administered by Anesthesia under continuous monitoring. Initially the Olympus GIF-140 video endoscope was inserted into the mouth. Esophagus intubated without any difficulty. It was gradually advanced into the stomach and duodenum and carefully examined. The bulb and the second part of the duodenum appeared normal. The scope at this time was withdrawn to the stomach, adequately insufflated with air, and upon careful examination, mucosa of the antrum, had mild gastritis and biopsies were done from this area. The body, cardia and the fundus appeared normal. The scope was then withdrawn into the esophagus. The GE junction was located at 39 cm from the incisors. Small sliding type hiatal hernia noted. The esophagus appeared normal. There were no erosions or ulcerations seen , biopsies were done from the distal esophagus and the patient tolerated the procedure well. IMPRESSION: 1. Mild antral gastritis. 2. Small hiatal hernia but no evidence of esophagitis. RECOMMENDATIONS: The findings of this examination were discussed with the patient as well as his family. He was advised to follow with the biopsy results. In the meantime he'll continue Levsin as needed. He'll be scheduled for esophageal manometry to evaluate for esophageal spasms.
[2021-08-25 12:04] VITALS: BP 159/77; PULSE 59
== END 2021-08-25 12:19 | disposition home or self-care (01) ==
LOC: ORWHC2ENDO 09:11
PROVIDERS: ATTEND Internal Medicine Gastroenterology
DX: K29.50 Unspecified chronic gastritis without bleeding (principal); K44.9 Diaphragmatic hernia without obstruction or gangrene
CPT/HCPCS: 43239; 88305; J2001; J2704

== ENCOUNTER → 2021-09-06 | Outpatient (CLI) | payer MEDICARE ==
[2021-09-06 09:38] LABS: HCT 49.3 % (39.0-53.0); HGB 16.9 gm/dL (13.0-17.5); MCH 32.3 pg (25.0-35.0); MCHC 34.3 g/dL (31.0-37.0); MCV 93.9 fL (80.0-100.0); Mean Platelet Volume 6.6; Platelet Count 112 k/uL (150-450); RBC 5.25 m/uL (4.30-5.90); RDW 13.1 % (11.5-15.5); WBC 5.6 k/uL (3.8-10.6)
[2021-09-06 10:03] LABS: African American GFR (CKD) >90 (>60 ml/min/1.73 sqM); Anion Gap 6 mmol/L; Blood Urea Nitrogen 17 mg/dL (9-20); Carbon Dioxide 31 mmol/L (22-30); Chloride 102 mmol/L (98-107); Non-African American GFR(CKD) 86 (>60 ml/min/1.73 sqM); Potassium 4.5 mmol/L (3.5-5.1); Sodium 139 mmol/L (137-145)
== END | disposition home or self-care (01) ==
LOC: LABPAT 08:17
PROVIDERS: ATTEND Internal Medicine Cardiovascular Disease
DX: Z01.812 Encounter for preprocedural laboratory examination (principal); I10 Essential (primary) hypertension; Z95.1 Presence of aortocoronary bypass graft
CPT/HCPCS: 36415; 80051; 82565; 84520; 85027

== ENCOUNTER 2021-09-15 06:08 | Day surgery (SDC) | payer MEDICARE ==
[2021-09-14 08:44] VITALS: BMI 25.0
[~2021-09-15 06:08] MED LIST changes: +ALPRAZolam 0.25 MG TAB PO PRN; +ALPRAZolam 0.5 MG TAB PO PRN; +ASPIRIN 325 MG TAB PO STA; +ATORVASTATIN 80 MG TAB PO STA; -LACTATED RINGERS 1,000 ML IV SCH; -LIDOCAINE 1% (10MG/ML) FOR IV START INTRADERMA PRN; +NITROGLYCERIN SL TABS 0.4 MG TAB SUBLINGUAL PRN; +SODIUM CHLORIDE 0.9% 1,000 ML in EMPTY BAG 1 BAG IV SCH
[2021-09-15] MEDS ORDERED: SODIUM CHLORIDE 0.9% 1,000 ML IV ONE (06:51)
[2021-09-15 07:02] VITALS: RESP 16; TEMP 97.6
[2021-09-15] MEDS ORDERED: .fentaNYL (PF) 50 MCG/ML AMP IV ONE (07:38)
[2021-09-15] MEDS ORDERED: MIDAZOLAM 2 MG/2 ML VIAL IV ONE (07:39)
[2021-09-15] MEDS ORDERED: LIDOCAINE 1% INJ 10MG/ML (20 ML MDV) SQ ONE (07:47)
[2021-09-15] MEDS ORDERED: IOPAMIDOL-370 125ML BTL INJ ONE (08:20)
[2021-09-15] MEDS ORDERED: RX INFO: IV CONTRAST WAS GIVEN 1 EACH MISC MISCELLANE PRN (08:38)
[2021-09-15] MEDS ORDERED: SODIUM CHLORIDE 0.9% 1,000 ML IV SCH (08:45)
--- NOTE | 2021-09-15 08:50 | P.CARDCATH ---
Date of Procedure: 09/15/21 Preoperative Diagnosis: Recurrent angina Postoperative Diagnosis: About 60% stenosis of the vein graft to the intermediate involving the ostium which is smooth looking. Patent ISAACS graft to LAD and vein graft to the OM branch. Right coronary artery is mild disease. Left main has about 60 to 70% stenosis Procedure(s) Performed: Left heart catheterization with selective coronary arteriography and selective injection of the ISAACS graft to LAD and vein graft to the intermediate and OM branch Description of Procedure: HISTORY: This is a 75-year-old gentleman with history of ischemic or disease with the previous stent placement and also bypass surgery with ISAACS graft to LAD and vein graft to the intermediate and not to the OM branch. [place] right coronary artery did not have a bypass. Patient has been having recurrent back pains suggestive of previous pains that he had prior to bypass surgery. Stress test did not reveal any significant ischemia. Because of ongoing chest pain. Patient is advised to have a cardiac catheterization. CONSENT:I have discussed the risks, benefits and alternative therapies for the above-mentioned procedure and for both sedation/analgesia as well as necessary blood product administration, if indicated, as they pertain to this patient. The patient has indicated understanding and acceptance of the risks and procedures discussed. PROCEDURE: Patient was brought to the lab in a fasting state. Patient was given some IV sedation. The right groin is infiltrated with lidocaine and right femoral artery was entered using Seldinger technique. A 6-[place] catheter was left in place and selective coronary arteriography and Selective injection of the ISAACS graft to vein grafts was performed. Patient developed an episode of ventricular fibrillation while injecting the vein graft to the intermediate. The ostium and proximal portion of the graft is showing about 50-60% stenosis with some mild dampening of the pressures upon engagement. Femoral angiogram was performed and Manual compression was applied for hemostasis. No immediate complications were noted and patient was transferred to [facility] in a stable condition Conscious Sedation: Versed 1mg Fentanyl 50 g Duration 37minutes HEMODYNAMICS: The aortic pressure is about 120/70. Left ventricle end-diastolic pressure was not measured. SELECTIVE CORONARY ARTERIOGRAPHY: LEFT MAIN: About 70% stenosis of the ostium and proximal portion of the left main THE LEFT ANTERIOR DESCENDING CORONARY ARTERY: Good caliber vessel with patent stent in the proximal LAD. The rest of the vessel is free of any significant obstructive disease. THE LEFT CIRCUMFLEX AND IS CORONARY ARTERY: This is a moderate caliber vessel giving rise to moderate caliber first OM branch. The OM branch has diffuse disease with a patent vein graft supplying the distal portion. The distal circumflex has moderate disease THE INTERMEDIATE CORONARY ARTERY: This is a small- caliber vessel with a diffuse disease in the midportion prior to the attachment of the graft. The distal vessel is small but free of any occlusive disease. Beyond the graft insertion THE RIGHT CORONARY ARTERY: This is a moderate caliber vessel with mild diffuse disease in the midportion without any critical lesions LEFT VENTRICULOGRAPHY: Not performed FINAL IMPRESSION: About 60-70% left main disease. Patent ISAACS graft to the LAD. Patent vein graft to the OM branch. About 60% smooth narrowing of the ostium of the vein graft to the intermediate. Right coronary artery has mild disease in the midportion PLAN: Maximum medical therapy and risk factor modification PROGNOSIS: Fair
[2021-09-15 15:23] VITALS: PULSE 60
[2021-09-15 16:32] VITALS: BP 172/78
== END 2021-09-15 16:25 | disposition home or self-care (01) ==
LOC: CATHCVL 06:08
PROVIDERS: ATTEND Internal Medicine Cardiovascular Disease
DX: I25.119 Atherosclerotic heart disease of native coronary artery with unspecified angina pectoris (principal); Z20.822 Contact with and (suspected) exposure to COVID-19; I10 Essential (primary) hypertension; E78.5 Hyperlipidemia, unspecified; K44.9 Diaphragmatic hernia without obstruction or gangrene; E78.00 Pure hypercholesterolemia, unspecified; I25.2 Old myocardial infarction; Z79.82 Long term (current) use of aspirin; Z79.899 Other long term (current) drug therapy; Z88.0 Allergy status to penicillin; Z88.8 Allergy status to other drugs, medicaments and biological substances; Z91.041 Radiographic dye allergy status; Z95.1 Presence of aortocoronary bypass graft
CPT/HCPCS: 93455; 87635; J2250; J2001; J3010; Q9967

== ENCOUNTER → 2021-09-24 | Day surgery (SDC) | payer MEDICARE ==
[2021-09-23 10:11] VITALS: BMI 25.0
[~2021-09-24] MED LIST changes: -ALPRAZolam 0.25 MG TAB PO PRN; -ALPRAZolam 0.5 MG TAB PO PRN; -ASPIRIN 325 MG TAB PO STA; -ATORVASTATIN 80 MG TAB PO STA; +LIDOCAINE 2% GEL 30 ML TUBE TOPICAL ONE; -NITROGLYCERIN SL TABS 0.4 MG TAB SUBLINGUAL PRN; -SODIUM CHLORIDE 0.9% 1,000 ML in EMPTY BAG 1 BAG IV SCH
[2021-09-24 13:36] VITALS: BP 155/80; PULSE 63; RESP 18; TEMP 97.7
== END ==
LOC: ORWHC2ENDO 13:13
PROVIDERS: ATTEND Internal Medicine Gastroenterology
DX: Z53.8 Procedure and treatment not carried out for other reasons (principal); K22.4 Dyskinesia of esophagus
CPT/HCPCS: 91010; C1894; C1769 ×2

== ENCOUNTER → 2022-03-18 | Outpatient (CLI) | payer MEDICARE ==
[2022-03-18 15:02] LABS: Basophils # (A) 0.04 X 10*3/uL (0.00-0.10); Basophils % (A) 0.6 %; Eosinophils # (A) 0.14 X 10*3/uL (0.04-0.35); Eosinophils % (A) 2.2 %; HCT 50.1 % (39.6-50.0); HGB 16.9 g/dL (13.0-17.0); Immature Grans, Automated 0.8 %; Lymphocytes # (A) 0.99 X 10*3/uL (0.90-5.00); Lymphocytes % (A) 15.7 %; MCH 31.2 pg (27.0-32.0); MCHC 33.7 g/dL (32.0-37.0); MCV 92.6 fL (80.0-97.0); Mean Platelet Volume 9.4 fL (9.5-12.2); Monocytes # (A) 0.71 X 10*3/uL (0.20-1.00); Monocytes % (A) 11.3 %; NRBC Per 100 WBC 0 /100 WBCS (0.0-0.0); Neutrophils # (A) 4.36 X 10*3/uL (1.80-7.70); Neutrophils % (A) 69.4 %; Platelet Count 122 X 10*3/uL (140-440); RBC 5.41 X 10*6/uL (4.40-5.60); WBC 6.29 X 10*3/uL (4.50-10.00)
[2022-03-18 16:36] LABS: ALT 38 U/L (10-49); AST 32 U/L (14-35); African American GFR (CKD) 97.2 (60.0-200.0); Albumin 4.4 g/dL (3.8-4.9); Albumin/Globulin Ratio 1.42 (1.60-3.17); Alkaline Phosphatase 60 U/L (41-126); Blood Urea Nitrogen 15.3 mg/dL (9.0-27.0); Calcium 9.8 mg/dL (8.7-10.3); Carbon Dioxide 27.5 mmol/L (20.0-27.5); Chloride 101 mmol/L (96-109); Chol/HDL Ratio 4.33 Ratio; Globulin 3.1 g/dL (1.6-3.3); Glucose 93 mg/dL (70-110); LDL Cholesterol,Calculated 77.1 mg/dL (0.0-131.0); Non-African American GFR(CKD) 83.8 (60.0-200.0); Potassium 4.5 mmol/L (3.5-5.5); Sodium 138 mmol/L (135-145); Total Protein 7.5 g/dL (6.2-8.2)
== END | disposition home or self-care (01) ==
LOC: LABWHC1 08:41
PROVIDERS: ATTEND Internal Medicine
DX: Z00.00 Encounter for general adult medical examination without abnormal findings (principal); E55.9 Vitamin D deficiency, unspecified
CPT/HCPCS: 36415; 80053; 80061; 82306; 84443; 85025

== ENCOUNTER 2022-10-02 06:06 | Emergency (ER) | payer MEDICARE ==
[2022-10-02 06:14] VITALS: PULSE 63; RESP 18
--- NOTE | 2022-10-02 06:32 | ED ---
Abdominal Pain HPI - General Chief Complaint: Abdominal Pain Stated Complaint: Abdominal pain Time Seen by Provider: 10/02/22 06:15 Source: patient, family, RN notes reviewed Mode of arrival: ambulatory Limitations: no limitations - History of Present Illness Initial Comments: This is a 76-year-old male who presents to the emergency department for abdomi nal pain. This has been present for the last month, however this became really painful over night and he was unable to sleep. Denies any nausea or vomiting. He does report associated constipation. He states that the pain is in the center of his abdomen and he feels a bulge. He does have a history of a CABG and bowel resection, and states that this is the only part of his abdomen that has not bee n operated on. He was told that he has separation of the abdominal muscles, however he has never noted a bulge like this in the past. States that this is not painful when he stands up, however when he tries to sit up, it causes significant pain. Denies any fevers, chills, sore throat, cough, dyspnea, chest pain, palpitations, nausea, vomiting, diarrhea, back pain, or headaches. MD Complaint: abdominal pain Onset/Timin -: month(s) Associated Symptoms: constipation - Related Data Home Medications Medication Instructions Recorded Confirmed Multivitamins, Thera [Multivitamin 1 tab PO DAILY 12/19/14 09/24/21 (formulary)] Atorvastatin [Lipitor] 10 mg PO HS 12/13/16 09/23/21 lisinopriL [Zestril] 5 mg PO HS 06/04/17 09/23/21 Nitroglycerin Sl Tabs [Nitrostat] 0.4 mg SUBLINGUAL Q5M PRN 07/12/18 09/23/21 hydroCHLOROthiazide [Hydrodiuril] 25 mg PO DAILY 07/12/18 09/24/21 Aspirin 81 mg PO DAILY 04/23/20 09/24/21 Omeprazole [PriLOSEC] 40 mg PO DAILY PRN 04/23/20 09/23/21 Primidone [Mysoline] 50 mg PO HS 08/23/21 09/24/21 Metoprolol Tartrate 50 mg PO HS 09/14/21 09/23/21 Metoprolol Tartrate [Lopressor] 75 mg PO QAM 09/14/21 09/23/21 lisinopriL [Zestril] 10 mg PO QAM 09/14/21 09/23/21 Allergies Allergy/AdvReac Type Severity Reaction Status Date / Time heparin Allergy Rash/Hives Verified 10/02/22 06:14 ketorolac tromethamine Allergy Twitching, Verified 10/02/22 06:14 [From Toradol] chest pain, elevated blood pressure Penicillins Allergy Anaphylaxis Verified 10/02/22 06:14 prednisone AdvReac Muscle Verified 10/02/22 06:14 Spasms Review of Systems ROS Statement: Those systems with pertinent positive or pertinent negative responses have been documented in the HPI. ROS Other: All systems not noted in ROS Statement are negative. 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, shingles involving the right side of face in 2009, diverticulosis, difficulty swallowing Last Myocardial Infarction Date:: 2011 History of Any Multi-Drug Resistant Organisms: None Reported Past Surgical History: Bowel Resection, Cholecystectomy, Coronary Bypass/CABG, Heart Catheterization, Heart Catheterization With Stent, Hernia Repair, Orthopedic Surgery Additional Past Surgical History / Comment(s): several hernia repairs- inguinal and abdominal one with mesh, eye surgery-CATARACTS , colonoscopy, eyelid surgery, 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 cataract, 3 vessel CABG Past Anesthesia/Blood Transfusion Reactions: No Reported Reaction Additional Past Anesthesia/Blood Transfusion Reaction / Comment(s): Pt has never received blood. Date of Last Stent Placement:: 2014 Past Psychological History: Anxiety Smoking Status: Never smoker Past Alcohol Use History: None Reported Past Drug Use History: None Reported - Past Family History Brother(s) Family Medical History: Myocardial Infarction (MA) Father Family Medical History: Coronary Artery Disease (CAD) Additional Family Medical History / Comment(s): Father had CABG's x3 Mother Family Medical History: Cancer Additional Family Medical History / Comment(s): Mother of cancer General Exam Limitations: no limitations General appearance: alert, in no apparent distress Head exam: Present: atraumatic, normocephalic, normal inspection Respiratory exam: Present: normal lung sounds bilaterally. Absent: respiratory distress, wheezes, rales, rhonchi, stridor Cardiovascular Exam: Present: regular rate, normal rhythm, normal heart sounds. Absent: systolic murmur, diastolic murmur, rubs, gallop, clicks GI/Abdominal exam: Present: other (Reducible abdominal mass superior to the umbilicus that is present with Valsalva maneuver or when the patient sits up. No significant tenderness to palpation.) Neurological exam: Present: alert, oriented X3, CN II-XII intact Psychiatric exam: Present: normal affect, normal mood Skin exam: Present: warm, dry, intact, normal color. Absent: rash Course Vital Signs 10/02/22 06:12 Temperature 98.6 F Pulse Rate 63 Respiratory 18 Rate Blood Pressure 162/88 O2 Sat by Pulse 97 Oximetry Medical Decision Making - Medical Decision Making This is a 76 year old male who presents to the emergency department for abdominal pain. Physical examination is suspicious for a ventral hernia versus diastasis recti. Lab work obtained and found to be nonactionable. Computed tomography scan of the abdomen and pelvis was obtained. My interpretation of this did not identify any signs of free air or bowel wall thickening. There does appear to be a large amount of stool present. The radiologist does not identify any signs of a ventral hernia does not make note of diastasis recti. Physical examination and the patient's note of being told that he has separation of the abdominal muscles is most consistent with a diastases recti. He was given information for general surgery follow-up to discuss any additional options to treat the ongoing symptoms. He declines any pain medication and states that he'll continue to take Tylenol for his symptoms. Advised trying to apply warm moist heat. He was also advised to start taking a stool softener and adding a probiotic to his diet for the constipation. Additionally, it was discussed with the patient that there is narrowing of a section of the large bowel. Instructed him to discuss this with general surgery during follow-up as well. Advised that if the bulge in his abdomen cannot be reduced, he should return to the emergency department immediately. Return precautions reviewed in depth, the patient is instructed to return to the emergency department with any new, worsening, or concerning symptoms. Patient verbalized understanding. This case was discussed in detail with the attending ED physician. Presentation, findings, and treatment plan discussed in detail as well. - Lab Data Result diagrams: 10/02/22 06:47 10/02/22 06:47 Lab Results 10/02/22 10/02/22 10/02/22 Range/Units 06:47 06:47 06:47 WBC 6.1 (3.8-10.6) k/uL RBC 5.18 (4.30-5.90) m/uL Hgb 17.2 (13.0-17.5) gm/dL Hct 46.9 (39.0-53.0) % MCV 90.5 (80.0-100.0) fL MCH 33.2 (25.0-35.0) pg MCHC 36.6 (31.0-37.0) g/dL RDW 12.8 (11.5-15.5) % Plt Count 112 L (150-450) k/uL MPV 6.8 Neutrophils % 68 % Lymphocytes % 17 % Monocytes % 10 % Eosinophils % 2 % Basophils % 0 % Neutrophils # 4.2 (1.3-7.7) k/uL Lymphocytes # 1.1 (1.0-4.8) k/uL Monocytes # 0.6 (0-1.0) k/uL Eosinophils # 0.1 (0-0.7) k/uL Basophils # 0.0 (0-0.2) k/uL Sodium 138 (137-145) mmol/L Potassium 3.8 (3.5-5.1) mmol/L Chloride 104 (98-107) mmol/L Carbon Dioxide 29 (22-30) mmol/L Anion Gap 5 mmol/L BUN 15 (9-20) mg/dL Creatinine 0.80 (0.66-1.25) mg/dL Est GFR (CKD-EPI)AfAm >90 (>60 ml/min/1.73 sqM) Est GFR (CKD-EPI)NonAf 88 (>60 ml/min/1.73 sqM) Glucose 100 H (74-99) mg/dL Plasma Lactic Acid Primo (0.7-2.0) mmol/L Calcium 8.8 (8.4-10.2) mg/dL Total Bilirubin 1.2 (0.2-1.3) mg/dL AST 37 (17-59) U/L ALT 36 (4-49) U/L Alkaline Phosphatase 61 (38-126) U/L Troponin I (0.000-0.034) ng/mL Total Protein 7.1 (6.3-8.2) g/dL Albumin 4.2 (3.5-5.0) g/dL Amylase 61 (30-110) U/L Lipase 53 (23-300) U/L Urine Color Yellow Urine Appearance Clear (Clear) Urine pH 6.0 (5.0-8.0) Ur Specific [place] 1.011 (1.001-1.035) Urine Protein Negative (Negative) Urine Glucose (UA) Negative (Negative) Urine Ketones Negative (Negative) Urine Blood Negative (Negative) Urine Nitrite Negative (Negative) Urine Bilirubin Negative (Negative) Urine Urobilinogen <2.0 (<2.0) mg/dL Ur Leukocyte Esterase Negative (Negative) 10/02/22 10/02/22 Range/Units 06:47 06:47 WBC (3.8-10.6) k/uL RBC (4.30-5.90) m/uL Hgb (13.0-17.5) gm/dL Hct (39.0-53.0) % MCV (80.0-100.0) fL MCH (25.0-35.0) pg MCHC (31.0-37.0) g/dL RDW (11.5-15.5) % Plt Count (150-450) k/uL MPV Neutrophils % % Lymphocytes % % Monocytes % % Eosinophils % % Basophils % % Neutrophils # (1.3-7.7) k/uL Lymphocytes # (1.0-4.8) k/uL Monocytes # (0-1.0) k/uL Eosinophils # (0-0.7) k/uL Basophils # (0-0.2) k/uL Sodium (137-145) mmol/L Potassium (3.5-5.1) mmol/L Chloride (98-107) mmol/L Carbon Dioxide (22-30) mmol/L Anion Gap mmol/L BUN (9-20) mg/dL Creatinine (0.66-1.25) mg/dL Est GFR (CKD-EPI)AfAm (>60 ml/min/1.73 sqM) Est GFR (CKD-EPI)NonAf (>60 ml/min/1.73 sqM) Glucose (74-99) mg/dL Plasma Lactic Acid Primo 0.9 (0.7-2.0) mmol/L Calcium (8.4-10.2) mg/dL Total Bilirubin (0.2-1.3) mg/dL AST (17-59) U/L ALT (4-49) U/L Alkaline Phosphatase (38-126) U/L Troponin I <0.012 (0.000-0.034) ng/mL Total Protein (6.3-8.2) g/dL Albumin (3.5-5.0) g/dL Amylase (30-110) U/L Lipase (23-300) U/L Urine Color Urine Appearance (Clear) Urine pH (5.0-8.0) Ur Specific [place] (1.001-1.035) Urine Protein (Negative) Urine Glucose (UA) (Negative) Urine Ketones (Negative) Urine Blood (Negative) Urine Nitrite (Negative) Urine Bilirubin (Negative) Urine Urobilinogen (<2.0) mg/dL Ur Leukocyte Esterase (Negative) - Radiology Data Radiology results: report reviewed, image reviewed Disposition Clinical Impression: Abdominal pain, Diastasis recti Disposition: HOME SELF-CARE Instructions (If sedation given, give patient instructions): Constipation (ED), Abdominal Pain (ED) Additional Instructions: Return to the emergency department with any new, worsening, or concerning symptoms, especially if the bulge in your abdomen cannot be pushed back in. Contact Dr. Ramirez's office tomorrow morning. Continue to take Tylenol for your pain. You can also apply heat to the abdomen to see if that offers any ad ditional relief. Consider starting a daily probiotic for regulation of your bowels. Follow up with your primary care provider in 1-2 days. Is patient prescribed a controlled substance at d/c from ED?: No Referrals: Mikhail Mills MD [Primary Care Provider] - 1-2 days Adan Ramirez MD [Medical Doctor] - 1-2 days
[2022-10-02 07:16] LABS: Basophils % (A) 0 %; Eosinophils # (A) 0.1 k/uL (0-0.7); Eosinophils % (A) 2 %; HCT 46.9 % (39.0-53.0); HGB 17.2 gm/dL (13.0-17.5); Lymphocytes # (A) 1.1 k/uL (1.0-4.8); Lymphocytes % (A) 17 %; MCH 33.2 pg (25.0-35.0); MCHC 36.6 g/dL (31.0-37.0); MCV 90.5 fL (80.0-100.0); Mean Platelet Volume 6.8; Monocytes # (A) 0.6 k/uL (0-1.0); Monocytes % (A) 10 %; Neutrophils # (A) 4.2 k/uL (1.3-7.7); Neutrophils % (A) 68 %; Platelet Count 112 k/uL (150-450); RBC 5.18 m/uL (4.30-5.90); RDW 12.8 % (11.5-15.5); WBC 6.1 k/uL (3.8-10.6)
[2022-10-02 07:25] LABS: ALT 36 U/L (4-49); AST 37 U/L (17-59); African American GFR (CKD) >90 (>60 ml/min/1.73 sqM); Albumin 4.2 g/dL (3.5-5.0); Alkaline Phosphatase 61 U/L (38-126); Amylase 61 U/L (30-110); Anion Gap 5 mmol/L; Blood Urea Nitrogen 15 mg/dL (9-20); Calcium 8.8 mg/dL (8.4-10.2); Carbon Dioxide 29 mmol/L (22-30); Chloride 104 mmol/L (98-107); Glucose 100 mg/dL (74-99); Lipase 53 U/L (23-300); Non-African American GFR(CKD) 88 (>60 ml/min/1.73 sqM); Potassium 3.8 mmol/L (3.5-5.1); Sodium 138 mmol/L (137-145); Total Bilirubin 1.2 mg/dL (0.2-1.3); Total Protein 7.1 g/dL (6.3-8.2)
[2022-10-02 07:42] LABS: Appearance,Urine Clear (Clear); Bilirubin,Urine Negative (Negative); Blood,Urine Negative (Negative); Color,Urine Yellow; Glucose,Urine (UA) Negative (Negative); Ketones,Urine Negative (Negative); Leukocyte Esterase,Urine Negative (Negative); Nitrite,Urine Negative (Negative); Protein,Urine Negative (Negative); Specific Gravity,Urine 1.011 (1.001-1.035); Urobilinogen,Urine <2.0 mg/dL (<2.0)
--- NOTE | 2022-10-02 08:41 | CT ---
EXAMINATION TYPE: CT abdomen pelvis w con CT DLP: 860.60 mGycm, Automated exposure control for dose reduction was used. DATE OF EXAM: 10/02/2022 8:04 AM COMPARISON: CT abdomen pelvis most recent from 06/04/2017. CLINICAL INDICATION:Male, 76 years old with history of abdominal pain, centralized; generalized abdom inal pain. hx of multiple bowel and hernia sx TECHNIQUE: Axial CT of the abdomen and pelvis. Sagittal and coronal reformats were created on a [employer] workstation. Contrast used:100 mL of Isovue 300 with IV Contrast, Oral contrast used: without Oral Contrast FINDINGS: LOWER CHEST: Unremarkable ABDOMEN LIVER: Unremarkable GALLBLADDER AND BILE DUCTS: The gallbladder is surgically absent. PANCREAS: Unremarkable. SPLEEN: Unremarkable. ADRENAL GLANDS: Unremarkable. KIDNEYS AND URETERS: No evidence of hydronephrosis or renal calculus. Left renal cyst. PELVIS BLADDER: Unremarkable REPRODUCTIVE: Unremarkable. ABDOMEN & PELVIS STOMACH AND BOWEL: Small hiatal hernia, duodenum is unremarkable. Scattered diverticula are noted thr oughout the colon. No evidence of bowel obstruction. There is a moderate stool burden throughout the colon. Narrowing of the short segment of large bowel in the sigmoid rectal junction possibly due to u nderdistention. PERITONEUM: No evidence of pneumoperitoneum or free fluid. VASCULATURE: Mild atherosclerotic calcifications are present throughout the abdominal aorta and its b ranches. No evidence of aortic aneurysm. MUSCULOSKELETAL: No acute osseous abnormalities LYMPH NODES: No gross evidence for lymphadenopathy SOFT TISSUE/ABDOMINAL WALL: Anterior abdominal hernia repair anchors.r IMPRESSION: 1. No evidence of acute process, No evidence of bowel obstruction. 2. Post hernia repair changes without evidence of recurrent hernia. 3. Large stool burden with colonic diverticulosis. 4. Narrowing of the short segment of large bowel in the sigmoid rectal junction possibly due to unde rdistention. Consider colonoscopy if not recently performed.
[2022-10-02] MEDS ORDERED: ACET/COD 300 MG/30 MG STARTER PACK 6 TAB BTL PO STA (09:18)
[2022-10-02 09:43] VITALS: BP 126/88; TEMP 98.4
== END 2022-10-02 09:43 | disposition home or self-care (01) ==
LOC: EC 06:06
DX: M62.08 Separation of muscle (nontraumatic), other site (principal); I25.10 Atherosclerotic heart disease of native coronary artery without angina pectoris; E78.5 Hyperlipidemia, unspecified; K21.9 Gastro-esophageal reflux disease without esophagitis; I10 Essential (primary) hypertension; I25.2 Old myocardial infarction; M19.90 Unspecified osteoarthritis, unspecified site; F41.9 Anxiety disorder, unspecified; Z88.0 Allergy status to penicillin; Z88.8 Allergy status to other drugs, medicaments and biological substances; Z88.6 Allergy status to analgesic agent; Z79.82 Long term (current) use of aspirin; Z79.899 Other long term (current) drug therapy
CPT/HCPCS: 36415; 80053; 82150; 83605; 83690; 84484; 85025; 81003; 74177; 99284; Q9967

== ENCOUNTER 2022-11-08 10:07 | Day surgery (SDC) | payer MEDICARE ==
[~2022-11-08 10:07] MED LIST changes: +LACTATED RINGERS 1,000 ML IV SCH; -LIDOCAINE 2% GEL 30 ML TUBE TOPICAL ONE
[2022-11-08 10:45] VITALS: RESP 16; TEMP 97.7
[2022-11-08] MEDS ORDERED: PROPOFOL 10 MG/ML 20 ML VIAL IV ONE (11:21)
[2022-11-08] MEDS ORDERED: LIDOCAINE 2% INJ 20 MG/ML (2 ML VIAL) ONE (11:21)
--- NOTE | 2022-11-08 11:38 | P.PCN ---
Date of Procedure: 11/08/22 Procedure(s) Performed: PREOPERATIVE DIAGNOSIS: Epigastric pain, change in bowel habits POSTOPERATIVE DIAGNOSIS: Mild gastritis, diverticulosis PROCEDURE: 1. EGD with biopsy 2. Colonoscopy ANESTHESIA: MAC SURGEON: Adan Ramirez M.D. SPECIMENS: Antrum ENDOSCOPIC PROCEDURE: The patient was on the endoscopy table in the left decubitus position. The Olympus gastroscope was inserted into the oropharynx and passed under direct visualization to the region of the third portion of the duodenum. From that point the scope was slowly withdrawn inspecting all surfaces carefully. There were no neoplastic inflammatory or polypoid lesions throughout the duodenum. The pylorus was widely patent. The stomach was carefully inspected. There was mild gastritis present. A biopsy of the antrum took place to rule out H. pylori. Retroflexion revealed a normal hiatus. The esophagus was then carefully examined. There were no neoplastic inflammatory or polypoid lesions throughout the visualized esophagus. The patient was kept on the endoscopy table in the left decubitus position. The Olympus colonoscope was inserted into the anus and passed under direct visualization to the base of the cecum. The appendiceal orifice was visualized. From that point the scope was slowly withdrawn inspecting all surfaces carefully. There were no neoplastic inflammatory or polypoid lesions throughout the cecum, ascending, transverse, and descending colon. The colorectal anastomosis was widely patent without stricture formation. There was scattered diverticulosis throughout the colon. Digital rectal examination was normal. The patient was taken to the recovery room in stable condition per anesthesia gu idelines. RECOMMENDATIONS: Resume diet. Etiology for patient's abdominal pain not evident on this endoscopic evaluation. Will discuss findings the patient.
[2022-11-08 12:16] VITALS: BP 121/73; PULSE 64
== END 2022-11-08 12:37 | disposition home or self-care (01) ==
LOC: ORWHC2ENDO 10:07
PROVIDERS: ATTEND Surgery
DX: K29.50 Unspecified chronic gastritis without bleeding (principal); K57.30 Diverticulosis of large intestine without perforation or abscess without bleeding; I10 Essential (primary) hypertension; E78.5 Hyperlipidemia, unspecified; I25.10 Atherosclerotic heart disease of native coronary artery without angina pectoris; I25.2 Old myocardial infarction; I34.1 Nonrheumatic mitral (valve) prolapse; Q21.10 Atrial septal defect, unspecified; M19.90 Unspecified osteoarthritis, unspecified site; Z86.73 Personal history of transient ischemic attack (TIA), and cerebral infarction without residual deficits; Z79.82 Long term (current) use of aspirin; Z79.899 Other long term (current) drug therapy; Z88.8 Allergy status to other drugs, medicaments and biological substances; Z88.0 Allergy status to penicillin; Z88.6 Allergy status to analgesic agent
CPT/HCPCS: 45378; 43239; J2704; J2001; 88305

== ENCOUNTER → 2022-11-17 | Outpatient (CLI) | payer MEDICARE ==
--- NOTE | 2022-11-17 08:48 | CT ---
EXAMINATION TYPE: CT sinus wo con DATE OF EXAM: 11/17/2022 COMPARISON: CT brain 2014 HISTORY: Right sided orbital/frontal sinus pain. Chronic sinusitis per order. CT DLP: 654.8 mGycm. Automated Exposure Control for Dose Reduction was Utilized. TECHNIQUE: CT scan of the sinuses is performed without contrast, axial images are obtained, coronal r eformatted images are also reviewed. FINDINGS: The paranasal sinuses including the frontal, ethmoid, sphenoid, and maxillary sinuses bila terally are well-aerated without abnormal opacification or air-fluid levels. Nasal septum is slightly deviated to right of midline. The ostiomeatal complex is patent bilaterally on the coronal images. Visualized portion of mastoid air cells show no abnormal opacification. The globes are intact bilate rally. Visualized portion of brain parenchyma shows age related cerebral atrophy. IMPRESSION: The sinuses are clear and the ostiomeatal complex is patent bilaterally.
== END | disposition home or self-care (01) ==
LOC: RADCTMAIN 07:20
PROVIDERS: ATTEND Otolaryngology
DX: J32.9 Chronic sinusitis, unspecified (principal)
CPT/HCPCS: 70486

== ENCOUNTER → 2023-03-03 | Outpatient (CLI) | payer MEDICARE ==
[2023-03-03 11:08] LABS: Protein, Total 6.9 g/dL (6.2-8.2)
[2023-03-03 12:15] LABS: Chol/HDL Ratio 4.04 Ratio; LDL Cholesterol,Calculated 77.2 mg/dL (0.0-131.0)
[2023-03-03 12:45] LABS: ALT 39 U/L (10-49); AST 36 U/L (14-35); African American GFR (CKD) 82.9 (60.0-200.0); Albumin 4.4 g/dL (3.8-4.9); Albumin/Globulin Ratio 1.64 (1.60-3.17); Alkaline Phosphatase 60 U/L (41-126); BUN/Creat Ratio 17.35 Ratio (12.00-20.00); Blood Urea Nitrogen 17.7 mg/dL (9.0-27.0); Calcium 9.5 mg/dL (8.7-10.3); Chloride 103 mmol/L (96-109); Globulin 2.7 g/dL (1.6-3.3); Glucose 101 mg/dL (70-110); Non-African American GFR(CKD) 71.6 (60.0-200.0); Potassium 4.4 mmol/L (3.5-5.5); Sodium 138 mmol/L (135-145)
== END | disposition home or self-care (01) ==
LOC: LABWHC1 07:01
PROVIDERS: ATTEND Internal Medicine
DX: Z00.00 Encounter for general adult medical examination without abnormal findings (principal); D69.6 Thrombocytopenia, unspecified; E55.9 Vitamin D deficiency, unspecified
CPT/HCPCS: 36415; 80053; 80061; 82306; 84165; 84443

== ENCOUNTER → 2023-03-06 | Outpatient (CLI) | payer MEDICARE ==
[2023-03-06 10:04] LABS: Basophils % (A) 0 %; Eosinophils # (A) 0.1 k/uL (0-0.7); Eosinophils % (A) 2 %; HCT 49.2 % (39.0-53.0); HGB 17.1 gm/dL (13.0-17.5); Lymphocytes # (A) 1.1 k/uL (1.0-4.8); Lymphocytes % (A) 18 %; MCH 32.1 pg (25.0-35.0); MCHC 34.8 g/dL (31.0-37.0); MCV 92.4 fL (80.0-100.0); Mean Platelet Volume 7.2; Monocytes # (A) 0.5 k/uL (0-1.0); Monocytes % (A) 8 %; Neutrophils # (A) 3.9 k/uL (1.3-7.7); Neutrophils % (A) 67 %; Platelet Count 119 k/uL (150-450); RBC 5.32 m/uL (4.30-5.90); RDW 13.4 % (11.5-15.5); WBC 5.8 k/uL (3.8-10.6)
== END | disposition home or self-care (01) ==
LOC: LABWHC1 09:15
PROVIDERS: ATTEND Internal Medicine
DX: Z00.00 Encounter for general adult medical examination without abnormal findings (principal); D69.6 Thrombocytopenia, unspecified
CPT/HCPCS: 36415; 85025

== ENCOUNTER 2023-08-13 04:26 | Observation (INO) | payer MEDICARE ==
[2023-08-13] MEDS ORDERED: NITROGLYCERIN SL TABS 0.4 MG TAB SUBLINGUAL STA (04:55)
--- NOTE | 2023-08-13 04:55 | ED ---
General Adult HPI - General Chief complaint: Headache Stated complaint: Brain Bleed Time Seen by Provider: 08/13/23 04:38 Source: patient Mode of arrival: wheelchair Limitations: no limitations - History of Present Illness Initial comments: This patient is 77-year-old man who presents to have evaluation of a constellation of symptoms. The patient states that he was awakened from sleep by left sided chest pain. He states that he shortly after that noticed he was having headache which became very severe. He states it is worse headache that he has ever had. It is identical to pains he had associated with subarachnoid hemorrhage number of years ago. The patient states that he also had trouble moving his left arm when he woke up and he felt like he was not able to stand. After waiting in number minutes some of those symptoms resolved he was able to move his left arm. The patient relates that going back for number weeks she has been having intermittent left chest pain radiating to the shoulder and arm. Onset/Timin -: hour(s) Location: head, chest Quality: sharp Consistency: constant Improves with: none Worsens with: none Associated Symptoms: weakness (Left arm) Treatments Prior to Arrival: none - Related Data Home Medications Medication Instructions Recorded Confirmed Multivitamins, Thera [Multivitamin 1 tab PO DAILY 12/19/14 11/08/22 (formulary)] Atorvastatin [Lipitor] 10 mg PO HS 12/13/16 11/08/22 lisinopriL [Zestril] 5 mg PO HS 06/04/17 11/08/22 Nitroglycerin Sl Tabs [Nitrostat] 0.4 mg SUBLINGUAL Q5M PRN 07/12/18 11/08/22 hydroCHLOROthiazide [Hydrodiuril] 25 mg PO DAILY 07/12/18 11/08/22 Aspirin 81 mg PO DAILY 04/23/20 11/08/22 Omeprazole [PriLOSEC] 40 mg PO DAILY PRN 04/23/20 11/08/22 Primidone [Mysoline] 50 mg PO HS 08/23/21 11/08/22 Metoprolol Tartrate 50 mg PO HS 09/14/21 11/08/22 Metoprolol Tartrate [Lopressor] 75 mg PO QAM 09/14/21 11/08/22 lisinopriL [Zestril] 10 mg PO QAM 09/14/21 11/08/22 Allergies Allergy/AdvReac Type Severity Reaction Status Date / Time heparin Allergy Rash/Hives Verified 08/13/23 04:32 ketorolac tromethamine Allergy Twitching, Verified 08/13/23 04:32 [From Toradol] chest pain, elevated blood pressure Penicillins Allergy Anaphylaxis Verified 08/13/23 04:32 prednisone AdvReac Muscle Verified 08/13/23 04:32 Spasms Review of Systems ROS Statement: Those systems with pertinent positive or pertinent negative responses have been documented in the HPI. ROS Other: All systems not noted in ROS Statement are negative. Constitutional: Denies: fever, chills Respiratory: Denies: cough, dyspnea Cardiovascular: Reports: chest pain. Denies: palpitations, orthopnea, edema, syncope Gastrointestinal: Denies: abdominal pain, nausea, vomiting, diarrhea Genitourinary: Denies: dysuria, hematuria Musculoskeletal: Denies: back pain Skin: Denies: rash Neurological: Reports: headache. 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, shingles involving the right side of face in 2009, diverticulosis, difficulty swallowing Last Myocardial Infarction Date:: 2011 History of Any Multi-Drug Resistant Organisms: None Reported Past Surgical History: Bowel Resection, Cholecystectomy, Coronary Bypass/CABG, Heart Catheterization, Heart Catheterization With Stent, Hernia Repair, Orthopedic Surgery Additional Past Surgical History / Comment(s): several hernia repairs- inguinal and abdominal one with mesh, eye surgery-CATARACTS , colonoscopy, eyelid surgery, 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 cataract, 3 vessel CABG Past Anesthesia/Blood Transfusion Reactions: No Reported Reaction Additional Past Anesthesia/Blood Transfusion Reaction / Comment(s): Pt has never received blood. Date of Last Stent Placement:: 2014 Past Psychological History: Anxiety Smoking Status: Never smoker - Past Family History Brother(s) Family Medical History: Myocardial Infarction ([place]) Father Family Medical History: Coronary Artery Disease (CAD) Additional Family Medical History / Comment(s): Father had CABG's x3 Mother Family Medical History: Cancer Additional Family Medical History / Comment(s): Mother of cancer General Exam Limitations: no limitations General appearance: alert, in no apparent distress Head exam: Present: atraumatic, normocephalic Eye exam: Present: normal appearance. Absent: scleral icterus, conjunctival injection ENT exam: Present: normal oropharynx Neck exam: Present: normal inspection Respiratory exam: Present: normal lung sounds bilaterally. Absent: respiratory distress, wheezes, rales, rhonchi, stridor Cardiovascular Exam: Present: regular rate, normal rhythm, normal heart sounds. Absent: systolic murmur, diastolic murmur, rubs, gallop GI/Abdominal exam: Present: soft. Absent: distended, tenderness, guarding, rebound, rigid, mass Extremities exam: Present: normal inspection, normal capillary refill. Absent: pedal edema, calf tenderness Back exam: Present: normal inspection. Absent: CVA tenderness (R), CVA tendern ess (L) Neurological exam: Present: alert, oriented X3, CN II-XII intact. Absent: motor sensory deficit Skin exam: Present: warm, dry, intact, normal color. Absent: rash Course Vital Signs 08/13/23 08/13/23 04:27 05:31 Temperature 98 F Pulse Rate 77 69 Respiratory 18 16 Rate Blood Pressure 183/101 130/91 O2 Sat by Pulse 98 93 L Oximetry EKG Findings - EKG Results: EKG: interpreted by ERMD, sinus rhythm (Rate 67 bpm), normal axis - Blocks, [place], Hypertrophy, ST Abn: AV and intraventricular conduction: intraventricular conduction delay Medical Decision Making - Lab Data Result diagrams: 08/13/23 04:51 08/13/23 04:51 Lab Results 08/13/23 08/13/23 08/13/23 Range/Units 04:51 04:51 04:51 WBC 7.7 (3.8-10.6) k/uL RBC 5.35 (4.30-5.90) m/uL Hgb 17.5 (13.0-17.5) gm/dL Hct 49.4 (39.0-53.0) % MCV 92.4 (80.0-100.0) fL MCH 32.7 (25.0-35.0) pg MCHC 35.3 (31.0-37.0) g/dL RDW 13.0 (11.5-15.5) % Plt Count 113 L (150-450) k/uL MPV 6.6 Neutrophils % 76 % Lymphocytes % 14 % Monocytes % 7 % Eosinophils % 1 % Basophils % 0 % Neutrophils # 5.8 (1.3-7.7) k/uL Lymphocytes # 1.0 (1.0-4.8) k/uL Monocytes # 0.6 (0-1.0) k/uL Eosinophils # 0.1 (0-0.7) k/uL Basophils # 0.0 (0-0.2) k/uL D-Dimer 0.27 (<0.60) mg/L FEU Sodium 138 (137-145) mmol/L Potassium 3.4 L (3.5-5.1) mmol/L Chloride 103 (98-107) mmol/L Carbon Dioxide 24 (22-30) mmol/L Anion Gap 11 mmol/L BUN 18 (9-20) mg/dL Creatinine 0.81 (0.66-1.25) mg/dL Est GFR (CKD-EPI)AfAm >90 (>60 ml/min/1.73 sqM) Est GFR (CKD-EPI)NonAf 87 (>60 ml/min/1.73 sqM) Glucose 107 H (74-99) mg/dL Calcium 9.4 (8.4-10.2) mg/dL Magnesium 2.2 (1.6-2.3) mg/dL Total Bilirubin 1.5 H (0.2-1.3) mg/dL AST 35 (17-59) U/L ALT 40 (4-49) U/L Alkaline Phosphatase 69 (38-126) U/L Troponin I (0.000-0.034) ng/mL Total Protein 7.5 (6.3-8.2) g/dL Albumin 4.4 (3.5-5.0) g/dL 08/13/23 Range/Units 04:51 WBC (3.8-10.6) k/uL RBC (4.30-5.90) m/uL Hgb (13.0-17.5) gm/dL Hct (39.0-53.0) % MCV (80.0-100.0) fL MCH (25.0-35.0) pg MCHC (31.0-37.0) g/dL RDW (11.5-15.5) % Plt Count (150-450) k/uL MPV Neutrophils % % Lymphocytes % % Monocytes % % Eosinophils % % Basophils % % Neutrophils # (1.3-7.7) k/uL Lymphocytes # (1.0-4.8) k/uL Monocytes # (0-1.0) k/uL Eosinophils # (0-0.7) k/uL Basophils # (0-0.2) k/uL D-Dimer (<0.60) mg/L FEU Sodium (137-145) mmol/L Potassium (3.5-5.1) mmol/L Chloride (98-107) mmol/L Carbon Dioxide (22-30) mmol/L Anion Gap mmol/L BUN (9-20) mg/dL Creatinine (0.66-1.25) mg/dL Est GFR (CKD-EPI)AfAm (>60 ml/min/1.73 sqM) Est GFR (CKD-EPI)NonAf (>60 ml/min/1.73 sqM) Glucose (74-99) mg/dL Calcium (8.4-10.2) mg/dL Magnesium (1.6-2.3) mg/dL Total Bilirubin (0.2-1.3) mg/dL AST (17-59) U/L ALT (4-49) U/L Alkaline Phosphatase (38-126) U/L Troponin I 0.013 (0.000-0.034) ng/mL Total Protein (6.3-8.2) g/dL Albumin (3.5-5.0) g/dL Disposition Referrals: Mikhail Mills MD [Primary Care Provider] - 1-2 days
[2023-08-13 05:12] LABS: Basophils % (A) 0 %; Eosinophils # (A) 0.1 k/uL (0-0.7); Eosinophils % (A) 1 %; HCT 49.4 % (39.0-53.0); HGB 17.5 gm/dL (13.0-17.5); Lymphocytes % (A) 14 %; MCH 32.7 pg (25.0-35.0); MCHC 35.3 g/dL (31.0-37.0); MCV 92.4 fL (80.0-100.0); Mean Platelet Volume 6.6; Monocytes # (A) 0.6 k/uL (0-1.0); Monocytes % (A) 7 %; Neutrophils # (A) 5.8 k/uL (1.3-7.7); Neutrophils % (A) 76 %; Platelet Count 113 k/uL (150-450); RBC 5.35 m/uL (4.30-5.90); WBC 7.7 k/uL (3.8-10.6)
[2023-08-13 05:20] LABS: ALT 40 U/L (4-49); AST 35 U/L (17-59); African American GFR (CKD) >90 (>60 ml/min/1.73 sqM); Albumin 4.4 g/dL (3.5-5.0); Alkaline Phosphatase 69 U/L (38-126); Anion Gap 11 mmol/L; Blood Urea Nitrogen 18 mg/dL (9-20); Calcium 9.4 mg/dL (8.4-10.2); Carbon Dioxide 24 mmol/L (22-30); Chloride 103 mmol/L (98-107); Glucose 107 mg/dL (74-99); Magnesium 2.2 mg/dL (1.6-2.3); Non-African American GFR(CKD) 87 (>60 ml/min/1.73 sqM); Potassium 3.4 mmol/L (3.5-5.1); Sodium 138 mmol/L (137-145); Total Bilirubin 1.5 mg/dL (0.2-1.3); Total Protein 7.5 g/dL (6.3-8.2)
[2023-08-13] MEDS ORDERED: MORPHINE SULFATE 4 MG/ML SYRINGE IV STA ×2 (05:48→06:36)
[2023-08-13] MEDS ORDERED: METOPROLOL TARTRATE 5 MG/5 ML VIAL IVP STA (05:48)
[2023-08-13] MEDS ORDERED: NITROGLYCERIN SL TABS 0.4 MG TAB SUBLINGUAL PRN (06:38)
[2023-08-13] MEDS ORDERED: NITROGLYCERIN OINT 1 INCH/GM PACKET TOPICAL STA (06:59)
[2023-08-13] MEDS ORDERED: MAG HYDROX/AL HYDROX/SIMETH 30 ML, HYOSCYAMINE ELIXIR 10 ML, LIDOCAINE VISCOUS 10 ML PO ONE ×3 (07:01)
--- NOTE | 2023-08-13 07:34 | CT ---
EXAMINATION TYPE: CT brain wo con CT DLP: 1202.4 mGycm, Automated exposure control for dose reduction was used. DATE OF EXAM: 08/13/2023 4:58 AM COMPARISON: CT head 09/24/2015. CLINICAL INDICATION:Male, 77 years old with history of WHOL, TECHNIQUE: Brain: Axial CT images of the brain were obtained with coronal and sagittal reformats created and rev iewed. Contrast used: None. Oral contrast used: None. FINDINGS: Brain: Extra-axial spaces: No abnormal extra-axial fluid collections. Ventricular system: Dilatation in proportion to cerebral atrophy. No evidence for hydrocephalus. Cerebral parenchyma: No acute intraparenchymal hemorrhage or mass effect. The saenz-white junction is well differentiated. There is mild generalized brain atrophy. Mild scattered hypoattenuation of the cerebral white matter, likely due to chronic microvascular ischemic changes. A couple of small chroni c lacunar infarcts in the right basal ganglia region, similar to the prior study. Cerebellum: Mildly atrophic without acute abnormality. Mass effect: No evidence of midline shift. Intracranial vasculature: Atherosclerotic calcifications of the intracranial vessels particularly the carotid siphons. Soft tissues: Normal. Calvarium/osseous structures: No depressed skull fracture. Paranasal sinuses and mastoid air cells: No significant fluid accumulation. Visualized orbits: Visualized orbital contents appear intact. There has probably been prior lens repl acement. IMPRESSION: 1. No acute intracranial CT abnormality. 2. Mild atrophy and chronic microvascular ischemic changes.
[2023-08-13] MEDS ORDERED: BARIUM SULFATE 450 ML ORAL.SUSP BOTTLE PO PRN (09:58)
[2023-08-13] MEDS: ISOSORBIDE MONONITRATE ER 30 MG TAB.ER.24H PO SCH (11:18)
[2023-08-13] MEDS: ACETAMINOPHEN TAB 325 MG TAB PO PRN ×2 (12:38→22:42)
--- NOTE | 2023-08-13 12:40 | P.CRDCN ---
History of Present Illness Consult date: 08/13/23 Consult reason: chest pain Chief complaint: Chest pain and back pain History of present illness: History of present illness: Patient is a pleasant 77-year-old male with significant past medical history of CAD status post CABG, hypertension, hyperlipidemia, mitral valve prolapse, subarachnoid hemorrhage and thousand and 6 who presented to the emergency department with complaints of chest pain. He reports that he has been having chest pain on the left side that radiates to the back that feels similar to his prior heart issues. This has been going on for approximately the past 1 year intermittently however has become significantly worse over the last month. The chest pain is worse with stress. He also reports having jaw pain last night. He also complains of his legs feeling fatigued quickly with activity. Head CT and ED with no acute findings. EKG shows sinus rhythm with no significant ST or T wave changes. Troponin negative 2, creatinine 0.81, potassium 3.4. He does report feeling better this morning with less chest tightness and is able to take a deep breath better. He reports his blood pressures at home typically 115/60. He did have a prior heart cath 09/2021 Dr. Granados that revealed 60-70% left main disease, patent ISAACS graft to LAD, patent vein graft to OM branch, 60% smooth narrowing of ostium of the vein graft intermediate. He currently follows with Dr. Araiza in the office. He reports that he did have a cousin that immediately after a stress test REVIEW OF SYSTEMS: No fever or chills. No cough or expectoration. No diaphoresis. Patient denies headache, dizziness, blurred vision, double vision. Patient denies any stomach discomfort. No nausea, vomiting. No hematochezia. No hematemesis. Denies any black stools or blood in his stools. Denies dysuria or hematuria. No muscle weakness or numbness. Reports chest pressure and shortness of breath. PHYSICAL EXAMINATION: This is a 77-year-old male in no apparent distress at the time of my examination. HEENT: Head is atraumatic, normocephalic. Pupils are equal, round. Sclerae anicteric. Conjunctivae are clear. Mucous membranes of the mouth are moist. Neck is supple. There is no jugular venous distention. No carotid bruit is heard. CHEST EXAMINATION: Lungs are clear to auscultation. No chest wall tenderness is noted on palpation or with deep breathing. HEART EXAMINATION: Heart regular rate and rhythm. S1, S2 heard. No murmurs, gallops or rub. ABDOMEN: Soft, nontender. Bowel sounds are heard. EXTREMITIES: 2+ peripheral pulses with no evidence of peripheral edema and no calf tenderness noted. NEUROLOGIC EXAMINATION: Patient is awake, alert and oriented x3. IMPRESSION AND PLAN: CAD status post CABG Hypertension Hyperlipidemia Chest pain Dyslipidemia History of subarachnoid hemorrhage 2005 PLAN: Trend troponin. Discussed Lexiscan stress test versus left heart catheterization for further evaluation of worsening symptoms. Patient reports that he wants the definitive answer and prefers to do the left heart catheterization over stress testing. Recommend trial of Imdur 30 mg by mouth daily and assess response. Continue current regimen. Nothing by mouth after midnight. I am dictating on behalf of Dr. Subhash Glez's history/physical and assessment/plan. Past Medical History Past Medical History: Coronary Artery Disease (CAD), Chest Pain / Angina, GERD/Reflux, Hearing Disorder / Deafness, Hyperlipidemia, Hypertension, Myocardial Infarction ([place]), Mitral Valve Prolapse (MVP), Osteoarthritis (OA) Additional Past Medical History / Comment(s): essential tremors, previous history of subarachnoid hemorrhage-BRAIN back -[employer] MEMORY LOSS, shingles involving the right side of face in 2009, diverticulosis, difficulty swallowing Last Myocardial Infarction Date:: 2011 History of Any Multi-Drug Resistant Organisms: None Reported Past Surgical History: Bowel Resection, Cholecystectomy, Coronary Bypass/CABG, Heart Catheterization, Heart Catheterization With Stent, Hernia Repair, Orthopedic Surgery Additional Past Surgical History / Comment(s): several hernia repairs- inguinal and abdominal one with mesh, eye surgery-CATARACTS , colonoscopy, eyelid surgery, 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 cataract, 3 vessel CABG Past Anesthesia/Blood Transfusion Reactions: No Reported Reaction Additional Past Anesthesia/Blood Transfusion Reaction / Comment(s): Pt has never received blood. Date of Last Stent Placement:: 2014 Past Psychological History: Anxiety Smoking Status: Never smoker Past Alcohol Use History: None Reported - Past Family History Brother(s) Family Medical History: Myocardial Infarction ([place]) Father Family Medical History: Coronary Artery Disease (CAD) Additional Family Medical History / Comment(s): Father had CABG's x3 Mother Family Medical History: Cancer Additional Family Medical History / Comment(s): Mother of cancer Medications and Allergies Home Medications Medication Instructions Recorded Confirmed Type lisinopriL [Zestril] 5 mg PO HS 06/04/17 08/13/23 History Nitroglycerin Sl Tabs [Nitrostat] 0.4 mg SUBLINGUAL Q5M PRN 07/12/18 08/13/23 History hydroCHLOROthiazide [Hydrodiuril] 25 mg PO DAILY 07/12/18 08/13/23 History Primidone [Mysoline] 50 mg PO HS 08/23/21 08/13/23 History Metoprolol Tartrate 50 mg PO HS 09/14/21 08/13/23 History Metoprolol Tartrate [Lopressor] 75 mg PO DAILY 09/14/21 08/13/23 History lisinopriL [Zestril] 10 mg PO DAILY 09/14/21 08/13/23 History Aspirin EC [Ecotrin Low Dose] 81 mg PO DAILY 08/13/23 08/13/23 History Atorvastatin [Lipitor] 10 mg PO TUFR 08/13/23 08/13/23 History Allergies Allergy/AdvReac Type Severity Reaction Status Date / Time heparin Allergy Rash/Hives Verified 08/13/23 12:25 ketorolac tromethamine Allergy Twitching, Verified 08/13/23 12:25 [From Toradol] chest pain, elevated blood pressure Penicillins Allergy Anaphylaxis, Verified 08/13/23 12:25 swelling prednisone AdvReac Muscle Verified 08/13/23 12:25 Spasms Physical Exam Vitals: Vital Signs Temp Pulse Resp BP Pulse Ox 08/13/23 11:19 64 20 135/82 95 08/13/23 08:00 69 18 146/62 94 L 08/13/23 05:31 69 16 130/91 93 L 08/13/23 04:27 98 F 77 18 183/101 98 Intake and Output 08/12/23 08/13/23 08/13/23 22:59 06:59 14:59 Other: Weight 73.936 kg Results 08/13/23 04:51 08/13/23 04:51 Cardiac Enzymes 08/13/23 08/13/23 08/13/23 Range/Units 04:51 04:51 07:31 AST 35 (17-59) U/L Troponin I 0.013 <0.012 (0.000-0.034) ng/mL 08/13/23 Range/Units 10:58 AST (17-59) U/L Troponin I <0.012 (0.000-0.034) ng/mL CBC 08/13/23 Range/Units 04:51 WBC 7.7 (3.8-10.6) k/uL RBC 5.35 (4.30-5.90) m/uL Hgb 17.5 (13.0-17.5) gm/dL Hct 49.4 (39.0-53.0) % Plt Count 113 L (150-450) k/uL Comprehensive Metabolic Panel 08/13/23 Range/Units 04:51 Sodium 138 (137-145) mmol/L Potassium 3.4 L (3.5-5.1) mmol/L Chloride 103 (98-107) mmol/L Carbon Dioxide 24 (22-30) mmol/L BUN 18 (9-20) mg/dL Creatinine 0.81 (0.66-1.25) mg/dL Glucose 107 H (74-99) mg/dL Calcium 9.4 (8.4-10.2) mg/dL AST 35 (17-59) U/L ALT 40 (4-49) U/L Alkaline Phosphatase 69 (38-126) U/L Total Protein 7.5 (6.3-8.2) g/dL Albumin 4.4 (3.5-5.0) g/dL Current Medications Generic Name Dose Route Start Last Admin Trade Name Freq PRN Reason Stop Dose Admin Acetaminophen 325 mg 08/13/23 10:45 Acetaminophen Tab 325 Mg Tab PO Q4HR PRN Fever and/ or Pain Aspirin 325 mg 08/14/23 09:00 Aspirin 325 Mg Tab PO DAILY MIMI Barium Sulfate 450 ml 08/13/23 09:58 Barium Sulfate 450 Ml Oral.Susp Bottle PO 08/14/23 10:[address] Scan Isosorbide Mononitrate 30 mg 08/13/23 10:45 08/13/23 11:18 Isosorbide Mononitrate Er 30 Mg Tab.Er.24h PO 30 mg DAILY MIMI Administration Nitroglycerin 0.4 mg 08/13/23 06:38 Nitroglycerin Sl Tabs 0.4 Mg Tab SUBLINGUAL Q5M PRN Chest Pain Intake and Output 08/12/23 08/13/23 08/13/23 22:59 06:59 14:59 Other: Weight 73.936 kg 08/13/23 04:51 08/13/23 04:51
[2023-08-13] MEDS ORDERED: NALOXONE 0.4 MG/ML 1 ML VIAL IVP PRN (16:15)
[2023-08-13] MEDS ORDERED: HYDROcodone/APAP 5-325MG 1 EACH TAB PO PRN (16:35)
--- NOTE | 2023-08-13 16:39 | P.HPIM ---
History of Present Illness H&P Date: 08/13/23 Patient is a 77-year-old gentleman, with hypertension, dyslipidemia coronary artery disease status post 3- vessel CABG 2017, GERD, and multiple other comorbid conditions who presented to the emergency department with complaints of chest pain, left-sided headache and numbness. On arrival to the emergency department he was noted to be hypertensive with a blood pressure 183/101. L aboratory analysis included CBC, d-dimer, BMP, liver enzymes, troponin which were remarkable for platelets of 113, bilirubin 1.5, potassium 3.4, troponin of 0.013. Initial EKG is reviewed by myself reveals normal sinus rhythm at a rate of 67, normal axis, normal intervals, and no significant ST-T wave changes. CT head showed no acute intracranial abnormality with mild atrophic ischemic changes. Patient seen and examined at bedside. He follow with Dr. Araiza for cardiology. Awoke with pain across his lower plevis, sat on the tolier (unable to go to the bathroom, developed a bad headache and the room was spinning. Developed left arm numbness and unable to move his hand, laid in the bed a few hours. He had left sided chest and back pain with difficult catching his breath and sweating. He to ok 2 nitro at home which took about 1/2 the chest pain radiating to the back he was having. He is getting leg pain and shaking with ambulation, which resolves with rest. No numbness or pain. Here in the hospital he had pain in the left upper quadrant that lasted until he got a dose of morphine. He has been having chest pain for the last few days. left should through to the back with some radiation down his left arm and into his jaw. The pain would last 4-5 hours at a time. during those it feels like it is hard to get a breath. Increased fatigue with tiredness. Blood pressure at home have been 115/60. Has been having diarrhea for the last 1 week, it is feeling like he has to have a bowel movement more often but not much comes out. Does not need a cane or a walker. Vital signs reviewed General: nontoxic, no distress, appears at stated age Derm: warm, dry Eyes: EOMI, no lid lag, anicteric sclera, pupils equal round reactive to light ENT: Nose and ears atraumatic, no thrush, no pharyngeal erythema Cardiovascular: S1S2 reg, no murmur, positive posterior tibial pulse bilateral, no edema, capillary refill less than 2 seconds Lungs: clear to auscultation bilateral, no rhonchi, no rales, no wheeze, no accessory muscle use Abdominal: soft, nontender to palpation, no guarding, no appreciable organomegaly, normal bowel sounds Ext: no gross muscle atrophy, no contractures Neuro: CN II-XII grossly intact, no focal neuro defecits Psych: Alert, oriented, appropriate affect Assessment/Plan: Angina History of coronary artery disease with previous three-vessel coronary artery bypass grafting Hypertension Dyslipidemia Abdominal pain HTN urgency on arrival, resolved after nitro - place patient in observation for chest pain - likely would benefit from with nuclear stress test or cath given prior hx of CABG with escalating symptoms - tele - check CT abd and pelvis - await cardiology consult - ASA 325 mg daily - Lipitor 40 mg at night, lisinopril 10 mg daily and 5 mg at night, Lopressor 50 mg at night and 75 mg in the morning - norco 5/325 m,g PO q6 hours prn pain Chronic: GERD, essential tremor Imaging: As per HPI Data Review: As per HPI with repeat troponin less than 0.012 The patient is admitted with an anticipated less than 2 benign stay for evaluation of unstable angina DVT prophylaxis: Lovenox Anticipated discharge date: in 24-[address]: home This dictation was prepared using [employer] voice recognition software. Though every attempt is made to correct errors during dictation some may still e xist. 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, shingles involving the right side of face in 2009, diverticulosis, difficulty swallowing Last Myocardial Infarction Date:: 2011 History of Any Multi-Drug Resistant Organisms: None Reported Past Surgical History: Bowel Resection, Cholecystectomy, Coronary Bypass/CABG, Heart Catheterization, Heart Catheterization With Stent, Hernia Repair, Orth opedic Surgery Additional Past Surgical History / Comment(s): several hernia repairs- inguinal and abdominal one with mesh, eye surgery-CATARACTS , colonoscopy, eyelid surgery , 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 cataract, 3 vessel CABG Past Anesthesia/Blood Transfusion Reactions: No Reported Reaction Additional Past Anesthesia/Blood Transfusion Reaction / Comment(s): Pt has never received blood. Date of Last Stent Placement:: 2014 Past Psychological History: Anxiety Smoking Status: Never smoker Past Alcohol Use History: None Reported - Past Family History Brother(s) Family Medical History: Myocardial Infarction ([place]) Father Family Medical History: Coronary Artery Disease (CAD) Additional Family Medical History / Comment(s): Father had CABG's x3 Mother Family Medical History: Cancer Additional Family Medical History / Comment(s): Mother of cancer Medications and Allergies Home Medications Medication Instructions Recorded Confirmed Type lisinopriL [Zestril] 5 mg PO HS 06/04/17 08/13/23 History Nitroglycerin Sl Tabs [Nitrostat] 0.4 mg SUBLINGUAL Q5M PRN 07/12/18 08/13/23 History hydroCHLOROthiazide [Hydrodiuril] 25 mg PO DAILY 07/12/18 08/13/23 History Primidone [Mysoline] 50 mg PO HS 08/23/21 08/13/23 History Metoprolol Tartrate 50 mg PO HS 09/14/21 08/13/23 History Metoprolol Tartrate [Lopressor] 75 mg PO DAILY 09/14/21 08/13/23 History lisinopriL [Zestril] 10 mg PO DAILY 09/14/21 08/13/23 History Aspirin EC [Ecotrin Low Dose] 81 mg PO DAILY 08/13/23 08/13/23 History Atorvastatin [Lipitor] 10 mg PO TUFR 08/13/23 08/13/23 History Allergies Allergy/AdvReac Type Severity Reaction Status Date / Time heparin Allergy Rash/Hives Verified 08/13/23 12:25 ketorolac tromethamine Allergy Twitching, Verified 08/13/23 12:25 [From Toradol] chest pain, elevated blood pressure Penicillins Allergy Anaphylaxis, Verified 08/13/23 12:25 swelling prednisone AdvReac Muscle Verified 08/13/23 12:25 Spasms Physical Exam Osteopathic Statement: *. No significant issues noted on an osteopathic structural exam other than those noted in the History and Physical/Consult. Vitals: Vital Signs Temp Pulse Resp BP Pulse Ox 08/13/23 08:00 69 18 146/62 94 L 08/13/23 05:31 69 16 130/91 93 L 08/13/23 04:27 98 F 77 18 183/101 98 Intake and Output 08/12/23 08/13/23 08/13/23 22:59 06:59 14:59 Other: Weight 73.936 kg Results CBC & Chem 7: 08/13/23 04:51 08/13/23 04:51 Labs: Abnormal Lab Results - Last 24 Hours (Table) 08/13/23 08/13/23 Range/Units 04:51 04:51 Plt Count 113 L (150-450) k/uL Potassium 3.4 L (3.5-5.1) mmol/L Glucose 107 H (74-99) mg/dL Total Bilirubin 1.5 H (0.2-1.3) mg/dL
[2023-08-13] MEDS: SODIUM CHLORIDE 0.9% 1,000 ML IV SCH (16:56)
--- NOTE | 2023-08-13 18:17 | CT ---
EXAMINATION TYPE: CT abdomen pelvis w con DATE OF EXAM: 08/13/2023 COMPARISON: 10/02/2022 INDICATION: abd pain DLP: 816.6 mGycm, Automated exposure control for dose reduction was used. CONTRAST: 100 mL of Isovue 300. Study performed with Oral Contrast TECHNIQUE: Axial images were obtained from above the diaphragm to the pubic rami in the axial plane a t 5 mm thick sections. Reconstructed images are reviewed on the computer in the coronal plane. FINDINGS: Limited CT sections are obtained the lung bases. Some compressive atelectasis within the dependent p ortions of the lung bases bilaterally.. CT ABDOMEN: Liver: Normal Spleen: Normal Pancreas: Normal Adrenal glands: The adrenal glands are normal. Gallbladder: Normal Kidneys: No masses are evident. No hydronephrosis is present. Cortical renal cysts on the mid right kidney and on the inferior lateral left kidney. Delayed images through the kidneys remain unchanged . Aorta: Normal Inferior vena cava: Normal. CT PELVIS: Multiple scattered diverticuli within sigmoid colon. The distal descending colon there may be some alvarado btle adjacent inflammatory changes. Correlate for mild diverticulitis. No abscess formation is eviden t. No free air is present. This study is without oral contrast follow-up evaluation. Appendix: Normal as visualized. Urinary bladder: Normal. Genitourinary structures: Prostate appears normal. Osseous structures: No suspicious lytic or sclerotic lesions. IMPRESSION: 1. Suggestion of mild diverticulitis distal descending colon. 2. Small cortical renal cysts 3. Mild bilateral dependent lung base compressive atelectasis
[2023-08-13] MEDS ORDERED: ATORVASTATIN 40 MG TAB PO SCH (21:00)
[2023-08-13] MEDS ORDERED: PRIMIDONE 50 MG TAB PO SCH (21:00)
[2023-08-13] MEDS ORDERED: METOPROLOL TARTRATE 50 MG TAB PO SCH (21:00)
[2023-08-13] MEDS: lisinopriL 5 MG TAB PO SCH ×2 (22:42→22:46)
[2023-08-14] MEDS: SODIUM CHLORIDE 0.9% 1,000 ML IV SCH (06:54)
[2023-08-14] MEDS ORDERED: HEPARIN SODIUM,PORCINE (1 ML) 2,500 UNIT in SODIUM CHLORIDE 0.9% 250 ML IRRIGATION PRN (07:00)
[2023-08-14] MEDS ORDERED: HEPARIN SODIUM,PORCINE 10,000 UNIT in SODIUM CHLORIDE 0.9% 1,000 ML IRRIGATION PRN (07:00)
[2023-08-14] MEDS: ISOSORBIDE MONONITRATE ER 30 MG TAB.ER.24H PO SCH ×2 (07:51→10:25)
[2023-08-14] MEDS ORDERED: SODIUM CITRATE 250 ML MISCELLANE ONE (08:00)
[2023-08-14 08:21] VITALS: PULSE 60; TEMP 97.6
[2023-08-14] MEDS ORDERED: LIDOCAINE 1% INJ 10MG/ML (20 ML MDV) ONE (08:27)
[2023-08-14] MEDS ORDERED: MIDAZOLAM 2 MG/2 ML VIAL IVP ONE (08:30)
[2023-08-14] MEDS ORDERED: IV FLUID CONTINUATION 1,000 ML IV ONE (08:30)
[2023-08-14] MEDS ORDERED: LIDOCAINE 1% INJ 10MG/ML (20 ML MDV) SQ ONE (08:32)
[2023-08-14] MEDS ORDERED: lisinopriL 10 MG TAB PO SCH (09:00)
[2023-08-14] MEDS ORDERED: BIVALIRUDIN 250 MG in SODIUM CHLORIDE 0.9% 50 ML IV ONE (09:00)
[2023-08-14] MEDS ORDERED: ASPIRIN 325 MG TAB PO SCH (09:00)
[2023-08-14] MEDS ORDERED: hydroCHLOROthiazide 25 MG TAB PO SCH (09:00)
[2023-08-14] MEDS ORDERED: METOPROLOL TARTRATE 25 MG TAB PO SCH (09:00)
[2023-08-14] MEDS ORDERED: IOPAMIDOL-370 100ML BTL INJ ONE (09:03)
[2023-08-14 09:05] LABS: Chol/HDL Ratio 3.82 Ratio; LDL Cholesterol,Calculated 56.3 mg/dL (0.0-131.0)
[2023-08-14] MEDS ORDERED: RX INFO: IV CONTRAST WAS GIVEN 1 EACH MISC MISCELLANE PRN (09:05)
--- NOTE | 2023-08-14 09:11 | P.PCN ---
Date of Procedure: 08/14/23 Operative Findings: CARDIAC CATHETERIZATION PERFORMING PHYSICIAN: Coleman Araiza MD, RPVI PROCEDURE PERFORMED: 1. Selective right and left coronary angiogram 2. Left heart catheterization 3. ISAACS into LAD angiogram, SVG to ramus intermedius angiogram, SVG to OM angiogram 4. Ultrasound-guided access of the right common femoral artery and right common femoral artery angiogram 5. IFR of the RCA INDICATION: Chest discomfort concerning for angina in this 77-year-old gentleman who is known to have CAD with prior CABG with ISAACS to LAD and SVG to ramus intermedius and SVG to OM COMPLICATION: None APPROACH: Right common femoral artery LEVEL OF SEDATION: Moderate with sedation in length of 32 minutes PROCEDURE DESCRIPTION: After obtaining an informed consent, the patient was brought to cardiac photo lab technician. Local anesthesia was performed using lidocaine subcutaneously. The right common femoral artery was cannulated using Seldinger technique, the guidewire passed easily, following that we advanced a 6 Iranian sheath dilator assembly, the wire and dilator were removed and sheath was flushed. Selective right and left coronary angiogram using a 6-Iranian JR4 and JL catheters. All the bypasses angiogram performed using the JR4 catheter Following that we did left heart catheterization using 6-Iranian pigtail catheter. After that I did Doppler wire measurement of the RCA. After zeroing the Doppler wire and equalizing between the Doppler wire and guiding catheter the RCA was engaged and the wire was advanced distal to that lesion. After that the RCA was disengaged with the wire in position. We did iFR and that came in to be nonischemic at 0.99. We did use Angiomax for anticoagulation. The patient does have history of heparin ALLERGY The procedure was completed there was no complication. SELECTIVE CORONARY ANGIOGRAM: The right coronary artery: Large caliber vessel and a dominant vessel. The mid RCA has intermediate lesion. We did iFR that came in to be nonischemic at 0.99 Left main: Has severe lesion appeared to be in the range of 50-60% The left circumflex: The LCx gives rises into an OM1 which has a severe lesion in the ostial and proximal portion but OM1 is protected. The left anterior descending artery: The LAD has mild disease only. The ramus intermedius: Has severe lesion in the proximal portion Coronary bypasses angiogram The ISAACS to LAD is patent but the ISAACS is somewhat atrophic because of good antegrade flow in the LAD The SVG to ramus intermedius has mild disease by the ostium The SVG to OM has also mild disease by the ostium HEMODYNAMICS: The LVEDP was 12 mmHg was no significant gradient across aortic valve CONCLUSION: 1. Severe disease involving the mid shaft of the left main. 2. Patent ISAACS to LAD and patent SVG to ramus intermedius and patent SVG to OM was only mild disease by the ostium of these SVGs 3. Intermediate disease involving unprotected RCA. I did iFR and that came in to be nonischemic and 0.99 POSTPROCEDURE MANAGEMENT: Medical treatment
[2023-08-14] MEDS ORDERED: SODIUM CHLORIDE 0.9% 1,000 ML IV SCH (09:15)
--- NOTE | 2023-08-14 14:43 | P.DS ---
Providers Date of admission: 08/13/23 06:39 Expected date of discharge: 08/14/23 Attending physician: Baljit Hermosillo MD Consults: 08/13/23 06:39 Consult Physician Routine Consulting Provider: Coleman Araiza Consult Reason/Comments: chest pain Do you want consulting provider notified?: Yes Primary care physician: Mikhail Mills MD Hospital Course: Discharge Diagnosis: Angina History of coronary artery disease with previous three-vessel coronary artery bypass grafting Hypertension Dyslipidemia Mild diverticulitis HTN urgency on arrival, resolved after nitro Hospital Course: 77-year-old gentleman, with hypertension, dyslipidemia coronary artery disease status post 3- vessel CABG 2016, GERD, and multiple other comorbid conditions who presented to the emergency department with complaints of chest pain, left- sided headache and numbness. On arrival to the emergency department he was noted to be hypertensive with a blood pressure 183/101. Laboratory analysis included CBC, d-dimer, BMP, liver enzymes, troponin which were remarkable for platelets of 113, bilirubin 1.5, potassium 3.4, troponin of 0.013. Initial EKG reveals normal sinus rhythm at a rate of 67, normal axis, normal intervals, and no significant ST-T wave changes. CT head showed no acute intracranial abnormality with mild atrophic ischemic changes. CT abdomen and pelvis shows possible mild diverticulitis involving the distal descending colon. Left heart cath showed severe disease involving the mid shaft of the left main, patent grafts from prior CABG, intermediate disease involving the unprotected RCA, no interventions performed, recommended medical treatment. Antibiotic therapy not recommended for diverticulitis as symptoms are improving and no clear signs of systemic infection. Patient to follow-up with PCP and cardiology Patient seen and examined at bedside. Vital signs reviewed and stable. General: nontoxic, no distress, appears at stated age Derm: warm, dry Head: atraumatic, normocephalic, symmetric Eyes: EOMI, no lid lag, anicteric sclera Mouth: no lip lesion, mucus membranes moist Cardiovascular: S1S2 reg, no murmur Lungs: CTA bilateral, no rhonchi, no rales , no accessory muscle use Abdominal: soft, nontender to palpation, no guarding, no appreciable organomegaly Ext: no gross muscle atrophy, no edema, no contractures Neuro: CN II-XI grossly intact, no focal neuro deficits Psych: Alert, oriented, appropriate affect A total of 33 minutes of time were spent preparing this complex discharge summary. Patient was discharged on 08/14/23 at 14:38. Patient Condition at Discharge: Stable Plan - Discharge Summary Discharge Rx Participant: Yes New Discharge Prescriptions: New Isosorbide Mononitrate ER [Imdur] 30 mg PO DAILY #60 tab Atorvastatin [Lipitor] 40 mg PO HS #60 tab Continue lisinopriL [Zestril] 5 mg PO HS hydroCHLOROthiazide [Hydrodiuril] 25 mg PO DAILY Nitroglycerin Sl Tabs [Nitrostat] 0.4 mg SUBLINGUAL Q5M PRN PRN Reason: Chest Pain lisinopriL [Zestril] 10 mg PO DAILY Aspirin EC [Ecotrin Low Dose] 81 mg PO DAILY Primidone [Mysoline] 50 mg PO HS Metoprolol Tartrate [Lopressor] 75 mg PO DAILY Metoprolol Tartrate 50 mg PO HS Discontinued Atorvastatin [Lipitor] 10 mg PO TUFR Discharge Medication List lisinopriL [Zestril] 5 mg PO HS 06/04/17 [History] Nitroglycerin Sl Tabs [Nitrostat] 0.4 mg SUBLINGUAL Q5M PRN 07/12/18 [History] hydroCHLOROthiazide [Hydrodiuril] 25 mg PO DAILY 07/12/18 [History] Primidone [Mysoline] 50 mg PO HS 08/23/21 [History] Metoprolol Tartrate 50 mg PO HS 09/14/21 [History] Metoprolol Tartrate [Lopressor] 75 mg PO DAILY 09/14/21 [History] lisinopriL [Zestril] 10 mg PO DAILY 09/14/21 [History] Aspirin EC [Ecotrin Low Dose] 81 mg PO DAILY 08/13/23 [History] Atorvastatin [Lipitor] 40 mg PO HS #60 tab 08/14/23 [Rx] Isosorbide Mononitrate ER [Imdur] 30 mg PO DAILY #60 tab 08/14/23 [Rx] Follow up Appointment(s)/Referral(s): Coleman Araiza MD [STAFF PHYSICIAN] - 09/06/23 4:00 pm Mikhail Mills MD [Primary Care Provider] - 1-2 days Patient Instructions/Handouts: Coronary Artery Disease (DC) Activity/Diet/Wound Care/Special Instructions: Please see your PCP and your counter intelligence agent. Discharge Disposition: HOME SELF-CARE
[2023-08-14 15:11] VITALS: BP 109/63; RESP 14
[2023-08-15] MEDS ORDERED: ATORVASTATIN 10 MG TAB PO SCH (09:00)
== END 2023-08-14 15:59 | disposition home or self-care (01) ==
LOC: EC 04:26 → 6NMEDSUR 06:39
PROVIDERS: ADMIT Internal Medicine; ATTEND Internal Medicine
DX: I25.119 Atherosclerotic heart disease of native coronary artery with unspecified angina pectoris (principal); I16.0 Hypertensive urgency; K57.92 Diverticulitis of intestine, part unspecified, without perforation or abscess without bleeding; I10 Essential (primary) hypertension; I34.1 Nonrheumatic mitral (valve) prolapse; K21.9 Gastro-esophageal reflux disease without esophagitis; E78.5 Hyperlipidemia, unspecified; H91.90 Unspecified hearing loss, unspecified ear; I25.2 Old myocardial infarction; M19.90 Unspecified osteoarthritis, unspecified site; G25.0 Essential tremor; R41.3 Other amnesia; F41.9 Anxiety disorder, unspecified; Z79.82 Long term (current) use of aspirin; Z79.899 Other long term (current) drug therapy; Z88.0 Allergy status to penicillin; Z88.5 Allergy status to narcotic agent; Z88.8 Allergy status to other drugs, medicaments and biological substances; Z86.19 Personal history of other infectious and parasitic diseases; Z90.49 Acquired absence of other specified parts of digestive tract; Z95.1 Presence of aortocoronary bypass graft; Z95.5 Presence of coronary angioplasty implant and graft; Z98.42 Cataract extraction status, left eye; Z98.41 Cataract extraction status, right eye; Z87.19 Personal history of other diseases of the digestive system; Z86.79 Personal history of other diseases of the circulatory system; Z98.890 Other specified postprocedural states; Z82.49 Family history of ischemic heart disease and other diseases of the circulatory system; Z80.9 Family history of malignant neoplasm, unspecified
CPT/HCPCS: 96376; 96374; 99285; 36415; 93005; 93459; 93799; 76937; 85379; 80061; 80053; 83735; 84484; 85025; 70450; 74177; G0378 ×2; C1760; C1887; C1769 ×3; C1894; J2250; J2270; J2001; Q9967 ×2

== ENCOUNTER → 2023-08-31 | Outpatient (CLI) | payer MEDICARE ==
[2023-08-31 12:01] LABS: African American GFR (CKD) >90 (>60 ml/min/1.73 sqM); Blood Urea Nitrogen 20 mg/dL (9-20); Non-African American GFR(CKD) 86 (>60 ml/min/1.73 sqM)
--- NOTE | 2023-08-31 13:35 | CT ---
EXAMINATION TYPE: CT abdomen pelvis w con DATE OF EXAM: 08/31/2023 COMPARISON: 08/13/2023 HISTORY: K57.32 DVTRCLI OF LG INT W/O PERFORATION CONTRAST: CT scan of the abdomen and pelvis is performed without Oral Contrast and with IV Contrast, patient in jected with 100 mL of Isovue 300. FINDINGS: LUNG BASES-: No visible nodule. No infiltrate. Linear atelectasis left lung base. LIVER/GB: The gallbladder is surgically absent. No space occupying hepatic lesion. Biliary tree is of normal caliber. PANCREAS: No inflammation. No distinct mass. SPLEEN: No splenic enlargement. No lesion seen. ADRENALS: No nodule. No thickening. KIDNEYS/BLADDER: No hydronephrosis. No nephrolithiasis. No distinct renal mass. Urinary bladder g rossly unremarkable. BOWEL: Normal bowel caliber. No inflammation. Moderate sigmoid diverticulosis. Previously noted mild distal descending colonic diverticulitis appears to have resolved. Mild fecal stasis. Nonvisualizati on of the appendix. GENITAL ORGANS: No gross abnormality. LYMPH NODES: No greater than 1cm abdominal or pelvic lymph nodes are appreciated. AORTA: No significant abnormality. OSSEOUS STRUCTURES: No significant abnormality is seen. OTHER: No significant additional abnormality is seen. IMPRESSION: 1. Colonic diverticulosis without diverticulitis at this time. No acute process appreciated.
== END | disposition home or self-care (01) ==
LOC: RADCTMAIN 11:06
PROVIDERS: ATTEND Internal Medicine
DX: K57.32 Diverticulitis of large intestine without perforation or abscess without bleeding (principal); K57.30 Diverticulosis of large intestine without perforation or abscess without bleeding
CPT/HCPCS: 82565; 84520; 74177; 36415; Q9967

== ENCOUNTER → 2023-09-05 | Outpatient (CLI) | payer MEDICARE ==
[2023-09-05 13:32] LABS: Basophils # (A) 0.03 X 10*3/uL (0.00-0.10); Basophils % (A) 0.5 %; Eosinophils # (A) 0.12 X 10*3/uL (0.04-0.35); Eosinophils % (A) 1.9 %; HCT 48.5 % (39.6-50.0); HGB 17.1 g/dL (13.0-17.0); Lymphocytes # (A) 1.06 X 10*3/uL (0.90-5.00); Lymphocytes % (A) 16.6 %; MCH 32.4 pg (27.0-32.0); MCHC 35.3 g/dL (32.0-37.0); MCV 91.9 FL (80.0-97.0); Mean Platelet Volume 9.2 FL (9.5-12.2); Monocytes # (A) 0.83 X 10*3/uL (0.20-1.00); NRBC Per 100 WBC 0 X 10*3/uL (0.00-0.01); Neutrophils # (A) 4.28 X 10*3/uL (1.80-7.70); Neutrophils % (A) 66.7 %; Platelet Count 137 X 10*3/uL (140-440); RBC 5.28 X 10*6/uL (4.40-5.60); RDW 12.7 % (11.5-14.5)
[2023-09-05 13:56] LABS: ALT 33 U/L (10-49); AST 31 U/L (14-35); Albumin 4.2 g/dL (3.8-4.9); Albumin/Globulin Ratio 1.62 Ratio (1.60-3.17); Alkaline Phosphatase 63 U/L (41-126); Blood Urea Nitrogen 14.8 mg/dL (9.0-27.0); Calcium 9.5 mg/dL (8.7-10.3); Chloride 103 mmol/L (96-109); Globulin 2.6 g/dL (1.6-3.3); Glucose 103 mg/dL (70-110); Lipase 24 U/L (14-60); Potassium 4.7 mmol/L (3.5-5.5); Sodium 140 mmol/L (135-145); Total Protein 6.8 g/dL (6.2-8.2)
== END | disposition home or self-care (01) ==
LOC: LABWHC1 07:51
PROVIDERS: ATTEND Internal Medicine
DX: K57.32 Diverticulitis of large intestine without perforation or abscess without bleeding (principal)
CPT/HCPCS: 36415; 80053; 83690; 85025

== ENCOUNTER → 2023-12-05 | Outpatient (CLI) | payer MEDICARE ==
[2023-12-05 09:02] LABS: Partial Thromboplastin Time 26.5 sec (22.0-30.0); Prothrombin Time 11.1 sec (10.0-12.5)
[2023-12-05 12:57] LABS: HCT 48.7 % (39.6-50.0); HGB 16.9 g/dL (13.0-17.0); MCH 31.5 pg (27.0-32.0); MCHC 34.7 g/dL (32.0-37.0); MCV 90.7 FL (80.0-97.0); Mean Platelet Volume 8.8 FL (9.5-12.2); NRBC Per 100 WBC 0 X 10*3/uL (0.00-0.01); Platelet Count 131 X 10*3/uL (140-440); RBC 5.37 X 10*6/uL (4.40-5.60); RDW 12.8 % (11.5-14.5); WBC 5.93 X 10*3/uL (4.50-10.00)
[2023-12-05 13:16] LABS: ALT 30 U/L (10-49); AST 29 U/L (14-35); Albumin 4.3 g/dL (3.8-4.9); Albumin/Globulin Ratio 1.54 Ratio (1.60-3.17); Alkaline Phosphatase 71 U/L (41-126); BUN/Creat Ratio 17.11 Ratio (12.00-20.00); Blood Urea Nitrogen 15.4 mg/dL (9.0-27.0); Calcium 9.5 mg/dL (8.7-10.3); Carbon Dioxide 28.2 mmol/L (21.6-31.8); Chloride 102 mmol/L (96-109); Globulin 2.8 g/dL (1.6-3.3); Glucose 99 mg/dL (70-110); Potassium 3.9 mmol/L (3.5-5.5); Sodium 140 mmol/L (135-145); Total Protein 7.1 g/dL (6.2-8.2)
== END | disposition home or self-care (01) ==
LOC: LABWHC1 07:39
PROVIDERS: ATTEND Orthopaedic Surgery
DX: Z01.812 Encounter for preprocedural laboratory examination (principal); Z22.322 Carrier or suspected carrier of Methicillin resistant Staphylococcus aureus; M17.11 Unilateral primary osteoarthritis, right knee
CPT/HCPCS: 36415; 80053; 85027; 85610; 85730; 87070

== ENCOUNTER 2024-01-02 08:39 | Observation (INO) | payer MEDICARE ==
[~2024-01-02 08:39] MED LIST changes: -LACTATED RINGERS 1,000 ML IV SCH; +MIDAZOLAM 2 MG/2 ML VIAL IV PRN; +TRANEXAMIC 1,000 MG/100ML-NACL 1,000 MG in SALINE 1 100ML.BAG IVPB PRN; +fentaNYL (PF) 50 MCG/ML 2 ML AMP IV PRN
[2024-01-02] MEDS: MELOXICAM 7.5 MG TAB PO PRN (10:15)
[2024-01-02] MEDS: GABAPENTIN 300 MG CAP PO PRN (10:15)
[2024-01-02] MEDS: ACETAMINOPHEN TAB 500 MG TAB PO PRN (10:15)
[2024-01-02] MEDS: MIDAZOLAM 2 MG/2 ML VIAL IVP ONE (10:37)
--- NOTE | 2024-01-02 10:53 | P.ANPRN ---
Procedure Note - Anesthesia - Nerve Block Performed Right iPack Single Time Out Performed: Yes Date of Procedure: 01/02/24 Procedure Start Time: 10:36 Procedure Stop Time: 10:40 Location of Patient: PreOp Indication: Acute Post-Operative Pain, Analgesia, Requested by Surgeon Sedation Type: Sedate with meaningful contact maintained Preparation: Sterile Prep Position: Left Lateral Catheter: None Needle Types: Pajunk Needle Gauge: 21 Ultrasound used to visualize needle placement: Yes Ultrasound used to observe medication spread: Yes Injectate: 0.5% Ropivacaine (see comment for volume) (Ropiv 20ml+[id number]) Blood Aspirated: No Pain Paresthesia on Injection Noted: No Resistance on Injection: Normal Image Stored and Saved: Yes Events: Uneventful and Well Tolerated
--- NOTE | 2024-01-02 10:55 | P.ANPRN ---
Procedure Note - Anesthesia - Nerve Block Performed Right Adductor Canal Infusion Time Out Performed: Yes Date of Procedure: 01/02/24 Procedure Start Time: 10:41 Procedure Stop Time: 10:46 Location of Patient: PreOp Indication: Acute Post-Operative Pain, Analgesia, Requested by Surgeon Sedation Type: Sedate with meaningful contact maintained Preparation: Sterile Prep Position: Supine Catheter: Indwelling Needle Types: On-Q Ultrasound used to visualize needle placement: Yes Ultrasound used to observe medication spread: Yes Injectate: 0.5% Ropivacaine (see comment for volume) ([id number]+decadron 4mg) Blood Aspirated: No Pain Paresthesia on Injection Noted: No Resistance on Injection: Normal Image Stored and Saved: Yes Events: Uneventful and Well Tolerated
[2024-01-02] MEDS: DEXAMETHASONE SOD PHOSPHATE 4 MG/ML 1 ML VIAL IVP ONE (11:01)
[2024-01-02] MEDS: LACTATED RINGERS 1,000 ML IV SCH (11:01)
[2024-01-02] MEDS: ONDANSETRON 4 MG/2 ML VIAL IVP ONE (11:01)
[2024-01-02] MEDS ORDERED: ROPIVACAINE 5 MG/ML 30 ML VIAL ONE (11:05)
[2024-01-02] MEDS ORDERED: MIDAZOLAM 2 MG/2 ML VIAL ONE (11:05)
[2024-01-02] MEDS ORDERED: PROPOFOL 10 MG/ML 20 ML VIAL IV ONE (11:05)
[2024-01-02] MEDS ORDERED: ePHEDrine 50 MG/ML 1 ML VIAL ONE (11:05)
[2024-01-02] MEDS ORDERED: DEXAMETHASONE SOD PHOSPHATE 4 MG/ML 1 ML VIAL ONE (11:05)
[2024-01-02] MEDS: ceFAZolin 1,000 MG in SODIUM CHLORIDE 0.9% 1,000 ML IRRIGATION ONE (11:09)
[2024-01-02] MEDS: LACTATED RINGERS 1,000 ML IV ONE (12:07)
--- NOTE | 2024-01-02 12:25 | P.OP ---
Date of Procedure: 01/02/24 Preoperative Diagnosis: Severe osteoarthritis right knee Postoperative Diagnosis: Severe osteoarthritis right knee Procedure(s) Performed: Right total knee arthroplasty Implants: [employer] II CR Oxinium cruciate retaining femoral component size 7, right [employer] nonporous tibial baseplate size 6, right [employer] II, XLPE Deep Dished articular insert, size 9 mm, Size 5- 6, right [employer] Smita II resurfacing patellar component, oval, 32 mm All components were cemented using Palacos R bone cement The articulation is Oxinium on polyethylene Anesthesia: spinal Surgeon: Isma Pennington Librarian Special Library #1: Jahaira Lott Estimated Blood Loss (ml): 30 Pathology: none sent Condition: stable Disposition: PACU Indications for Procedure: The patient's knee is end-stage, and conservative management has failed. The operation of knee replacement has been discussed at length in the office, as well as potential risks and complications. These are inclusive of, but not limited to: Infection, bleeding, scarring, discomfort, stiffness, blood vessel and nerve damage, need for further surgery, failure to relieve symptoms, persistence, recurrence, or worsening of problems, loosening, dislocation, wear, blood clot, pulmonary embolism, , gait dysfunction, stiffness, and other risks as discussed in the office. Patient elects to proceed and the consent form has been signed. Operative Findings: The operative findings are consistent with severe osteoarthritis of the right knee Description of Procedure: The patient was seen in the preoperative area, the consent was reviewed and the operative site was marked with a skin marker. The patient verified the procedure and the operative site. An adductor canal pain catheter and an iPACK block were placed by anesthesia in the preoperative area. The patient was then brought to the operating room and positioned on the operating room table in the supine position. Preoperative antibiotics and a gram of tranexamic acid were given intravenously. A spinal anesthetic was administered by the anesthesia department. Care was taken to make sure that all pressure points were adequately padded. A tourniquet was placed on the upper thigh and the lower extremity was prepped with ChloraPrep and draped in usual sterile fashion. A universal time-out was then performed which confirmed the patient's name, surgical site, ALLERGIES, and consent. The lower extremity was then exsanguinated and tourniquet was inflated to 250 mmHg. A standard anterior midline approach to the knee was performed. The skin and subcutaneous tissue were sharply dissected down to the patellar tendon. A medial parapatellar arthrotomy was then performed. The knee was then extended, the patellar was everted, and the knee was flexed. The infra-patellar fat pad was removed in order to enhance exposure. The anterior horns of both menisci were excised, and a release was performed to the posterior medial aspect of the knee. On gross visual inspection, there was complete loss of articular cartilage in the medial and patellofemoral joint spaces. There was also significant cartilage damage in the lateral compartment. There were multiple periarticular osteophytes globally about the knee which were then removed with a Ronguer. The femoral canal was then opened with the 9.5 mm intramedullary drill. The 8 mm intramedullary david was then inserted into the femoral canal with the distal femoral cutting guide set for 5 of valgus. The distal femoral cutting block was then pinned in place. The intramedullary david was then removed, and the distal femur was then cut. The cutting block was then removed and the cut was checked for symmetry. The resected bone was then measured to confirm the appropriate distal femoral resection. Next, the sizing guide was then placed and set for 3 external rotation based off of the epicondylar axis and Buchanan's line. Pins were then placed and the drill holes, and the femur was sized with the sizing stylus. The pins were then removed, and the sizing guide was then removed. The spikes of the appropriate size femoral block was then placed into the predrilled holes, and malleted into place. Two 45 mm pins were then placed into the fixation holes on the cutting block. An liban wing was then used to ensure there would be no notching with the anterior cut. The anterior condyles were cut without notching. The anterior chord cut was then performed, followed by the posterior cut, posterior chamfer cut, and the anterior chamfer cut. The collateral ligaments were protected during the entire process. The cutting block was then removed. Any remaining bone and osteophytes were removed from the femur with a Ronguer. Attention was then directed to the tibia. The remaining ACL was removed with a Ronguer, and the tibia was then gently subluxed forward with a large bent knee retractor. Any remaining menisci were excised. The posterior lateral corner was cauterized in order to coagulate the lateral geniculate artery. The extra medullary tibial cutting guide was then placed, set for the appropriate rotation, slope, and depth of resection. The proximal tibia cutting guide was then pinned in place. Proximal tibia was then cut and sized. A curved osteotome was then used to remove any posterior osteophytes from the distal femur. The femoral trial was placed. A narrow saw blade was then used to remove the anterior intracondylar femoral bone. The CR notch trial was then placed. The tibial trial was placed with the appropriate-sized insert. The knee was able to fully extend and flex to 130 and was stable throughout all range of motion. The knee was then extended and the patella was everted. Patella was then measured, and then using an osteotomy guide, the patella was cut at the appropriate level. The patellar component was sized. The patellar drill guide was placed and the patella was drilled. The patella trial was then placed. The knee was then taken through range of motion with the patella trial and the patella tracked normally using the no thumbs technique. The patella trial was t hen removed. The knee was then flexed and lug holes were drilled through the femoral trial and the femoral trial was then removed. The tibial was then re- exposed, and the tibial broach guide was then pinned in place after it was set for the appropriate rotation to allow for the most coverage without overhang. The tibia was then reamed and broached. The femoral canal was plugged with autologous bone. The cut surfaces of bone were then irrigated with pulsatile lavage. The knee was also irrigated with Irrisept solution. The components were then opened, the cement was mixed. Cement was placed on the backside of the femoral, tibial, and patellar components. Cement was then applied to the tibial surface and pressurized into the surface using finger pressurization technique. The tibial component was then applied and excess cement was removed after it was impacted securely noted to be flush with the cut surface. In similar fashion, the cement was applied to the cut femoral surface, pressurized and using finger pressurization the component was impacted in place. Excess cement was removed. The polyethylene spacer was then implanted and locked into position. Patellar component was then applied in a similar technique and the patellar clamp was used to hold patella in place while the cement hardened. The knee was held in full extension while the cement hardened. Once the cement had fully hardened, the knee was reinspected. Any other cement extrusion was removed the final range of motion testing showed range of motion from 0-130 with excellent stability, both medial and laterally and appropriate alignment of the leg. Patella tracked normally. After the cemented hardened, the tourniquet was released and hemostasis was obtained. A second gram of transexamic acid was given intravenously. The knee was again irrigated. The knee was again taken through range of motion and found to be stable throughout all range of motion of 0-130, and the patella tracked normally. The fascia was then closed with 0 Vicryl followed by #2 strata fix suture. The subcutaneous tissue was closed with 3-0 Vicryl and 3-0 strata fix. Exofin glue was used for the skin and placed with the knee in flexion. After the glue had dried, and Optafoam silver impregnated dressing was applied. A lightly compressive dressing was applied using web roll and Nelson wrap. Patient was then transferred to the stretcher and taken to recovery room in stable condition. Sponge and needle counts were correct. The loan assistant ALISON Turner was required due the complexity surgery and the need for a skilled surgical clinical reviewer. She assisted in positioning, draping, retraction, and closure of the wound.
[2024-01-02] MEDS: ROPIVACAINE 1,100 MG, SODIUM CHLORIDE 0.9% 500 ML 330 ML, EMPTY PAIN BALL 1 EACH MISCELLANE PRN (13:14)
[2024-01-02] MEDS ORDERED: NA PHOS,M-B/NA PHOS,DI-BA 133 ML ENEMA RECTAL PRN (13:16)
[2024-01-02] MEDS ORDERED: MAGNESIUM HYDROXIDE 2,400 MG/30 ML CUP PO PRN (13:16)
[2024-01-02] MEDS ORDERED: bisacodyL 10 MG SUPP RECTAL PRN (13:16)
[2024-01-02] MEDS ORDERED: ONDANSETRON 4 MG/2 ML VIAL IVP PRN (13:16)
[2024-01-02] MEDS ORDERED: NALOXONE 0.4 MG/ML 1 ML VIAL IV PRN (13:16)
[2024-01-02] MEDS ORDERED: HYDROmorphone 0.5 MG/0.5 ML SYRINGE IVP PRN ×2 (13:16)
--- NOTE | 2024-01-02 13:34 | XR ---
EXAMINATION TYPE: XR knee limited RT DATE OF EXAM: 01/02/2024 COMPARISON: NONE TECHNIQUE: Two views submitted HISTORY: Post op FINDINGS: There is a prosthetic knee in near anatomic alignment. There is soft tissue edema and soft tissue e mphysema. IMPRESSION: 1. Postoperative change. Appears in near-anatomic alignment
--- NOTE | 2024-01-02 18:02 | P.CONS ---
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 He is currently admitted under orthopedic surgery team status post elective right total knee arthroplasty secondary to severe osteoarthritis. Surgical procedure was completed by Dr. Pennington. We have been consulted for medical management throughout hospitalization. Patient was seen and fully evaluated at bedside upon arrival to room 460. Family was visiting at bedside. Patient currently reports mild postoperative pain but otherwise denies any complaints including headache, lightheadedness, dizziness, chest pain, palpitations, shortness of breath, or experiencing any focal numbness in his extremities. Patient denies having any postoperative nausea or vomiting and is tolerating oral intake. Patient reports he has not yet urinated in postoperative period. Review of systems: Pertinent positives and negatives as discussed in HPI, a complete review of systems was performed and all other systems are negative. Physical exam: Vital signs reviewed and stable. General: Nontoxic, no distress and appears stated age. Derm: Skin warm and dry, normal coloration for ethnicity. Head: Atraumatic, normocephalic and symmetric. Eyes: EOMs intact, no lid lag, and anicteric sclera Mouth: no lip lesions, mucus membranes moist Cardiovascular: regular rate and rhythm with normal S1S2, systolic murmur, positive posterior tibial pulses bilaterally, and cap refill < 2 seconds. Lungs: Respirations even, regular, and unlabored on room air. Lungs CTA bilaterally, no rhonchi, no rales, no wheezing, and no accessory muscle usage. Abdominal: soft, nontender to palpation, no guarding, no appreciable organomegaly Ext: No gross muscle atrophy, no edema, no contractures. Movement and sensation intact. Patient with postoperative dressing/Nelson wrap right knee. Neuro: Speech clear, face symmetrical and CN II-XII grossly intact with no noted focal neuro deficits Psych: Alert and oriented to person, place, time, and situation. Appropriate and pleasant affect. Assessment and Plan of Care: Status post right total knee arthroplasty Severe osteoarthritis Management per primary admitting orthopedic surgery team including DVT prophylaxis, pain management, wound/dressing management, weightbearing, and P T/OT. We will follow-up on postoperative labs including CBC, CMP, and magnesium and place additional orders as indicated based upon these findings. History of CAD status post CABG x 3 and stent placement Hypertension Hyperlipidemia Mitral valve prolapse -Continue daily medication regimen with atorvastatin 40 mg nightly, hydrochlorothiazide 25 mg daily, lisinopril 5 mg nightly, Zestril 10 mg daily, metoprolol 25 mg twice daily, and primidone 50 mg nightly. 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 Data reviewed: Vital signs reviewed and stable. Blood pressure 152/72, heart rate 60, respiratory rate 16, temp 97 F, and SpO2 of 97% on room air. Thank you for allowing us to participate in the care of this pleasant patient. Do not hesitate to contact us with questions. Someone can be reached from the [facility] hospitalist group all hours of the day at [phone] or via [employer]. Patient was seen independently by Nurse Practitioner. This document was prepared using [employer] dictation software. Please allow for errors in paving contractor while rare they do occur. I reviewed the documentation as provided by the RACHEAL above, who is the original author of this note. 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 hernia Last Myocardial Infarction Date:: 2011 History of Any Multi-Drug Resistant Organisms: None Reported Past Surgical History: Bowel Resection, Cholecystectomy, Coronary Bypass/CABG, Heart Catheterization, Heart Catheterization With Stent, Hernia Repair, Orthopedic Surgery Additional Past Surgical History / Comment(s): several hernia repairs- inguinal and abdominal one with mesh,colonoscopy, eyelid surgery, 1999-ruptered intestin- colostomy with eventual reversal, hemorrohoidectomy, 1970-Lt. knee arthroscopy surgery, maggie. cataract, 3 vessel CABG 2016 Past Anesthesia/Blood Transfusion Reactions: No Reported Reaction Additional Past Anesthesia/Blood Transfusion Reaction / Comm: "heart stopped during a cardiac catheterization in 2020 and they had to use the paddles". no problems w/ any other surgeries/procedures Date of Last Stent Placement:: 2014 Smoking Status: Never smoker - Past Family History Brother(s) Family Medical History: Myocardial Infarction ([place]) Father Family Medical History: Coronary Artery Disease (CAD) Additional Family Medical History / Comment(s): Father had CABG's x3 Mother Family Medical History: Cancer Additional Family Medical History / Comment(s): Mother of cancer Medications and Allergies Home Medications Medication Instructions Recorded Confirmed Type lisinopriL [Zestril] 5 mg PO HS 06/04/17 12/26/23 History Nitroglycerin Sl Tabs [Nitrostat] 0.4 mg SUBLINGUAL Q5M PRN 07/12/18 12/26/23 History hydroCHLOROthiazide [Hydrodiuril] 25 mg PO QAM 07/12/18 12/26/23 History Primidone [Mysoline] 50 mg PO HS 08/23/21 12/26/23 History Metoprolol Tartrate 50 mg PO HS 09/14/21 12/26/23 History Metoprolol Tartrate [Lopressor] 75 mg PO QAM 09/14/21 12/26/23 History lisinopriL [Zestril] 10 mg PO QAM 09/14/21 12/26/23 History Aspirin EC [Ecotrin Low Dose] 81 mg PO DAILY 08/13/23 12/26/23 History Atorvastatin [Lipitor] 40 mg PO HS #60 tab 08/14/23 12/26/23 Rx Aspirin 325 mg PO BID #60 tab 01/02/24 Rx HYDROcodone/APAP 7.5-325MG [[place] 1 - 2 tab PO Q6H PRN #32 tab 01/02/24 Rx 7.5-325] Sennosides [Senokot] 2 tab PO DAILY PRN #60 tablet 01/02/24 Rx Allergies Allergy/AdvReac Type Severity Reaction Status Date / Time heparin Allergy Rash/Hives Verified 01/02/24 09:45 ketorolac tromethamine Allergy Twitching, Verified 01/02/24 09:45 [From Toradol] chest pain, elevated blood pressure Penicillins Allergy Anaphylaxis, Verified 01/02/24 09:45 swelling prednisone AdvReac Muscle Verified 01/02/24 09:45 Spasms Physical Exam Vitals: Vital Signs Temp Pulse Pulse Resp BP Pulse Ox 01/02/24 14:37 61 16 97 01/02/24 14:22 60 16 152/72 97 01/02/24 14:07 71 16 139/76 96 01/02/24 13:51 71 16 141/72 98 01/02/24 13:36 70 16 147/74 96 01/02/24 13:21 62 16 136/72 100 01/02/24 13:05 70 16 131/64 100 01/02/24 12:50 97 F L 61 14 134/69 100 01/02/24 11:00 63 16 148/78 100 01/02/24 09:49 97.1 F L 67 16 170/89 97 Intake and Output 01/02/24 01/02/24 01/02/24 06:59 14:59 22:59 Intake Total 1751 Output Total 30 Balance 1721 Intake: IV 1751 Output: Estimated Blood Loss 30 Other: Weight 74.2 kg Results CBC & Chem 7: 01/03/24 05:43 01/03/24 05:43
[2024-01-02] MEDS: METOPROLOL TARTRATE 50 MG TAB PO SCH (19:39)
[2024-01-02] MEDS: ATORVASTATIN 40 MG TAB PO SCH (19:39)
[2024-01-02] MEDS: lisinopriL 5 MG TAB PO SCH (19:39)
[2024-01-02] MEDS: PRIMIDONE 50 MG TAB PO SCH (19:39)
[2024-01-02] MEDS: SODIUM CHLORIDE 0.9% 1,000 ML IV SCH (19:41)
[2024-01-02] MEDS: HYDROcodone/APAP 7.5-325MG 1 EACH TAB PO PRN (21:40)
[2024-01-02] MEDS: ASPIRIN 325 MG TAB PO SCH (21:40)
[2024-01-02] MEDS: SENNOSIDES-DOCUSATE SODIUM 1 EACH TAB PO SCH (21:42)
[2024-01-03] MEDS: HYDROmorphone 0.5 MG/0.5 ML SYRINGE IVP PRN (01:00)
[2024-01-03] MEDS: METOPROLOL TARTRATE 25 MG TAB PO SCH (06:34)
[2024-01-03] MEDS: lisinopriL 10 MG TAB PO SCH (06:37)
[2024-01-03] MEDS: hydroCHLOROthiazide 25 MG TAB PO SCH (06:37)
[2024-01-03] MEDS: HYDROcodone/APAP 7.5-325MG 1 EACH TAB PO PRN (08:04)
[2024-01-03 08:48] LABS: Basophils # (A) 0.01 X 10*3/uL (0.00-0.10); Basophils % (A) 0.1 %; Eosinophils # (A) 0.01 X 10*3/uL (0.04-0.35); Eosinophils % (A) 0.1 %; HCT 35.3 % (39.6-50.0); HGB 12.8 g/dL (13.0-17.0); Lymphocytes % (A) 4.1 %; MCH 32.2 pg (27.0-32.0); MCHC 36.3 g/dL (32.0-37.0); MCV 88.7 FL (80.0-97.0); Mean Platelet Volume 8.9 FL (9.5-12.2); Monocytes # (A) 1.02 X 10*3/uL (0.20-1.00); Monocytes % (A) 6.9 %; NRBC Per 100 WBC 0 X 10*3/uL (0.00-0.01); Neutrophils # (A) 13.03 X 10*3/uL (1.80-7.70); Neutrophils % (A) 88.2 %; Platelet Count 115 X 10*3/uL (140-440); RBC 3.98 X 10*6/uL (4.40-5.60); RDW 12.8 % (11.5-14.5); WBC 14.76 X 10*3/uL (4.50-10.00)
[2024-01-03 09:13] LABS: ALT 22 U/L (10-49); AST 18 U/L (14-35); Albumin 3.4 g/dL (3.8-4.9); Alkaline Phosphatase 57 U/L (41-126); Blood Urea Nitrogen 22.4 mg/dL (9.0-27.0); Calcium 8.2 mg/dL (8.7-10.3); Carbon Dioxide 24.9 mmol/L (21.6-31.8); Chloride 100 mmol/L (96-109); Glucose 252 mg/dL (70-110); Potassium 3.9 mmol/L (3.5-5.5); Sodium 134 mmol/L (135-145); Total Bilirubin 0.4 mg/dL (0.3-1.2); Total Protein 5.4 g/dL (6.2-8.2)
[2024-01-03 10:22] VITALS: BP 162/80; PULSE 79; RESP 18; TEMP 97.5
--- NOTE | 2024-01-03 11:51 | P.DS ---
Providers Date of admission: 01/03/24 09:47 Expected date of discharge: 01/03/24 Attending physician: Isma Pennington Consults: 01/02/24 13:16 Consult Physician Routine Consulting Provider: Maddie Resendiz Consult Reason/Comments: medical management Do you want consulting provider notified?: Yes Primary care physician: Mikhail Mills - Discharge Diagnosis(es) (1) S/P total knee arthroplasty Current Visit: Yes Status: Acute (2) Osteoarthritis of right knee Current Visit: Yes Status: Acute Hospital Course: This is a 78-year-old male with known history of degenerative arthritis of the right knee. The patient presents for evaluation. After discussion and consideration patient elects to proceed with total knee arthroplasty. The patient is seen preoperatively by Dr. Pennington and cleared for surgery. Patient is admitted to [facility] on 01/02/2024 for total knee arthroplasty. The procedures performed without complication or sequelae. The patient is doing well postoperatively. Labs and vital signs are stable on day of discharge. On day of discharge patient's knee incision is healing well. There is minimal erythema. There is no drainage noted at this time. There is minimal soft tissue swelling to the hip and thigh. Patient has full foot and ankle motion without difficulty or pain. Neurovascular status to the right lower extremity is intact. Patient is discharged home in good condition. Patient states that her prefers to do physical therapy on his own. Please see med rec for accurate list of home medications. Plan - Discharge Summary Discharge Rx Participant: Yes New Discharge Prescriptions: New HYDROcodone/APAP 7.5-325MG [[place] 7.5-325] 1 - 2 tab PO Q6H PRN #32 tab PRN Reason: Pain Aspirin 325 mg PO BID #60 tab Sennosides [Senokot] 2 tab PO DAILY PRN #60 tablet PRN Reason: Constipation No Action lisinopriL [Zestril] 5 mg PO HS hydroCHLOROthiazide [Hydrodiuril] 25 mg PO QAM Nitroglycerin Sl Tabs [Nitrostat] 0.4 mg SUBLINGUAL Q5M PRN PRN Reason: Chest Pain lisinopriL [Zestril] 10 mg PO QAM Aspirin EC [Ecotrin Low Dose] 81 mg PO DAILY Atorvastatin [Lipitor] 40 mg PO HS #60 tab Primidone [Mysoline] 50 mg PO HS Metoprolol Tartrate [Lopressor] 75 mg PO QAM Metoprolol Tartrate 50 mg PO HS Discharge Medication List lisinopriL [Zestril] 5 mg PO HS 06/04/17 [History] Nitroglycerin Sl Tabs [Nitrostat] 0.4 mg SUBLINGUAL Q5M PRN 07/12/18 [History] hydroCHLOROthiazide [Hydrodiuril] 25 mg PO QAM 07/12/18 [History] Primidone [Mysoline] 50 mg PO HS 08/23/21 [History] Metoprolol Tartrate 50 mg PO HS 09/14/21 [History] Metoprolol Tartrate [Lopressor] 75 mg PO QAM 09/14/21 [History] lisinopriL [Zestril] 10 mg PO QAM 09/14/21 [History] Aspirin EC [Ecotrin Low Dose] 81 mg PO DAILY 08/13/23 [History] Atorvastatin [Lipitor] 40 mg PO HS #60 tab 08/14/23 [Rx] Aspirin 325 mg PO BID #60 tab 01/02/24 [Rx] HYDROcodone/APAP 7.5-325MG [[place] 7.5-325] 1 - 2 tab PO Q6H PRN #32 tab 01/02/24 [Rx] Sennosides [Senokot] 2 tab PO DAILY PRN #60 tablet 01/02/24 [Rx] Follow up Appointment(s)/Referral(s): Mikhail Mills DO [Primary Care Provider] - 1 Week (Please call office for your appointment) Isma Pennington DO [Doctor of Osteopathic Medicine] - 01/17/24 11:00 am Activity/Diet/Wound Care/Special Instructions: Weightbearing as tolerated with a walker. CPM 5-6h daily as tolerated. Leave dressing intact. Dressing may be removed in 7 days. Then change dressing twice daily until follow up. May shower with initial dressing intact and after removal. If dressing become saturated, please remove. Recommend use of compression stockings daily until follow up to help prevent swelling and blood clots. May remove at night before sleeping. Please take aspirin 325mg twice daily for 30 days to prevent blood clots. Please follow up with [facility] and call with any questions or concerns, . Discharge Disposition: HOME SELF-CARE
--- NOTE | 2024-01-03 12:24 | P.PN ---
Progress Note - Text 01/03/24 718am 78-year-old male status post total knee replacement. Patient has an On-Q pump for postop pain control with a solution of 8 cc an hour with a VAS of 4. Dressing clean dry and intact. Plan to continue On-Q pump infusion
--- NOTE | 2024-01-03 13:42 | P.PN ---
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 He is currently admitted under orthopedic surgery team status post elective right total knee arthroplasty secondary to severe osteoarthritis. Surgical procedure was completed by Dr. Pennington. We have been consulted for medical management throughout hospitalization. Physical exam: Patient seen and fully evaluated at the bedside. He is postoperative day 1 and appears to be doing well. He reports controlled postoperative pain and states that he did well with physical therapy this morning. Patient denies having any headache, lightheadedness, dizziness, chest pain, palpitations, shortness of breath, nausea, vomiting, or experiencing any numbness or tingling. Patient tolerating oral intake and reports urinating without any difficulties. Vital signs reviewed and stable. General: Nontoxic, no distress and appears stated age. Derm: Skin warm and dry, normal coloration for ethnicity. Head: Atraumatic, normocephalic and symmetric. Eyes: EOMs intact, no lid lag, and anicteric sclera Mouth: no lip lesions, mucus membranes moist Cardiovascular: regular rate and rhythm with normal S1S2, systolic murmur, positive posterior tibial pulses bilaterally, and cap refill < 2 seconds. Lungs: Respirations even, regular, and unlabored on room air. Lungs CTA bilaterally, no rhonchi, no rales, no wheezing, and no accessory muscle usage. Abdominal: soft, nontender to palpation, no guarding, no appreciable organomegaly Ext: No gross muscle atrophy, no edema, no contractures. Movement and sensation intact. Patient with postoperative dressing/Nelson wrap right knee. Neuro: Speech clear, face symmetrical and CN II-XII grossly intact with no noted focal neuro deficits Psych: Alert and oriented to person, place, time, and situation. Appropriate and pleasant affect. Assessment and Plan of Care: Acute postoperative blood loss anemia, stable and expected finding Leukocytosis, reactive Status post right total knee arthroplasty Severe osteoarthritis Mild leukocytosis with WBC count of 14.76, this is reactive secondary to surgery and is an expected finding as there are no signs of infection. Acute postoperative blood loss anemia with hemoglobin stable at 12.8 and preo perative hemoglobin of 16.9. No need for transfusion or any further interventions at this time. Management per primary admitting orthopedic surgery team including DVT prophylaxis, pain management, wound/dressing management, weightbearing, and PT/OT. History of CAD status post CABG x 3 and stent placement Hypertension Hyperlipidemia Mitral valve prolapse -Continue daily medication regimen with atorvastatin 40 mg nightly, hydrochlorothiazide 25 mg daily, lisinopril 5 mg nightly, Zestril 10 mg daily, metoprolol 25 mg twice daily, and primidone 50 mg nightly. 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 Data reviewed: Vital signs reviewed. Blood pressure 162/80, heart rate 79, respiratory rate 18, temp 97.5 F, SpO2 of 97% on room air. Postoperative labs reviewed. CBC showing mild leukocytosis with WBC count of 14.76, this is reactive secondary to surgery and is an expected finding as there are no signs of infection as well as acute postoperative blood loss anemia with hemoglobin stable at 12.8 and preoperative hemoglobin of 16.9. BMP revealed mild hyponatremia with sodium of 134 otherwise normal findings. Magnesium normal findings at 2.0. Liver profile unremarkable. Patient is medically optimized and cleared for discharge once cleared by primary admitting orthopedic surgery team. Thank you for allowing us to participate in the care of this pleasant patient. Do not hesitate to contact us with questions. Someone can be reached from the [facility] hospitalist group all hours of the day at [phone] or via perfect serve. Patient was seen independently by Nurse Practitioner. This document was prepared using [employer] dictation software. Please allow for errors in housing installer while rare they do occur. I reviewed the documentation as provided by the RACHEAL above, who is the original author of this note. I agree with the documented assessment and plan, with the following changes: none Objective - Vital Signs Vital signs: Vital Signs Temp 98.0 F 01/02/24 20:05 Pulse 85 01/03/24 01:33 Resp 17 01/02/24 20:05 BP 122/68 01/03/24 01:33 Pulse Ox 93 L 01/03/24 01:33 FiO2 Intake & Output 01/02/24 01/03/24 01/03/24 18:59 06:59 18:59 Intake Total 1751 Output Total 330 1450 Balance 1421 -1450 Weight 74.2 kg Intake: IV 1751 Output: Urine 300 1450 Estimated Blood Loss 30 Other: # Bowel Movements 1 - Labs CBC & Chem 7: 01/03/24 05:43 01/03/24 05:43
== END 2024-01-03 12:42 | disposition home or self-care (01) ==
LOC: OR 08:39 → 4SSUR 12:46 → OR 01-03 09:47 → 4SSUR 01-03 09:47
PROVIDERS: ADMIT Orthopaedic Surgery; ATTEND Orthopaedic Surgery
DX: M17.11 Unilateral primary osteoarthritis, right knee (principal); I25.10 Atherosclerotic heart disease of native coronary artery without angina pectoris; I10 Essential (primary) hypertension; E78.5 Hyperlipidemia, unspecified; I34.1 Nonrheumatic mitral (valve) prolapse; R41.3 Other amnesia; I25.2 Old myocardial infarction; D62 Acute posthemorrhagic anemia; D72.829 Elevated white blood cell count, unspecified; Z95.1 Presence of aortocoronary bypass graft; Z87.820 Personal history of traumatic brain injury; Z79.82 Long term (current) use of aspirin; Z79.899 Other long term (current) drug therapy; Z95.5 Presence of coronary angioplasty implant and graft; Z93.3 Colostomy status; Z82.49 Family history of ischemic heart disease and other diseases of the circulatory system
CPT/HCPCS: 27447; 96365; 96367; 97161; 64999; 64448; 80053; 83735; 85025; 73560; G0378; C1713; C1776; C1751; J2250; J1100; J0690 ×3; J2405; J2795; J2704; J1170

== ENCOUNTER 2024-09-05 09:19 | Observation (INO) | payer MEDICARE ==
[2024-09-05] MEDS ORDERED: RX INFO: IV CONTRAST WAS GIVEN 1 EACH MISC MISCELLANE PRN (10:16)
--- NOTE | 2024-09-05 10:20 | ED ---
ENT HPI - General Chief complaint: ENT Stated complaint: throat swelling Time Seen by Provider: 09/05/24 09:32 Source: patient, RN notes reviewed Mode of arrival: ambulatory Limitations: no limitations - History of Present Illness Initial comments: This is a 78-year-old male with a history of hypertension and CAD presenting the emergency department with with referral from primary care provider's office for complaint of throat pain and swelling. Patient states over the past 3 days he has been experiencing a sore throat, difficulty swallowing, and pain in his neck. Patient was advised by primary care provider to report emergency department for further evaluation and likely IV antibiotics. Patient notes that yesterday evening he had a fever that was resolved with Tylenol. has been experiencing a headache intermittently as well patient denies cough, rhinorrhea, congestion. He denies chest pain, heart palpitations. - Related Data Home Medications Medication Instructions Recorded Confirmed lisinopriL [Zestril] 5 mg PO HS 06/04/17 09/05/24 hydroCHLOROthiazide [Hydrodiuril] 25 mg PO DAILY 07/12/18 09/05/24 Primidone [Mysoline] 50 mg PO HS 08/23/21 09/05/24 Metoprolol Tartrate 50 mg PO HS 09/14/21 09/05/24 Metoprolol Tartrate [Lopressor] 75 mg PO DAILY 09/14/21 09/05/24 lisinopriL [Zestril] 10 mg PO DAILY 09/14/21 09/05/24 Aspirin EC [Ecotrin Low Dose] 81 mg PO DAILY 08/13/23 09/05/24 Co-Q-10 (Unknown Dose) 1 tab PO DAILY 09/05/24 09/05/24 Ezetimibe [Zetia] 10 mg PO DAILY 09/05/24 09/05/24 Multivitamins, Thera [Multivitamin 1 tab PO DAILY 09/05/24 09/05/24 (formulary)] Ramelteon [Rozerem] 8 mg PO HS PRN 09/05/24 09/05/24 Allergies Allergy/AdvReac Type Severity Reaction Status Date / Time heparin Allergy Rash/Hives Verified 09/05/24 13:44 ketorolac tromethamine Allergy Twitching, Verified 09/05/24 13:44 [From Toradol] chest pain, elevated blood pressure Penicillins Allergy Anaphylaxis, Verified 09/05/24 13:44 swelling prednisone AdvReac Muscle Verified 09/05/24 13:44 Spasms Review of Systems ROS Statement: Those systems with pertinent positive or pertinent negative responses have been documented in the HPI. ROS Other: All systems not noted in ROS Statement are negative. 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, shingles involving the right side of face in 2009, diverticulosis, difficulty swallowing Last Myocardial Infarction Date:: 2011 History of Any Multi-Drug Resistant Organisms: None Reported Past Surgical History: Bowel Resection, Cholecystectomy, Coronary Bypass/CABG, Heart Catheterization, Heart Catheterization With Stent, Hernia Repair, Orthopedic Surgery Additional Past Surgical History / Comment(s): several hernia repairs- inguinal and abdominal one with mesh, eye surgery-CATARACTS , colonoscopy, eyelid surgery, 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 cataract, 3 vessel CABG Past Anesthesia/Blood Transfusion Reactions: No Reported Reaction Additional Past Anesthesia/Blood Transfusion Reaction / Comment(s): Pt has never received blood. Date of Last Stent Placement:: 2014 Past Psychological History: No Psychological Hx Reported, Anxiety Smoking Status: Never smoker Past Alcohol Use History: None Reported Past Drug Use History: None Reported - Past Family History Brother(s) Family Medical History: Myocardial Infarction (HI) Father Family Medical History: Coronary Artery Disease (CAD) Additional Family Medical History / Comment(s): Father had CABG's x3 Mother Family Medical History: Cancer Additional Family Medical History / Comment(s): Mother of cancer General Exam Limitations: no limitations General appearance: alert, in no apparent distress Expanded Mouth exam: Present: tongue elevation (right sided) Throat exam: other Neck exam: Present: tenderness Expanded Neck exam: Present: tenderness, anterior neck swelling Respiratory exam: Present: normal lung sounds bilaterally. Absent: respiratory distress, wheezes, rales, rhonchi, stridor Cardiovascular Exam: Present: regular rate, normal rhythm, normal heart sounds. Absent: systolic murmur, diastolic murmur, rubs, gallop, clicks GI/Abdominal exam: Present: soft, normal bowel sounds. Absent: distended, tenderness, guarding, rebound, rigid Extremities exam: Present: normal inspection, full ROM, normal capillary refill. Absent: tenderness, pedal edema, joint swelling, calf tenderness Neurological exam: Present: alert, oriented X3, CN II-XII intact Course Vital Signs 09/05/24 09/05/24 09/05/24 09:22 10:05 11:32 Temperature 97.6 F 98.4 F Pulse Rate 60 55 L Respiratory 18 18 68 H Rate Blood Pressure 153/85 176/62 O2 Sat by Pulse 98 97 97 Oximetry 09/05/24 09/05/24 12:04 15:01 Temperature 97.5 F L Pulse Rate 65 83 Respiratory 18 18 Rate Blood Pressure 176/86 181/75 O2 Sat by Pulse 97 94 L Oximetry Medical Decision Making - Medical Decision Making Was pt. sent in by a medical professional or institution (, PA, AGRICULTURAL EXTENSION EDUCATOR, urgent care, hospital, or fci...) When possible be specific @ -Patient was recommended to report to the emergency department for further evaluation by primary care provider's office. Did you speak to anyone other than the patient for history (EMS, parent, family, police, friend...)? What history was obtained from this source @ -No Did you review nursing and triage notes (agree or disagree)? Why? @ -I reviewed and agree with nursing and triage notes Were old charts reviewed (outside hosp., previous admission, EMS record, old EKG, old radiological studies, urgent care reports/EKG's, fci records)? Report findings @ -No old charts were reviewed Differential Diagnosis (chest pain, altered mental status, abdominal pain women, abdominal pain men, vaginal bleeding, weakness, fever, dyspnea, syncope, headache, dizziness, GI bleed, back pain, seizure, CVA, palpatations, mental health, musculoskeletal)? @ -Strep throat, COVID, tonsillitis, Samir's angina, oral neoplasm, this list not all inclusive EKG interpreted by me (3pts min.). @ -None X-rays interpreted by me (1pt min.). @ -None done CT interpreted by me (1pt min.). @ -CT soft tissue of neck reveals findings suspicious for right tongue base mass with adenopathy, neoplasm not excluded CT of the brain with contrast reveals no significant abnormality with no acute bleed or mass affect U/S interpreted by me (1pt. min.). @ -None done What testing was considered but not performed or refused? (CT, X-rays, U/S, labs)? Why? @ -None What meds were considered but not given or refused? Why? @ -None Did you discuss the management of the patient with other professionals (professionals i.e. Dr., PA, AGRICULTURAL EXTENSION EDUCATOR, lab, RT, psych nurse, social services manager, dance teacher, teacher, gunnery/ordnance officer, casework manager)? Give summary @ -I spoke with sound internal medicine physician, Dr. Pina, guarded the patient's presentation and CT scan findings with concern for infection. Patient is accepted for admission and initiate on IV biotics. Spoke with on-call ENT specialist, Dr. Levy, who has expressed that saida ent's symptoms are likely secondary to neoplasm and states that recommends patient follow-up outpatient for further evaluation. It is reported that physician believes that symptoms are likely secondary to neoplasm rather than infection, results relayed to physician, and again has expressed that he will follow-up with the patient outpatient rather than in the inpatient setting after discharge. Was smoking cessation discussed for >3mins.? @ -No Was critical care preformed (if so, how long)? @ -No Were there social determinants of health that impacted care today? How? (Homelessness, low income, unemployed, alcoholism, drug addiction, transportation, low edu. Level, literacy, decrease access to med. care, group home, rehab)? @ -No Was there de-escalation of care discussed even if they declined (Discuss DNR or withdrawal of care, Hospice)? DNR status @ -No What co-morbidities impacted this encounter? (DM, HTN, Smoking, COPD, CAD, Cancer, CVA, ARF, Chemo, Hep., AIDS, mental health diagnosis, sleep apnea, morbid obesity)? @ -None Was patient admitted / discharged? Hospital course, mention meds given and route, prescriptions, significant lab abnormalities, going to OR and other pertinent info. @ -Admitted. 78-year-old male with odynophagia and for mild swelling. On evaluation patient noted to have tenderness palpation of the anterior neck with noted swelling. Patient has floor mouth swelling. Vitals are stable. There is no signs of respiratory distress. Not stridorous. Patient provided with pain medication. CBC reveals elevated neutrophils of 8.2, CMP remarkable for CRP of 8.1, negative for COVID, flu RSV, strep. He is outside of the neck reveals findings suspicious for right tongue base mass with adenopathy. Discussion with ENT specialist on-call states that he would recommend the patient follow-up outpatient with him rather than visiting in the inpatient setting as discussion has minimal clinical concern for emergent pathology and believes that patient will benefit from outpatient evaluation. Patient is started on IV antibiotics and will follow with internal medicine for further evaluation with concern for possible infection. Discussed with Dr. Pradhan Undiagnosed new problem with uncertain prognosis? @ -No Drug Therapy requiring intensive monitoring for toxicity (Heparin, Nitro, Insulin, Cardizem)? @ -No Were any procedures done? @ -No Diagnosis/symptom? @ -Oral mass, throat swelling, tongue swelling Acute, or Chronic, or Acute on Chronic? @ -Acute Uncomplicated (without systemic symptoms) or Complicated (systemic symptoms)? @ -Complicated Side effects of treatment? @ -No Exacerbation, Progression, or Severe Exacerbation? @ -No Poses a threat to life or bodily function? How? (Chest pain, USA, HI, pneumonia, PE, COPD, DKA, ARF, appy, cholecystitis, CVA, Diverticulitis, Homicidal, Suicidal, threat to staff... and all critical care pts) @ -No - Lab Data Result diagrams: 09/05/24 10:34 09/05/24 10:34 Lab Results 09/05/24 09/05/24 09/05/24 Range/Units 10:34 10:34 10:34 WBC 9.9 (3.8-10.6) k/uL RBC 5.12 (4.30-5.90) m/uL Hgb 16.5 (13.0-17.5) gm/dL Hct 48.1 (39.0-53.0) % MCV 93.9 (80.0-100.0) fL MCH 32.2 (25.0-35.0) pg MCHC 34.3 (31.0-37.0) g/dL RDW 13.1 (11.5-15.5) % Plt Count 102 L (150-450) k/uL MPV 7.1 Neutrophils % 82 % Lymphocytes % 5 % Monocytes % 10 % Eosinophils % 0 % Basophils % 0 % Neutrophils # 8.2 H (1.3-7.7) k/uL Lymphocytes # 0.5 L (1.0-4.8) k/uL Monocytes # 1.0 (0-1.0) k/uL Eosinophils # 0.0 (0-0.7) k/uL Basophils # 0.0 (0-0.2) k/uL Sodium 138 (137-145) mmol/L Potassium 4.2 (3.5-5.1) mmol/L Chloride 103 (98-107) mmol/L Carbon Dioxide 30 (22-30) mmol/L Anion Gap 5 mmol/L BUN 13 (9-20) mg/dL Creatinine 0.77 (0.66-1.25) mg/dL Est GFR (CKD-EPI)AfAm >90 (>60 ml/min/1.73 sqM) Est GFR (CKD-EPI)NonAf 88 (>60 ml/min/1.73 sqM) Glucose 106 H (74-99) mg/dL Plasma Lactic Acid Primo 1.0 (0.7-2.0) mmol/L Calcium 9.2 (8.4-10.2) mg/dL Total Bilirubin 1.8 H (0.2-1.3) mg/dL AST 31 (17-59) U/L ALT 20 (4-49) U/L Alkaline Phosphatase 62 (38-126) U/L C-Reactive Protein 8.1 H (<1.0) mg/dL Total Protein 7.5 (6.3-8.2) g/dL Albumin 4.2 (3.5-5.0) g/dL Influenza Type A (PCR) (Not Detectd) Influenza Type B (PCR) (Not Detectd) RSV (PCR) (Not Detectd) SARS-CoV-2 (PCR) (Not Detectd) Group A Strep (PCR) (Not Detectd) 09/05/24 09/05/24 Range/Units 10:34 10:34 WBC (3.8-10.6) k/uL RBC (4.30-5.90) m/uL Hgb (13.0-17.5) gm/dL Hct (39.0-53.0) % MCV (80.0-100.0) fL MCH (25.0-35.0) pg MCHC (31.0-37.0) g/dL RDW (11.5-15.5) % Plt Count (150-450) k/uL MPV Neutrophils % % Lymphocytes % % Monocytes % % Eosinophils % % Basophils % % Neutrophils # (1.3-7.7) k/uL Lymphocytes # (1.0-4.8) k/uL Monocytes # (0-1.0) k/uL Eosinophils # (0-0.7) k/uL Basophils # (0-0.2) k/uL Sodium (137-145) mmol/L Potassium (3.5-5.1) mmol/L Chloride (98-107) mmol/L Carbon Dioxide (22-30) mmol/L Anion Gap mmol/L BUN (9-20) mg/dL Creatinine (0.66-1.25) mg/dL Est GFR (CKD-EPI)AfAm (>60 ml/min/1.73 sqM) Est GFR (CKD-EPI)NonAf (>60 ml/min/1.73 sqM) Glucose (74-99) mg/dL Plasma Lactic Acid Primo (0.7-2.0) mmol/L Calcium (8.4-10.2) mg/dL Total Bilirubin (0.2-1.3) mg/dL AST (17-59) U/L ALT (4-49) U/L Alkaline Phosphatase (38-126) U/L C-Reactive Protein (<1.0) mg/dL Total Protein (6.3-8.2) g/dL Albumin (3.5-5.0) g/dL Influenza Type A (PCR) Not Detected (Not Detectd) Influenza Type B (PCR) Not Detected (Not Detectd) RSV (PCR) Not Detected (Not Detectd) SARS-CoV-2 (PCR) Not Detected (Not Detectd) Group A Strep (PCR) NOT DETECTED (Not Detectd) Disposition Clinical Impression: Odynophagia, Tongue mass Disposition: ADMITTED IP TO THIS [facility] Condition: Stable Decision to Admit Reason: Admit from EC Decision Date: 09/05/24 Decision Time: 12:22
[2024-09-05] MEDS: HYDROmorphone 0.5 MG/0.5 ML SYRINGE IVP STA (10:33)
[2024-09-05 11:01] LABS: ALT 20 U/L (4-49); AST 31 U/L (17-59); African American GFR (CKD) >90 (>60 ml/min/1.73 sqM); Albumin 4.2 g/dL (3.5-5.0); Alkaline Phosphatase 62 U/L (38-126); Anion Gap 5 mmol/L; Blood Urea Nitrogen 13 mg/dL (9-20); C Reactive Protein 8.1 mg/dL (<1.0); Calcium 9.2 mg/dL (8.4-10.2); Carbon Dioxide 30 mmol/L (22-30); Chloride 103 mmol/L (98-107); Glucose 106 mg/dL (74-99); Non-African American GFR(CKD) 88 (>60 ml/min/1.73 sqM); Sodium 138 mmol/L (137-145); Total Bilirubin 1.8 mg/dL (0.2-1.3); Total Protein 7.5 g/dL (6.3-8.2)
[2024-09-05 11:07] LABS: Potassium 4.2 mmol/L (3.5-5.1)
[2024-09-05 11:09] LABS: Basophils % (A) 0 %; Eosinophils % (A) 0 %; HCT 48.1 % (39.0-53.0); HGB 16.5 gm/dL (13.0-17.5); Lymphocytes # (A) 0.5 k/uL (1.0-4.8); Lymphocytes % (A) 5 %; MCH 32.2 pg (25.0-35.0); MCHC 34.3 g/dL (31.0-37.0); MCV 93.9 fL (80.0-100.0); Mean Platelet Volume 7.1; Monocytes % (A) 10 %; Neutrophils # (A) 8.2 k/uL (1.3-7.7); Neutrophils % (A) 82 %; Platelet Count 102 k/uL (150-450); RBC 5.12 m/uL (4.30-5.90); RDW 13.1 % (11.5-15.5); WBC 9.9 k/uL (3.8-10.6)
--- NOTE | 2024-09-05 11:49 | CT ---
Head CT with contrast. HISTORY: Sore throat and soft tissue swelling in the mouth. COMPARISON: 08/13/2023 TECHNIQUE: Multiple axial images are obtained from the skull base to vertex without IV contrast. Findings: The ventricles, basal cisterns and sulci over the convexities are within normal limits for the patien t's age and there is no mass effect or shift of midline structures. There is mild decreased density in the periventricular white matter consistent with mild chronic isch emic white matter demyelination. There is no acute intra or extra-axial hemorrhage. There is no pathological enhancement throughout the brain parenchyma. The posterior fossa including the brainstem, fourth ventricle and cerebellar pontine angles appear no rmal. Intraorbital contents appear normal and symmetric. Visualized paranasal sinuses and mastoid air cells are well aerated. The calvarium is intact. IMPRESSION: No significant abnormality seen. There is no acute bleed or mass effect. Mild senescent changes as de scribed above. [facility], Workstation: AJ 09/05/2024 11:47 AM
--- NOTE | 2024-09-05 11:57 | CT ---
EXAMINATION TYPE: CT soft tissue neck w con DATE OF EXAM: 09/05/2024 11:38 AM COMPARISON: None CLINICAL INDICATION: Male, 78 years old with history of soft tissue swelling mouth, pain, sore throat ; PHH, Soft tissue swelling, mouth, pain, sore throat TECHNIQUE: CT scan of the neck is performed following with IV Contrast, patient injected with 100 ml mL of Isovu e 370. Axial images are obtained, coronal and sagittal reformatted images are reviewed. CT DLP: 249.[address] CTDI: mGy Automated exposure control for dose reduction was used. FINDINGS: There are no supraclavicular lymph nodes. There is no thyroid mass or gross enlargement. The larynx including the cricoid, arytenoid and thyroid cartilages as well as the vocal cords are nor mal and symmetric. Streak artifact limits the evaluation of the tongue base but there is marked fullness in the right as pect of the tongue base compressing the right piriform sinus and vallecula. There is a 2.7 cm mass im mediately inferior to the right submandibular gland suspicious for an enlarged lymph node. The findin gs suggest possibility of a right tongue base mass and adenopathy and direct inspection or MRI is rec ommended for further evaluation. The parotid and submandibular glands are normal and symmetric without focal mass or gross enlargement . There is no pharyngeal or parapharyngeal soft tissue mass or enhancement The great vessels of the neck are normal. There is no soft tissue swelling, inflammation or abscess. The visualized paranasal sinuses and mastoid air cells are well aerated. IMPRESSION: Findings suspicious for right tongue base mass with adenopathy as described above. Further evaluation is warranted with either direct inspection and/or MRI of the neck. Neoplasm is not excluded. [facility], Workstation: AJ, 09/05/2024 11:55 AM
[2024-09-05] MEDS: MORPHINE SULFATE 4 MG/ML SYRINGE IVP STA (12:04)
[2024-09-05] MEDS ORDERED: IBUPROFEN 400 MG TAB PO PRN (12:22)
[2024-09-05] MEDS ORDERED: HYDROmorphone 0.5 MG/0.5 ML SYRINGE IVP PRN (12:22)
[2024-09-05] MEDS ORDERED: ACETAMINOPHEN TAB 325 MG TAB PO PRN (12:22)
[2024-09-05] MEDS ORDERED: NALOXONE 0.4 MG/ML 1 ML VIAL IV PRN (12:22)
[2024-09-05] MEDS: CLINDAMYCIN 600 MG/50 ML-D5W 600 MG in DEXTROSE/WATER 1 50ML.BAG IVPB ONE (12:55)
[2024-09-05] MEDS: MORPHINE SULFATE 4 MG/ML SYRINGE IV PRN (17:26)
[2024-09-05] MEDS ORDERED: TEMAZEPAM 15 MG CAP PO PRN (18:03)
--- NOTE | 2024-09-05 18:11 | P.HPIM ---
History of Present Illness H&P Date: 09/05/24 78 year old M with PMH CAD with stent, CABG, HTN, essential tremor presents to the ED for neck swelling ongoing for the past 3 days. Associated with fever and odynophagia. Denies nausea or vomiting. No difficulty breathing at this time. In the ED he underwent extensive evaluation. BP 153/85, HR 60, T 97.6F, RR 18, 98% on RA. CBC, CMP significant for Plt 102, glu 106, T. Bili 1.8. Lactic acid 1. CR P 8.1. Flu RSV COVID group A strep negative. CT neck shows 2.7 cm mass inferior to the right submandibular gland suspicious for enlarged lymph node. General: non toxic, no distress, appears at stated age Derm: warm, dry Head: atraumatic, normocephalic, symmetric, R neck swollen, TTP with cervical L AD Eyes: EOMI, no lid lag, anicteric sclera Mouth: no lip lesion, mucus membranes moist Cardiovascular: S1S2 reg, no murmur Lungs: CTA bilateral, no rhonchi, no rales , no accessory muscle use Abdominal: soft, nontender to palpation, no guarding, no appreciable organomegaly Ext: no gross muscle atrophy, no edema, no contractures Neuro: no focal neuro deficits Psych: Alert, oriented, appropriate affect Based on my assessment of this patient, this patient meets a high complexity level of care. Mass right tongue mass concerning for infection: Clindamycin 600 mg IV Q6H + Levaquin 750 mg IV QD. Monitor for airway compromise. ENT consulted. CAD with stent + CABG: ASA 81 mg PO QD. Metoprolol 75 mg PO QD + 50 mg PO QHS. Zetia 10 mg PO QD. HTN: Lisinopril 5 mg PO QHS + 10 mg PO QD. HCTZ 25 mg PO QD. Essential tremor: Primdose 50 mg PO QHS. CODE STATUS: FULL CODE DVT Prophylaxis: Per Surgery GI Prophylaxis: Protonix IV Designated medical POA if patient is not able to make medical decisions for themselves: I have reviewed the following sap pp consultant notes: ED note. I have reviewed the results of the following tests: As above I have ordered the following tests: As above I have discussed the care of this patient with the following independent historian: Family at bedside. I have independently interpreted the following test below: I have discussed the management of this patient with the following physician: Past Medical History Past Medical History: Coronary Artery Disease (CAD), Chest Pain / Angina, GERD/Reflux, Hearing Disorder / Deafness, Hyperlipidemia, Hypertension, Myocardial Infarction ([place]), Mitral Valve Prolapse (MVP), Osteoarthritis (OA) Additional Past Medical History / Comment(s): essential tremors, previous history of subarachnoid hemorrhage-BRAIN back -[employer]OME [employer] MEMORY LOSS, shingles involving the right side of face in 2009, diverticulosis, difficulty swallowing Last Myocardial Infarction Date:: 2011 History of Any Multi-Drug Resistant Organisms: None Reported Past Surgical History: Bowel Resection, Cholecystectomy, Coronary Bypass/CABG, Heart Catheterization, Heart Catheterization With Stent, Hernia Repair, Orthopedic Surgery Additional Past Surgical History / Comment(s): several hernia repairs- inguinal and abdominal one with mesh, eye surgery-CATARACTS , colonoscopy, eyelid alvarado rgery, 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 cataract, 3 vessel CABG Past Anesthesia/Blood Transfusion Reactions: No Reported Reaction Additional Past Anesthesia/Blood Transfusion Reaction / Comment(s): Pt has never received blood. Date of Last Stent Placement:: 2014 Past Psychological History: No Psychological Hx Reported, Anxiety Smoking Status: Never smoker Past Alcohol Use History: None Reported Past Drug Use History: None Reported - Past Family History Brother(s) Family Medical History: Myocardial Infarction ([place]) Father Family Medical History: Coronary Artery Disease (CAD) Additional Family Medical History / Comment(s): Father had CABG's x3 Mother Family Medical History: Cancer Additional Family Medical History / Comment(s): Mother of cancer Medications and Allergies Home Medications Medication Instructions Recorded Confirmed Type lisinopriL [Zestril] 5 mg PO HS 06/04/17 09/05/24 History hydroCHLOROthiazide [Hydrodiuril] 25 mg PO DAILY 07/12/18 09/05/24 History Primidone [Mysoline] 50 mg PO HS 08/23/21 09/05/24 History Metoprolol Tartrate 50 mg PO HS 09/14/21 09/05/24 History Metoprolol Tartrate [Lopressor] 75 mg PO DAILY 09/14/21 09/05/24 History lisinopriL [Zestril] 10 mg PO DAILY 09/14/21 09/05/24 History Aspirin EC [Ecotrin Low Dose] 81 mg PO DAILY 08/13/23 09/05/24 History Co-Q-10 (Unknown Dose) 1 tab PO DAILY 09/05/24 09/05/24 History Ezetimibe [Zetia] 10 mg PO DAILY 09/05/24 09/05/24 History Multivitamins, Thera [Multivitamin 1 tab PO DAILY 09/05/24 09/05/24 History (formulary)] Ramelteon [Rozerem] 8 mg PO HS PRN 09/05/24 09/05/24 History Allergies Allergy/AdvReac Type Severity Reaction Status Date / Time heparin Allergy Rash/Hives Verified 09/05/24 13:44 ketorolac tromethamine Allergy Twitching, Verified 09/05/24 13:44 [From Toradol] chest pain, elevated blood pressure Penicillins Allergy Anaphylaxis, Verified 09/05/24 13:44 swelling prednisone AdvReac Muscle Verified 09/05/24 13:44 Spasms Physical Exam Vitals: Vital Signs Temp Pulse Resp BP Pulse Ox 09/05/24 17:32 98.4 F 76 18 158/74 99 09/05/24 15:01 83 18 181/75 94 L 09/05/24 12:04 97.5 F L 65 18 176/86 97 09/05/24 11:32 68 H 97 09/05/24 10:05 98.4 F 55 L 18 176/62 97 09/05/24 09:22 97.6 F 60 18 153/85 98 Intake and Output 09/05/24 09/05/24 09/05/24 06:59 14:59 22:59 Other: Weight 73.936 kg Results CBC & Chem 7: 09/05/24 10:34 09/05/24 10:34 Labs: Abnormal Lab Results - Last 24 Hours (Table) 09/05/24 09/05/24 Range/Units 10:34 10:34 Plt Count 102 L (150-450) k/uL Neutrophils # 8.2 H (1.3-7.7) k/uL Lymphocytes # 0.5 L (1.0-4.8) k/uL Glucose 106 H (74-99) mg/dL Total Bilirubin 1.8 H (0.2-1.3) mg/dL C-Reactive Protein 8.1 H (<1.0) mg/dL
[2024-09-05] MEDS: lisinopriL 5 MG TAB PO SCH (18:55)
[2024-09-05] MEDS: METOPROLOL TARTRATE 50 MG TAB PO SCH (18:55)
[2024-09-05] MEDS: LEVOFLOXACIN 750MG-D5W PMX 750 MG in DEXTROSE/WATER 1 150ML.BAG IVPB SCH (18:55)
[2024-09-05] MEDS: PRIMIDONE 50 MG TAB PO SCH (21:09)
[2024-09-05] MEDS: CLINDAMYCIN 600 MG/50 ML-D5W 600 MG in DEXTROSE/WATER 1 50ML.BAG IVPB SCH (21:09)
[2024-09-06] MEDS: ASPIRIN 81 MG PO SCH (08:46)
[2024-09-06] MEDS: EZETIMIBE 10 MG TAB PO SCH (08:46)
[2024-09-06] MEDS: lisinopriL 10 MG TAB PO SCH (08:46)
[2024-09-06] MEDS: hydroCHLOROthiazide 25 MG TAB PO SCH (08:47)
[2024-09-06] MEDS: METOPROLOL TARTRATE 25 MG TAB PO SCH (08:47)
[2024-09-06 09:00] LABS: ALT 35 U/L (10-49); AST 29 U/L (14-35); Albumin 3.7 g/dL (3.8-4.9); Albumin/Globulin Ratio 1.42 Ratio (1.60-3.17); Alkaline Phosphatase 73 U/L (41-126); Blood Urea Nitrogen 17.5 mg/dL (9.0-27.0); Calcium 8.8 mg/dL (8.7-10.3); Carbon Dioxide 22.6 mmol/L (21.6-31.8); Chloride 98 mmol/L (96-109); Globulin 2.6 g/dL (1.6-3.3); Glucose 173 mg/dL (70-110); Potassium 3.5 mmol/L (3.5-5.5); Sodium 134 mmol/L (135-145); Total Bilirubin 1.5 mg/dL (0.3-1.2); Total Protein 6.3 g/dL (6.2-8.2)
[2024-09-06 11:56] LABS: Basophils # (A) 0.02 X 10*3/uL (0.00-0.10); Basophils % (A) 0.2 %; Eosinophils # (A) 0.01 X 10*3/uL (0.04-0.35); Eosinophils % (A) 0.1 %; HCT 45.4 % (39.6-50.0); HGB 15.7 g/dL (13.0-17.0); Immature Platelet Fraction 1.9 % (1.1-6.1); Lymphocytes % (A) 1.7 %; MCHC 34.6 g/dL (32.0-37.0); MCV 92.7 FL (80.0-97.0); Monocytes # (A) 1.46 X 10*3/uL (0.20-1.00); Monocytes % (A) 12.5 %; NRBC Per 100 WBC 0 X 10*3/uL (0.00-0.01); Neutrophils # (A) 9.93 X 10*3/uL (1.80-7.70); Neutrophils % (A) 84.6 %; Platelet Count 78 X 10*3/uL (140-440); WBC 11.72 X 10*3/uL (4.50-10.00)
--- NOTE | 2024-09-06 16:22 | P.PN ---
Subjective Progress Note Date: 09/06/24 78 year old M with PMH CAD with stent, CABG, HTN, essential tremor presents to the ED for neck swelling ongoing for the past 3 days. Associated with fever and odynophagia. Denies nausea or vomiting. No difficulty breathing at this time. In the ED he underwent extensive evaluation. BP 153/85, HR 60, T 97.6F, RR 18, 98% on RA. CBC, CMP significant for Plt 102, glu 106, T. Bili 1.8. Lactic acid 1. CRP 8.1. Flu RSV COVID group A strep negative. CT neck shows 2.7 cm mass inferior to the right submandibular gland suspicious for enlarged lymph node. 09/06 Patient was seen and examined. Slight improvement in swelling. Maintained on Clindamycin 600 mg IV Q6H + Levaquin 750 mg IV QD. ENT consult pending. CBC and CMP WBC 11.72, Plt 78, Na 134, AG 13.4, glu 173, T. Bili 1.5, alb 3.7. General: non toxic, no distress, appears at stated age Derm: warm, dry Head: atraumatic, normocephalic, symmetric, R neck swollen, TTP with cervical LAD Eyes: EOMI, no lid lag, anicteric sclera Mouth: no lip lesion, mucus membranes moist Cardiovascular: S1S2 reg, no murmur Lungs: CTA bilateral, no rhonchi, no rales , no accessory muscle use Ext: no gross muscle atrophy, no edema, no contractures Neuro: no focal neuro deficits Psych: Alert, oriented, appropriate affect Based on my assessment of this patient, this patient meets a high complexity level of care. Mass right tongue mass concerning for infection: Clindamycin 600 mg IV Q6H + Levaquin 750 mg IV QD. Monitor for airway compromise. ENT consulted. ID consult. CAD with stent + CABG: ASA 81 mg PO QD. Metoprolol 75 mg PO QD + 50 mg PO QHS. Zetia 10 mg PO QD. HTN: Lisinopril 5 mg PO QHS + 10 mg PO QD. HCTZ 25 mg PO QD. Essential tremor: Primdose 50 mg PO QHS. CODE STATUS: FULL CODE DVT Prophylaxis: SCD (allergy to Heparin) GI Prophylaxis: Protonix IV Designated medical POA if patient is not able to make medical decisions for themselves: I have reviewed the following financial management consultant notes: I have reviewed the results of the following tests: As above. I have ordered the following tests: CBC and BMP in the AM. I have discussed the care of this patient with the following independent historian: RN. Robertson. I have independently interpreted the following test below: I have discussed the management of this patient with the following physician: Objective - Vital Signs Vital signs: Vital Signs Temp 97.5 F L 09/06/24 07:32 Pulse 79 09/06/24 07:32 Resp 16 09/06/24 07:32 BP 118/66 09/06/24 07:32 Pulse Ox 95 09/06/24 07:32 FiO2 Intake & Output 09/05/24 09/06/24 09/06/24 18:59 06:59 18:59 Intake Total 840 Balance 840 Weight 73.936 kg 73.936 kg Intake: Oral 840 Other: # Voids 2 - Labs CBC & Chem 7: 09/06/24 02:43 09/06/24 02:43 Labs: Abnormal Lab Results - Last 24 Hours (Table) 09/05/24 09/05/24 Range/Units 10:34 10:34 Plt Count 102 L (150-450) k/uL Neutrophils # 8.2 H (1.3-7.7) k/uL Lymphocytes # 0.5 L (1.0-4.8) k/uL Glucose 106 H (74-99) mg/dL Total Bilirubin 1.8 H (0.2-1.3) mg/dL C-Reactive Protein 8.1 H (<1.0) mg/dL
[2024-09-07] MEDS: methylPREDNISolone SOD SUCCI 125 MG/2 ML VIAL IV STA (01:23)
[2024-09-07] MEDS: ONDANSETRON 4 MG/2 ML VIAL IVP STA (02:16)
[2024-09-07] MEDS: ACETAMINOPHEN IV (For NPO) 1,000 MG in EMPTY BAG 1 BAG IVPB ONE (02:18)
--- NOTE | 2024-09-07 03:03 | P.PN ---
Progress Note - Text Progress Note Date: 09/07/24 Informed by the RN that the patient had an episode as witnessed by the daughter of roughly 10 seconds where he was unable to breathe. The patient was subsequently seen at the bedside. He reported that over the past few hours, he has noticed that his tongue is getting bigger and that his speech is becoming more difficult. He reports having a mild degree of difficulty swallowing his secretions. On examination, the tongue appeared to be enlarged and patient was unable to open his mouth fully as a result. The patient did appear to be resting comfortably and not in distress. Solu-Medrol 125 mg IV was subsequently ordered. ICU charge master specialist was notified and a transfer order was placed for the patient to be moved to the medical ICU. Attempted to contact ENT on-call multiple times to no avail. Case was subsequently discussed with [facility] for possible transfer. They recommended that in light of the patient's apneic episode, that he is at risk for airway compromise en-route to their facility and that he would benefit from first having an advanced airway placed. Case was subsequently discussed with anesthesia who evaluated the patient at the bedside and recommended that patient would not be a candidate for endotracheal or nasal intubation and that he should undergo an urgent tracheostomy. General surgery was subsequently consulted and the case was discussed with Dr. Henson. He noted that he will discuss the case with anesthesiology on-call and determine if the patient needs the airway placed emergently. Currently awaiting call-back.
[2024-09-07] MEDS ORDERED: DEXMEDETOMIDINE/0.9% NACL(PMX) 400 MCG/100 ML IV ONE (03:53)
[2024-09-07] MEDS ORDERED: GLYCOPYRROLATE 0.2 MG/ML 2 ML VIAL ONE (03:53)
[2024-09-07] MEDS ORDERED: KETAMINE HCL IN 0.9 % NACL 50 MG/5 ML SYRINGE ONE (03:53)
[2024-09-07] MEDS ORDERED: MIDAZOLAM 2 MG/2 ML VIAL ONE (03:53)
[2024-09-07] MEDS: LACTATED RINGERS 1,000 ML IV ONE (03:58)
--- NOTE | 2024-09-07 04:04 | P.CON ---
Consult Note - . Consult date: 09/07/24 Assessment/Plan:: 78 year old M with PMH CAD with stent, CABG, HTN, essential tremor presented to the [facility] ED for neck swelling ongoing for the past 3 days. Associated with fever and odynophagia. Denies nausea or vomiting. No difficulty breathing at this t calin. In the ED he underwent extensive evaluation. CT neck shows 2.7 cm mass inferior to the right submandibular gland suspicious for enlarged lymph node. I was paged by lath tier this evening due to respiratory distress of the patient. The patient was evaluated by anesthesia and they felt as though patient could not be intubated and would need surgical airway. Past Medical History Past Medical History: Coronary Artery Disease (CAD), Chest Pain / Angina, GERD/Reflux, Hearing Disorder / Deafness, Hyperlipidemia, Hypertension, Myocardial Infarction (ID), Mitral Valve Prolapse (MVP), Osteoarthritis (OA) Additional Past Medical History / Comment(s): essential tremors, previous history of subarachnoid hemorrhage-BRAIN back -SOME [employer] MEMORY LOSS, shingles involving the right side of face in 2009, diverticulosis, difficulty swallowing Last Myocardial Infarction Date:: 2011 History of Any Multi-Drug Resistant Organisms: None Reported Past Surgical History: Bowel Resection, Cholecystectomy, Coronary Bypass/CABG, Heart Catheterization, Heart Catheterization With Stent, Hernia Repair, Orthopedic Surgery Additional Past Surgical History / Comment(s): several hernia repairs- inguinal and abdominal one with mesh, eye surgery-CATARACTS , colonoscopy, eyelid surgery, 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 cataract, 3 vessel CABG Past Anesthesia/Blood Transfusion Reactions: No Reported Reaction Additional Past Anesthesia/Blood Transfusion Reaction / Comment(s): Pt has never received blood. Date of Last Stent Placement:: 2014 Past Psychological History: No Psychological Hx Reported, Anxiety Smoking Status: Never smoker Past Alcohol Use History: None Reported Past Drug Use History: None Reported - Past Family History Brother(s) Family Medical History: Myocardial Infarction (ID) Father Family Medical History: Coronary Artery Disease (CAD) Additional Family Medical History / Comment(s): Father had CABG's x3 Mother Family Medical History: Cancer Additional Family Medical History / Comment(s): Mother of cancer PHYSICAL EXAM General: non toxic, no distress, appears at stated age Derm: warm, dry Head: atraumatic, normocephalic, symmetric, R neck swollen, TTP with cervical LAD Eyes: EOMI, no lid lag, anicteric sclera Mouth: no lip lesion, mucus membranes moist Cardiovascular: S1S2 reg, no murmur Lungs: CTA bilateral, no rhonchi, no rales , no accessory muscle use Abdominal: soft, nontender to palpation, no guarding, no appreciable organomegaly Ext: no gross muscle atrophy, no edema, no contractures Neuro: no focal neuro deficits Psych: Alert, oriented, appropriate affect 78 year old male with Airway Obstruction -Anesthesia Unable to Intubate Patient -Will take patient to OR for Emergent Tracheostomy -Benefits and Risks discussed with patient and daughter Teja Henson DO [facility] [phone]
[2024-09-07] MEDS: LIDOCAINE 1%-EPI 1:100,000 20 ML VIAL SQ ONE ×2 (04:16)
[2024-09-07 04:55] LABS: Glucose,Whole Blood 178 mg/dL (70-110)
[2024-09-07 05:09] LABS: HCT 42.6 % (39.0-53.0); HGB 14.9 gm/dL (13.0-17.5); MCH 32.2 pg (25.0-35.0); MCV 91.8 fL (80.0-100.0); Mean Platelet Volume 7.5; RBC 4.64 m/uL (4.30-5.90); RDW 13.2 % (11.5-15.5); WBC 9.4 k/uL (3.8-10.6)
[2024-09-07 05:14] LABS: Platelet Count 98 k/uL (150-450)
[2024-09-07 05:18] VITALS: TEMP 97.1
[2024-09-07 05:21] LABS: African American GFR (CKD) >90 (>60 ml/min/1.73 sqM); Anion Gap 10 mmol/L; Blood Urea Nitrogen 22 mg/dL (9-20); Calcium 8.3 mg/dL (8.4-10.2); Carbon Dioxide 22 mmol/L (22-30); Chloride 95 mmol/L (98-107); Glucose 183 mg/dL (74-99); Non-African American GFR(CKD) 89 (>60 ml/min/1.73 sqM); Potassium 3.4 mmol/L (3.5-5.1); Sodium 127 mmol/L (137-145)
[2024-09-07] MEDS: DEXMEDETOMIDINE/0.9% NACL(PMX) 400 MCG in EMPTY BAG 1 BAG IV SCH (05:21)
[2024-09-07] MEDS ORDERED: Potassium Replacement Protocol 1 EACH MISC MISCELLANE PRN (05:39)
[2024-09-07] MEDS: POTASSIUM CHLORIDE 10 MEQ in WATER FOR INJECTION 1 100ML.BAG IVPB SCH (06:14)
[2024-09-07 07:03] VITALS: BP 139/78; PULSE 75; RESP 4
--- NOTE | 2024-09-07 07:34 | P.OP ---
Date of Procedure: 09/07/24 Preoperative Diagnosis: Airway Obstruction Postoperative Diagnosis: Airway Obstruction Procedure(s) Performed: Tracheostomy Anesthesia: other (Local with Sedation) Surgeon: Teja Henson Pathology: none sent Condition: critical Disposition: ICU Indications for Procedure: This is a 78 year old male with Airway Obstruction. Patient was on floor and his respiratory status declined. He was evaluated by Anesthesia who was unable to intubate him. He was transferred to the ICU and Surgery was contacted for emergent surgical airway. Description of Procedure: Informed consent was reviewed. The patient was delivered to the OR and placed in the supine position. The table remained in place with the HOB elevated. Landmarks were palpated and marked including the: thyroid notch, cricoid, and suprasternal notch. A timeout was performed. Planned incision site was marked and injected with 1% lidocaine. A number #15 blade was used to create a vertical incision extending 3 cm inferiorly from the lower border of the cricoid through dermis. Bovie dissection was employed to remove fat overlying the strap muscles by grasping the fat with Allis clamps and lateral retraction of the skin edges with retractors. The strap muscles were grasped with Allis clamps and pulled lat erally to identify the midline with hemostat and bovie separation of the straps in the midline. The area immediately below the cricoid and above the thyroid isthmus was identified by inspection and palpation and then opened with Bovie. With tips of a hemostat directed toward the trach, blunt dissection with the tips of the hemostat identifed the anterior tracheal wall. The hemostat was redirected inferiorly to separate the posterior aspect of the thyroid isthmus from the trachea. The isthmus was completely divided with a handheld ligasure device. The hemostat was then used to clamp across the isthmus off the midline with a second hemostat placed opposite. Handheld ligasure the isthmus. The anterior tracheal wall was further cleaned of overlying soft tissue with Kitners. The tracheal rings were identified. A small hemostat with tips closed was directed toward the trachea and pushed through the membranous ring between 2nd and 3rd cartilaginous rings. The hemostat was then manipulated to direct a #11 blade to make a horizontal cut in the membranous trachea. Vertical lateral cuts were made on either side of the opening inferiorly through the third cartilaginous ring. The tracheostomy tube with obturator was then placed through the tracheotomy. The inner canula was placed, and placement of the tube was confirmed with CO2 return on the anesthesia monitor. The patient tolerated the procedure well and was sent to the ICU in critical condition.
--- NOTE | 2024-09-07 09:36 | P.DS ---
Providers Date of admission: 09/05/24 13:15 Expected date of discharge: 09/07/24 Attending physician: Reji Pina Consults: 09/05/24 12:22 Consult Physician Routine Consulting Provider: Eugenio Levy Consult Reason/Comments: odynophagia, tongue mass Do you want consulting provider notified?: Yes, Notify in am 09/06/24 16:21 Consult Physician Routine Consulting Provider: Brown Ponce Consult Reason/Comments: right tongue base mass likely infecious Do you want consulting provider notified?: Yes 09/07/24 02:43 Consult Physician Stat Consulting Provider: Teja Henson Consult Reason/Comments: Tracheostomy needed Do you want consulting provider notified?: Yes 09/07/24 04:44 Consult Physician Stat Consulting Provider: Bernardo Velasco Consult Reason/Comments: tracheostomy Do you want consulting provider notified?: Already Contacted Primary care physician: [facility] Course: 78 year old M with PMH CAD with stent, CABG, HTN, essential tremor presents to the ED for neck swelling ongoing for the past 3 days. Associated with fever and odynophagia. Denies nausea or vomiting. No difficulty breathing at this time. In the ED he underwent extensive evaluation. BP 153/85, HR 60, T 97.6F, RR 18, 98% on RA. CBC, CMP significant for Plt 102, glu 106, T. Bili 1.8. Lactic acid 1. CRP 8.1. Flu RSV COVID group A strep negative. CT neck shows 2.7 cm mass inferior to the right submandibular gland suspicious for enlarged lymph node. Started on Clindamycin and Levaquin. ENT Dr. Levy was notified multiple times of the admission and told the RN that he was not coming into evaluate the patient. Overnight patient displayed signs of respiratory compromise requiring emergent tracheotomy. He was subsequently transferred to [facility]. Patient was not seen or evaluated on 09/07. Discharge Diagnosis: Mass right tongue mass concerning for infection CAD with stent + CABG HTN Essential tremor Patient Condition at Discharge: Critical Plan - Discharge Summary Discharge Rx Participant: Yes New Discharge Prescriptions: No Action lisinopriL [Zestril] 5 mg PO HS hydroCHLOROthiazide [Hydrodiuril] 25 mg PO DAILY lisinopriL [Zestril] 10 mg PO DAILY Aspirin EC [Ecotrin Low Dose] 81 mg PO DAILY Ezetimibe [Zetia] 10 mg PO DAILY Primidone [Mysoline] 50 mg PO HS Metoprolol Tartrate [Lopressor] 75 mg PO DAILY Metoprolol Tartrate 50 mg PO HS Multivitamins, Thera [Multivitamin (formulary)] 1 tab PO DAILY Ramelteon [Rozerem] 8 mg PO HS PRN PRN Reason: Insomnia Co-Q-10 (Unknown Dose) 1 tab PO DAILY Discharge Medication List lisinopriL [Zestril] 5 mg PO HS 06/04/17 [History] hydroCHLOROthiazide [Hydrodiuril] 25 mg PO DAILY 07/12/18 [History] Primidone [Mysoline] 50 mg PO HS 08/23/21 [History] Metoprolol Tartrate 50 mg PO HS 09/14/21 [History] Metoprolol Tartrate [Lopressor] 75 mg PO DAILY 09/14/21 [History] lisinopriL [Zestril] 10 mg PO DAILY 09/14/21 [History] Aspirin EC [Ecotrin Low Dose] 81 mg PO DAILY 08/13/23 [History] Co-Q-10 (Unknown Dose) 1 tab PO DAILY 09/05/24 [History] Ezetimibe [Zetia] 10 mg PO DAILY 09/05/24 [History] Multivitamins, Thera [Multivitamin (formulary)] 1 tab PO DAILY 09/05/24 [History] Ramelteon [Rozerem] 8 mg PO HS PRN 09/05/24 [History] Follow up Appointment(s)/Referral(s): Mikhail Mills DO [Primary Care Provider] - 1-2 days Discharge Disposition: TRANSFER TO [facility]ORT [facility]
== END 2024-09-07 07:34 | disposition short-term general hospital (02) ==
LOC: EC 09:19 → 6NMEDSUR 13:15 → 2SICU 09-07 03:01
PROVIDERS: ADMIT Student in an Organized Health Care Education/Training Program; ATTEND Student in an Organized Health Care Education/Training Program
DX: K14.9 Disease of tongue, unspecified (principal); J98.8 Other specified respiratory disorders; I10 Essential (primary) hypertension; G25.0 Essential tremor; I25.10 Atherosclerotic heart disease of native coronary artery without angina pectoris; K21.9 Gastro-esophageal reflux disease without esophagitis; E78.5 Hyperlipidemia, unspecified; I25.2 Old myocardial infarction; Z11.52 Encounter for screening for COVID-19; Z95.5 Presence of coronary angioplasty implant and graft; Z79.82 Long term (current) use of aspirin; Z79.899 Other long term (current) drug therapy; Z88.0 Allergy status to penicillin; Z88.6 Allergy status to analgesic agent
CPT/HCPCS: 96376 ×3; 96365; 96366 ×2; 96375 ×2; 96374; 99285; 36415; 86900; 86901; 87651; 80053 ×2; 80048; 83605; 85025 ×2; 85027; 86850; 86140; 87636; 70491; 70460; 31603; G0378 ×3; J2250; J2270 ×2; J2405; J1956 ×2; J3480; J0131; J1171; Q9967; J0737 ×3; J1596; J2919

== ENCOUNTER 2024-10-09 16:11 | Inpatient (IN) | payer MEDICARE ==
--- NOTE | 2024-10-09 16:30 | ED ---
Chest Pain HPI - General Chief Complaint: Chest Pain Stated Complaint: chest pain Time Seen by Provider: 10/09/24 16:26 Source: patient, family, RN notes reviewed Mode of arrival: wheelchair Limitations: no limitations - History of Present Illness Initial Comments: This is a 78-year-old male with history of CABG and GERD presenting with abdominal pain/distention and burning x 4 days. Patient states he is "not going to make it", mentioning nausea/vomiting and distention of abdomen with burning traveling from epigastric region to mid sternum. Endorses possible syncopal episode while in waiting room today. Endorses oropharyngeal edema 1 month ago requiring tracheotomy with subsequent discovery of sublingual abscess, recently complaining 1 month of antibiotics. Patient was seen in this ER for initial symptoms before subsequent diagnosis and treatment was performed at [facility]. Also discovered to have pulmonary edema at that time, receiving Lasix and potassium which she has been continuing to take. Echocardiogram at that time showed EF of 60-65%. Endorses dyspnea on exertion for the past month as well. Denies ongoing dyspnea or orthopnea. Endorses alternating constipation/diarrhea without hematochezia or melena. Denies fever, chills, radiating pain, pallor, sweating, dizziness, hematemesis. MD Complaint: chest pain Onset/Timin -: days(s) Onset: during rest Pain Location: substernal Pain Radiation: abdomen - Related Data Home Medications Medication Instructions Recorded Confirmed Primidone [Mysoline] 50 mg PO HS 08/23/21 10/09/24 Aspirin EC [Ecotrin Low Dose] 81 mg PO DAILY 08/13/23 10/09/24 Ezetimibe [Zetia] 10 mg PO DAILY 09/05/24 10/09/24 Ramelteon [Rozerem] 8 mg PO HS PRN 09/05/24 10/09/24 Acetaminophen Tab [Tylenol Tab] 1,000 mg PO BID PRN 10/09/24 10/09/24 Apixaban [Eliquis] 5 mg PO BID 10/09/24 10/09/24 Co Q-10 100mg 100 mg PO DAILY 10/09/24 10/09/24 Famotidine [Pepcid] 20 mg PO BID 10/09/24 10/09/24 Furosemide [Lasix] 40 mg PO DAILY 10/09/24 10/09/24 Loperamide [Imodium] 2 mg PO QID PRN 10/09/24 10/09/24 NIFEdipine [NIFEdipine ER 60 mg PO DAILY 10/09/24 10/09/24 (Osmotic)] Potassium Chloride ER [K-Dur 10] 10 meq PO BID 10/09/24 10/09/24 carvediloL [Coreg] 25 mg PO BID 10/09/24 10/09/24 Allergies Allergy/AdvReac Type Severity Reaction Status Date / Time heparin Allergy Rash/Hives Verified 10/09/24 19:20 ketorolac tromethamine AdvReac Twitching, Verified 10/09/24 19:20 [From Toradol] chest pain, elevated blood pressure lisinopril AdvReac Tongue & Verified 10/09/24 19:20 floor of mouth swelling, see comment prednisone AdvReac Muscle Verified 10/09/24 19:20 Spasms Quinolones AdvReac seizure Verified 10/09/24 19:20 Review of Systems ROS Statement: Those systems with pertinent positive or pertinent negative responses have been documented in the HPI. ROS Other: All systems not noted in ROS Statement are negative. Past Medical History Past Medical History: Coronary Artery Disease (CAD), Chest Pain / Angina, GERD/Reflux, Hearing Disorder / Deafness, Hyperlipidemia, Hypertension, Myocardial Infarction ([place]), Mitral Valve Prolapse (MVP), Osteoarthritis (OA) Additional Past Medical History / Comment(s): essential tremors, previous history of subarachnoid hemorrhage-BRAIN back -SOME [employer]ING [employer] MEMORY LOSS, shingles involving the right side of face in 2009, diverticulosis, difficulty swallowing Last Myocardial Infarction Date:: 2011 History of Any Multi-Drug Resistant Organisms: None Reported Past Surgical History: Bowel Resection, Cholecystectomy, Coronary Bypass/CABG, Heart Catheterization, Heart Catheterization With Stent, Hernia Repair, Ortho pedic Surgery Additional Past Surgical History / Comment(s): several hernia repairs- inguinal and abdominal one with mesh, eye surgery-CATARACTS , colonoscopy, eyelid surgery, 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 cataract, 3 vessel CABG Past Anesthesia/Blood Transfusion Reactions: No Reported Reaction Additional Past Anesthesia/Blood Transfusion Reaction / Comment(s): Pt has never received blood. Date of Last Stent Placement:: 2014 Past Psychological History: No Psychological Hx Reported, Anxiety Smoking Status: Never smoker Past Alcohol Use History: None Reported Past Drug Use History: None Reported - Past Family History Brother(s) Family Medical History: Myocardial Infarction ([place]) Father Family Medical History: Coronary Artery Disease (CAD) Additional Family Medical History / Comment(s): Father had CABG's x3 Mother Family Medical History: Cancer Additional Family Medical History / Comment(s): Mother of cancer General Exam Limitations: no limitations General appearance: alert, in no apparent distress Head exam: Present: atraumatic, normocephalic, normal inspection Eye exam: Present: normal appearance, PERRL, EOMI. Absent: scleral icterus, conjunctival injection, periorbital swelling ENT exam: Present: normal exam, mucous membranes moist Neck exam: Present: normal inspection. Absent: tenderness, meningismus, lymphadenopathy Respiratory exam: Present: normal lung sounds bilaterally. Absent: respiratory distress, wheezes, rales, rhonchi, stridor Cardiovascular Exam: Present: regular rate, normal rhythm, normal heart sounds. Absent: systolic murmur, diastolic murmur, rubs, gallop, clicks GI/Abdominal exam: Present: soft, distended, tenderness (Diffuse tenderness, especially in epigastric region. Negative right upper quadrant tenderness. Negative tympanic or rebound tenderness.), hyperactive bowel sounds. Absent: guarding, rebound, rigid, mass, pulsatile mass, hernia Extremities exam: Present: normal inspection, full ROM, normal capillary refill, other (Negative BLE edema. Bilateral posterior tibialis pulse +2). Absent: tenderness, pedal edema, joint swelling, calf tenderness Back exam: Present: normal inspection Neurological exam: Present: alert, oriented X3, CN II-XII intact Psychiatric exam: Present: normal affect, normal mood Skin exam: Present: warm, dry, intact, normal color. Absent: rash Course Vital Signs 10/09/24 10/09/24 10/09/24 16:17 17:32 18:32 Temperature 97.4 F L 98.1 F Pulse Rate 85 74 76 Respiratory 18 16 17 Rate Blood Pressure 118/76 136/84 123/70 O2 Sat by Pulse 97 95 94 L Oximetry 10/09/24 20:34 Temperature Pulse Rate 75 Respiratory 18 Rate Blood Pressure 123/65 O2 Sat by Pulse 96 Oximetry Chest Pain MDM - MDM Was pt. sent in by a medical professional or institution (, PA, LOCK INSTALLER, urgent care, hospital, or [facility]...) When possible be specific @ -No Did you speak to anyone other than the patient for history (EMS, parent, family, police, friend...)? What history was obtained from this source @ -No Did you review nursing and triage notes (agree or disagree)? Why? @ -I reviewed and agree with nursing and triage notes Were old charts reviewed (outside hosp., previous admission, EMS record, old EKG, old radiological studies, urgent care reports/EKG's, [facility] records)? Report findings @ -Soft tissue neck CT results reviewed from 09/05/2024. Mass discovered with further imaging via MRI recommended and inability to rule out neoplasm. Differential Diagnosis (chest pain, altered mental status, abdominal pain women, abdominal pain men, vaginal bleeding, weakness, fever, dyspnea, syncope, headache, dizziness, GI bleed, back pain, seizure, CVA, palpatations, mental health, musculoskeletal)? @ -Differential Chest Pain: Stable Angina, Unstable Angina, STEMI, NSTEMI Aortic Dissection, Pneumothorax, Musculoskeletal, Esophageal Spasm GERD, Cholecystitis, Pancreatitis, Zoster, this is not meant to be an all-inclusive list. Differential Abdominal Pain Men: Appendicitis, cholecystitis, diverticulosis, ischemic bowel, pancreatitis, hepatitis, UTI, gastroenteritis, AAA, incarcerated hernia, bowel obstruction, constipation, inflammatory bowel, hepatitis, peptic ulcer disease, splenic infarction, perforated viscus, testicular torsion, this is not meant to be an all-inclusive list EKG interpreted by me (3pts min.). @ -Sinus rhythm without ST changes or T wave inversion. Ventricular rate 85 bpm, YESSI 171 ms, QRS duration 92 ms, QTc 411 ms. X-rays interpreted by me (1pt min.). @ -CXR shows no acute cardiopulmonary process. CT interpreted by me (1pt min.). @ -Abdomen/pelvic CT shows possible small bowel obstruction out of the right lower quadrant transition point with no free air. U/S interpreted by me (1pt. min.). @ -None done What testing was considered but not performed or refused? (CT, X-rays, U/S, labs)? Why? @ -None What meds were considered but not given or refused? Why? @ -None Did you discuss the management of the patient with other professionals (professionals i.e. , PA, LOCK INSTALLER, lab, RT, psych nurse, executive secretary social welfare, diesel truck driver, teacher, staff mine warfare officer, porter sample case)? Give summary @ -Spoke to Dr. Hermosillo who agreed to patient admission and surgery consulted. Advised to hold on NG tube but patient placed n.p.o. Was smoking cessation discussed for >3mins.? @ -No Was critical care preformed (if so, how long)? @ -No Were there social determinants of health that impacted care today? How? (Homelessness, low income, unemployed, alcoholism, drug addiction, transportation, low edu. Level, literacy, decrease access to med. care, prison, rehab)? @ -No Was there de-escalation of care discussed even if they declined (Discuss DNR or withdrawal of care, Hospice)? DNR status @ -No What co-morbidities impacted this encounter? (DM, HTN, Smoking, COPD, CAD, Cancer, CVA, ARF, Chemo, Hep., AIDS, mental health diagnosis, sleep apnea, morbid obesity)? @ -None Was patient admitted / discharged? Hospital course, mention meds given and route, prescriptions, significant lab abnormalities, going to OR and other pertinent info. @ -Lab work is generally unremarkable including negative troponin, BNP, lactic acid and D-dimer. CXR shows no acute cardiopulmonary process. Abdomen/pelvic CT shows possible small bowel obstruction out of the right lower quadrant transition point with no free air. Spoke to Dr. Hermosillo who agreed to patient admission and surgery consulted. Advised to hold on NG tube by surgery but patient placed n.p.o. Undiagnosed new problem with uncertain prognosis? @ -Small bowel obstruction Drug Therapy requiring intensive monitoring for toxicity (Heparin, Nitro, Insulin, Cardizem)? @ -No Were any procedures done? @ -No Diagnosis/symptom? @ -Small bowel obstruction Acute, or Chronic, or Acute on Chronic? @ -Acute Uncomplicated (without systemic symptoms) or Complicated (systemic symptoms)? @ -Complicated Side effects of treatment? @ -No Exacerbation, Progression, or Severe Exacerbation? @ -No Poses a threat to life or bodily function? How? (Chest pain, [place], [place], pneumonia, PE, COPD, DKA, ARF, appy, cholecystitis, CVA, Diverticulitis, Homicidal, Suicidal, threat to staff... and all critical care pts) @ -Small bowel obstruction Disposition Clinical Impression: Small bowel obstruction Disposition: ADMITTED IP TO THIS HOSP Condition: Good Is patient prescribed a controlled substance at d/c from ED?: No Time of Disposition: 20:41 Decision Date: 10/09/24 Decision Time: 20:42
--- NOTE | 2024-10-09 16:41 | XR ---
EXAMINATION TYPE: XR chest 2V DATE OF EXAM: 10/09/2024 4:36 PM COMPARISON: Previous chest radiograph 07/12/2018. CLINICAL INDICATION: Male, 78 years old with history of Chest Pain; [facility] TECHNIQUE: XR chest 2V Frontal and lateral views of the chest. FINDINGS: Low lung volumes. Median sternotomy wires. Likely cardiac device overlying the left chest wall. Minimal left basilar scarring/atelectasis. Lungs/Pleura: There is no evidence of pleural effusion, focal consolidation, or pneumothorax. Pulmonary vascularity: Unremarkable. Heart/mediastinum: Cardiomediastinal silhouette is unremarkable. Musculoskeletal: No acute osseous pathology. Other findings: None IMPRESSION: No acute cardiopulmonary disease/process. [facility], , 10/09/2024 4:39 PM
[2024-10-09] MEDS: MAG HYDROX/AL HYDROX/SIMETH 30 ML, HYOSCYAMINE ELIXIR 10 ML, LIDOCAINE VISCOUS 2% 10 ML PO STA (17:01)
[2024-10-09] MEDS: PANTOPRAZOLE 40 MG/10 ML VIAL IVP STA (17:16)
[2024-10-09] MEDS: FAMOTIDINE 20 MG/2 ML VIAL IV STA (17:17)
[2024-10-09 18:01] LABS: Basophils % (A) 0 %; Eosinophils # (A) 0.1 k/uL (0-0.7); Eosinophils % (A) 1 %; HCT 44.9 % (39.0-53.0); HGB 15.5 gm/dL (13.0-17.5); Lymphocytes # (A) 0.7 k/uL (1.0-4.8); Lymphocytes % (A) 7 %; MCH 31.3 pg (25.0-35.0); MCHC 34.4 g/dL (31.0-37.0); MCV 90.8 fL (80.0-100.0); Mean Platelet Volume 6.5; Monocytes # (A) 0.9 k/uL (0-1.0); Monocytes % (A) 9 %; Neutrophils # (A) 8.2 k/uL (1.3-7.7); Neutrophils % (A) 81 %; RBC 4.94 m/uL (4.30-5.90); RDW 13.4 % (11.5-15.5); WBC 10.1 k/uL (3.8-10.6)
[2024-10-09 18:11] LABS: ALT 25 U/L (4-49); AST 23 U/L (17-59); African American GFR (CKD) 85 (>60 ml/min/1.73 sqM); Albumin 4.2 g/dL (3.5-5.0); Alkaline Phosphatase 86 U/L (38-126); Amylase 62 U/L (30-110); Anion Gap 8 mmol/L; Blood Urea Nitrogen 25 mg/dL (9-20); Calcium 9.7 mg/dL (8.4-10.2); Carbon Dioxide 26 mmol/L (22-30); Chloride 101 mmol/L (98-107); Glucose 134 mg/dL (74-99); Lipase 112 U/L (23-300); Magnesium 2.1 mg/dL (1.6-2.3); Non-African American GFR(CKD) 74 (>60 ml/min/1.73 sqM); Potassium 3.7 mmol/L (3.5-5.1); Sodium 135 mmol/L (137-145); Total Bilirubin 0.6 mg/dL (0.2-1.3); Total Protein 7.1 g/dL (6.3-8.2)
[2024-10-09 18:13] LABS: Platelet Count 297 k/uL (150-450)
[2024-10-09 18:17] LABS: INR 1.3 (<1.2); Prothrombin Time 13.5 sec (10.0-12.5)
[2024-10-09 18:20] LABS: NT-Pro-B-Type Natriuretic Pept 272 pg/mL
[2024-10-09] MEDS: ONDANSETRON 4 MG/2 ML VIAL IVP STA (18:35)
[2024-10-09] MEDS: SODIUM CHLORIDE 0.9% 1,000 ML IV STA ×2 (19:10→20:40)
--- NOTE | 2024-10-09 20:17 | CT ---
EXAMINATION TYPE: CT abdomen pelvis w con DATE OF EXAM: 10/09/2024 8:08 PM COMPARISON: Previous CT study 08/31/2023. CLINICAL INDICATION: Male, 78 years old with history of Diffuse TTP, distention; ABD PAIN/VOMITING TECHNIQUE: Axial CT abdomen pelvis w con;Sagittal and coronal reformats were created on a separate w orkstation. Contrast used:100ML mL of Isovue 300 with IV Contrast, (none if empty) Oral contrast used: without Oral Contrast (none if empty) CT DLP: 765.8 mGycm, Automated exposure control for dose reduction was used. FINDINGS: LOWER CHEST: Coronary artery calcifications. Bibasilar scarring/atelectasis. ABDOMEN LIVER: Unremarkable GALLBLADDER AND BILE DUCTS: The gallbladder is surgically absent. PANCREAS: Unremarkable. SPLEEN: Unremarkable. ADRENAL GLANDS: Unremarkable. KIDNEYS AND URETERS: No evidence of hydronephrosis or renal calculus. The ureters are unremarkable. PELVIS BLADDER: No evidence for wall thickening or mass given limitations of exam. REPRODUCTIVE: Unremarkable. ABDOMEN & PELVIS STOMACH AND BOWEL: Dilated small bowel loops measuring up to 4.0 cm in diameter with possible transit ion point in the right lower quadrant. Colonic structures relatively decompressed. Stomach also diste nded. Colonic diverticulosis. No evidence of free air/pneumoperitoneum. No evidence of significant me senteric inflammation at this time. Some indeterminate dependent gas foci within small bowel loops (s agittal image 46). PERITONEUM/RETROPERITONEUM: No evidence of pneumoperitoneum or free fluid. VASCULATURE: No evidence of aortic aneurysm. MUSCULOSKELETAL: No acute osseous abnormalities LYMPH NODES: No gross evidence for lymphadenopathy. SOFT TISSUE/ABDOMINAL WALL: Postsurgical changes in the anterior abdominal wall. IMPRESSION: Findings concerning for small bowel obstruction with possible right lower quadrant transition point. No evidence of free air/pneumoperitoneum at this time. [facility], , 10/09/2024 8:15 PM
[2024-10-09] MEDS: HYDROmorphone 0.5 MG/0.5 ML SYRINGE IVP STA (20:35)
[2024-10-09] MEDS ORDERED: NALOXONE 0.4 MG/ML 1 ML VIAL IV PRN (20:39)
[2024-10-09] MEDS ORDERED: ONDANSETRON 4 MG/2 ML VIAL IVP PRN (20:39)
[2024-10-09] MEDS ORDERED: HYDROmorphone 0.5 MG/0.5 ML SYRINGE IVP PRN (20:39)
[2024-10-09] MEDS: SODIUM CHLORIDE 0.9% 1,000 ML IV SCH (20:43)
[2024-10-09] MEDS: carvediloL 12.5 MG TAB PO SCH (21:19)
[2024-10-09] MEDS: LORazepam 2 MG/ML INJ IV SCH (21:20)
[2024-10-09] MEDS: APIXABAN 5 MG TAB PO SCH (21:27)
--- NOTE | 2024-10-09 21:29 | P.GSCN ---
History of Present Illness Consult date: 10/09/24 History of present illness: Patient is a 78-year-old male with a past medical history of Espinal's procedure with colostomy reversal for perforated diverticulitis in the remote past, CABG, A-fib currently on Eliquis, recent history of cervical abscess with admission to [facility] in August 2024 who presents with a 3 to 4-day history of obstipation, worsening abdominal pain and nausea and emesis. Patient states that for the past 3 to 4 days he has had worsening abdominal pain associated with emesis. He states that he has had decreased appetite secondary to the pain. Denies any prior episodes such as this. He states he has been able to pass a small amount of flatus but has had diarrhea otherwise. Denies any melena or hematochezia. No fevers or chills. No shortness of breath or chest pain. No headache or blurry vision. Voiding without issue. Of note patient was recently admitted secondary to cervical abscess that [facility] where patient was given IV antibiotics and had a long course including ICU admission. He was subsequently readmitted to [facility] secondary to respiratory distress and was discharged home approximately 1 week ago. He states that he has had diarrhea since discharge, but his abdominal pain has increased over the past 3 to 4 days. Upon presentation to [facility] emergency department a CT abdomen pelvis was obtained which showed evidence of small bowel dilatation with apparent transition point in the right lower quadrant concerning for small bowel obstruction. Patient denies any prior episodes of small bowel obstruction Review of Systems Negative except for as stated above Past Medical History Past Medical History: Coronary Artery Disease (CAD), Chest Pain / Angina, GERD/Reflux, Hearing Disorder / Deafness, Hyperlipidemia, Hypertension, Myocardial Infarction ([place]), Mitral Valve Prolapse (MVP), Osteoarthritis (OA) Additional Past Medical History / Comment(s): essential tremors, previous history of subarachnoid hemorrhage-BRAIN back -SOME B[employer] MEMORY LOSS, shingles involving the right side of face in 2009, diverticulosis, difficulty swallowing Last Myocardial Infarction Date:: 2011 History of Any Multi-Drug Resistant Organisms: None Reported Past Surgical History: Bowel Resection, Cholecystectomy, Coronary Bypass/CABG, Heart Catheterization, Heart Catheterization With Stent, Hernia Repair, O rthopedic Surgery Additional Past Surgical History / Comment(s): several hernia repairs- inguinal and abdominal one with mesh, eye surgery-CATARACTS , colonoscopy, eyelid surg eleanor, 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 cataract, 3 vessel CABG Past Anesthesia/Blood Transfusion Reactions: No Reported Reaction Additional Past Anesthesia/Blood Transfusion Reaction / Comm: Pt has never received blood. Date of Last Stent Placement:: 2014 Past Psychological History: No Psychological Hx Reported, Anxiety Smoking Status: Never smoker Past Alcohol Use History: None Reported Past Drug Use History: None Reported - Past Family History Brother(s) Family Medical History: Myocardial Infarction ([place]) Father Family Medical History: Coronary Artery Disease (CAD) Additional Family Medical History / Comment(s): Father had CABG's x3 Mother Family Medical History: Cancer Additional Family Medical History / Comment(s): Mother of cancer Medications and Allergies Home Medications Medication Instructions Recorded Confirmed Type Primidone [Mysoline] 50 mg PO HS 08/23/21 10/09/24 History Aspirin EC [Ecotrin Low Dose] 81 mg PO DAILY 08/13/23 10/09/24 History Ezetimibe [Zetia] 10 mg PO DAILY 09/05/24 10/09/24 History Ramelteon [Rozerem] 8 mg PO HS PRN 09/05/24 10/09/24 History Acetaminophen Tab [Tylenol Tab] 1,000 mg PO BID PRN 10/09/24 10/09/24 History Apixaban [Eliquis] 5 mg PO BID 10/09/24 10/09/24 History Co Q-10 100mg 100 mg PO DAILY 10/09/24 10/09/24 History Famotidine [Pepcid] 20 mg PO BID 10/09/24 10/09/24 History Furosemide [Lasix] 40 mg PO DAILY 10/09/24 10/09/24 History Loperamide [Imodium] 2 mg PO QID PRN 10/09/24 10/09/24 History NIFEdipine [NIFEdipine ER 60 mg PO DAILY 10/09/24 10/09/24 History (Osmotic)] Potassium Chloride ER [K-Dur 10] 10 meq PO BID 10/09/24 10/09/24 History carvediloL [Coreg] 25 mg PO BID 10/09/24 10/09/24 History Allergies Allergy/AdvReac Type Severity Reaction Status Date / Time heparin Allergy Rash/Hives Verified 10/09/24 19:20 ketorolac tromethamine AdvReac Twitching, Verified 10/09/24 19:20 [From Toradol] chest pain, elevated blood pressure lisinopril AdvReac Tongue & Verified 10/09/24 19:20 floor of mouth swelling, see comment prednisone AdvReac Muscle Verified 10/09/24 19:20 Spasms Quinolones AdvReac seizure Verified 10/09/24 19:20 Surgical - Exam Vital Signs Temp Pulse Resp BP Pulse Ox 97.4 F L 85 18 118/76 97 10/09/24 16:17 10/09/24 16:17 10/09/24 16:17 10/09/24 16:17 10/09/24 16:17 Gen: AxO, NAD Pulm: non-labored respirations Abd: soft, tender in RLQ. Moderately Distended. No guarding/rebound/rigidity Extrem: no edema seen Results - Labs 10/09/24 17:29 10/09/24 17:29 Abnormal Lab Results - Last 24 Hours (Table) 10/09/24 10/09/24 10/09/24 Range/Units 17:29 17:29 17:29 Neutrophils # 8.2 H (1.3-7.7) k/uL Lymphocytes # 0.7 L (1.0-4.8) k/uL PT 13.5 H (10.0-12.5) sec INR 1.3 H (<1.2) APTT 31.0 H (22.0-30.0) sec Sodium 135 L (137-145) mmol/L BUN 25 H (9-20) mg/dL Glucose 134 H (74-99) mg/dL Diabetes panel 10/09/24 Range/Units 17:29 Sodium 135 L (137-145) mmol/L Potassium 3.7 (3.5-5.1) mmol/L Chloride 101 (98-107) mmol/L Carbon Dioxide 26 (22-30) mmol/L BUN 25 H (9-20) mg/dL Creatinine 0.99 (0.66-1.25) mg/dL Glucose 134 H (74-99) mg/dL Calcium 9.7 (8.4-10.2) mg/dL AST 23 (17-59) U/L ALT 25 (4-49) U/L Alkaline Phosphatase 86 (38-126) U/L Total Protein 7.1 (6.3-8.2) g/dL Albumin 4.2 (3.5-5.0) g/dL Calcium panel 10/09/24 Range/Units 17:29 Calcium 9.7 (8.4-10.2) mg/dL Albumin 4.2 (3.5-5.0) g/dL Pituitary panel 10/09/24 Range/Units 17:29 Sodium 135 L (137-145) mmol/L Potassium 3.7 (3.5-5.1) mmol/L Chloride 101 (98-107) mmol/L Carbon Dioxide 26 (22-30) mmol/L BUN 25 H (9-20) mg/dL Creatinine 0.99 (0.66-1.25) mg/dL Glucose 134 H (74-99) mg/dL Calcium 9.7 (8.4-10.2) mg/dL Adrenal panel 10/09/24 Range/Units 17:29 Sodium 135 L (137-145) mmol/L Potassium 3.7 (3.5-5.1) mmol/L Chloride 101 (98-107) mmol/L Carbon Dioxide 26 (22-30) mmol/L BUN 25 H (9-20) mg/dL Creatinine 0.99 (0.66-1.25) mg/dL Glucose 134 H (74-99) mg/dL Calcium 9.7 (8.4-10.2) mg/dL Total Bilirubin 0.6 (0.2-1.3) mg/dL AST 23 (17-59) U/L ALT 25 (4-49) U/L Alkaline Phosphatase 86 (38-126) U/L Total Protein 7.1 (6.3-8.2) g/dL Albumin 4.2 (3.5-5.0) g/dL Assessment and Plan Assessment: Patient is a 78-year-old male who presents with 3 to 4-day history of worsening abdominal pain and distention with cross-sectional imaging findings concerning for small bowel obstruction Plan: -N.p.o. -NG tube if emesis -As needed pain and nausea control -IV fluid hydration -Hold Eliquis in case of need for operative intervention -DVT/GI prophylaxis -No acute surgical intervention; will plan for Gastrografin small bowel follow- through in the next 24 to 48 hours Bon Menjivar M.D. General Surgery
--- NOTE | 2024-10-09 22:58 | P.HPIM ---
History of Present Illness H&P Date: 10/09/24 Chief Complaint: Small bowel obstruction Patient is a 78-year-old male with history of CABG, GERD, hyperlipidemia, hypertension, mitral valve prolapse, paroxysmal atrial fibrillation currently on Eliquis, and osteoarthritis presented to the emergency department with abdominal pain/distention and burning sensation for the past 4 days. Per surgical consult note, patient does have a past medical history of Espinal's procedure with colostomy reversal for perforated diverticulitis in the remote past (about 20 years ago). Patient reported that he was recently hospitalized at [facility] for cervical abscess and was discharged home with antibiotics about a week ago. Patient has been having chronic diarrhea for the past month. States that the abdominal pain/distention started about 4 days ago while resting. He reports a pressure-like dullness sensation in the epigastric region which sometimes moves into the left upper quadrant underneath the rib cage. The abdominal pain is intermittent and he did not report any alleviating/exacerbating factors. He also reports a burning sensation in his throat from acid reflux has been going on for the past 4 days. Patient reported a 9 out of 10 abdominal pain he came into the emergency department but the pain right now is better after receiving Dilaudid. He was also hardly passing any gas for the past few days but this has gotten better after he presented to the ED. Patient also reports chills. Denies fever, chest pain, shortness of breath, nausea/vomiting, constipation, hematochezia/melena, tingling/numbness sensation in upper or lower extremity, no muscle weakness. ED documentation reviewed. In the ED patient was treated with Pepcid 20 mg IV x 1, Protonix 40 mg IV x 1, Zofran 4 mg IV x 1, a bolus of normal saline, Dilaudid 0.5 mg IV x 1 Vitals on admission temperature 98.1, pulse rate 75, respiratory rate 18, blood pressure 123/65, O2 sat 96% on room air EKG independently interpreted as sinus rhythm with a ventricular rate of 85 bpm, QTc 411 ms, nonspecific T wave abnormality CXR shows no acute cardiopulmonary disease/process CT of abdomen pelvis with contrast shows findings concerning for small bowel obstruction with possible right lower quadrant transition point. No evidence of free air/pneumoperitoneum at this time. Labs on admission show WBC 10.1, hemoglobin 15.5, hematocrit 44.9, platelets 297, neutrophils 8.2, PT 13.5, PTT 31, INR 1.3, D-dimer 0.53, sodium 135, potassium 3.7, chloride 101, carbon dioxide 26, BUN 25, creatinine 0.99, glucose 134, troponin less than 0.012, BNP 272, lactic acid 1.0 Review of systems: Pertinent positives and negatives as discussed in HPI, a complete review of systems was performed and all other systems are negative. PMH: CABG, GERD, hyperlipidemia, hypertension, mitral valve prolapse, atrial fibrillation currently on Eliquis, and osteoarthritis PSH: Bowel resection about 20 years ago, cholecystectomy, CABG, heart catheterization with stent, hernia repair, orthopedic surgery FMH: Brother has a history of myocardial infarction, father has a history of CABG x 3, mother has a history of cancer Allergies: Heparin, ketorolac, lisinopril, prednisone, quinolones Social history: Tobacco: Never smoker Alcohol: None reported Recreational drugs: No drug use Travel: No travel history Sick contacts: recently got sick with COVID Physical examination: Vital signs reviewed General: nontoxic, no distress, appears at stated age Derm: warm, dry, intact Head: atraumatic, normocephalic, symmetric Eyes: EOMI, anicteric sclera Mouth: no lip lesion, mucus membranes moist Cardiovascular: S1 S2 reg, no murmur Lungs: CTA bilateral, no rhonchi, no rales, no accessory muscle use Abdominal: Distended, tender to palpation in the epigastric and left upper quadrant, normoactive bowel sounds, no rebound tenderness, negative Felix sign Extremities: No cyanosis, clubbing, or lower extremity edema Neuro: Alert, Gross neurological examination did not reveal any focal deficits. Cranial nerves II to XII grossly intact. Bilateral upper and lower extremity muscle strength intact 5 out of 5 and sensation intact. Psych: well appearing, appropriate affect Assessment/Plan: Patient is a 78-year-old male with history of CABG, GERD, hyperlipidemia, hypertension, mitral valve prolapse, atrial fibrillation currently on Eliquis, and osteoarthritis presented to the emergency department with abdominal pain/distention and burning sensation for the past 4 days. Patient will be admitted to inpatient medicine service. Active: #. Small bowel obstruction CT of abdomen pelvis with contrast shows findings concerning for small bowel obstruction with possible right lower quadrant transition point. No evidence of free air/pneumoperitoneum at this time. Surgery recommended to keep patient n.p.o., NG tube if emesis Continue as needed pain control with Dilaudid 0.5 mg IV every 3 hours Continue as needed nausea control with Zofran 4 mg IV every 8 hours Surgery also recommended plan for Gastrografin small bowel follow-through in the next 24 to 48 hours; no acute surgical intervention Hold Eliquis 5 mg twice daily and aspirin 81 mg daily Continue normal saline at 130 cc an hour check c diff #. Hyponatremia Continue normal saline at 130 cc an hour Monitor morning CMP #. Hyperglycemia Accu-Cheks every 6 hours Obtain hemoglobin A1c Chronic: #. GERD Restart home Pepcid 20 mg twice daily #. Paroxysmal atrial fibrillation Hold apixaban 5 mg twice daily Continue Coreg #. Hypertension Restart nifedipine 60 mg daily and carvedilol 20 mg twice daily #. Hyperlipidemia Restart ezetimibe 10 mg daily F: No restrictions E: Replete as needed N: N.p.o. A: Wheelchair DVT prophylaxis: Lovenox 40 mg subcu daily The patient is admitted with an anticipated more than 2 midnight stay for ev aluation of small bowel obstruction CODE STATUS: Full code Discussed with: Patient and family Anticipated discharge place: Home I have seen and evaluated the patient today. I Discussed the case with the resident and agree with the resident's findings I edited the assessment and plan as necessary as documented in the resident's note. 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[employer]IST MEMORY LOSS, s hingles involving the right side of face in 2009, diverticulosis, difficulty swallowing Last Myocardial Infarction Date:: 2011 History of Any Multi-Drug Resistant Organisms: None Reported Past Surgical History: Bowel Resection, Cholecystectomy, Coronary Bypass/CABG, Heart Catheterization, Heart Catheterization With Stent, Hernia Repair, Orthopedic Surgery Additional Past Surgical History / Comment(s): several hernia repairs- inguinal and abdominal one with mesh, eye surgery-CATARACTS , colonoscopy, eyelid surgery, 1999- intestine-colostomy with eventual reversal, hemorrohoidectomy, 1969-L knee arthroscopy surgery, maggie. cataract, 3 vessel CABG Past Anesthesia/Blood Transfusion Reactions: No Reported Reaction Additional Past Anesthesia/Blood Transfusion Reaction / Comment(s): Pt has never received blood. Date of Last Stent Placement:: 2014 Past Psychological History: No Psychological Hx Reported, Anxiety Smoking Status: Never smoker Past Alcohol Use History: None Reported Past Drug Use History: None Reported - Past Family History Brother(s) Family Medical History: Myocardial Infarction ([place]) Father Family Medical History: Coronary Artery Disease (CAD) Additional Family Medical History / Comment(s): Father had CABG's x3 Mother Family Medical History: Cancer Additional Family Medical History / Comment(s): Mother of cancer Medications and Allergies Home Medications Medication Instructions Recorded Confirmed Type Primidone [Mysoline] 50 mg PO HS 08/23/21 10/09/24 History Aspirin EC [Ecotrin Low Dose] 81 mg PO DAILY 08/13/23 10/09/24 History Ezetimibe [Zetia] 10 mg PO DAILY 09/05/24 10/09/24 History Ramelteon [Rozerem] 8 mg PO HS PRN 09/05/24 10/09/24 History Acetaminophen Tab [Tylenol Tab] 1,000 mg PO BID PRN 10/09/24 10/09/24 History Apixaban [Eliquis] 5 mg PO BID 10/09/24 10/09/24 History Co Q-10 100mg 100 mg PO DAILY 10/09/24 10/09/24 History Famotidine [Pepcid] 20 mg PO BID 10/09/24 10/09/24 History Furosemide [Lasix] 40 mg PO DAILY 10/09/24 10/09/24 History Loperamide [Imodium] 2 mg PO QID PRN 10/09/24 10/09/24 History NIFEdipine [NIFEdipine ER 60 mg PO DAILY 10/09/24 10/09/24 History (Osmotic)] Potassium Chloride ER [K-Dur 10] 10 meq PO BID 10/09/24 10/09/24 History carvediloL [Coreg] 25 mg PO BID 10/09/24 10/09/24 History Allergies Allergy/AdvReac Type Severity Reaction Status Date / Time heparin Allergy Rash/Hives Verified 10/09/24 19:20 ketorolac tromethamine AdvReac Twitching, Verified 10/09/24 19:20 [From Toradol] chest pain, elevated blood pressure lisinopril AdvReac Tongue & Verified 10/09/24 19:20 floor of mouth swelling, see comment prednisone AdvReac Muscle Verified 10/09/24 19:20 Spasms Quinolones AdvReac seizure Verified 10/09/24 19:20 Physical Exam Vitals: Vital Signs Temp Pulse Resp BP Pulse Ox 10/09/24 20:34 75 18 123/65 96 10/09/24 18:32 98.1 F 76 17 123/70 94 L 10/09/24 17:32 74 16 136/84 95 10/09/24 16:17 97.4 F L 85 18 118/76 97 Intake and Output 10/09/24 10/09/24 10/09/24 06:59 14:59 22:59 Other: Weight 72.575 kg Results CBC & Chem 7: 10/09/24 17:29 10/09/24 17:29 Labs: Abnormal Lab Results - Last 24 Hours (Table) 10/09/24 10/09/24 10/09/24 Range/Units 17:29 17:29 17:29 Neutrophils # 8.2 H (1.3-7.7) k/uL Lymphocytes # 0.7 L (1.0-4.8) k/uL PT 13.5 H (10.0-12.5) sec INR 1.3 H (<1.2) APTT 31.0 H (22.0-30.0) sec Sodium 135 L (137-145) mmol/L BUN 25 H (9-20) mg/dL Glucose 134 H (74-99) mg/dL
[2024-10-10 04:37] LABS: Glucose,Whole Blood 96 mg/dL (70-110)
[2024-10-10] MEDS: FAMOTIDINE 20 MG TAB PO SCH (08:07)
[2024-10-10] MEDS: EZETIMIBE 10 MG TAB PO SCH (08:08)
[2024-10-10 10:34] LABS: Basophils # (A) 0.04 X 10*3/uL (0.00-0.10); Basophils % (A) 0.5 %; Eosinophils # (A) 0.03 X 10*3/uL (0.04-0.35); Eosinophils % (A) 0.3 %; HCT 37.2 % (39.6-50.0); HGB 12.4 g/dL (13.0-17.0); Lymphocytes # (A) 0.58 X 10*3/uL (0.90-5.00); Lymphocytes % (A) 6.6 %; MCH 30.5 pg (27.0-32.0); MCHC 33.3 g/dL (32.0-37.0); MCV 91.4 FL (80.0-97.0); Mean Platelet Volume 8.7 FL (9.5-12.2); Monocytes # (A) 1.34 X 10*3/uL (0.20-1.00); Monocytes % (A) 15.1 %; NRBC Per 100 WBC 0 X 10*3/uL (0.00-0.01); Neutrophils # (A) 6.63 X 10*3/uL (1.80-7.70); Neutrophils % (A) 74.9 %; Platelet Count 208 X 10*3/uL (140-440); RBC 4.07 X 10*6/uL (4.40-5.60); RDW 12.9 % (11.5-14.5); WBC 8.85 X 10*3/uL (4.50-10.00)
[2024-10-10 10:40] LABS: BUN/Creat Ratio 17.89 Ratio (12.00-20.00); Blood Urea Nitrogen 16.1 mg/dL (9.0-27.0); Glucose 95 mg/dL (70-110)
[2024-10-10 10:41] LABS: ALT 17 U/L (10-49); AST 17 U/L (14-35); Albumin 3.3 g/dL (3.8-4.9); Albumin/Globulin Ratio 1.57 Ratio (1.60-3.17); Alkaline Phosphatase 63 U/L (41-126); Calcium 8.1 mg/dL (8.7-10.3); Carbon Dioxide 22.1 mmol/L (21.6-31.8); Chloride 108 mmol/L (96-109); Globulin 2.1 g/dL (1.6-3.3); Potassium 3.9 mmol/L (3.5-5.5); Sodium 137 mmol/L (135-145); Total Bilirubin 0.4 mg/dL (0.3-1.2); Total Protein 5.4 g/dL (6.2-8.2)
[2024-10-10 12:16] LABS: Glucose,Whole Blood 103 mg/dL (70-110)
--- NOTE | 2024-10-10 13:09 | P.PN ---
Subjective Progress Note Date: 10/10/24 SURGICAL PROGRESS NOTE CHIEF COMPLAINT: Small bowel obstruction HISTORY OF PRESENT ILLNESS: Patient reports he is feeling better. Reports decrease in abdominal pain. NG tube did not require to be placed to use nausea has resolved. And he has had no vomiting. Patient reports having flatus and diarrhea. Patient does report he has had diarrhea for about a month. He has had intermittent abdominal bloating and distention 4 times before he came into the ER. Afebrile. WBC 8.85 Hgb 12.4 PHYSICAL EXAM: VITAL SIGNS: Reviewed. GENERAL: Well-developed in no acute distress. ABDOMEN: Soft. Nondistended. Mild tenderness left lower quadrant with palpation NEUROLOGIC: Alert and oriented. Cranial nerves II through XII grossly intact. ASSESSMENT: 1. Possible small bowel obstruction 2. Prior history of Tanya procedure with colostomy and then subsequent colostomy reversal about 20 years ago PLAN: -Keep patient n.p.o. -Continue IV fluids -Encourage patient to ambulate -Small bowel follow-through with Gastrografin ordered for a.m. Physician Basic Sciences Professor note has been reviewed by physician. Signing provider agrees with the documented findings, assessment, and plan of care. I have personally seen and examined the patient, reviewed the HOUSEKEEPER/LAUNDRY ASSISTANT /PAs history, exam and MDM and agree with the assessment and plan as written. Based on total visit time, I have performed more than 50% of the visit. As above: Patient with intermittent crampy abdominal pain, bloating, nausea, and diarrhea. Films reviewed. Significant gastric distention on CAT scan. No gastric decompression yet. Will order repeat abdominal x-rays this evening. If significant gastric distention present we will plan nasogastric tube placement. Patient was scheduled for small bowel follow-through for tomorrow. Await those findings. Objective - Vital Signs Vital signs: Vital Signs Temp 97.4 F L 10/10/24 08:54 Pulse 72 10/10/24 08:54 Resp 18 10/10/24 08:54 BP 113/51 10/10/24 08:54 Pulse Ox 93 L 10/10/24 08:54 FiO2 Intake & Output 10/09/24 10/10/24 10/10/24 18:59 06:59 18:59 Weight 72.575 kg - Labs CBC & Chem 7: 10/10/24 06:30 10/10/24 06:30 Labs: Abnormal Lab Results - Last 24 Hours (Table) 10/09/24 10/09/24 10/09/24 Range/Units 17:29 17:29 17:29 RBC (4.40-5.60) X 10*6/uL Hgb (13.0-17.0) g/dL Hct (39.6-50.0) % MPV (9.5-12.2) FL Immature Gran # (0.00-0.04) X 10*3/uL Neutrophils # 8.2 H (1.3-7.7) k/uL Lymphocytes # 0.7 L (1.0-4.8) k/uL Monocytes # (0.20-1.00) X 10*3/uL Eosinophils # (0.04-0.35) X 10*3/uL PT 13.5 H (10.0-12.5) sec INR 1.3 H (<1.2) APTT 31.0 H (22.0-30.0) sec Sodium 135 L (137-145) mmol/L BUN 25 H (9-20) mg/dL Glucose 134 H (74-99) mg/dL Calcium (8.7-10.3) mg/dL Total Protein (6.2-8.2) g/dL Albumin (3.8-4.9) g/dL Albumin/Globulin Ratio (1.60-3.17) Ratio 10/10/24 10/10/24 Range/Units 06:30 06:30 RBC 4.07 L (4.40-5.60) X 10*6/uL Hgb 12.4 L (13.0-17.0) g/dL Hct 37.2 L (39.6-50.0) % MPV 8.7 L (9.5-12.2) FL Immature Gran # 0.23 H (0.00-0.04) X 10*3/uL Neutrophils # (1.3-7.7) k/uL Lymphocytes # 0.58 L (1.0-4.8) k/uL Monocytes # 1.34 H (0.20-1.00) X 10*3/uL Eosinophils # 0.03 L (0.04-0.35) X 10*3/uL PT (10.0-12.5) sec INR (<1.2) APTT (22.0-30.0) sec Sodium (137-145) mmol/L BUN (9-20) mg/dL Glucose (74-99) mg/dL Calcium 8.1 L (8.7-10.3) mg/dL Total Protein 5.4 L (6.2-8.2) g/dL Albumin 3.3 L (3.8-4.9) g/dL Albumin/Globulin Ratio 1.57 L (1.60-3.17) Ratio
--- NOTE | 2024-10-10 13:45 | P.PN ---
Subjective Progress Note Date: 10/10/24 Hospital Course: A 78-year-old male with PMH of GERD, HLD, HTN, CABG, mitral valve prolapse, pa roxysmal A-fib on Eliquis, osteoarthritis, history of Espinal's procedure with colostomy reversal for perforated diverticulitis 20 years ago, recent [facility] hospitalization for cervical abscess who was discharged on oral antibiotics 1 week before admission, chronic diarrhea for the past month, who presented to the ED with abdominal pain and distention for 4 days. Surgery was consulted in the ER due to CT abdomen pelvis findings showing concern for SBO with possible right lower quadrant transition point with no evidence of free air/pneumoperitoneum. Surgery recommended conservative management with n.p.o., Gastrografin series, patient was started on IV fluids, Accu-Cheks. Subjective: Patient was seen examined bedside, feels significantly better, hungry, admits having abdominal pain 2 out of 10 Pertinent positives and negatives as discussed above, a complete review of systems was performed and all other systems are negative. Vitals Signs Reviewed. General: [nontoxic], [no distress], [appears at stated age] Derm: [warm], [dry] Head: [atraumatic], [normocephalic], [symmetric] Eyes: [EOMI], [no lid lag], [anicteric sclera] Mouth: [no lip lesion], [mucus membranes moist] Cardiovascular: [S1S2 reg], [no murmur] Lungs: [CTA bilateral], [no rhonchi, no rales] , [no accessory muscle use] Abdominal: [soft], generalized tenderness, bowel sounds present], [no guarding], [no appreciable organomegaly] Ext: [no gross muscle atrophy], [no edema], [no contractures] Neuro: [ CN II-XI grossly intact], [no focal neuro deficits] Psych: [Alert], [oriented], [appropriate affect] Data Reviewed Today: Pertinent Labs: WBC normal, hemoglobin dropped from 15.5-12.4, no signs of active bleeding, electrolytes WNL except for calcium that was 8.1, kidney function normal Imaging: Abdominal series pending Assessment and Plan: Possible SBO -General Surgery following, continue n.p.o., continue IV fluids, encourage ambulation -Pending abdominal series -Hold Eliquis -C. difficile pending Hyponatremia, resolved Continue normal saline at 130 cc an hour Monitor morning CMP Hyperglycemia Accu-Cheks every 6 hours A1c 5.8 GERD Restart home Pepcid 20 mg twice daily Paroxysmal atrial fibrillation Hold apixaban 5 mg twice daily Continue Coreg Hypertension Restart nifedipine 60 mg daily and carvedilol 20 mg twice daily Hyperlipidemia Restart ezetimibe 10 mg daily DVT ppx:scd Anticipated discharge place: 24-48 hours Anticipated discharge time: likely home Objective - Vital Signs Vital signs: Vital Signs Temp 97.4 F L 10/10/24 08:54 Pulse 72 10/10/24 08:54 Resp 18 10/10/24 08:54 BP 113/51 10/10/24 08:54 Pulse Ox 93 L 10/10/24 08:54 FiO2 Intake & Output 10/09/24 10/10/24 10/10/24 18:59 06:59 18:59 Weight 72.575 kg - Labs CBC & Chem 7: 10/10/24 06:30 10/10/24 06:30 Labs: Abnormal Lab Results - Last 24 Hours (Table) 10/09/24 10/09/24 10/09/24 Range/Units 17:29 17:29 17:29 RBC (4.40-5.60) X 10*6/uL Hgb (13.0-17.0) g/dL Hct (39.6-50.0) % MPV (9.5-12.2) FL Immature Gran # (0.00-0.04) X 10*3/uL Neutrophils # 8.2 H (1.3-7.7) k/uL Lymphocytes # 0.7 L (1.0-4.8) k/uL Monocytes # (0.20-1.00) X 10*3/uL Eosinophils # (0.04-0.35) X 10*3/uL PT 13.5 H (10.0-12.5) sec INR 1.3 H (<1.2) APTT 31.0 H (22.0-30.0) sec Sodium 135 L (137-145) mmol/L BUN 25 H (9-20) mg/dL Glucose 134 H (74-99) mg/dL Calcium (8.7-10.3) mg/dL Total Protein (6.2-8.2) g/dL Albumin (3.8-4.9) g/dL Albumin/Globulin Ratio (1.60-3.17) Ratio 10/10/24 10/10/24 Range/Units 06:30 06:30 RBC 4.07 L (4.40-5.60) X 10*6/uL Hgb 12.4 L (13.0-17.0) g/dL Hct 37.2 L (39.6-50.0) % MPV 8.7 L (9.5-12.2) FL Immature Gran # 0.23 H (0.00-0.04) X 10*3/uL Neutrophils # (1.3-7.7) k/uL Lymphocytes # 0.58 L (1.0-4.8) k/uL Monocytes # 1.34 H (0.20-1.00) X 10*3/uL Eosinophils # 0.03 L (0.04-0.35) X 10*3/uL PT (10.0-12.5) sec INR (<1.2) APTT (22.0-30.0) sec Sodium (137-145) mmol/L BUN (9-20) mg/dL Glucose (74-99) mg/dL Calcium 8.1 L (8.7-10.3) mg/dL Total Protein 5.4 L (6.2-8.2) g/dL Albumin 3.3 L (3.8-4.9) g/dL Albumin/Globulin Ratio 1.57 L (1.60-3.17) Ratio
[2024-10-10 16:58] LABS: Glucose,Whole Blood 108 mg/dL (70-110)
--- NOTE | 2024-10-10 20:48 | XR ---
EXAMINATION TYPE: XR abdomen 2V DATE OF EXAM: 10/10/2024 8:40 PM CLINICAL INDICATION:Male, 78 years old with history of Evaluate gastric distention; [facility] COMPARISON: None. TECHNIQUE: Frontal views of the abdomen were obtained. FINDINGS: The bowel gas pattern is nonspecific without dilated loops of small or large bowel. There i s no evidence for organomegaly or pneumoperitoneum. Osseous structures are intact. Postsurgical clips in the right upper quadrant. IMPRESSION: Nonspecific bowel gas pattern without radiographic evidence for acute process. [facility], , 10/10/2024 8:46 PM
[2024-10-11] MEDS: VANCOMYCIN 125 MG CAPSULE PO SCH (00:10)
[2024-10-11 00:44] LABS: Glucose,Whole Blood 99 mg/dL (70-110)
[2024-10-11 06:46] LABS: Glucose,Whole Blood 89 mg/dL (70-110)
--- NOTE | 2024-10-11 10:36 | FL ---
EXAMINATION TYPE: FL small bowel follow through DATE OF EXAM: 10/11/2024 COMPARISON: CLINICAL INDICATION: Male, 78 years old with history of follow up on SBO; [facility], TECHNIQUE: A single contrast small bowel follow through is performed utilizing barium. COMPARISON: None FINDINGS: Ice Cream Maker image of the abdomen shows nonspecific gas pattern. Degenerative changes spine. Bilateral hip arthropathy. Correlate for previous hernia repair surgery. Vascular calcifications. The small bowel study shows normal transit to the colon in less than 70 minutes. There is mild mucos al fold thickening throughout the small bowel with effacement of the distal terminal ileum. Mild prom inence of the small bowel loops. No transition point.. There is no evidence of any stricture or fill ing defect noted. The terminal ileum is spotted and appears unremarkable. IMPRESSION: 1. Mildly dilated small bowel loops with fold thickening throughout the small bowel. No transition po int and normal transit into the small bowel with no diagnostic evidence of obstruction. Mild effaceme nt of the terminal ileum. Correlate for an enteritis. Inflammatory bowel disease not excluded. [facility], , 10/11/2024 10:33 AM
[2024-10-11 11:25] LABS: Glucose,Whole Blood 123 mg/dL (70-110)
--- NOTE | 2024-10-11 12:15 | P.PN ---
Subjective Progress Note Date: 10/11/24 Hospital Course: A 78-year-old male with PMH of GERD, HLD, HTN, CABG, mitral valve prolapse, pa roxysmal A-fib on Eliquis, osteoarthritis, history of Espinal's procedure with colostomy reversal for perforated diverticulitis 20 years ago, recent [facility] hospitalization for cervical abscess who was discharged on oral antibiotics 1 week before admission, chronic diarrhea for the past month, who presented to the ED with abdominal pain and distention for 4 days. Surgery was consulted in the ER due to CT abdomen pelvis findings showing concern for SBO with possible right lower quadrant transition point with no evidence of free air/pneumoperitoneum. Surgery recommended conservative management with n.p.o., Gastrografin series, patient was started on IV fluids, Accu-Cheks. Patient tested positive for C. difficile,, started on oral vancomycin on 10/10 Pertinent Imaging: Small bowel follow-through: Mildly limited small bowel loop with fold thickening throughout the small bowel, nonphysician point and normal transit into the small bowel with no diagnostic evidence of obstruction, mild effacement of the terminal ileum, correlate for enteritis, inflammatory bowel disease not excluded Subjective: Seen and examined at bedside, complaining of multiple episodes of yellowish diarrhea Pertinent positives and negatives as discussed above, a complete review of systems was performed and all other systems are negative. Vitals Signs Reviewed. General: [nontoxic], [no distress], [appears at stated age] Derm: [warm], [dry] Head: [atraumatic], [normocephalic], [symmetric] Eyes: [EOMI], [no lid lag], [anicteric sclera] Mouth: [no lip lesion], [mucus membranes moist] Cardiovascular: [S1S2 reg], [no murmur] Lungs: [CTA bilateral], [no rhonchi, no rales] , [no accessory muscle use] Abdominal: [soft], [ nontender to palpation], [no guarding], [no appreciable organomegaly] Ext: [no gross muscle atrophy], [no edema], [no contractures] Neuro: [ CN II-XI grossly intact], [no focal neuro deficits] Psych: [Alert], [oriented], [appropriate affect] Data Reviewed Today: Pertinent Labs: Pending BMP and CBC, C. difficile Assessment and Plan: Possible SBO, resolved C. difficile diarrhea -General Surgery following, -Pending abdominal series -Hold Eliquis -Continue vancomycin oral SOT 10/10 -Follow-up electrolytes -Will continue IV fluids for now -Started on CLD by surgery Hyponatremia, resolved Continue normal saline at 130 cc an hour Monitor morning CMP Hyperglycemia Accu-Cheks every 6 hours A1c 5.8 GERD Restart home Pepcid 20 mg twice daily Paroxysmal atrial fibrillation Hold apixaban 5 mg twice daily Continue Coreg Hypertension Restart nifedipine 60 mg daily and carvedilol 20 mg twice daily Hyperlipidemia Restart ezetimibe 10 mg daily DVT ppx:scd Anticipated discharge place: 24-48 hours Anticipated discharge time: likely home Objective - Vital Signs Vital signs: Vital Signs Temp 97.9 F 10/11/24 07:26 Pulse 73 10/11/24 07:26 Resp 20 10/11/24 07:26 BP 111/51 10/11/24 07:26 Pulse Ox 97 10/11/24 07:43 FiO2 Intake & Output 10/10/24 10/11/24 10/11/24 18:59 06:59 18:59 Intake Total 0 Balance 0 Weight 72.575 kg Intake: Oral 0 Other: Voiding Method Toilet # Voids 3 4 # Bowel Movements 4 - Labs CBC & Chem 7: 10/10/24 06:30 10/10/24 06:30 Labs: Abnormal Lab Results - Last 24 Hours (Table) 10/10/24 10/11/24 Range/Units 20:00 11:22 POC Glucose (mg/dL) 123 H (70-110) mg/dL C. difficile (EIA) Intrp Positive A (Negative)
--- NOTE | 2024-10-11 12:29 | P.PN ---
Subjective Progress Note Date: 10/11/24 Principal diagnosis: Abdominal pain Patient came back from his small bowel series. Results reviewed. Shows evidence of enteritis without definite obstruction. C. difficile did come back positive. Patient still having significant diarrhea issues. Objective - Vital Signs Vital signs: Vital Signs Temp 97.9 F 10/11/24 07:26 Pulse 73 10/11/24 07:26 Resp 20 10/11/24 07:26 BP 111/51 10/11/24 07:26 Pulse Ox 97 10/11/24 07:43 FiO2 Intake & Output 10/10/24 10/11/24 10/11/24 18:59 06:59 18:59 Intake Total 0 Balance 0 Weight 72.575 kg Intake: Oral 0 Other: Voiding Method Toilet # Voids 3 4 # Bowel Movements 4 - Exam Abdomen: Soft, mild distention, nontender - Labs CBC & Chem 7: 10/10/24 06:30 10/10/24 06:30 Labs: Abnormal Lab Results - Last 24 Hours (Table) 10/10/24 10/11/24 Range/Units 20:00 11:22 POC Glucose (mg/dL) 123 H (70-110) mg/dL C. difficile (EIA) Intrp Positive A (Negative) Assessment and Plan (1) Small bowel obstruction Narrative/Plan: Patient small bowel series shows no evidence of obstruction. Suspect all of his symptoms are related to C. difficile colitis from his recent antibiotic use. Continue antibiotics for C. difficile colitis. Will follow. May resume diet. Current Visit: Yes Status: Acute Code(s): K56.609 - UNSP INTESTNL OBST, UNSP TO PARTIAL VERSUS COMPLETE OBST SNOMED Code(s): 895221210
[2024-10-11 12:51] LABS: Basophils % (A) 0 %; Eosinophils % (A) 0 %; HCT 42.7 % (39.0-53.0); HGB 14.1 gm/dL (13.0-17.5); Lymphocytes # (A) 0.6 k/uL (1.0-4.8); Lymphocytes % (A) 5 %; MCH 30.8 pg (25.0-35.0); MCHC 33.1 g/dL (31.0-37.0); Mean Platelet Volume 6.8; Monocytes # (A) 0.7 k/uL (0-1.0); Monocytes % (A) 6 %; Neutrophils # (A) 10.4 k/uL (1.3-7.7); Neutrophils % (A) 87 %; Platelet Count 257 k/uL (150-450); RBC 4.59 m/uL (4.30-5.90); RDW 13.6 % (11.5-15.5); WBC 11.9 k/uL (3.8-10.6)
[2024-10-11 13:10] LABS: African American GFR (CKD) >90 (>60 ml/min/1.73 sqM); Anion Gap 11 mmol/L; Blood Urea Nitrogen 23 mg/dL (9-20); Carbon Dioxide 18 mmol/L (22-30); Chloride 112 mmol/L (98-107); Glucose 132 mg/dL (74-99); Non-African American GFR(CKD) 85 (>60 ml/min/1.73 sqM); Potassium 3.4 mmol/L (3.5-5.1); Sodium 141 mmol/L (137-145)
[2024-10-11 16:38] LABS: Glucose,Whole Blood 152 mg/dL (70-110)
[2024-10-11 21:43] LABS: Basophils % (A) 0 %; Eosinophils % (A) 1 %; HCT 35.6 % (39.0-53.0); Lymphocytes # (A) 0.6 k/uL (1.0-4.8); Lymphocytes % (A) 9 %; MCH 30.9 pg (25.0-35.0); MCHC 33.8 g/dL (31.0-37.0); MCV 91.4 fL (80.0-100.0); Mean Platelet Volume 7.1; Monocytes # (A) 0.7 k/uL (0-1.0); Monocytes % (A) 10 %; Neutrophils # (A) 5.3 k/uL (1.3-7.7); Neutrophils % (A) 78 %; Platelet Count 216 k/uL (150-450); Poikilocytosis Slight; RBC 3.89 m/uL (4.30-5.90); RDW 13.9 % (11.5-15.5); WBC 6.8 k/uL (3.8-10.6)
[2024-10-11 21:51] LABS: INR 1.1 (<1.2); Partial Thromboplastin Time 26.1 sec (22.0-30.0); Prothrombin Time 12.3 sec (10.0-12.5)
[2024-10-12 00:05] LABS: Glucose,Whole Blood 104 mg/dL (70-110)
--- NOTE | 2024-10-12 00:29 | CT ---
EXAM: CT Maxillofacial Without Intravenous Contrast CLINICAL HISTORY: Bruising on left eye TECHNIQUE: Axial computed tomography images of the face without intravenous contrast. CTDI is 45.2 mGy and DLP is 1394.4 mGy-cm. This CT exam was performed using one or more of the following dose reduction techniques: automated exposure control, adjustment of the mA and/or kV according to patient size, and/or use of iterative reconstruction technique. Coronal and sagittal reformatted images were created and reviewed. 880 images COMPARISON: No relevant prior studies available. FINDINGS: Bones/joints: Moderate degenerative disc disease in the visualized upper cervical spine. Soft tissues: Minimal soft tissue swelling over left infraorbital region. Orbits: Bilateral cataract surgeries.. Sinuses: Unremarkable. No air-fluid levels. IMPRESSION: No fracture.
--- NOTE | 2024-10-12 00:31 | CT ---
EXAM: CT Head Without Intravenous Contrast CLINICAL HISTORY: bruising on the left eye, no injury to eye/head. Prior brain bleed several years ago TECHNIQUE: Axial computed tomography images of the head/brain without intravenous contrast. CTDI is 45.2 mGy and DLP is 1394.4 mGy-cm. This CT exam was performed using one or more of the following dose reduction techniques: automated exposure control, adjustment of the mA and/or kV according to patient size, and/or use of iterative reconstruction technique. Coronal and sagittal reformatted images were created and reviewed. COMPARISON: 09/05/24 FINDINGS: Brain: Age-related generalized brain volume loss and chronic small vessel ischemic changes. Old lacunar infarcts versus prominent perivascular spaces of right insular/basal ganglia regions on series 203 image 25, unchanged. No hemorrhage. Ventricles: Unremarkable. No ventriculomegaly. Bones/joints: No acute findings. Soft tissues: Questionable soft tissue swelling over the left infraorbital region. Sinuses: Unremarkable as visualized. No acute sinusitis. Mastoid air cells: Unremarkable as visualized. No mastoid effusion. Orbits: Bilateral cataract surgeries. IMPRESSION: No intracranial hemorrhage or skull fracture.
[2024-10-12 06:15] LABS: Glucose,Whole Blood 140 mg/dL (70-110)
[2024-10-12] MEDS ORDERED: TEMAZEPAM 15 MG CAP PO PRN (08:32)
[2024-10-12 09:16] LABS: Glucose,Whole Blood 128 mg/dL (70-110)
[2024-10-12 10:42] LABS: Basophils % (A) 0 %; Eosinophils # (A) 0.1 k/uL (0-0.7); Eosinophils % (A) 1 %; HCT 35.7 % (39.0-53.0); HGB 11.9 gm/dL (13.0-17.5); Lymphocytes # (A) 0.5 k/uL (1.0-4.8); Lymphocytes % (A) 6 %; MCH 30.9 pg (25.0-35.0); MCHC 33.2 g/dL (31.0-37.0); MCV 92.9 fL (80.0-100.0); Mean Platelet Volume 6.7; Monocytes # (A) 0.7 k/uL (0-1.0); Monocytes % (A) 9 %; Neutrophils # (A) 6.8 k/uL (1.3-7.7); Neutrophils % (A) 83 %; Platelet Count 206 k/uL (150-450); RBC 3.84 m/uL (4.30-5.90); RDW 13.8 % (11.5-15.5); WBC 8.2 k/uL (3.8-10.6)
[2024-10-12 10:58] LABS: African American GFR (CKD) >90 (>60 ml/min/1.73 sqM); Anion Gap 5 mmol/L; Blood Urea Nitrogen 12 mg/dL (9-20); Calcium 8.3 mg/dL (8.4-10.2); Carbon Dioxide 23 mmol/L (22-30); Chloride 110 mmol/L (98-107); Glucose 119 mg/dL (74-99); Non-African American GFR(CKD) >90 (>60 ml/min/1.73 sqM); Potassium 3.4 mmol/L (3.5-5.1); Sodium 138 mmol/L (137-145)
--- NOTE | 2024-10-12 11:47 | P.PN ---
Subjective Progress Note Date: 10/12/24 Principal diagnosis: Abdominal pain Patient doing well today. Says his bowel movements have improved slightly. Having diarrhea about every half an hour. White blood cell count normal. Denies pain. No nausea or vomiting. Objective - Vital Signs Vital signs: Vital Signs Temp 98.0 F 10/12/24 07:36 Pulse 76 10/12/24 07:36 Resp 18 10/12/24 07:36 BP 136/61 10/12/24 07:36 Pulse Ox 95 10/12/24 07:36 FiO2 Intake & Output 10/11/24 10/12/24 10/12/24 18:59 06:59 18:59 Intake Total 500 1320 300 Balance 500 1320 300 Intake: Oral 500 1320 300 Other: # Voids 5 # Bowel Movements 4 - Exam Abdomen: Soft, nontender, nondistended - Labs CBC & Chem 7: 10/12/24 09:25 10/12/24 09:25 Labs: Abnormal Lab Results - Last 24 Hours (Table) 10/11/24 10/11/24 10/11/24 Range/Units 12:01 12:01 16:30 WBC 11.9 H (3.8-10.6) k/uL RBC (4.30-5.90) m/uL Hgb (13.0-17.5) gm/dL Hct (39.0-53.0) % Neutrophils # 10.4 H (1.3-7.7) k/uL Lymphocytes # 0.6 L (1.0-4.8) k/uL Potassium 3.4 L (3.5-5.1) mmol/L Chloride 112 H (98-107) mmol/L Carbon Dioxide 18 L (22-30) mmol/L BUN 23 H (9-20) mg/dL Glucose 132 H (74-99) mg/dL POC Glucose (mg/dL) 152 H (70-110) mg/dL Calcium (8.4-10.2) mg/dL 10/11/24 10/12/24 10/12/24 Range/Units 21:21 06:13 09:14 WBC (3.8-10.6) k/uL RBC 3.89 L (4.30-5.90) m/uL Hgb 12.0 L (13.0-17.5) gm/dL Hct 35.6 L (39.0-53.0) % Neutrophils # (1.3-7.7) k/uL Lymphocytes # 0.6 L (1.0-4.8) k/uL Potassium (3.5-5.1) mmol/L Chloride (98-107) mmol/L Carbon Dioxide (22-30) mmol/L BUN (9-20) mg/dL Glucose (74-99) mg/dL POC Glucose (mg/dL) 140 H 128 H (70-110) mg/dL Calcium (8.4-10.2) mg/dL 10/12/24 10/12/24 Range/Units 09:25 09:25 WBC (3.8-10.6) k/uL RBC 3.84 L (4.30-5.90) m/uL Hgb 11.9 L (13.0-17.5) gm/dL Hct 35.7 L (39.0-53.0) % Neutrophils # (1.3-7.7) k/uL Lymphocytes # 0.5 L (1.0-4.8) k/uL Potassium 3.4 L (3.5-5.1) mmol/L Chloride 110 H (98-107) mmol/L Carbon Dioxide (22-30) mmol/L BUN (9-20) mg/dL Glucose 119 H (74-99) mg/dL POC Glucose (mg/dL) (70-110) mg/dL Calcium 8.3 L (8.4-10.2) mg/dL Assessment and Plan (1) Small bowel obstruction Narrative/Plan: Patient doing somewhat better. Continue oral vancomycin. Advance to regular diet. No surgical intervention planned. Will sign off. Please consult if needed. Current Visit: Yes Status: Acute Code(s): K56.609 - UNSP INTESTNL OBST, UNSP TO PARTIAL VERSUS COMPLETE OBST SNOMED Code(s): 297442224
--- NOTE | 2024-10-12 14:12 | P.PN ---
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 Surgery was consulted in the ER due to CT abdomen pelvis findings showing concern for SBO with possible right lower quadrant transition point with no evidence of free air/pneumoperitoneum. Surgery recommended conservative management with n.p.o., Gastrografin series, patient was started on IV fluids, Accu-Cheks. Patient tested positive for C. difficile,, started on oral vancomycin on 10/10. Still having multiple bowel movements. Patient also complaining of left ecchymosis and periorbital edema. Brain CT as well as face CT did not show any acute process. Subjective: Seen and examined at bedside. No acute events overnight. Patient was complaining of left periorbital edema, imagings did not show any acute process. Pertinent positives and negatives as discussed above, a complete review of systems was performed and all other systems are negative. Vitals Signs Reviewed. General: Nontoxic, no distress, appears at stated age Derm: Warm, dry, Left eye medial ecchymosis Head: Atraumatic, normocephalic, symmetric Eyes: EOMI, no lid lag, anicteric sclera Mouth: No lip lesion, mucus membranes moist Cardiovascular: S1S2 reg, no murmur Lungs: CTA bilateral, no rhonchi, no rales, no accessory muscle use Abdominal: Soft, nontender to palpation, no guarding, no appreciable organomegaly Ext: No gross muscle atrophy, no edema, no contractures Neuro: CN II-XI grossly intact, no focal neuro deficits Psych: Alert, oriented, appropriate affect Data Reviewed Today: Pertinent Labs: Hemoglobin 11.9, potassium 3.4, creatinine 0.71, blood sugars range between 1 28-1 40 Imaging: Head CT and face CT did not show any acute process Assessment and Plan: Active: C. difficile colitis with acute diarrhea Small bowel obstruction, resolved -General Surgery note reviewed, signed off as SBO is resolved -On regular diet, tolerating well -Continue oral vancomycin 500 4 times daily -Continue normal saline at 130 cc an hour, hold diuretics Hypokalemia -Oral 20 mill equivalent potassium today, repeat potassium and magnesium tomorrow Left eye ecchymosis -Imaging negative -Restart Eliquis Resolved: Hyponatremia Chronic: Hypertension Dyslipidemia History of CAD status post CABG Paroxysmal atrial fibrillation Essential tremor? DVT ppx: Eliquis Code status: Full code Anticipated discharge place: Pending clinical course Anticipated discharge time: Pending clinical course Objective - Vital Signs Vital signs: Vital Signs Temp 98.0 F 10/12/24 07:36 Pulse 76 10/12/24 07:36 Resp 18 10/12/24 07:36 BP 136/61 10/12/24 07:36 Pulse Ox 95 10/12/24 07:36 FiO2 Intake & Output 10/11/24 10/12/24 10/12/24 18:59 06:59 18:59 Intake Total 500 1320 300 Balance 500 1320 300 Intake: Oral 500 1320 300 Other: # Voids 5 # Bowel Movements 4 - Labs CBC & Chem 7: 10/12/24 09:25 10/12/24 09:25 Labs: Abnormal Lab Results - Last 24 Hours (Table) 10/11/24 10/11/24 10/12/24 Range/Units 16:30 21:21 06:13 RBC 3.89 L (4.30-5.90) m/uL Hgb 12.0 L (13.0-17.5) gm/dL Hct 35.6 L (39.0-53.0) % Lymphocytes # 0.6 L (1.0-4.8) k/uL Potassium (3.5-5.1) mmol/L Chloride (98-107) mmol/L Glucose (74-99) mg/dL POC Glucose (mg/dL) 152 H 140 H (70-110) mg/dL Calcium (8.4-10.2) mg/dL 10/12/24 10/12/24 10/12/24 Range/Units 09:14 09:25 09:25 RBC 3.84 L (4.30-5.90) m/uL Hgb 11.9 L (13.0-17.5) gm/dL Hct 35.7 L (39.0-53.0) % Lymphocytes # 0.5 L (1.0-4.8) k/uL Potassium 3.4 L (3.5-5.1) mmol/L Chloride 110 H (98-107) mmol/L Glucose 119 H (74-99) mg/dL POC Glucose (mg/dL) 128 H (70-110) mg/dL Calcium 8.3 L (8.4-10.2) mg/dL
[2024-10-12] MEDS: POTASSIUM CHLORIDE ER 20 MEQ TAB.ER PO STA (14:18)
[2024-10-12 16:14] LABS: Glucose,Whole Blood 114 mg/dL (70-110)
[2024-10-12 21:37] LABS: Glucose,Whole Blood 110 mg/dL (70-110)
[2024-10-12] MEDS: APIXABAN 5 MG TAB PO SCH (22:00)
[2024-10-12] MEDS: PRIMIDONE 50 MG TAB PO SCH (22:00)
[2024-10-13 06:40] LABS: Glucose,Whole Blood 114 mg/dL (70-110)
[2024-10-13 08:19] VITALS: BP 131/63; PULSE 84; RESP 18; TEMP 98.1
[2024-10-13] MEDS: ASPIRIN 81 MG PO SCH (08:25)
[2024-10-13 09:59] LABS: Blood Urea Nitrogen 7.7 mg/dL (9.0-27.0); Calcium 8.4 mg/dL (8.7-10.3); Carbon Dioxide 21.1 mmol/L (21.6-31.8); Chloride 111 mmol/L (96-109); Glucose 123 mg/dL (70-110); Magnesium 1.9 mg/dL (1.5-2.4); Potassium 3.3 mmol/L (3.5-5.5); Sodium 142 mmol/L (135-145)
[2024-10-13] MEDS: POTASSIUM CHLORIDE ER 20 MEQ TAB.ER PO STA (10:46)
--- NOTE | 2024-10-13 11:20 | P.DS ---
Providers Date of admission: 10/09/24 20:41 Expected date of discharge: 10/13/24 Attending physician: Baljit Hermosillo MD Primary care physician: Mikhail Mills Hospital Course: Discharge Diagnosis: C. difficile colitis with acute diarrhea Small bowel obstruction, resolved Hypokalemia Left eye ecchymosis Hyponatremia Hypokalemia Hypertension Dyslipidemia History of CAD status post CABG Paroxysmal atrial fibrillation Essential tremor? 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 Surgery was consulted in the ER due to CT abdomen pelvis findings showing concern for SBO with possible right lower quadrant transition point with no evidence of free air/pneumoperitoneum. Surgery recommended conservative management with n.p.o., Gastrografin series, patient was started on IV fluids, Accu-Cheks. Then patient started developing diarrhea. Patient tested positive for C. difficile,, started on oral vancomycin on 10/10. Patient also complaining of left ecchymosis and periorbital edema. Brain CT as well as face CT did not show any acute process. Bowel movements now decreasing. Patient tolerating oral intake. Being discharged home on oral vancomycin. Follow-up with PCP. Patient seen and examined at bedside. Vital signs reviewed and stable. General: Nontoxic, no distress, appears at stated age Derm: Warm, dry Head: Atraumatic, normocephalic, symmetric Eyes: EOMI, no lid lag, anicteric sclera Mouth: No lip lesion, mucus membranes moist Cardiovascular: S1S2 reg, no murmur Lungs: CTA bilateral, no rhonchi, no rales, no accessory muscle use Abdominal: Soft, nontender to palpation, no guarding, no appreciable organomegaly Ext: No gross muscle atrophy, no edema, no contractures Neuro: CN II-XI grossly intact, no focal neuro deficits Psych: Alert, oriented, appropriate affect A total of 36 minutes of time were spent preparing this complex discharge summary. Patient was discharged on 10/13/2024 at 956. Patient Condition at Discharge: Good Plan - Discharge Summary Discharge Rx Participant: No New Discharge Prescriptions: New Vancomycin Oral Solution [Vancomycin HCl Oral Soln] 500 mg PO Q6HR #350 ml Continue Aspirin EC [Ecotrin Low Dose] 81 mg PO DAILY Ezetimibe [Zetia] 10 mg PO DAILY Furosemide [Lasix] 40 mg PO DAILY Famotidine [Pepcid] 20 mg PO BID Apixaban [Eliquis] 5 mg PO BID Acetaminophen Tab [Tylenol] 1,000 mg PO BID PRN PRN Reason: Fever And/ Or Pain Co Q-10 100mg 100 mg PO DAILY Primidone [Mysoline] 50 mg PO HS Ramelteon [Rozerem] 8 mg PO HS PRN PRN Reason: Insomnia Potassium Chloride ER [K-Dur 10] 10 meq PO BID NIFEdipine [NIFEdipine ER (Osmotic)] 60 mg PO DAILY carvediloL [Coreg] 25 mg PO BID Discontinued Loperamide [Imodium] 2 mg PO QID PRN PRN Reason: Diarrhea Discharge Medication List Primidone [Mysoline] 50 mg PO HS 08/23/21 [History] Aspirin EC [Ecotrin Low Dose] 81 mg PO DAILY 08/13/23 [History] Ezetimibe [Zetia] 10 mg PO DAILY 09/05/24 [History] Ramelteon [Rozerem] 8 mg PO HS PRN 09/05/24 [History] Acetaminophen Tab [Tylenol] 1,000 mg PO BID PRN 10/09/24 [History] Apixaban [Eliquis] 5 mg PO BID 10/09/24 [History] Co Q-10 100mg 100 mg PO DAILY 10/09/24 [History] Famotidine [Pepcid] 20 mg PO BID 10/09/24 [History] Furosemide [Lasix] 40 mg PO DAILY 10/09/24 [History] NIFEdipine [NIFEdipine ER (Osmotic)] 60 mg PO DAILY 10/09/24 [History] Potassium Chloride ER [K-Dur 10] 10 meq PO BID 10/09/24 [History] carvediloL [Coreg] 25 mg PO BID 10/09/24 [History] Vancomycin Oral Solution [Vancomycin HCl Oral Soln] 500 mg PO Q6HR #350 ml 10/13/24 [Rx] Follow up Appointment(s)/Referral(s): Mikhail Mills, DO [Primary Care Provider] - 1-2 days (Office is closed at time of discharge. Please call for follow-up appointment.) Patient Instructions/Handouts: C. Diff (Clostridioides Difficile) Infection (DC) Activity/Diet/Wound Care/Special Instructions: Please see your PCP. Discharge Disposition: HOME SELF-CARE
== END 2024-10-13 11:07 | disposition home or self-care (01) | DRG 372 ==
LOC: EC 16:11 → 5NMEDONC 20:41 → 4SSUR 10-10 06:53
PROVIDERS: ADMIT Internal Medicine; ATTEND Internal Medicine
DX: A04.72 Enterocolitis due to Clostridium difficile, not specified as recurrent (principal); E87.1 Hypo-osmolality and hyponatremia; K56.609 Unspecified intestinal obstruction, unspecified as to partial versus complete obstruction; E87.6 Hypokalemia; S05.12XA Contusion of eyeball and orbital tissues, left eye, initial encounter; I10 Essential (primary) hypertension; E78.5 Hyperlipidemia, unspecified; I25.10 Atherosclerotic heart disease of native coronary artery without angina pectoris; I48.0 Paroxysmal atrial fibrillation; K21.9 Gastro-esophageal reflux disease without esophagitis; M19.90 Unspecified osteoarthritis, unspecified site; R73.9 Hyperglycemia, unspecified; T36.95XA Adverse effect of unspecified systemic antibiotic, initial encounter; Z88.8 Allergy status to other drugs, medicaments and biological substances; Z95.1 Presence of aortocoronary bypass graft; Z79.01 Long term (current) use of anticoagulants; Z79.82 Long term (current) use of aspirin; Z88.9 Allergy status to unspecified drugs, medicaments and biological substances; I25.2 Old myocardial infarction; Z90.49 Acquired absence of other specified parts of digestive tract
CPT/HCPCS: 36415; 70450; 70486; 71046; 74019; 74177; 74250; 80048; 80053; 82150; 83036; 83605; 83690; 83735; 83880; 84484; 85025; 85379; 85610; 85730; 87324; 93005; 94760; 96361; 96374; 96375; 99285